=== PATIENT | male | born 1980 | race American Indian/Alaskan Native ===

== ENCOUNTER 2020-09-05 14:08 | Emergency (ER) | payer MEDICARE ==
--- NOTE | 2020-09-05 14:44 | Emergency Department Report ---
ED General Adult HPI - General Chief complaint: Medical Clearance Stated complaint: SOB Time Seen by Provider: 09/05/20 14:20 Source: patient, EMS Mode of arrival: Stretcher Limitations: No Limitations - History of Present Illness Initial comments: 39-year-old male, history of ESRD, heart transplant 2019, hypertension, presents to ED for dialysis. Patient states he has missed 4 dialysis sessions due to transportation issues. Patient is moving from [place] to [place] and trying to get established with the dialysis center on the side of [facility]. Patient states dialysis center unable to dialyze him because they have not received paperwork from his previous center. Patient states his girlfriend made him come to the ER to get dialysis. Associated Symptoms: shortness of breath - Related Data Home Medications Medication Instructions Recorded Confirmed Last Taken lisinopriL [Zestril] 20 mg PO QDAY 12/07/14 12/07/14 12/05/14 20 Previous Rx's Medication Instructions Recorded Last Taken Type Famotidine [Pepcid] 20 mg PO BID #60 tablet 05/31/14 12/05/14 Rx 20 HYDROcodone/APAP 5-325 [[place] 1 each PO Q6H PRN #20 tablet 06/01/14 12/05/14 Rx 5-325 mg TAB] 1 Famotidine [Pepcid] 20 mg PO DAILY #30 tablet 07/20/14 12/05/14 Rx 20 Albuterol Mdi (or & Nicu Only) 2 puff IH QID PRN #1 inha 12/07/14 Unknown Rx [ProAir HFA Inhaler] Aspirin EC [Halfprin EC] 81 mg PO QDAY #30 tablet. 12/07/14 Unknown Rx Furosemide [Lasix] 40 mg PO DAILY #60 tablet 12/07/14 Unknown Rx Potassium Chloride [K-Dur] 20 meq PO QDAY #30 tablet 12/07/14 Unknown Rx Simvastatin (Nf) [Zocor TAB] 20 mg PO QHS #30 tablet 12/07/14 Unknown Rx amLODIPine 10 mg PO QDAY #30 tablet 12/07/14 Unknown Rx carvediloL [Coreg] 25 mg PO BID #60 tablet 12/07/14 Unknown Rx cloNIDine [Catapres] 0.3 mg PO BID #60 tablet 12/07/14 Unknown Rx hydrALAZINE [Apresoline TAB] 100 mg PO TID #90 tab 12/07/14 Unknown Rx lisinopriL [Zestril TAB] 20 mg PO QDAY #30 tablet 12/07/14 Unknown Rx Allergies Allergy/AdvReac Type Severity Reaction Status Date / Time No Known Allergies Allergy Verified 10/17/13 04:10 ED Review of Systems ROS: Stated complaint: SOB Other details as noted in HPI Comment: All other systems reviewed and negative Constitutional: denies: fever Respiratory: shortness of breath Gastrointestinal: denies: nausea, vomiting ED Past Medical Hx - Past Medical History Hx Hypertension: Yes Hx CVA: Yes Hx Heart Attack/AMI: No Hx Congestive Heart Failure: Yes Hx Diabetes: No Hx Deep Vein Thrombosis: Yes Hx Pulmonary Embolism: Yes Hx Renal Disease: Yes Hx Arthritis: No Hx Headaches / Migraines: No Hx Kidney Stones: No Hx Asthma: Yes Hx COPD: No Hx Tuberculosis: No Additional medical history: heart problems - Surgical History Hx Coronary Stent: No Hx Pacemaker: No Hx Internal Defibrillator: No Hx Cholecystectomy: No Hx Appendectomy: No Additional Surgical History: abd hernia, not repaired yet; heart transplant April - Social History Smoking Status: Former Smoker Substance Use Type: Marijuana - Medications Home Medications: Home Medications Medication Instructions Recorded Confirmed Last Taken Type Famotidine [Pepcid] 20 mg PO BID #60 tablet 05/31/14 12/07/14 12/05/14 Rx 20 HYDROcodone/APAP 5-325 [[place] 1 each PO Q6H PRN #20 tablet 06/01/14 12/07/14 12/05/14 Rx 5-325 mg TAB] 1 Famotidine [Pepcid] 20 mg PO DAILY #30 tablet 07/20/14 12/07/14 12/05/14 Rx 20 Albuterol Mdi (or & Nicu Only) 2 puff IH QID PRN #1 inha 12/07/14 Unknown Rx [ProAir HFA Inhaler] Aspirin EC [Halfprin EC] 81 mg PO QDAY #30 tablet. 12/07/14 Unknown Rx Furosemide [Lasix] 40 mg PO DAILY #60 tablet 12/07/14 Unknown Rx Potassium Chloride [K-Dur] 20 meq PO QDAY #30 tablet 12/07/14 Unknown Rx Simvastatin (Nf) [Zocor TAB] 20 mg PO QHS #30 tablet 12/07/14 Unknown Rx amLODIPine 10 mg PO QDAY #30 tablet 12/07/14 Unknown Rx carvediloL [Coreg] 25 mg PO BID #60 tablet 12/07/14 Unknown Rx cloNIDine [Catapres] 0.3 mg PO BID #60 tablet 12/07/14 Unknown Rx hydrALAZINE [Apresoline TAB] 100 mg PO TID #90 tab 12/07/14 Unknown Rx lisinopriL [Zestril TAB] 20 mg PO QDAY #30 tablet 12/07/14 Unknown Rx lisinopriL [Zestril] 20 mg PO QDAY 12/07/14 12/07/14 12/05/14 History 20 ED Physical Exam - General Limitations: No Limitations General appearance: alert, in no apparent distress - Head Head exam: Present: atraumatic, normocephalic - Eye Eye exam: Present: normal appearance, EOMI - ENT ENT exam: Present: mucous membranes moist - Neck Neck exam: Present: normal inspection - Respiratory Respiratory exam: Present: normal lung sounds bilaterally. Absent: respiratory distress - Cardiovascular Cardiovascular Exam: Present: regular rate, normal rhythm - GI/Abdominal GI/Abdominal exam: Present: soft. Absent: distended, tenderness - Extremities Exam Extremities exam: Present: normal inspection - Neurological Exam Neurological exam: Present: alert, oriented X3 - Psychiatric Psychiatric exam: Present: normal affect, normal mood - Skin Skin exam: Present: warm, dry, intact, normal color ED Course Vital Signs 09/05/20 09/05/20 09/05/20 14:45 15:00 15:30 Temperature 98.0 F Pulse Rate 68 60 68 Respiratory 20 15 21 Rate Blood Pressure 138/79 147/92 Blood Pressure 142/89 [Left] O2 Sat by Pulse 99 100 100 Oximetry ED Medical Decision Making - Lab Data Result diagrams: 09/05/20 14:50 09/05/20 14:50 - Radiology Data Radiology results: report reviewed, image reviewed - Medical Decision Making Patient does not meet criteria for emergent dialysis. Potassium is normal. Chacho bass is in no respiratory distress. Chest x-ray shows no pulmonary edema. O2 sats are normal. Patient advised to follow-up with his dialysis center on an outpatient basis. Patient advised to return to ED if he feels worse. - Differential Diagnosis Hyperkalemia, pulmonary edema Critical care attestation.: If time is entered above; I have spent that time in minutes in the direct care of this critically ill patient, excluding procedure time. ED Disposition Clinical Impression: ESRD (end stage renal disease) Disposition: -01 TO HOME OR SELFCARE Is pt being admited?: No Condition: Stable Instructions: Dialysis Referrals: PRIMARY CARE, [Primary Care Provider] - 3-5 Days PEARL MAYFIELD MD [Staff Physician] - 3-5 Days Time of Disposition: 16:03
[2020-09-05 15:14] LABS: Basophils % (Auto) 0.4 % (0.0-1.8); Eosinophils # (Auto) 0.1 K/mm3 (0.0-0.4); Eosinophils % (Auto) 0.8 % (0.0-4.3); Hemoglobin 11.4 gm/dl (11.8-15.2); Lymphocytes # (Auto) 1.2 K/mm3 (1.2-5.4); Lymphocytes % (Auto) 18.2 % (13.4-35.0); Mean Corpuscular HGB Conc 33 % (32-34); Mean Corpuscular Volume 87 fl (84-94); Monocytes % (Auto) 15.4 % (0.0-7.3); Platelet Count 139 K/mm3 (140-440); Red Blood Count 3.91 M/mm3 (3.65-5.03); Red Cell Distribution Width 16.6 % (13.2-15.2)
--- NOTE | 2020-09-05 15:20 | XRay Report ---
CHEST 1 VIEW INDICATION: sob. COMPARISON: 07/16/2014 FINDINGS: SUPPORT DEVICES: None. HEART: Normal heart size with sternotomy change and endovascular graft in the aortic arch. LUNGS/PLEURA: No acute air space or interstitial disease. ADDITIONAL FINDINGS: None. IMPRESSION: 1. No acute findings. Signer Name: Jovon Agustin MD Signed: 09/05/2020 3:16 PM Workstation Name: [id number]
[2020-09-05 15:34] LABS: Calcium 8.1 mg/dL (8.4-10.2)
[2020-09-05 15:44] VITALS: BP 147/92
== END 2020-09-05 16:15 | disposition home or self-care (01) ==
LOC: ED 14:08
DX: I13.2 Hypertensive heart and chronic kidney disease with heart failure and with stage 5 chronic kidney disease, or end stage renal disease (principal); N18.6 End stage renal disease; I50.9 Heart failure, unspecified; J45.909 Unspecified asthma, uncomplicated; F12.10 Cannabis abuse, uncomplicated; Z86.73 Personal history of transient ischemic attack (TIA), and cerebral infarction without residual deficits; Z86.718 Personal history of other venous thrombosis and embolism; Z86.711 Personal history of pulmonary embolism; Z98.890 Other specified postprocedural states; Z87.891 Personal history of nicotine dependence; Z79.899 Other long term (current) drug therapy
CPT/HCPCS: 36415; 71045; 80048; 85025

== ENCOUNTER 2020-09-12 03:20 | Emergency (ER) | payer MEDICARE ==
[2020-09-12 06:05] LABS: Basophils % (Auto) 0.6 % (0.0-1.8); Eosinophils # (Auto) 0.2 K/mm3 (0.0-0.4); Hematocrit 35.9 % (35.5-45.6); Hemoglobin 11.6 gm/dl (11.8-15.2); Lymphocytes # (Auto) 1.3 K/mm3 (1.2-5.4); Mean Corpuscular HGB Conc 33 % (32-34); Mean Corpuscular Volume 87 fl (84-94); Monocytes # (Auto) 0.9 K/mm3 (0.0-0.8); Monocytes % (Auto) 10.4 % (0.0-7.3); Platelet Count 165 K/mm3 (140-440); Red Blood Count 4.12 M/mm3 (3.65-5.03)
--- NOTE | 2020-09-12 06:11 | XRay Report ---
CHEST 2 VIEWS INDICATION / CLINICAL INFORMATION: SOB. COMPARISON: 09/05/2020 FINDINGS: SUPPORT DEVICES: Endovascular aortic graft is present and unchanged in appearance/position. HEART / MEDIASTINUM: Sternotomy. Cardiac silhouette size is normal. LUNGS / PLEURA: No significant pulmonary or pleural abnormality. No pneumothorax. No interstitial pul monary edema present. ADDITIONAL FINDINGS: No significant additional findings. IMPRESSION: 1. No acute findings. No interval change. Signer Name: Pauly Kelsey MD Signed: 09/12/2020 6:07 AM Workstation Name: [id number]
[2020-09-12 06:25] LABS: Albumin 3.9 g/dL (3.9-5); Calcium 8.6 mg/dL (8.4-10.2)
--- NOTE | 2020-09-12 11:00 | Emergency Department Report ---
ED General Adult HPI - General Chief complaint: Dyspnea/Respdistress Stated complaint: DIFF BREATHING PUI?: No Time Seen by Provider: 09/12/20 10:37 Source: patient, RN notes reviewed, old records reviewed Mode of arrival: Ambulatory Limitations: No Limitations - History of Present Illness Initial comments: The patient was evaluated in the emergency department for symptoms described in the history of present illness. He/she was evaluated in the context of the global COVID-19 pandemic, which necessitated consideration that the patient might be at risk for infection with the virus that causes COVID-19. Institutional protocols and algorithms that pertain to the evaluation of patients at risk for COVID-19 are in a state of rapid change based on information released by regulatory bodies including the CDC and federal and [facility] organizations. These policies and algorithms were followed during the patient's care in the emergency department. Please note that these policies, procedures and recommendations changed on a rapid basis. Patient is a 39-year-old gentleman. He is not known to myself previously. He has a history of end-stage renal disease on hemodialysis. He typically gets dialysis Wednesday, Wednesday, Wednesday. His last dialysis session was 1 week ago. Patient reports that he lives in [place], and typically gets his dialysis at [facility], [address], [id number] He previously saw a Dr. Castellanos, in [place], and was seeing a Dr Goldsmith, in [place]. He was receiving his hemodialysis at the aforementioned center, but reports that he recently moved locally, and he reports that his aforementioned hemodialysis center is supposed to be transferring his care to a local nephrology clinic. However, he reports that he does not have a local multimedia project manager, or a local hemodialysis center/chair time. He presents to the ER with a complaint of painless lower extremity swelling and subjective abdominal swelling. He denies headache, neck pain, chest pain. He denies vomiting, diaphoresis. He has mild shortness of breath. 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 -: Gradual, days(s) Location: abdomen, left, right, lower extremity Consistency: constant Improves with: other (Symptoms typically resolve with hemodialysis) Worsens with: other (Worsen without access to hemodialysis) Associated Symptoms: shortness of breath - Related Data Home Medications Medication Instructions Recorded Confirmed Last Taken lisinopriL [Zestril] 20 mg PO QDAY 12/07/14 12/07/14 12/05/14 20 Previous Rx's Medication Instructions Recorded Last Taken Type Famotidine [Pepcid] 20 mg PO BID #60 tablet 05/31/14 12/05/14 Rx 20 HYDROcodone/APAP 5-325 [[place] 1 each PO Q6H PRN #20 tablet 06/01/14 12/05/14 Rx 5-325 mg TAB] 1 Famotidine [Pepcid] 20 mg PO DAILY #30 tablet 07/20/14 12/05/14 Rx 20 Albuterol Mdi (or & Nicu Only) 2 puff IH QID PRN #1 inha 12/07/14 Unknown Rx [ProAir HFA Inhaler] Aspirin EC [Halfprin EC] 81 mg PO QDAY #30 tablet. 12/07/14 Unknown Rx Furosemide [Lasix] 40 mg PO DAILY #60 tablet 12/07/14 Unknown Rx Potassium Chloride [K-Dur] 20 meq PO QDAY #30 tablet 12/07/14 Unknown Rx Simvastatin (Nf) [Zocor TAB] 20 mg PO QHS #30 tablet 12/07/14 Unknown Rx amLODIPine 10 mg PO QDAY #30 tablet 12/07/14 Unknown Rx carvediloL [Coreg] 25 mg PO BID #60 tablet 12/07/14 Unknown Rx cloNIDine [Catapres] 0.3 mg PO BID #60 tablet 12/07/14 Unknown Rx hydrALAZINE [Apresoline TAB] 100 mg PO TID #90 tab 12/07/14 Unknown Rx lisinopriL [Zestril TAB] 20 mg PO QDAY #30 tablet 12/07/14 Unknown Rx Allergies Allergy/AdvReac Type Severity Reaction Status Date / Time No Known Allergies Allergy Verified 10/17/13 04:10 ED Review of Systems ROS: Stated complaint: DIFF BREATHING Other details as noted in HPI Comment: Unobtainable due to pts medical conditions Respiratory: shortness of breath Cardiovascular: edema ED Past Medical Hx - Past Medical History Previous Medical History?: Yes Hx Hypertension: Yes Hx CVA: Yes Hx Heart Attack/AMI: No Hx Congestive Heart Failure: Yes Hx Diabetes: No Hx Deep Vein Thrombosis: Yes Hx Pulmonary Embolism: Yes Hx Renal Disease: Yes Hx Arthritis: No Hx Headaches / Migraines: No Hx Kidney Stones: No Hx Asthma: Yes Hx COPD: No Hx Tuberculosis: No Additional medical history: heart problems - Surgical History Hx Coronary Stent: No Hx Pacemaker: No Hx Internal Defibrillator: No Hx Cholecystectomy: No Hx Appendectomy: No Additional Surgical History: abd hernia, not repaired yet; heart transplant April - Social History Smoking Status: Never Smoker Substance Use Type: None - Medications Home Medications: Home Medications Medication Instructions Recorded Confirmed Last Taken Type Famotidine [Pepcid] 20 mg PO BID #60 tablet 05/31/14 12/07/14 12/05/14 Rx 20 HYDROcodone/APAP 5-325 [[place] 1 each PO Q6H PRN #20 tablet 06/01/14 12/07/14 12/05/14 Rx 5-325 mg TAB] 1 Famotidine [Pepcid] 20 mg PO DAILY #30 tablet 07/20/14 12/07/14 12/05/14 Rx 20 Albuterol Mdi (or & Nicu Only) 2 puff IH QID PRN #1 inha 12/07/14 Unknown Rx [ProAir HFA Inhaler] Aspirin EC [Halfprin EC] 81 mg PO QDAY #30 tablet. 12/07/14 Unknown Rx Furosemide [Lasix] 40 mg PO DAILY #60 tablet 12/07/14 Unknown Rx Potassium Chloride [K-Dur] 20 meq PO QDAY #30 tablet 12/07/14 Unknown Rx Simvastatin (Nf) [Zocor TAB] 20 mg PO QHS #30 tablet 12/07/14 Unknown Rx amLODIPine 10 mg PO QDAY #30 tablet 12/07/14 Unknown Rx carvediloL [Coreg] 25 mg PO BID #60 tablet 12/07/14 Unknown Rx cloNIDine [Catapres] 0.3 mg PO BID #60 tablet 12/07/14 Unknown Rx hydrALAZINE [Apresoline TAB] 100 mg PO TID #90 tab 12/07/14 Unknown Rx lisinopriL [Zestril TAB] 20 mg PO QDAY #30 tablet 02/06/15 Unknown Rx lisinopriL [Zestril] 20 mg PO QDAY 12/07/14 12/07/14 12/05/14 History 20 ED Physical Exam - General Limitations: No Limitations General appearance: alert, in no apparent distress - Head Head exam: Present: atraumatic, normocephalic - Eye Eye exam: Present: normal appearance, EOMI. Absent: nystagmus - ENT ENT exam: Present: normal exam, normal orophraynx, mucous membranes moist, normal external ear exam - Neck Neck exam: Present: normal inspection, full ROM. Absent: tenderness, meningismus - Respiratory Respiratory exam: Present: normal lung sounds bilaterally. Absent: respiratory distress, wheezes, rales, rhonchi, stridor, decreased breath sounds - Cardiovascular Cardiovascular Exam: Present: regular rate, normal rhythm, normal heart sounds. Absent: bradycardia, tachycardia, irregular rhythm, systolic murmur, diastolic murmur, rubs, gallop - GI/Abdominal GI/Abdominal exam: Present: soft, normal bowel sounds, other. Absent: distended, tenderness, guarding, rebound, rigid, pulsatile mass - Rectal Rectal exam: Present: deferred - Extremities Exam Extremities exam: Present: normal inspection (Left upper extremity AV fistula noted, without redness, pus or streaking), full ROM, pedal edema (3+ edema noted in the bilateral lower extremities), other (2+ pulses noted in the bilateral upper and lower extremities. There is no palpable cord. negative Homans sign. Muscular compartments are soft. The pelvis is stable.). Absent: calf tenderness - Back Exam Back exam: Present: normal inspection, full ROM. Absent: tenderness, CVA tenderness (R), CVA tenderness (L), paraspinal tenderness, vertebral tenderness - Neurological Exam Neurological exam: Present: alert, oriented X3, other (No facial droop. Tongue midline. Extraocular movements intact bilaterally. Facial sensation intact to light touch in V1, V2, V3 distribution bilaterally. 5 and a 5 strength in 4 extremities. Sensation intact to light touch in 4 extremities.). Absent: motor sensory deficit - Psychiatric Psychiatric exam: Present: normal affect, normal mood - Skin Skin exam: Present: warm, dry, intact, normal color. Absent: rash ED Course Vital Signs 09/12/20 05:16 Temperature 97.8 F Pulse Rate 68 Respiratory 17 Rate Blood Pressure 175/100 O2 Sat by Pulse 97 Oximetry - Reevaluation(s) Reevaluation #1: 09/12/20 11:38 Change in plans. Patient is now going to leave AGAINST MEDICAL ADVICE. Patient is currently alert, oriented, clinically sober, and exhibits decision-making capacity. The patient is free from distracting injury. Risks of leaving, including , disability, paralysis, permanent loss of quality of life were discussed with the patient. He is able to articulate these risks in his own words. This discussion is witnessed by nurse Lilly Arias. The patient understands that he may return to the emergency room right away if and when he changes his mind. Hospital physician is updated. ED Medical Decision Making - Lab Data Result diagrams: 09/12/20 05:29 09/12/20 05:29 Vital Signs 09/12/20 05:16 Temperature 97.8 F Pulse Rate 68 Respiratory 17 Rate Blood Pressure 175/100 O2 Sat by Pulse 97 Oximetry Lab Results 09/12/20 09/12/20 Range/Units 05:29 05:29 WBC 8.3 (4.5-11.0) K/mm3 RBC 4.12 (3.65-5.03) M/mm3 Hgb 11.6 L (11.8-15.2) gm/dl Hct 35.9 (35.5-45.6) % MCV 87 (84-94) fl MCH 28 (28-32) pg MCHC 33 (32-34) % RDW 17.0 H (13.2-15.2) % Plt Count 165 (140-440) K/mm3 Lymph % (Auto) 16.0 (13.4-35.0) % [place] % (Auto) 10.4 H (0.0-7.3) % Eos % (Auto) 2.0 (0.0-4.3) % Baso % (Auto) 0.6 (0.0-1.8) % Lymph # (Auto) 1.3 (1.2-5.4) K/mm3 [place] # (Auto) 0.9 H (0.0-0.8) K/mm3 Eos # (Auto) 0.2 (0.0-0.4) K/mm3 Baso # (Auto) 0.0 (0.0-0.1) K/mm3 Seg Neutrophils % 71.0 H (40.0-70.0) % Seg Neutrophils # 5.9 (1.8-7.7) K/mm3 Sodium 143 (137-145) mmol/L Potassium 4.9 (3.6-5.0) mmol/L Chloride 111.5 H (98-107) mmol/L Carbon Dioxide 16 L (22-30) mmol/L Anion Gap 20 mmol/L BUN 77 H (9-20) mg/dL Creatinine 15.8 H (0.8-1.3) mg/dL Estimated GFR 4 ml/min BUN/Creatinine Ratio 5 % Glucose 75 (75-100) mg/dL Calcium 8.6 (8.4-10.2) mg/dL Total Bilirubin 0.30 (0.1-1.2) mg/dL AST 11 (5-40) units/L ALT 12 (7-56) units/L Alkaline Phosphatase 63 (35-129) units/L Total Protein 7.6 (6.3-8.2) g/dL Albumin 3.9 (3.9-5) g/dL Albumin/Globulin Ratio 1.1 % - EKG Data -: EKG Interpreted by Oh EKG shows normal: sinus rhythm Rate: normal - EKG Data When compared to previous EKG there are: previous EKG unavailable 09/12/20 11:13 Sinus rhythm, 65 bpm, left axis deviation, left anterior fascicular block, left ventricular hypertrophy, abnormal EKG, no complaint of chest pain. The EKG is not a STEMI - Radiology Data Radiology results: pending, report reviewed, image reviewed Print Report Referring Physician: ED DOC Patient Name: GEO ARANA Date of : 1980 Sex: Male Report Date: 2020-09-12 Report Status: Finalized Findings [facility] [address] [place] [address] XRay Report Signed Patient: GEO ARANA MR#: [id number] : 1980 Acct:[id number] Age/Sex: 39 / M ADM Date: 09/12/20 Loc: ED Attending Dr: Ordering Physician: ED MD LORE Date of Service: 09/12/20 Procedure(s): XR chest routine 2V Accession Number(s): [id number] cc: ED DOC, Fluoro Time In Minutes: CHEST 2 VIEWS INDICATION / CLINICAL INFORMATION: SOB. COMPARISON: 09/05/2020 FINDINGS: SUPPORT DEVICES: Endovascular aortic graft is present and unchanged in appearance/position. HEART / MEDIASTINUM: Sternotomy. Cardiac silhouette size is normal. LUNGS / PLEURA: No significant pulmonary or pleural abnormality. No pneumothorax. No interstitial pulmonary edema present. ADDITIONAL FINDINGS: No significant additional findings. IMPRESSION: 1. No acute findings. No interval change. Signer Name: Pauly Kelsey MD Signed: 09/12/2020 6:07 AM Workstation Name: [id number] Transcribed By: Dictated By: Pauly Kelsey MD Electronically Authenticated By: Pauly Kelsey MD Signed Date/Time: 09/12/20606 DD/ 5 TD/TT: - Medical Decision Making Differential diagnosis, including but not limited to: Uremia, azotemia, metabolic acidosis, end-stage renal disease on hemodialysis, need for urgent hemodialysis, noncompliance, case management director patient Assessment and plan: 39-year-old gentleman, who has not had hemodialysis for 1 week, complaining of lower extremity swelling, abdominal wall swelling, shortness of breath, found to have evidence of fluid overload, manifest by lower extremity edema, also found to have metabolic acidosis, azotemia, uremia, with unremarkable potassium. I discussed the patient's history, physical, and pertinent laboratory studies and imaging studies with nephrology on-call, Dr. Campbell. Admission for urgent hemodialysis is recommended. Hospital physician, Dr. Dee is to admit the patient to the medical service. Have discussed this with the patient, who is amenable to this plan of care. Have also initially reached out to case management, who have made some bandar mmendations regarding outpatient transportation, but will defer to the inpatient team to further follow-up with case management, once the patient has been medically optimized. Critical care attestation.: If time is entered above; I have spent that time in minutes in the direct care of this critically ill patient, excluding procedure time. ED Disposition Clinical Impression: Metabolic acidosis, Azotemia, ESRD (end stage renal disease) on dialysis, Uremia Disposition: LEFT AGAINST MED ADVICE Is pt being admited?: No Does the pt Need Aspirin: No Condition: Undetermined Additional Instructions: As we discussed, you have left the hospital/emergency room AGAINST MEDICAL ADVICE. By leaving, you risked , disability, paralysis, permanent loss of quality of life. The ER is open 24 hours a day, 7 days a week. It never closes. Please return to the emergency room right away if and when you change your mind. If you decide not to return to the emergency room, please follow-up with the listed physician referrals as soon as possible. Referrals: PEARL CAMPBELL MD [Staff Physician] - [facility]
[2020-09-12 13:31] VITALS: BP 158/81
== END 2020-09-12 11:48 | disposition left against medical advice (07) ==
LOC: ED 03:20
DX: I13.2 Hypertensive heart and chronic kidney disease with heart failure and with stage 5 chronic kidney disease, or end stage renal disease (principal); N18.6 End stage renal disease; I50.9 Heart failure, unspecified; E87.2 Acidosis; R79.89 Other specified abnormal findings of blood chemistry; J45.909 Unspecified asthma, uncomplicated; Z98.890 Other specified postprocedural states; Z86.718 Personal history of other venous thrombosis and embolism; Z86.711 Personal history of pulmonary embolism; Z99.2 Dependence on renal dialysis; Z79.899 Other long term (current) drug therapy
CPT/HCPCS: 36415; 71046; 80053; 85025; 93005

== ENCOUNTER 2020-10-27 02:34 | Emergency (ER) | payer MEDICARE ==
--- NOTE | 2020-10-27 20:48 | Event Note ---
ED Screening Note Date of service: 10/27/20 Time: 20:44 ED Screening Note: 40-year-old -Gabones[place] male with a multitude of comorbidities. Patient is end-stage renal and missed dialysis today. This initial assessment/diagnostic orders/clinical plan/treatment(s) is/are subject to change based on patients health status, clinical progression and re- assessment by fellow clinical providers in the ED. Further treatment and workup at subsequent clinical providers discretion. Patient/guardian urged not to elope from the ED as their condition may be serious if not clinically assessed and managed. Initial orders include:
--- NOTE | 2020-10-27 21:22 | XRay Report ---
CHEST 2 VIEWS INDICATION: sob,cough and rales. COMPARISON: 09/12/2020 FINDINGS: Support devices: None. Heart: Aortic stent graft in place Lungs: No acute air space or interstitial disease. Pleura: No significant pleural effusion. No pneumothorax. Additional findings: None. IMPRESSION: 1. No acute findings. Signer Name: Fidel Dorsey MD Signed: 10/27/2020 9:18 PM Workstation Name: [id number]
[2020-10-27 21:50] LABS: Basophils # (Auto) 0.1 K/mm3 (0.0-0.1); Basophils % (Auto) 0.9 % (0.0-1.8); Eosinophils # (Auto) 0.1 K/mm3 (0.0-0.4); Eosinophils % (Auto) 1.1 % (0.0-4.3); Hemoglobin 11.4 gm/dl (11.8-15.2); Lymphocytes # (Auto) 1.6 K/mm3 (1.2-5.4); Lymphocytes % (Auto) 22.8 % (13.4-35.0); Mean Corpuscular HGB Conc 34 % (32-34); Mean Corpuscular Volume 87 fl (84-94); Monocytes % (Auto) 14.7 % (0.0-7.3); Platelet Count 182 K/mm3 (140-440); Red Blood Count 3.91 M/mm3 (3.65-5.03)
[2020-10-27 22:03] LABS: Albumin 3.8 g/dL (3.9-5); Calcium 8.7 mg/dL (8.4-10.2)
[2020-10-28] MEDS ORDERED: amLODIPine 5 MG TAB PO ONE (01:55)
--- NOTE | 2020-10-28 01:59 | Emergency Department Report ---
HPI - General Chief Complaint: Pain General Time Seen by Provider: 10/28/20 01:40 - HPI HPI: This is a 40-year-old -[place] male presents to the emergency department with multiple complaints. The patient's main complaint is that he has been having some sharp, stabbing pains to the left leg that start down towards the ankle and radiate up. This has been going on for the past few days and today he says he has started to have the pains in the right leg as well. He denies any trauma, fall or inciting event. He denies any numbness, tingling, lower extremity swelling, rash or lesions. He has not taken anything for symptoms prior to presentation. Patient also says that he has had this pain in the past. Secondly, the patient complains of chronic right shoulder pain that he says "I think there is something going on with my rotator cuff." Third, the patient complains of a generalized rash that has been going on for "a minute." Because of the patient's leg pain, and since the patient has been waiting to be seen in this emergency department, the patient missed his dialysis that he was supposed to have this morning. He does not know the name of his veneer sawyer but gets dialyzed at [facility]. The patient's primary care physician is Dr. Cayetano Handley in [facility]. Patient denies any fever, chest pain, shortness of breath, nausea, vomiting or diaphoresis. ED Past Medical Hx - Past Medical History Previous Medical History?: Yes Hx Hypertension: Yes Hx CVA: Yes Hx Heart Attack/AMI: No Hx Congestive Heart Failure: Yes Hx Diabetes: No Hx Deep Vein Thrombosis: Yes Hx Pulmonary Embolism: Yes Hx Renal Disease: Yes Hx Arthritis: No Hx Headaches / Migraines: No Hx Kidney Stones: No Hx Asthma: Yes Hx COPD: No Hx Tuberculosis: No Additional medical history: heart problems, dialysis ,,Wed - Surgical History Hx Coronary Stent: No Hx Pacemaker: No Hx Internal Defibrillator: No Hx Cholecystectomy: No Hx Appendectomy: No Additional Surgical History: abd hernia, not repaired yet; heart transplant April - Social History Smoking Status: Current Every Day Smoker Substance Use Type: Marijuana - Medications Home Medications: Home Medications Medication Instructions Recorded Confirmed Last Taken Type Famotidine [Pepcid] 20 mg PO BID #60 tablet 05/31/14 12/07/14 12/05/14 Rx 20 Famotidine [Pepcid] 20 mg PO DAILY #30 tablet 07/20/14 12/07/14 12/05/14 Rx 20 Albuterol Mdi (or & Nicu Only) 2 puff IH QID PRN #1 inha 12/07/14 Unknown Rx [ProAir HFA Inhaler] Aspirin EC [Halfprin EC] 81 mg PO QDAY #30 tablet. 12/07/14 Unknown Rx Furosemide [Lasix] 40 mg PO DAILY #60 tablet 12/07/14 Unknown Rx Potassium Chloride [K-Dur] 20 meq PO QDAY #30 tablet 12/07/14 Unknown Rx Simvastatin (Nf) [Zocor TAB] 20 mg PO QHS #30 tablet 12/07/14 Unknown Rx amLODIPine 10 mg PO QDAY #30 tablet 12/07/14 Unknown Rx carvediloL [Coreg] 25 mg PO BID #60 tablet 12/07/14 Unknown Rx cloNIDine [Catapres] 0.3 mg PO BID #60 tablet 12/07/14 Unknown Rx hydrALAZINE [Apresoline TAB] 100 mg PO TID #90 tab 12/07/14 Unknown Rx lisinopriL [Zestril TAB] 20 mg PO QDAY #30 tablet 12/07/14 Unknown Rx lisinopriL [Zestril] 20 mg PO QDAY 12/07/14 12/07/14 12/05/14 History 20 HYDROcodone/APAP 5-325 [[place] 1 each PO Q6H PRN #10 tablet 10/28/20 Unknown Rx 5-325 mg TAB] ED Review of Systems ROS: Stated complaint: LT SHARP PAINS Other details as noted in HPI Comment: All other systems reviewed and negative Constitutional: denies: chills, fever Eyes: denies: eye pain, vision change ENT: denies: ear pain, throat pain Respiratory: denies: cough, shortness of breath Cardiovascular: denies: chest pain, palpitations Gastrointestinal: denies: abdominal pain, vomiting Genitourinary: denies: dysuria, discharge Musculoskeletal: arthralgia, myalgia. denies: joint swelling Skin: rash. denies: change in hair/nails Neurological: denies: headache, numbness, paresthesias Physical Exam - Physical Exam Vital Signs: Vital Signs 12/27/20 12/27/20 03:20 20:53 Temperature 97.9 F 98 F Pulse Rate 65 189 H Respiratory 16 18 Rate Blood Pressure 104/64 Blood Pressure 189/96 [Left] O2 Sat by Pulse 100 98 Oximetry Physical Exam: GENERAL: The patient is well-developed well-nourished. HENT: Normocephalic. Atraumatic. Patient has moist mucous membranes. EYES: Extraocular motions are intact. NECK: Supple. Trachea is midline. CHEST/LUNGS: Clear to auscultation. There is no respiratory distress noted. HEART/CARDIOVASCULAR: Regular. There is no tachycardia. There is no murmur. ABDOMEN: Abdomen is soft, nontender. Patient has normal bowel sounds. SKIN: Skin is warm and dry. Patient has some patchy areas where there appears to be a loss of pigmentation. NEURO: The patient is awake, alert, and oriented. The patient is cooperative. The patient has no focal neurologic deficits. Normal speech. MUSCULOSKELETAL: Unable to reproduce any tenderness to palpation along the bilateral lower extremities. There is no limitation range of motion. ED Course Vital Signs 10/27/20 10/27/20 03:20 20:53 Temperature 97.9 F 98 F Pulse Rate 65 189 H Respiratory 16 18 Rate Blood Pressure 104/64 Blood Pressure 189/96 [Left] O2 Sat by Pulse 100 98 Oximetry ED Medical Decision Making - Lab Data Result diagrams: 10/27/20 21:06 10/27/20 21:06 Lab Results 10/27/20 10/27/20 Range/Units 21:06 21:06 WBC 7.1 (4.5-11.0) K/mm3 RBC 3.91 (3.65-5.03) M/mm3 Hgb 11.4 L (11.8-15.2) gm/dl Hct 34.0 L (35.5-45.6) % MCV 87 (84-94) fl MCH 29 (28-32) pg MCHC 34 (32-34) % RDW 16.0 H (13.2-15.2) % Plt Count 182 (140-440) K/mm3 Lymph % (Auto) 22.8 (13.4-35.0) % [place] % (Auto) 14.7 H (0.0-7.3) % Eos % (Auto) 1.1 (0.0-4.3) % Baso % (Auto) 0.9 (0.0-1.8) % Lymph # (Auto) 1.6 (1.2-5.4) K/mm3 [place] # (Auto) 1.0 H (0.0-0.8) K/mm3 Eos # (Auto) 0.1 (0.0-0.4) K/mm3 Baso # (Auto) 0.1 (0.0-0.1) K/mm3 Seg Neutrophils % 60.5 (40.0-70.0) % Seg Neutrophils # 4.3 (1.8-7.7) K/mm3 Sodium 141 (137-145) mmol/L Potassium 4.0 (3.6-5.0) mmol/L Chloride 100.8 (98-107) mmol/L Carbon Dioxide 22 (22-30) mmol/L Anion Gap 22 mmol/L BUN 69 H (9-20) mg/dL Creatinine 14.9 H (0.8-1.3) mg/dL Estimated GFR 4 ml/min BUN/Creatinine Ratio 5 % Glucose 81 (75-100) mg/dL Calcium 8.7 (8.4-10.2) mg/dL Total Bilirubin 0.30 (0.1-1.2) mg/dL AST 11 (5-40) units/L ALT 10 (7-56) units/L Alkaline Phosphatase 71 (35-129) units/L Total Protein 8.5 H (6.3-8.2) g/dL Albumin 3.8 L (3.9-5) g/dL Albumin/Globulin Ratio 0.8 % - EKG Data -: EKG Interpreted by Mo EKG shows normal: sinus rhythm, axis (Left axis deviation), intervals, QRS complexes (Incomplete left bundle branch block, LVH), ST-T waves (T wave invers ions to the lateral leads) Rate: bradycardia (59 bpm) - EKG Data When compared to previous EKG there are: no significant change Interpretation: unchanged when compared t (09/12/20) - Radiology Data Radiology results: image reviewed interpreted by me: Chest x-ray does not show any acute process. There are no pleural effusions, obvious pneumonia and there is no pneumothorax. No significant cardiomegaly. - Medical Decision Making Patient presents to the emergency department with multiple chronic complaints. Patient says that he may have done something to his right shoulder, rotator cuff, but there has been no new trauma or injury. He has full range of motion of the right upper extremity and is neurovascularly intact. The patient has been given a referral for an orthopedist. Patient complains of a rash that is generalized and has been there for "a minute", indicating that it has been there for a while. The rash mostly appears to be some loss of pigmentation. It is not any type of medical emergency and the patient will be given a referral for outpatient follow-up with dermatology. The most recent or acute of his complaints is sharp shooting pains to the left lower extremity that has started to affect the right lower extremity as well. On examination the patient has full range of motion. There is no swelling. No significant rash or lesions. He appears neurovascularly intact. The patient h as been ambulatory. Patient has been given a prescription for some pain medication and an outpatient referral for an orthopedist. Because the patient came to be seen regarding his leg pains, he missed his dialysis session which was scheduled for Wednesday. Chest x-ray was done that does not show any pneumonia, pleural effusions, signs of volume overload. His labs have been mostly unremarkable except for the renal insufficiency consistent with his end-stage renal disease. No electrolyte abnormalities. The patient does not appear to require emergent dialysis. He has been instructed t o follow-up with his dialysis clinic and his veneer sawyer about how to proceed. Patient does present with some hypertension but has not been able to take his medications as he has been at this hospital for close to 24 hours. He was given a dose of amlodipine and told to go home and take his blood pressure medications. We talked about staying away from foods that are high in salt and caffeinated products and keeping a blood pressure log. The patient will return to the emergency department with any worsening of his symptoms or with any acute distress. Critical Care Time: No Critical care attestation.: If time is entered above; I have spent that time in minutes in the direct care of this critically ill patient, excluding procedure time. ED Disposition Clinical Impression: Bilateral lower extremity pain, Missed dialysis, Rash and nonspecific skin eruption Hypertension Qualifiers: Hypertension type: essential hypertension Qualified Code(s): I10 - Essential (primary) hypertension Right shoulder pain Qualifiers: Chronicity: chronic Qualified Code(s): M25.511 - Pain in right shoulder; G89.29 - Other chronic pain Disposition: TO HOME OR SELFCARE Is pt being admited?: No Condition: Stable Instructions: Shoulder Pain, Rash, Adult, Musculoskeletal Pain, Hypertension, Adult, Hypertension (ED) Additional Instructions: Please follow-up with your primary care physician in the next few days. I am giving you a referral for a local windows server administrator, Dr Gil, to follow-up regarding your rash. I am also giving you a referral for a local orthopedist, Dr. Duckworth, to follow-up regarding your leg pains and right shoulder pain. Please contact your dialysis facility, as well as your veneer sawyer, about getting dialysis today (wednesday) versus on Wednesday during your normal dialysis time slot. Take your medications as previously prescribed. Try to stay away from foods that are high in salt and caffeinated products. Keep a blood pressure log. You have been prescribed a medication that is sedating and therefore should not be taken prior to driving, working, and responsible for children and in no way should be mixed with alcohol of any quantity. Return to the emergency department with any worsening of your symptoms, new or concerning symptoms not addressed during this current emergency department vis it, or with any acute distress. Prescriptions: HYDROcodone/APAP 5-325 [[place] 5-325 mg TAB] 1 each PO Q6H PRN #10 tablet PRN Reason: Moderate Pain Referrals: PRIMARY CAREMD [Primary Care Provider] - 2-3 Days SARAH DUCKWORTH MD [Staff Physician] - 2-3 Days FAWAD GIL MD [Staff Physician] - 2-3 Days Climate Change Risk Assessor, Your [Other] - 2-3 Days Time of Disposition: 02:04
[2020-10-28] MEDS ORDERED: ACETAMINOPHEN 325 MG TAB PO ONE (02:07)
[2020-10-28 02:11] VITALS: BP 174/90
== END 2020-10-28 02:23 | disposition home or self-care (01) ==
LOC: ED 02:34
DX: M25.511 Pain in right shoulder (principal); M79.662 Pain in left lower leg; M79.661 Pain in right lower leg; I11.0 Hypertensive heart disease with heart failure; R21 Rash and other nonspecific skin eruption; Z91.15 Patient's noncompliance with renal dialysis; I50.9 Heart failure, unspecified; J45.909 Unspecified asthma, uncomplicated; F17.200 Nicotine dependence, unspecified, uncomplicated; F12.10 Cannabis abuse, uncomplicated; Z79.899 Other long term (current) drug therapy
CPT/HCPCS: 36415; 71046; 80053; 85025; 93005

== ENCOUNTER 2021-02-20 14:29 | Emergency (ER) | payer MEDICARE ==
[2021-02-20 15:03] VITALS: BP 185/96
== END 2021-02-20 19:12 | disposition left against medical advice (07) ==
LOC: ED 14:29
DX: Z51.89 Encounter for other specified aftercare (principal); Z53.21 Procedure and treatment not carried out due to patient leaving prior to being seen by health care provider

== ENCOUNTER 2021-08-25 10:37 | Observation (INO) | payer MEDICARE ==
--- NOTE | 2021-08-25 11:30 | Emergency Department Report ---
ED Shortness of Breath HPI - General Chief Complaint: Extremity Problem,Nontraumatic Stated Complaint: SOB Time Seen by Provider: 08/25/21 11:11 Source: patient Mode of arrival: Stretcher Limitations: No Limitations - History of Present Illness Initial Comments: 40-year-old male, history of ESRD, presents to ED with shortness of breath x1 week. Patient states he has been going to dialysis, however he is still having some dyspnea and also having swelling in the bilateral lower extremities. Patient states he was last dialyzed 3 days ago, and is due for dialysis again this evening. Patient states he came to the ED instead because he cannot take enough fluid off of him. Patient reports his supervisor salvage gave him a prescription for some Lasix, but states that that is not helping. Event Coordinator: Dr. Bruce NORRIS Complaint: shortness of breath -: week(s) (1) Improves With: rest Worsens With: exertion Associated Symptoms: cough Treatments Prior to Arrival: none - Related Data Home Oxygen Therapy: No Home Medications Medication Instructions Recorded Confirmed Last Taken lisinopriL [Zestril] 20 mg PO QDAY 12/07/14 12/07/14 12/05/14 20 Previous Rx's Medication Instructions Recorded Last Taken Type Famotidine [Pepcid] 20 mg PO BID #60 tablet 05/31/14 12/05/14 Rx 20 Famotidine [Pepcid] 20 mg PO DAILY #30 tablet 07/20/14 12/05/14 Rx 20 Albuterol Mdi (or & Nicu Only) 2 puff IH QID PRN #1 inha 12/07/14 Unknown Rx [ProAir HFA Inhaler] Aspirin EC [Halfprin EC] 81 mg PO QDAY #30 tablet. 12/07/14 Unknown Rx Furosemide [Lasix] 40 mg PO DAILY #60 tablet 12/07/14 Unknown Rx Potassium Chloride [K-Dur] 20 meq PO QDAY #30 tablet 12/07/14 Unknown Rx Simvastatin (Nf) [Zocor TAB] 20 mg PO QHS #30 tablet 12/07/14 Unknown Rx amLODIPine 10 mg PO QDAY #30 tablet 12/07/14 Unknown Rx carvediloL [Coreg] 25 mg PO BID #60 tablet 12/07/14 Unknown Rx cloNIDine [Catapres] 0.3 mg PO BID #60 tablet 12/07/14 Unknown Rx hydrALAZINE [Apresoline TAB] 100 mg PO TID #90 tab 12/07/14 Unknown Rx lisinopriL [Zestril TAB] 20 mg PO QDAY #30 tablet 12/07/14 Unknown Rx HYDROcodone/APAP 5-325 [[place] 1 each PO Q6H PRN #10 tablet 10/28/20 Unknown Rx 5-325 mg TAB] Allergies Allergy/AdvReac Type Severity Reaction Status Date / Time No Known Allergies Allergy Verified 02/20/21 15:01 ED Review of Systems ROS: Stated complaint: SOB Other details as noted in HPI Comment: All other systems reviewed and negative Respiratory: cough, shortness of breath Cardiovascular: edema ED Past Medical Hx - Past Medical History Previous Medical History?: Yes Hx Hypertension: Yes Hx CVA: Yes Hx Heart Attack/AMI: No Hx Congestive Heart Failure: Yes Hx Diabetes: No Hx Deep Vein Thrombosis: Yes Hx Pulmonary Embolism: Yes Hx Renal Disease: Yes Hx Arthritis: No Hx Headaches / Migraines: No Hx Kidney Stones: No Hx Asthma: Yes Hx COPD: No Hx Tuberculosis: No Additional medical history: heart problems - Surgical History Hx Coronary Stent: No Hx Pacemaker: No Hx Internal Defibrillator: No Hx Cholecystectomy: No Hx Appendectomy: No Additional Surgical History: abd hernia, not repaired yet; heart transplant April - Social History Smoking Status: Never Smoker Substance Use Type: None - Medications Home Medications: Home Medications Medication Instructions Recorded Confirmed Last Taken Type Famotidine [Pepcid] 20 mg PO BID #60 tablet 05/31/14 12/07/14 12/05/14 Rx 20 Famotidine [Pepcid] 20 mg PO DAILY #30 tablet 07/20/14 12/07/14 12/05/14 Rx 20 Albuterol Mdi (or & Nicu Only) 2 puff IH QID PRN #1 inha 12/07/14 Unknown Rx [ProAir HFA Inhaler] Aspirin EC [Halfprin EC] 81 mg PO QDAY #30 tablet. 12/07/14 Unknown Rx Furosemide [Lasix] 40 mg PO DAILY #60 tablet 12/07/14 Unknown Rx Potassium Chloride [K-Dur] 20 meq PO QDAY #30 tablet 12/07/14 Unknown Rx Simvastatin (Nf) [Zocor TAB] 20 mg PO QHS #30 tablet 12/07/14 Unknown Rx amLODIPine 10 mg PO QDAY #30 tablet 12/07/14 Unknown Rx carvediloL [Coreg] 25 mg PO BID #60 tablet 12/07/14 Unknown Rx cloNIDine [Catapres] 0.3 mg PO BID #60 tablet 12/07/14 Unknown Rx hydrALAZINE [Apresoline TAB] 100 mg PO TID #90 tab 12/07/14 Unknown Rx lisinopriL [Zestril TAB] 20 mg PO QDAY #30 tablet 12/07/14 Unknown Rx lisinopriL [Zestril] 20 mg PO QDAY 12/07/14 12/07/14 12/05/14 History 20 HYDROcodone/APAP 5-325 [[place] 1 each PO Q6H PRN #10 tablet 10/28/20 Unknown Rx 5-325 mg TAB] ED Physical Exam - General Limitations: No Limitations General appearance: alert, in no apparent distress - Head Head exam: Present: atraumatic, normocephalic - Eye Eye exam: Present: normal appearance, EOMI - ENT ENT exam: Present: mucous membranes moist - Neck Neck exam: Present: normal inspection - Respiratory Respiratory exam: Present: respiratory distress, other (Slightly tachypneic) - Cardiovascular Cardiovascular Exam: Present: regular rate, normal rhythm - GI/Abdominal GI/Abdominal exam: Present: soft. Absent: distended, tenderness - Extremities Exam Extremities exam: Present: other (2+ pitting edema bilateral lower legs) - Neurological Exam Neurological exam: Present: alert, oriented X3 - Psychiatric Psychiatric exam: Present: normal affect, normal mood - Skin Skin exam: Present: warm, dry, intact, normal color ED Course Vital Signs 08/25/21 08/25/21 08/25/21 10:56 12:43 15:15 Temperature 98 F Pulse Rate 91 H 84 88 Respiratory 16 16 16 Rate Blood Pressure 154/90 Blood Pressure 154/99 172/97 [Left] O2 Sat by Pulse 99 100 97 Oximetry - Reevaluation(s) Reevaluation #1: 08/25/21 12:40 Dr Bruce price. - Consultations Consultation #1: 08/25/21 14:[address] Campbell. Will consult on patient. ED Medical Decision Making - Lab Data Result diagrams: 08/25/21 11:54 08/25/21 11:54 - EKG Data -: EKG Interpreted by Me EKG shows normal: sinus rhythm, QRS complexes Rate: normal - EKG Data Interpretation: LVH, other (T wave inversions anterolateral leads; prolonged QT) - Radiology Data Radiology results: report reviewed, image reviewed - Medical Decision Making 40-year-old male, on dialysis, presents to ED with shortness of breath x1 week. Patient states he has been going to dialysis but is still having some pitting edema of the lower extremities and difficulty breathing. Chest x-ray does show some pulmonary edema. Potassium elevated at 6.1. According to nurse, patient refused meds for hyperkalemia treatment. I spoke with Dr. Campebll who agrees to arrange for dialysis. Patient will be admitted by Dr. Dee, hospitalist, for further management. - Differential Diagnosis Pulmonary edema, pneumonia, hyperkalemia Critical Care Time: Yes Critical care time in (mins) excluding proc time.: 35 Critical care attestation.: If time is entered above; I have spent that time in minutes in the direct care of this critically ill patient, excluding procedure time. Critical Care Time: 35 min ED Disposition Clinical Impression: Hyperkalemia, ESRD needing dialysis Pulmonary edema Qualifiers: Chronicity: acute Qualified Code(s): J81.0 - Acute pulmonary edema Disposition: 09 ADMITTED INPATIENT Is pt being admited?: Yes Condition: Stable
--- NOTE | 2021-08-25 12:03 | XRay Report ---
CHEST 1 VIEW 08/25/2021 10:43 AM INDICATION / CLINICAL INFORMATION: SOB. COMPARISON: 10/27/20. FINDINGS: SUPPORT DEVICES: None. HEART / MEDIASTINUM: Median sternotomy. Endovascular stent graft in the aortic arch has not changed. Mild cardiomegaly is stable. There is mild prominence of the central pulmonary vessels. LUNGS / PLEURA: Mild patchy parenchymal disease is present in the perihilar regions and both mid to l ower lung zones, new since the prior study. There is a trace amount of right pleural fluid. No pneumo thorax. ADDITIONAL FINDINGS: No significant additional findings. IMPRESSION: Mild congestive heart failure. Signer Name: Madhu Brewer MD Signed: 08/25/2021 11:59 AM Workstation Name: [employer]
[2021-08-25 12:14] LABS: Basophils % (Auto) 0.3 % (0.0-1.8); Eosinophils # (Auto) 0.1 K/mm3 (0.0-0.4); Eosinophils % (Auto) 1.2 % (0.0-4.3); Hematocrit 28.5 % (35.5-45.6); Hemoglobin 8.8 gm/dl (11.8-15.2); Lymphocytes # (Auto) 0.9 K/mm3 (1.2-5.4); Lymphocytes % (Auto) 10.8 % (13.4-35.0); Mean Corpuscular HGB Conc 31 % (32-34); Mean Corpuscular Volume 92 fl (84-94); Monocytes # (Auto) 0.6 K/mm3 (0.0-0.8); Platelet Count 125 K/mm3 (140-440); Red Blood Count 3.11 M/mm3 (3.65-5.03); Red Cell Distribution Width 18.8 % (13.2-15.2)
[2021-08-25 12:20] LABS: Calcium 7.9 mg/dL (8.4-10.2)
[2021-08-25] MEDS ORDERED: INSULIN REGULAR, HUMAN 100 UNITS/1 ML IV ONE (12:41)
[2021-08-25] MEDS ORDERED: DEXTROSE 50% IN WATER (25GM) 50 ML SYRINGE IV ONE (12:41)
[2021-08-25] MEDS ORDERED: CALCIUM GLUCONATE 1,000 MG in SODIUM CHLORIDE 0.9% 100 ML IV ONE (13:00)
--- NOTE | 2021-08-25 14:40 | History and Physical Report ---
History of Present Illness Chief complaint: I am retaining too much fluid History of present illness: 40 YO Male with HTN, ESRD on HD(M,W,F), CHF, CVA with LHP, ETOH Dependence, Nicotine Dependence, DVT/PE, Cardiomyopathy S/P Heart transplant in 04/2019 presents to ED for evaluation. Patient reports "I am retaining too much fluid". Patient states that he has experienced lower extremity edema, and shortness of breath over the past 3 days with worsening symptoms over the same timeframe. Patient also reports that he was last dialyzed 3 days ago. EMS was notified and upon arrival the patient was found to be in distress and subsequent transported to [facility] for further care and evaluation of the aforementioned symptoms. The patient was seen and evaluated in the emergency department. All lab and imaging studies reviewed. Patient was found to have end-stage renal disease complicated by fluid overload, as well as hyperkalemia. Patient placed in observation status admitted to medical floor. Nephrology team consulted in ED for urgent dialysis. Patient denies fever, chills, chest pain, palpitation, productive cough, skin rash, recent ill contacts, or known exposure to COVID-19. Prior admission on 07/16/2014 reviewed. All medication listed at time of admission has been reconciled. Past History Past Medical History: ESRD, heart failure, hypertension, stroke, other (See HPI) Past Surgical History: Other (Dialysis access, cardiac surgery) Social history: , lives with family, alcohol abuse, prescription drug abuse. denies: smoking Family history: diabetes, hypertension Medications and Allergies Allergies Allergy/AdvReac Type Severity Reaction Status Date / Time No Known Allergies Allergy Verified 02/20/21 15:01 Home Medications Medication Instructions Recorded Confirmed Last Taken Type Famotidine [Pepcid] 20 mg PO BID #60 tablet 05/31/14 12/07/14 12/05/14 Rx 20 Famotidine [Pepcid] 20 mg PO DAILY #30 tablet 07/20/14 12/07/14 12/05/14 Rx 20 Albuterol Mdi (or & Nicu Only) 2 puff IH QID PRN #1 inha 12/07/14 Unknown Rx [ProAir HFA Inhaler] Aspirin EC [Halfprin EC] 81 mg PO QDAY #30 tablet. 12/07/14 Unknown Rx Furosemide [Lasix] 40 mg PO DAILY #60 tablet 12/07/14 Unknown Rx Potassium Chloride [K-Dur] 20 meq PO QDAY #30 tablet 12/07/14 Unknown Rx Simvastatin (Nf) [Zocor TAB] 20 mg PO QHS #30 tablet 12/07/14 Unknown Rx amLODIPine 10 mg PO QDAY #30 tablet 12/07/14 Unknown Rx carvediloL [Coreg] 25 mg PO BID #60 tablet 12/07/14 Unknown Rx cloNIDine [Catapres] 0.3 mg PO BID #60 tablet 12/07/14 Unknown Rx hydrALAZINE [Apresoline TAB] 100 mg PO TID #90 tab 12/07/14 Unknown Rx lisinopriL [Zestril TAB] 20 mg PO QDAY #30 tablet 12/07/14 Unknown Rx lisinopriL [Zestril] 20 mg PO QDAY 12/07/14 12/07/14 12/05/14 History 20 HYDROcodone/APAP 5-325 [[place] 1 each PO Q6H PRN #10 tablet 10/28/20 Unknown Rx 5-325 mg TAB] Review of Systems Constitutional: no weight loss, no weight gain, no fever, no chills Ears, nose, mouth and throat: no ear pain, no ear discharge, no nose pain Cardiovascular: shortness of breath, leg edema, no chest pain, no orthopnea, no rapid/irregular heart beat Respiratory: no cough, no excessive sputum, no shortness of breath Gastrointestinal: no abdominal pain, no nausea, no vomiting, no diarrhea, no constipation, no hematemesis Genitourinary Male: no hematuria, no flank pain, no discharge, no urinary frequency, no urinary hesitancy Rectal: no pain, no incontinence Musculoskeletal: no neck pain, no arm numbness/tingling, no low back pain, no shooting leg pain Integumentary: no rash, no pruritis, no sores, no wounds, no jaundice Neurological: no head injury, no transient paralysis, no parathesias, no syncope, no tremors, no ataxia Psychiatric: no anxiety, no memory loss, no insomnia, no hypersomnia, no change in libido, no suicidal ideation, no disorientation Endocrine: no cold intolerance, no heat intolerance, no polyphagia, no polydipsia, no polyuria, no nocturia, no excessive sweating Hematologic/Lymphatic: no easy bruising, no easy bleeding, no lymphadenopathy Allergic/Immunologic: no urticaria, no allergic rhinitis, no wheezing, no persistent infections, no anaphylaxis Exam - Constitutional Vitals: Temp Pulse Resp BP Pulse Ox 98 F 84 16 154/99 100 08/25/21 10:56 08/25/21 12:43 08/25/21 12:43 08/25/21 12:43 08/25/21 12:43 General appearance: Present: mild distress - EENT Eyes: Present: PERRL ENT: hearing intact, clear oral mucosa - Neck Neck: Present: supple, normal ROM - Respiratory Respiratory effort: normal Respiratory: bilateral: diminished, rhonchi - Cardiovascular Heart Sounds: Present: S1 & S2. Absent: rub, click - Extremities Extremities: pulses symmetrical Extremity abnormal: edema Peripheral Pulses: within normal limits - Abdominal General gastrointestinal: Present: soft, non-tender, non-distended, normal bowel sounds Male genitourinary: Present: normal - Integumentary Integumentary: Present: clear, warm, dry - Musculoskeletal Musculoskeletal: gait normal, strength equal bilaterally - Psychiatric Psychiatric: appropriate mood/affect, intact judgment & insight - Neurologic Neurologic: CNII-XII intact, moves all extremities Results - Labs CBC & Chem 7: 08/25/21 11:54 08/25/21 11:54 Labs: Abnormal lab results 08/25/21 08/25/21 08/25/21 Range/Units 11:54 11:54 13:41 RBC 3.11 L (3.65-5.03) M/mm3 Hgb 8.8 L (11.8-15.2) gm/dl Hct 28.5 L (35.5-45.6) % MCHC 31 L (32-34) % RDW 18.8 H (13.2-15.2) % Plt Count 125 L (140-440) K/mm3 Lymph % (Auto) 10.8 L (13.4-35.0) % Lymph # (Auto) 0.9 L (1.2-5.4) K/mm3 Seg Neutrophils % 80.7 H (40.0-70.0) % Potassium 6.1 H* (3.6-5.0) mmol/L Chloride 96.5 L (98-107) mmol/L BUN 75 H (9-20) mg/dL Creatinine 11.5 H (0.8-1.3) mg/dL POC Glucose 68 L (70-105) mg/dL Calcium 7.9 L (8.4-10.2) mg/dL Assessment and Plan - Patient Problems (1) ESRD needing dialysis Current Visit: Yes Status: Acute Plan to address problem: Nephrology team consulted in ED, strict I's/O, monitor fluid balance, dialysis as per renal team, avoid nephrotoxic agents. (2) Hyperkalemia Current Visit: Yes Status: Acute Plan to address problem: No EKG changes, repeat BMP in a.m. calcium gluconate, insulin, D50, dialysis as per renal team (3) Pulmonary edema Current Visit: Yes Status: Acute Qualifiers: Chronicity: acute Qualified Code(s): J81.0 - Acute pulmonary edema Plan to address problem: Supportive care, dialysis as per renal team, supplemental oxygen, (4) Acute on chronic congestive heart failure Current Visit: No Status: Suspected Plan to address problem: Strict I's/O, monitor fluid balance, blood pressure control, supplemental o xygen, pulse oximetry, afterload reduction, (5) Cardiomyopathy Current Visit: No Status: Acute Plan to address problem: Status post cardiac transplant, continue current therapy. (6) EtOH dependence Current Visit: Yes Status: Acute Qualifiers: Complication of substance-induced condition: uncomplicated Plan to address problem: Thiamine, folic acid, multivitamin daily, CIWA protocol (7) Nicotine dependence Current Visit: Yes Status: Acute Qualifiers: Nicotine product type: cigarettes Substance use status: in withdrawal Qualified Code(s): F17.213 - Nicotine dependence, cigarettes, with withdrawal Plan to address problem: Smoking cessation counseling, supportive care, behavior change counseling, +15 minutes (8) DVT prophylaxis Current Visit: Yes Status: Acute Plan to address problem: SCD to bilateral lower extremities while in bed, patient is ambulatory
[2021-08-25] MEDS ORDERED: ONDANSETRON 4 MG/2 ML INJ IV PRN ×2 (14:56→15:00)
[2021-08-25] MEDS ORDERED: ALBUTEROL 2.5 MG/3 ML NEBU IH PRN (15:00)
[2021-08-25] MEDS ORDERED: ACETAMINOPHEN 325 MG TAB PO PRN ×2 (15:00)
[2021-08-25] MEDS ORDERED: HYDROmorphone 1 MG/1 ML INJ IV PRN (15:00)
[2021-08-25] MEDS ORDERED: oxyCODONE /ACETAMINOPHEN 5-325MG TAB PO PRN (16:00)
[2021-08-25 18:47] LABS: Hepatitis C Virus Antibody Non-Reactive (NonReactive)
[2021-08-25 21:00] LABS: Hepatitis B Surface Antigen Nonreactive (Negative)
[2021-08-25] MEDS ORDERED: PRAVASTATIN 40 MG TAB PO SCH (22:00)
[2021-08-25] MEDS ORDERED: NON-FORMULARY EACH (Simvastatin (Nf) 20 MG Tablet) PO SCH (22:00)
[2021-08-25] MEDS: hydrALAZINE 100 MG TAB PO SCH (22:44)
[2021-08-25] MEDS: cloNIDine 0.1 MG TAB PO SCH (22:44)
[2021-08-25] MEDS: carvediloL 25 MG TAB PO SCH (22:44)
--- NOTE | 2021-08-26 08:22 | Discharge Summary ---
Providers - Providers Date of Admission: 08/25/21 14:56 Date of discharge: 08/26/21 Attending physician: RUBINA AGUIRRE MD 08/25/21 14:39 Consult to Physician [CONS] Stat Comment: Consulting Provider: PEARL MAYFIELD Physician Instructions: Reason For Exam: dialysis, hyperkalemia Primary care physician: [facility] Hospitalization Reason for admission: Lower extremity edema Condition: Stable Hospital course: History of present illness: 40 YO Male with HTN, ESRD on HD(M,W,F), CHF, CVA with LHP, ETOH Dependence, Nicotine Dependence, DVT/PE, Cardiomyopathy S/P Heart transplant in 04/2019 presents to ED for evaluation. Patient reports "I am retaining too much fluid". Patient states that he has experienced lower extremity edema, and shortness of breath over the past 3 days with worsening symptoms over the same timeframe. Patient also reports that he was last dialyzed 3 days ago. EMS was notified and upon arrival the patient was found to be in distress and subsequent transported to [facility] for further care and evaluation of the aforementioned symptoms. The patient was seen and evaluated in the emergency department. All lab and imaging studies reviewed. Patient was found to have end-stage renal disease complicated by fluid overload, as well as hyperkalemia. Patient placed in observation status admitted to medical floor. Nephrology team consulted in ED for urgent dialysis. Patient denies fever, chills, chest pain, palpitation, productive cough, skin rash, recent ill contacts, or known exposure to COVID-19. Prior admission on 07/16/2014 reviewed. All medication listed at time of admission has been reconciled. Hospital course Patient was admitted for pulmonary edema and fluid overload. Patient's potassium was noted to be elevated on admission to 6.1. Creatinine was 11.5. He is a hemodialysis patient. Nephrology was consulted from the emergency department for stat hemodialysis. Patient received additional hemodialysis treatment this AM. He states he is feeling significantly better. Electrolyte abnormalities have improved with potassium correcting to 4.4. Patient respiratory status and lower extremity edema have resolved. He was advised to resume all of his home antihypertensive and heart failure medication. He will be discharged and was advised to follow-up with his cupola tapper in 3 to 5 days. He is advised to follow-up with a primary care physician in 1 to 2 weeks. Assessment and plan: (1) ESRD needing dialysis Current Visit: Yes Status: Acute Plan to address problem: Nephrology team consulted in ED, strict I's/O, monitor fluid balance, dialysis as per renal team, avoid nephrotoxic agents. (2) Hyperkalemia Current Visit: Yes Status: Acute Plan to address problem: No EKG changes, repeat BMP in a.m. calcium gluconate, insulin, D50, dialysis as per renal team (3) Pulmonary edema Current Visit: Yes Status: Acute Qualifiers: Chronicity: acute Qualified Code(s): J81.0 - Acute pulmonary edema Plan to address problem: Supportive care, dialysis as per renal team, supplemental oxygen, (4) Acute on chronic congestive heart failure Current Visit: No Status: Suspected Plan to address problem: Strict I's/O, monitor fluid balance, blood pressure control, supplemental oxygen, pulse oximetry, afterload reduction, (5) Cardiomyopathy Current Visit: No Status: Acute Plan to address problem: Status post cardiac transplant, continue current therapy. (6) EtOH dependence Current Visit: Yes Status: Acute Qualifiers: Complication of substance-induced condition: uncomplicated Plan to address problem: Thiamine, folic acid, multivitamin daily, CIWA protocol (7) Nicotine dependence Current Visit: Yes Status: Acute Qualifiers: Nicotine product type: cigarettes Substance use status: in withdrawal Qualified Code(s): F17.213 - Nicotine dependence, cigarettes, with withdrawal Plan to address problem: Smoking cessation counseling, supportive care, behavior change counseling, +15 minutes (8) DVT prophylaxis Current Visit: Yes Status: Acute Plan to address problem: SCD to bilateral lower extremities while in bed, patient is ambulatory Disposition: 01 HOME / SELF CARE / HOMELESS Final Discharge Diagnosis (Prints w/discharge instructions): Pulmonary edema and fluid overload Time spent for discharge: 35 - Discharge Diagnoses (1) ESRD needing dialysis Status: Acute (2) Pulmonary edema Status: Acute Qualifiers: Chronicity: acute Qualified Code(s): J81.0 - Acute pulmonary edema Core Measure Documentation - Palliative Care Palliative Care/ Comfort Measures: Not Applicable - Core Measures Any of the following diagnoses?: none Exam - Physical Exam Narrative exam: General appearance: Present: mild distress - EENT Eyes: Present: PERRL ENT: hearing intact, clear oral mucosa - Neck Neck: Present: supple, normal ROM - Respiratory Respiratory effort: normal Respiratory: bilateral: diminished, rhonchi - Cardiovascular Heart Sounds: Present: S1 & S2. Absent: rub, click - Extremities Extremities: pulses symmetrical Extremity abnormal: edema Peripheral Pulses: within normal limits - Abdominal General gastrointestinal: Present: soft, non-tender, non-distended, normal bowel sounds Male genitourinary: Present: normal - Integumentary Integumentary: Present: clear, warm, dry - Musculoskeletal Musculoskeletal: gait normal, strength equal bilaterally - Psychiatric Psychiatric: appropriate mood/affect, intact judgment & insight - Neurologic Neurologic: CNII-XII intact, moves all extremities - Constitutional Vitals: Temp Pulse Resp BP Pulse Ox 98.6 F 72 18 116/69 96 08/26/21 05:33 08/26/21 05:33 08/26/21 05:33 08/26/21 05:33 08/26/21 05:33 Plan Activity: advance as tolerated Weight Bearing Status: Weight Bear as Tolerated Diet: renal Follow up with: PRIMARY CAREMD [Primary Care Provider] - 3-5 Days
[2021-08-26] MEDS ORDERED: FAMOTIDINE 20 MG TAB PO SCH (10:00)
[2021-08-26] MEDS ORDERED: amLODIPine 10 MG TAB PO SCH (10:00)
[2021-08-26] MEDS ORDERED: POTASSIUM CHLORIDE ER 20 MEQ TAB PO SCH (10:00)
[2021-08-26] MEDS ORDERED: ASPIRIN EC 81 MG TAB PO SCH (10:00)
[2021-08-26] MEDS ORDERED: LISINOPRIL 20 MG TAB PO SCH (10:00)
[2021-08-26] MEDS ORDERED: FUROSEMIDE 40 MG TAB PO SCH (10:00)
[2021-08-26 12:34] LABS: Calcium 7.7 mg/dL (8.4-10.2)
--- NOTE | 2021-08-26 13:11 | Consultation ---
History of Present Illness - Reason for Consult Consult date: 08/26/21 end stage renal disease - History of Present Illness This is a 40 year-old man with ESRD who presents for dyspnea, volume overload. Patient usually dialyzes MWF at [facility], Last HD 08/22. Denies any recent issues with HD, including dizziness, lightheadedness, cramping, chest pain on HD. On morning of 08/25, he was feeling short of breath with edema, called the dialysis unit to see if he could come in early, but no chair available, so he came to ED. Currently, patient denies any issues including dyspnea, edema, access issues, nausea, vomiting, headaches. Seen on HD today, also was dialyzed yesterday from ED. Outpatient HD data reviewed: EDW 77.5kg, has been coming around 86kg, usual UF 4L. Past History Past Medical History: ESRD, heart failure, hypertension, stroke, other (See HPI) Past Surgical History: Other (Dialysis access, cardiac surgery) Social history: , lives with family, alcohol abuse, prescription drug abuse. denies: smoking Family history: diabetes, hypertension Medications and Allergies Allergies Allergy/AdvReac Type Severity Reaction Status Date / Time No Known Allergies Allergy Verified 02/20/21 15:01 Home Medications Medication Instructions Recorded Confirmed Last Taken Type RX: Famotidine [Pepcid] 20 mg PO BID #60 tablet 05/31/14 12/07/14 12/05/14 Rx 20 RX: Albuterol Mdi (or & Nicu Only) 2 puff IH QID PRN #1 inha 12/07/14 Unknown Rx [ProAir HFA Inhaler] RX: Aspirin EC [Halfprin EC] 81 mg PO QDAY #30 tablet. 12/07/14 Unknown Rx RX: Furosemide [Lasix] 40 mg PO DAILY #60 tablet 12/07/14 Unknown Rx RX: Potassium Chloride [K-Dur] 20 meq PO QDAY #30 tablet 12/07/14 Unknown Rx RX: Simvastatin (Nf) [Zocor TAB] 20 mg PO QHS #30 tablet 12/07/14 Unknown Rx RX: amLODIPine 10 mg PO QDAY #30 tablet 12/07/14 Unknown Rx RX: carvediloL [Coreg] 25 mg PO BID #60 tablet 12/07/14 Unknown Rx RX: cloNIDine [Catapres] 0.3 mg PO BID #60 tablet 12/07/14 Unknown Rx RX: hydrALAZINE [Apresoline TAB] 100 mg PO TID #90 tab 12/07/14 Unknown Rx RX: lisinopriL [Zestril TAB] 20 mg PO QDAY 12/07/14 12/07/14 12/05/14 History 20 RX: lisinopriL [Zestril TAB] 20 mg PO QDAY #30 tablet 12/07/14 Unknown Rx RX: HYDROcodone/APAP 5-325 [[place] 1 each PO Q6H PRN #10 tablet 10/28/20 Unknown Rx 5-325 mg TAB] RX: Famotidine [Pepcid] 20 mg PO DAILY tablet 08/26/21 Unknown Rx RX: Pravastatin [Pravachol] 40 mg PO QHS tablet 08/26/21 Unknown Rx Active Meds: Active Medications Acetaminophen (Acetaminophen 325 Mg Tab) 650 mg PO Q6H PRN PRN Reason: Pain MILD(1-3)/Fever >100.5/GRAJEDA Albuterol (Albuterol 2.5 Mg/3 Ml Nebu) 2.5 mg IH Q4HRT PRN PRN Reason: Shortness Of Breath Amlodipine Besylate (Amlodipine 10 Mg Tab) 10 mg PO QDAY [facility] Aspirin (Aspirin Ec 81 Mg Tab) 81 mg PO QDAY [facility] Carvedilol (Carvedilol 25 Mg Tab) 25 mg PO BID [facility] Last Admin: 08/25/21 22:44 Dose: 25 mg Documented by: Clonidine HCl (Clonidine 0.1 Mg Tab) 0.3 mg PO BID [facility] Last Admin: 08/25/21 22:44 Dose: 0.3 mg Documented by: Famotidine (Famotidine 20 Mg Tab) 20 mg PO DAILY [facility] Furosemide (Furosemide 40 Mg Tab) 40 mg PO DAILY [facility] Hydralazine HCl (Hydralazine 100 Mg Tab) 100 mg PO TID [facility] Last Admin: 08/25/21 22:44 Dose: 100 mg Documented by: Hydromorphone HCl (Hydromorphone 1 Mg/1 Ml Inj) 0.5 mg IV Q23H PRN PRN Reason: Pain , Severe (7-10) Lisinopril (Lisinopril 20 Mg Tab) 20 mg PO QDAY [facility] Ondansetron HCl (Ondansetron 4 Mg/2 Ml Inj) 4 mg IV Q8H PRN PRN Reason: Nausea And Vomiting Oxycodone/Acetaminophen (Oxycodone /Acetaminophen 5-325mg Tab) 1 tab PO Q16H PRN PRN Reason: Pain, Moderate (4-6) Pravastatin Sodium (Pravastatin 40 Mg Tab) 40 mg PO QHS [facility] Last Admin: 08/25/21 22:44 Dose: 40 mg Documented by: Sodium Chloride (Sodium Chloride 0.9% 10 Ml Flush Syringe) 10 ml IV BID [facility] Last Admin: 08/25/21 22:46 Dose: 10 ml Documented by: Sodium Chloride (Sodium Chloride 0.9% 10 Ml Flush Syringe) 10 ml IV PRN PRN PRN Reason: LINE FLUSH Review of Systems All systems: negative (as per HPI) Exam - Vital Signs Vital signs: Vital Signs Temp Pulse Resp BP Pulse Ox 98 F 91 H 16 154/90 99 08/25/21 10:56 08/25/21 10:56 08/25/21 10:56 08/25/21 10:56 08/25/21 10:56 Seen on HD: Qb 400 via AVF, UF goal 2.5L - Physical Exam Narrative exam: Constitutional: no acute distress Head: NC/AT Neck: supple Lungs: clear to auscultation CV: RRR, no M/R/G Abdomen: soft, non-tender, bowel sounds present Back: nontender Extremities: no edema, pulses WNL Skin: intact Neuro: no focal deficits, alert and oriented x4 Results - Lab Results 08/25/21 11:54 08/26/21 11:25 Most recent lab results Calcium 7.7 mg/dL (8.4-10.2) L 08/26/21 11:25 Assessment and Plan This is a 40 year old who presents with dyspnea # ESRD: HD yesterday on arrival for volume, K 6.1; HD today for additional UF - daily labs - renally dose meds - avoid nephrotoxins - renal diet - verbal consent obtained for HD - can be discharged from renal perspective post-HD today, resume outpatient HD tomorrow # Anemia: last hemoglobin 8.8, ESAs with HD prn # HTN: UF as tolerated. BP stable. Suspect will benefit from longer UF time as he is far above his target weight, will manage outpatient as able to prevent re-hospitalization. Reviewed importance of fluid/salt restriction. Dyspnea improved # Secondary Hyperparathyroidism: continue home binders as needed
[2021-08-26] MEDS: hydrALAZINE 100 MG TAB PO SCH ×2 (15:03→15:04)
[2021-08-26] MEDS: cloNIDine 0.1 MG TAB PO SCH (15:05)
[2021-08-26] MEDS: carvediloL 25 MG TAB PO SCH (15:05)
[2021-08-26 15:26] VITALS: BP 140/78
--- NOTE | 2021-08-26 19:00 | Electrocardiograph Report ---
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
== END 2021-08-26 15:10 | disposition home or self-care (01) ==
LOC: ED 10:37 → 3A 14:56
PROVIDERS: ADMIT Internal Medicine; ATTEND Internal Medicine
DX: I13.2 Hypertensive heart and chronic kidney disease with heart failure and with stage 5 chronic kidney disease, or end stage renal disease (principal); I50.33 Acute on chronic diastolic (congestive) heart failure; N18.6 End stage renal disease; D63.1 Anemia in chronic kidney disease; N25.81 Secondary hyperparathyroidism of renal origin; E87.70 Fluid overload, unspecified; E87.5 Hyperkalemia; I42.9 Cardiomyopathy, unspecified; J81.1 Chronic pulmonary edema; J45.909 Unspecified asthma, uncomplicated; F17.213 Nicotine dependence, cigarettes, with withdrawal; Z99.2 Dependence on renal dialysis; Z86.73 Personal history of transient ischemic attack (TIA), and cerebral infarction without residual deficits; Z79.899 Other long term (current) drug therapy; Z98.890 Other specified postprocedural states; Z79.82 Long term (current) use of aspirin
CPT/HCPCS: 36415; 71045; 80048; 80074; 82962; 85025; 93005; 99291; A9270; G0257; G0378; J0610; J1815

== ENCOUNTER 2021-12-06 09:02 | Inpatient (IN) | payer MEDICARE, OTHER ==
--- NOTE | 2021-12-06 10:36 | XRay Report ---
XR chest 1V ap INDICATION / CLINICAL INFORMATION: cough, heart transplant, missed dialysis COMPARISON: August 25, 2021 FINDINGS: SUPPORT DEVICES: None. HEART / MEDIASTINUM: Endograft repair of the aorta. Cardiac silhouette is enlarged, unchanged. LUNGS / PLEURA: Patchy bilateral airspace disease in a peripheral predilection. Costophrenic sulci ar e sharp. No pneumothorax. ADDITIONAL FINDINGS: No significant additional findings. IMPRESSION: 1. Bilateral airspace disease which could represent infection including Covid. Edema is also a consid eration given the history. Signer Name: Tashi Muller MD Signed: 12/06/2021 10:32 AM Workstation Name: [id number]
[2021-12-06 11:05] LABS: Basophils # (Auto) 0.1 K/mm3 (0.0-0.1); Basophils % (Auto) 2.5 % (0.0-1.8); Eosinophils # (Auto) 0.1 K/mm3 (0.0-0.4); Eosinophils % (Auto) 1.5 % (0.0-4.3); Lymphocytes # (Auto) 0.5 K/mm3 (1.2-5.4); Lymphocytes % (Auto) 8.2 % (13.4-35.0); Mean Corpuscular HGB Conc 30 % (32-34); Mean Corpuscular Volume 82 fl (84-94); Monocytes # (Auto) 0.9 K/mm3 (0.0-0.8); Monocytes % (Auto) 14.9 % (0.0-7.3); Platelet Count 143 K/mm3 (140-440); Red Blood Count 4.64 M/mm3 (3.65-5.03)
[2021-12-06 11:12] LABS: Hematocrit 38.3 % (35.5-45.6); Hemoglobin 11.6 gm/dl (11.8-15.2); Red Cell Distribution Width 20.2 % (13.2-15.2)
[2021-12-06 11:17] LABS: INR 1.03 (0.87-1.13)
[2021-12-06 11:18] LABS: Partial Thromboplastin Time 38.8 Sec. (24.2-36.6)
[2021-12-06 11:22] LABS: Calcium 10.7 mg/dL (8.4-10.2)
--- NOTE | 2021-12-06 11:36 | Emergency Department Report ---
ED General Adult HPI - General Chief complaint: Medical Clearance Stated complaint: DIALYSIS Time Seen by Provider: 12/06/21 10:16 Source: EMS Mode of arrival: Stretcher Limitations: No Limitations - History of Present Illness Initial comments: 41-year-old male with a past medical history of end-stage renal disease on dialysis, history of heart transplant, CHF, and other chronic medical conditions who has been incarcerated x2 months presents to the hospital from retirement complaining of needing dialysis. Patient receives dialysis Wednesday, Wednesday, and Wednesday. Last full dialysis was last Wednesday, patient only had 1 hour dialysis Wednesday because the machine stopped working. By Wednesday/yes the dialysis team was still not working and patient was sent to the ER today for evaluation. Patient complains of a cough secondary to possible fluid but he is unvaccinated for Covid. He also complains of worsening aneurysm dilatation of his right AV fistula release 1.5 months and states that he typically has to have a "cleaned out" every 3 months. Digital Sales Representative Barrera Severity scale (0 -10): 0 - Related Data Home Medications Medication Instructions Recorded Confirmed Last Taken Amiodarone [Cordarone 200 MG TAB] 200 mg PO QDAY 12/06/21 12/06/21 12/05/21 AtorvaSTATin [Lipitor] 20 mg PO QDAY 12/06/21 12/06/21 12/05/21 Doxercalciferol 4 mcg IV 3XW 12/06/21 12/06/21 12/03/21 Epogen 10,000 1000units IV 3XW 12/06/21 12/06/21 12/03/21 Furosemide [Lasix] 80 mg PO DAILY 12/06/21 12/06/21 12/05/21 Iron Sucrose (Nf) [Venofer (Nf)] 5 ml IV 3XW 12/06/21 12/06/21 12/04/21 Phoslo 667 mg PO TID 12/06/21 12/06/21 12/05/21 cloNIDine [Catapres] 0.2 mg PO TID 12/06/21 12/06/21 12/05/21 08:00 hydrALAZINE [Apresoline TAB] 25 mg PO QDAY 12/06/21 12/06/21 12/05/21 Previous Rx's Medication Instructions Recorded Last Taken Type amLODIPine 10 mg PO QDAY #30 tablet 12/07/14 12/05/21 Rx carvediloL [Coreg] 25 mg PO BID #60 tablet 12/07/14 12/05/21 Rx Allergies Allergy/AdvReac Type Severity Reaction Status Date / Time No Known Allergies Allergy Verified 02/20/21 15:01 ED Review of Systems ROS: Stated complaint: DIALYSIS Other details as noted in HPI Comment: All other systems reviewed and negative ED Past Medical Hx - Past Medical History Hx Hypertension: Yes Hx CVA: Yes Hx Heart Attack/AMI: No Hx Congestive Heart Failure: Yes Hx Diabetes: No Hx Deep Vein Thrombosis: Yes Hx Pulmonary Embolism: Yes Hx Renal Disease: Yes Hx Arthritis: No Hx Headaches / Migraines: No Hx Kidney Stones: No Hx Asthma: Yes Hx COPD: Yes Hx Tuberculosis: No Additional medical history: heart problems - Surgical History Hx Coronary Stent: No Hx Pacemaker: No Hx Internal Defibrillator: No Hx Cholecystectomy: No Hx Appendectomy: No Additional Surgical History: abd hernia, not repaired yet; heart transplant April - Social History Smoking Status: Never Smoker - Medications Home Medications: Home Medications Medication Instructions Recorded Confirmed Last Taken Type amLODIPine 10 mg PO QDAY #30 tablet 12/07/14 12/06/21 12/05/21 Rx carvediloL [Coreg] 25 mg PO BID #60 tablet 12/07/14 12/06/21 12/05/21 Rx Amiodarone [Cordarone 200 MG TAB] 200 mg PO QDAY 12/06/21 12/06/21 12/05/21 History AtorvaSTATin [Lipitor] 20 mg PO QDAY 12/06/21 12/06/21 12/05/21 History Doxercalciferol 4 mcg IV 3XW 12/06/21 12/06/21 12/03/21 History Epogen 10,000 1000units IV 3XW 12/06/21 12/06/21 12/03/21 History Furosemide [Lasix] 80 mg PO DAILY 12/06/21 12/06/21 12/05/21 History Iron Sucrose (Nf) [Venofer (Nf)] 5 ml IV 3XW 12/06/21 12/06/21 12/04/21 History Phoslo 667 mg PO TID 12/06/21 12/06/21 12/05/21 History cloNIDine [Catapres] 0.2 mg PO TID 12/06/21 12/06/21 12/05/21 08:00 History hydrALAZINE [Apresoline TAB] 25 mg PO QDAY 12/06/21 12/06/21 12/05/21 History ED Physical Exam - General Limitations: No Limitations - Other Other exam information: General: No acute distress Head: Atraumatic Eyes: normal appearance ENT: Moist mucous membranes Neck: Normal appearance, no midline tenderness Chest: Clear to auscultation bilaterally, dry cough CV: Regular rate and rhythm Abdomen: Soft, normal bowel sounds, nontender, nondistended, no rebound or guarding Back: Normal inspection Extremity: Right arm AV fistula with diffuse aneurysm swelling and palpable th rill Neuro: Alert O x 3, no facial asymmetry, speech clear, no gross motor sensory deficit Psych: Appropriate behavior Skin: No rash ED Course Vital Signs 12/06/21 12/06/21 12/06/21 09:03 09:18 09:29 Temperature 97.7 F Pulse Rate 84 Pulse Rate [ Bilateral Throughout] Respiratory 18 Rate Respiratory Rate [Bilateral Throughout] Blood Pressure Blood Pressure 195/111 [Left] O2 Sat by Pulse 99 92 100 Oximetry 12/06/21 12/06/21 12/06/21 09:31 09:32 09:45 Temperature Pulse Rate 76 76 70 Pulse Rate [ Bilateral Throughout] Respiratory 18 19 24 Rate Respiratory Rate [Bilateral Throughout] Blood Pressure 182/103 182/103 Blood Pressure 182/103 [Left] O2 Sat by Pulse 100 100 100 Oximetry 12/06/21 12/06/21 12/06/21 10:01 10:15 10:31 Temperature Pulse Rate 70 77 71 Pulse Rate [ Bilateral Throughout] Respiratory 18 34 H 19 Rate Respiratory Rate [Bilateral Throughout] Blood Pressure 169/91 169/91 170/88 Blood Pressure [Left] O2 Sat by Pulse 100 100 Oximetry 12/06/21 12/06/21 12/06/21 10:45 11:01 11:15 Temperature Pulse Rate 76 75 75 Pulse Rate [ Bilateral Throughout] Respiratory 19 22 20 Rate Respiratory Rate [Bilateral Throughout] Blood Pressure 170/88 191/102 191/102 Blood Pressure [Left] O2 Sat by Pulse 100 98 98 Oximetry 12/06/21 12/06/21 12/06/21 11:37 12:03 14:15 Temperature Pulse Rate 72 70 Pulse Rate [ 69 Bilateral Throughout] Respiratory Rate Respiratory 20 Rate [Bilateral Throughout] Blood Pressure 192/97 174/94 Blood Pressure [Left] O2 Sat by Pulse 96 Oximetry 12/06/21 14:17 Temperature Pulse Rate 70 Pulse Rate [ Bilateral Throughout] Respiratory Rate Respiratory Rate [Bilateral Throughout] Blood Pressure 174/97 Blood Pressure [Left] O2 Sat by Pulse Oximetry - Consultations Consultation #1: 12/06/21 12:[address] Eli harmonica maker will arrange for dialysis today ED Medical Decision Making - Lab Data Result diagrams: 12/06/21 10:16 12/06/21 10:16 Lab Results 12/06/21 12/06/21 12/06/21 Range/Units 10:16 10:16 10:16 WBC 6.1 (4.5-11.0) K/mm3 RBC 4.64 (3.65-5.03) M/mm3 Hgb 11.6 L (11.8-15.2) gm/dl Hct 38.3 (35.5-45.6) % MCV 82 L (84-94) fl MCH 25 L (28-32) pg MCHC 30 L (32-34) % RDW 20.2 H (13.2-15.2) % Plt Count 143 (140-440) K/mm3 Lymph % (Auto) 8.2 L (13.4-35.0) % Creek % (Auto) 14.9 H (0.0-7.3) % Eos % (Auto) 1.5 (0.0-4.3) % Baso % (Auto) 2.5 H (0.0-1.8) % Lymph # (Auto) 0.5 L (1.2-5.4) K/mm3 [place] # (Auto) 0.9 H (0.0-0.8) K/mm3 Eos # (Auto) 0.1 (0.0-0.4) K/mm3 Baso # (Auto) 0.1 (0.0-0.1) K/mm3 Seg Neutrophils % 72.9 H (40.0-70.0) % Seg Neutrophils # 4.4 (1.8-7.7) K/mm3 PT 14.6 (12.2-14.9) Sec. INR 1.03 (0.87-1.13) APTT 38.8 H (24.2-36.6) Sec. Sodium 141 (137-145) mmol/L Potassium 5.7 H (3.6-5.0) mmol/L Chloride 97.9 L (98-107) mmol/L Carbon Dioxide 20 L (22-30) mmol/L Anion Gap 29 mmol/L BUN 84 H (9-20) mg/dL Creatinine 16.3 H (0.8-1.3) mg/dL Estimated GFR 4 ml/min BUN/Creatinine Ratio 5 % Glucose 64 L (75-100) mg/dL POC Glucose (70-105) mg/dL Calcium 10.7 H (8.4-10.2) mg/dL 12/06/21 Range/Units 11:36 WBC (4.5-11.0) K/mm3 RBC (3.65-5.03) M/mm3 Hgb (11.8-15.2) gm/dl Hct (35.5-45.6) % MCV (84-94) fl MCH (28-32) pg MCHC (32-34) % RDW (13.2-15.2) % Plt Count (140-440) K/mm3 Lymph % (Auto) (13.4-35.0) % [place] % (Auto) (0.0-7.3) % Eos % (Auto) (0.0-4.3) % Baso % (Auto) (0.0-1.8) % Lymph # (Auto) (1.2-5.4) K/mm3 [place] # (Auto) (0.0-0.8) K/mm3 Eos # (Auto) (0.0-0.4) K/mm3 Baso # (Auto) (0.0-0.1) K/mm3 Seg Neutrophils % (40.0-70.0) % Seg Neutrophils # (1.8-7.7) K/mm3 PT (12.2-14.9) Sec. INR (0.87-1.13) APTT (24.2-36.6) Sec. Sodium (137-145) mmol/L Potassium (3.6-5.0) mmol/L Chloride (98-107) mmol/L Carbon Dioxide (22-30) mmol/L Anion Gap mmol/L BUN (9-20) mg/dL Creatinine (0.8-1.3) mg/dL Estimated GFR ml/min BUN/Creatinine Ratio % Glucose (75-100) mg/dL POC Glucose 91 (70-105) mg/dL Calcium (8.4-10.2) mg/dL - EKG Data -: EKG Interpreted by Me EKG shows normal: sinus rhythm, intervals (QTC 483), QRS complexes (Mildly wide QRS duration 115), ST-T waves ( peaked T waves with lateral T wave inversions, LVH) Rate: normal (68) - EKG Data When compared to previous EKG there are: no significant change - Radiology Data Radiology results: report reviewed XR chest 1V ap INDICATION / CLINICAL INFORMATION: cough, heart transplant, missed dialysis COMPARISON: August 25, 2021 FINDINGS: SUPPORT DEVICES: None. HEART / MEDIASTINUM: Endograft repair of the aorta. Cardiac silhouette is enlarged, unchanged. LUNGS / PLEURA: Patchy bilateral airspace disease in a peripheral predilection. Costophrenic sulci are sharp. No pneumothorax. ADDITIONAL FINDINGS: No significant additional findings. IMPRESSION: 1. Bilateral airspace disease which could represent infection including Covid. Edema is also a consideration given the history. - Medical Decision Making 41-year-old male with end-stage renal disease currently on dialysis presents to the hospital with dialysis noncompliance due [facility] machine [facility]. Patient does have a cough with x-ray showing infiltrate suggestive of infection versus CHF. Patient required IV labetalol for hypertension. Patient did have mild hypoglycemia and was fed in the department with improvement in glucose. Patient received partial treatment for hyperkalemia (mild EKG changes noted) including albuterol, calcium, and sodium bicarb. Patient on cardiac monitor technician.Case discussed with nephrology who will arrange for dialysis today. Critical Care Time: No Critical care attestation.: If time is entered above; I have spent that time in minutes in the direct care of this critically ill patient, excluding procedure time. ED Disposition Clinical Impression: ESRD needing dialysis, Hyperkalemia, Bilateral pulmonary infiltrates on CXR, Uncontrolled hypertension, Hemodialysis AV fistula aneurysm Disposition: 09 ADMITTED INPATIENT Is pt being admited?: Yes Condition: Stable
[2021-12-06] MEDS ORDERED: ALBUTEROL 2.5 MG/3 ML NEBU IH ONE (11:40)
[2021-12-06] MEDS ORDERED: SODIUM BICARB 8.4% 50 MEQ/50 ML SYRINGE IV ONE (11:40)
--- NOTE | 2021-12-06 11:50 | History and Physical Report ---
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 Patient reports "I need to get dialysis". Patient is currently incarcerated in the custody of law enforcement. Patient states that he last underwent dialysis last Wednesday and was unable to undergo a complete dialysis session due to the machine stopped working. EMS was notified and upon arrival the patient was found to be in distress and subsequent transported to [facility] for further care and evaluation of the aforementioned symptoms. The patient was seen and evaluated in the emergency department. All lab and imaging studies reviewed. Patient was found to have end-stage renal disease complicated by fluid overload, as well as accelerated hypertension, and hyperkalemia. Chest x-ray revealed evidence of pneumonia. Patient admitted to medical floor due to increased risk of decompensation and initiated on pneumonia protocol, as well as coronavirus protocol. Nephrology team consulted in ED for urgent dialysis. Patient denies fever, chills, chest pain, palpitation, productive cough, skin rash, recent ill contacts, or known exposure to COVID-19. Prior admission on 08/25/2021 reviewed. All medication listed at time of admission has been reconciled. Patient is not vaccinated against COVID-19. Past History Past Medical History: ESRD, heart failure Past Surgical History: Other (Dialysis access, heart surgery) Social history: , smoking, alcohol abuse Family history: hypertension Medications and Allergies Allergies Allergy/AdvReac Type Severity Reaction Status Date / Time No Known Allergies Allergy Verified 02/20/21 15:01 Home Medications Medication Instructions Recorded Confirmed Last Taken Type amLODIPine 10 mg PO QDAY #30 tablet 12/07/14 12/06/21 12/05/21 Rx carvediloL [Coreg] 25 mg PO BID #60 tablet 12/07/14 12/06/21 12/05/21 Rx Amiodarone [Cordarone 200 MG TAB] 200 mg PO QDAY 12/06/21 12/06/21 12/05/21 History AtorvaSTATin [Lipitor] 20 mg PO QDAY 12/06/21 12/06/21 12/05/21 History Doxercalciferol 4 mcg IV 3XW 12/06/21 12/06/21 12/03/21 History Epogen 10,000 1000units IV 3XW 12/06/21 12/06/21 12/03/21 History Furosemide [Lasix] 80 mg PO DAILY 12/06/21 12/06/21 12/05/21 History Iron Sucrose (Nf) [Venofer (Nf)] 5 ml IV 3XW 12/06/21 12/06/21 12/04/21 History Phoslo 667 mg PO TID 12/06/21 12/06/21 12/05/21 History cloNIDine [Catapres] 0.2 mg PO TID 12/06/21 12/06/21 12/05/21 08:00 History hydrALAZINE [Apresoline TAB] 25 mg PO QDAY 12/06/21 12/06/21 12/05/21 History Active Meds: Active Medications Calcium Gluconate 1,000 mg/ (Sodium Chloride) 110 mls @ 660 mls/hr IV ONCE ONE Stop: 12/06/21 12:39 Review of Systems Constitutional: no weight loss, no fever Ears, nose, mouth and throat: no ear pain, no decreased hearing, no nasal congestion, no nasal discharge Cardiovascular: no chest pain, no rapid/irregular heart beat, no edema, no syncope Respiratory: no cough, no hemoptysis, no shortness of breath, no dyspnea on exertion Gastrointestinal: no abdominal pain, no diarrhea, no constipation, no change in bowel habits Genitourinary Male: no hematuria, no flank pain, no discharge, no urinary frequency, no urinary hesitancy Rectal: no pain, no incontinence, no bleeding Musculoskeletal: no neck stiffness, no neck pain, no shooting arm pain, no low back pain, no shooting leg pain Integumentary: no rash, no pruritis, no redness, no wounds, no jaundice Neurological: no head injury, no paralysis, no numbness, no seizures, no syncope Psychiatric: no anxiety, no change in sleep habits, no hypersomnia, no change in libido, no disorientation Endocrine: no cold intolerance, no polydipsia Hematologic/Lymphatic: no easy bruising, no easy bleeding Allergic/Immunologic: no urticaria, no wheezing Exam - Constitutional Vitals: Temp Pulse Resp BP Pulse Ox 97.7 F 72 20 192/97 98 12/06/21 09:03 12/06/21 11:37 12/06/21 11:15 12/06/21 11:37 12/06/21 11:15 General appearance: Present: mild distress - EENT Eyes: Present: PERRL ENT: hearing intact, clear oral mucosa - Neck Neck: Present: supple, normal ROM - Respiratory Respiratory effort: normal Respiratory: bilateral: diminished - Cardiovascular Heart Sounds: Present: S1 & S2. Absent: rub, click - Extremities Extremities: pulses symmetrical, No edema Peripheral Pulses: within normal limits - Abdominal General gastrointestinal: Present: soft, non-tender, non-distended, normal bowel sounds Male genitourinary: Present: normal - Integumentary Integumentary: Present: clear, warm, dry - Musculoskeletal Musculoskeletal: gait normal, strength equal bilaterally - Psychiatric Psychiatric: appropriate mood/affect, intact judgment & insight - Neurologic Neurologic: CNII-XII intact, moves all extremities Results - Labs CBC & Chem 7: 12/06/21 10:16 12/06/21 10:16 Labs: Abnormal lab results 12/06/21 12/06/21 12/06/21 Range/Units 10:16 10:16 10:16 Hgb 11.6 L (11.8-15.2) gm/dl MCV 82 L (84-94) fl MCH 25 L (28-32) pg MCHC 30 L (32-34) % RDW 20.2 H (13.2-15.2) % Lymph % (Auto) 8.2 L (13.4-35.0) % [place] % (Auto) 14.9 H (0.0-7.3) % Baso % (Auto) 2.5 H (0.0-1.8) % Lymph # (Auto) 0.5 L (1.2-5.4) K/mm3 [place] # (Auto) 0.9 H (0.0-0.8) K/mm3 Seg Neutrophils % 72.9 H (40.0-70.0) % APTT 38.8 H (24.2-36.6) Sec. Potassium 5.7 H (3.6-5.0) mmol/L Chloride 97.9 L (98-107) mmol/L Carbon Dioxide 20 L (22-30) mmol/L BUN 84 H (9-20) mg/dL Creatinine 16.3 H (0.8-1.3) mg/dL Glucose 64 L (75-100) mg/dL Calcium 10.7 H (8.4-10.2) mg/dL Assessment and Plan - Patient Problems (1) Pneumonia Current Visit: Yes Status: Acute Plan to address problem: Pneumonia protocol: Chest x-ray, CBC, CMP, supplemental oxygen, pulse oximetry, nebulizer therapy, IV antibiotic therapy (2) End stage renal disease Current Visit: Yes Status: Acute Plan to address problem: Nephrology team consulted in ED, dialysis as per renal team, avoid nephrotoxic agents. (3) Accelerated hypertension Current Visit: Yes Status: Acute Plan to address problem: Monitor blood pressure every shift, continue medical management. Resume prehospital antihypertensive therapy. (4) Suspected 2019 novel coronavirus infection Current Visit: Yes Status: Acute Plan to address problem: Coronavirus protocol: Vitamin C therapy, vitamin D therapy, zinc therapy, IV antibiotic therapy, prophylactic anticoagulation (5) COVID-19 vaccination not done Current Visit: Yes Status: Acute Plan to address problem: Patient counseled (6) History of noncompliance with medical treatment Current Visit: No Status: Chronic Plan to address problem: Patient counseled. (7) Hyperkalemia Current Visit: Yes Status: Acute Plan to address problem: Urgent dialysis. Calcium gluconate administered in ED. No EKG changes, supportive care. (8) DVT prophylaxis Current Visit: Yes Status: Acute Plan to address problem: SCD to bilateral lower extremities while in bed, prophylactic anticoagulation (9) Advance care planning Current Visit: Yes Status: Acute Plan to address problem: Disease education conducted, care plan discussed, diagnoses discussed, prognosis discussed, patient is full code. Patient acknowledges understanding and agreement with care plan, +30 minutes.
[2021-12-06] MEDS ORDERED: CALCIUM GLUCONATE 1,000 MG in SODIUM CHLORIDE 0.9% 100 ML IV ONE (12:30)
[2021-12-06] MEDS ORDERED: ALBUTEROL 2.5 MG/3 ML NEBU IH PRN (13:00)
[2021-12-06] MEDS ORDERED: cefTRIAXone/NS 2 GM/100 ML 2 GM/100 ML BAG IV SCH (13:00)
[2021-12-06] MEDS ORDERED: AZITHROMYCIN/NS 500 MG/250 ML 500 MG/250 ML BAG IV SCH (13:00)
[2021-12-06] MEDS ORDERED: amLODIPine 10 MG TAB PO SCH (13:00)
[2021-12-06] MEDS ORDERED: ACETAMINOPHEN 325 MG TAB PO PRN (13:00)
[2021-12-06] MEDS ORDERED: HYDROmorphone 1 MG/1 ML INJ IV PRN (13:00)
[2021-12-06] MEDS ORDERED: AMIODARONE 200 MG TAB PO SCH (13:00)
[2021-12-06] MEDS ORDERED: ONDANSETRON 4 MG/2 ML INJ IV PRN (13:00)
[2021-12-06] MEDS ORDERED: oxyCODONE /ACETAMINOPHEN 5-325MG TAB PO PRN (13:00)
[2021-12-06] MEDS ORDERED: cloNIDine 0.1 MG TAB PO SCH (14:00)
[2021-12-06] MEDS ORDERED: PHOSLO 667 MG PO SCH (14:00)
[2021-12-06] MEDS: cloNIDine 0.1 MG TAB PO SCH ×2 (14:17→20:38)
[2021-12-06] MEDS: CALCIUM ACETATE 667 MG CAP PO SCH ×3 (14:31→20:38)
--- NOTE | 2021-12-06 14:38 | Consultation ---
History of Present Illness - Reason for Consult Consult date: 12/06/21 end stage renal disease Requesting physician: ADILSON EDWARD - History of Present Illness 41-year-old male with a past medical history of end-stage renal disease on dialysis, history of heart transplant, CHF, and other chronic medical conditions who has been incarcerated x2 months presents to the hospital from [facility] complaining of needing dialysis. Patient receives dialysis Wednesday, Wednesday, and Wednesday. Last full dialysis was last Wednesday, patient only had 1 hour dialysis Wednesday because the machine stopped working. By Wednesday/ the dialysis team was still not working and patient was sent to the ER today for evaluation. Patient complains of a cough secondary to possible fluid but he is unvaccinated for Covid. He also complains of worsening aneurysm dilatation of his right AV fistula release 1.5 months and states that he typically has to have a "cleaned out" every 3 months. 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 Barrera Severity scale (0 -10): 0 ROS: Stated complaint: DIALYSIS Other details as noted in HPI Comment: All other systems reviewed and negative - Past Medical History Hx Hypertension: Yes Hx CVA: Yes Hx Heart Attack/AMI: No Hx Congestive Heart Failure: Yes Hx Diabetes: No Hx Deep Vein Thrombosis: Yes Hx Pulmonary Embolism: Yes Hx Renal Disease: Yes Hx Arthritis: No Hx Headaches / Migraines: No Hx Kidney Stones: No Hx Asthma: Yes Hx COPD: Yes Hx Tuberculosis: No Additional medical history: heart problems - Surgical History Hx Coronary Stent: No Hx Pacemaker: No Hx Internal Defibrillator: No Hx Cholecystectomy: No Hx Appendectomy: No Additional Surgical History: abd hernia, not repaired yet; heart transplant April - Social History Smoking Status: Never Smoker - General Limitations: No Limitations - Other Other exam information: Medications and Allergies Allergies Allergy/AdvReac Type Severity Reaction Status Date / Time No Known Allergies Allergy Verified 02/20/21 15:01 Home Medications Medication Instructions Recorded Confirmed Last Taken Type amLODIPine 10 mg PO QDAY #30 tablet 12/07/14 12/06/21 12/05/21 Rx carvediloL [Coreg] 25 mg PO BID #60 tablet 12/07/14 12/06/21 12/05/21 Rx Amiodarone [Cordarone 200 MG TAB] 200 mg PO QDAY 12/06/21 12/06/21 12/05/21 History AtorvaSTATin [Lipitor] 20 mg PO QDAY 12/06/21 12/06/21 12/05/21 History Doxercalciferol 4 mcg IV 3XW 12/06/21 12/06/21 12/03/21 History Epogen 10,000 1000units IV 3XW 12/06/21 12/06/21 12/03/21 History Furosemide [Lasix] 80 mg PO DAILY 12/06/21 12/06/21 12/05/21 History Iron Sucrose (Nf) [Venofer (Nf)] 5 ml IV 3XW 12/06/21 12/06/21 12/04/21 History Phoslo 667 mg PO TID 12/06/21 12/06/21 12/05/21 History cloNIDine [Catapres] 0.2 mg PO TID 12/06/21 12/06/21 12/05/21 08:00 History hydrALAZINE [Apresoline TAB] 25 mg PO QDAY 12/06/21 12/06/21 12/05/21 History Active Meds: Active Medications Acetaminophen (Acetaminophen 325 Mg Tab) 650 mg PO Q4H PRN PRN Reason: Pain MILD(1-3)/Fever >100.5/GRAJEDA Albuterol (Albuterol 2.5 Mg/3 Ml Nebu) 2.5 mg IH Q4HRT PRN PRN Reason: Shortness Of Breath Amiodarone HCl (Amiodarone 200 Mg Tab) 200 mg PO QDAY [facility] Last Admin: 12/06/21 14:16 Dose: 200 mg Amlodipine Besylate (Amlodipine 10 Mg Tab) 10 mg PO QDAY [facility] Last Admin: 12/06/21 14:15 Dose: 10 mg Atorvastatin Calcium (Atorvastatin 20 Mg Tab) 20 mg PO QDAY [facility] Calcium Acetate (Calcium Acetate 667 Mg Cap) 667 mg PO TID [facility] Last Admin: 12/06/21 14:31 Dose: 667 mg Carvedilol (Carvedilol 25 Mg Tab) 25 mg PO BID [facility] Clonidine HCl (Clonidine 0.1 Mg Tab) 0.2 mg PO TID [facility] Last Admin: 12/06/21 14:17 Dose: 0.2 mg Furosemide (Furosemide 40 Mg Tab) 80 mg PO DAILY [facility] Hydralazine HCl (Hydralazine 100 Mg Tab) 25 mg PO QDAY [facility] Hydromorphone HCl (Hydromorphone 1 Mg/1 Ml Inj) 0.5 mg IV Q23H PRN PRN Reason: Pain , Severe (7-10) Ceftriaxone Sodium (Rocephin/Ns 2 Gm/100 Ml) 2 gm in 100 mls @ 200 mls/hr IV Q24H [facility]; Protocol Last Admin: 12/06/21 14:17 Dose: 200 mls/hr Azithromycin (Zithromax/Ns) 500 mg in 250 mls @ 250 mls/hr IV Q24H [facility]; Protocol Sodium Chloride (Nacl 0.9%) 100 mls @ 999 mls/hr IV BUSTER PRN PRN Reason: Hypotension Ondansetron HCl (Ondansetron 4 Mg/2 Ml Inj) 4 mg IV Q8H PRN PRN Reason: Nausea And Vomiting Oxycodone/Acetaminophen (Oxycodone /Acetaminophen 5-325mg Tab) 1 tab PO Q16H PRN PRN Reason: Pain, Moderate (4-6) Sodium Chloride (Sodium Chloride 0.9% 10 Ml Flush Syringe) 10 ml IV BID [facility] Sodium Chloride (Sodium Chloride 0.9% 10 Ml Flush Syringe) 10 ml IV PRN PRN PRN Reason: LINE FLUSH Exam - Vital Signs Vital signs: Vital Signs Temp Pulse Resp BP Pulse Ox 97.7 F 84 18 195/111 99 12/06/21 09:03 12/06/21 09:03 12/06/21 09:03 12/06/21 09:03 12/06/21 09:03 - Physical Exam Narrative exam: General: No acute distress Head: Atraumatic Eyes: normal appearance ENT: Moist mucous membranes Neck: Normal appearance, no midline tenderness Chest: Clear to auscultation bilaterally, dry cough CV: Regular rate and rhythm Abdomen: Soft, normal bowel sounds, nontender, nondistended, no rebound or guarding Back: Normal inspection Extremity: Right arm AV fistula with diffuse aneurysm swelling and palpable thrill Neuro: Alert O x 3, no facial asymmetry, speech clear, no gross motor sensory deficit Psych: Appropriate behavior Skin: No rash Results - Lab Results 12/06/21 10:16 12/06/21 10:16 Most recent lab results Calcium 10.7 mg/dL (8.4-10.2) H 12/06/21 10:16 Assessment and Plan This is a 40 year old who presents with dyspnea # ESRD: has been incarcerated, now having issues with HD machine [facility] plans for hd today - daily labs - renally dose meds - avoid nephrotoxins - renal diet - verbal consent obtained for HD - can be discharged from renal perspective post-HD today # HTN: UF as tolerated. BP stable. Suspect will benefit from longer UF time # Secondary Hyperparathyroidism: continue home binders as needed
[2021-12-06] MEDS ORDERED: SODIUM CHLORIDE 0.9% 100 ML IV PRN (15:00)
[2021-12-06 17:10] LABS: Hepatitis B Surface Antigen Non-Reactive (Negative); Hepatitis C Virus Antibody Non-Reactive (NonReactive)
[2021-12-06 21:46] VITALS: BP 153/80
[2021-12-06] MEDS ORDERED: carvediloL 25 MG TAB PO SCH (22:00)
[2021-12-07] MEDS ORDERED: hydrALAZINE 100 MG TAB PO SCH (10:00)
[2021-12-07] MEDS ORDERED: amLODIPine 10 MG TAB PO SCH (10:00)
[2021-12-07] MEDS ORDERED: MULTIVITAMINS ,THERAPEUTIC TAB PO SCH (10:00)
[2021-12-07] MEDS ORDERED: FOLIC ACID 1 MG TAB PO SCH (10:00)
[2021-12-07] MEDS ORDERED: THIAMINE 100 MG TAB PO SCH (10:00)
[2021-12-07] MEDS ORDERED: AMIODARONE 200 MG TAB PO SCH (10:00)
[2021-12-07] MEDS ORDERED: FUROSEMIDE 40 MG TAB PO SCH (10:00)
--- NOTE | 2021-12-07 14:33 | Electrocardiograph Report ---
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
== END 2021-12-07 04:55 | disposition left against medical advice (07) | DRG 640 ==
LOC: ED 09:02 → 3A 11:55
PROVIDERS: ADMIT Internal Medicine; ATTEND Internal Medicine
PROC: 5A1D70Z Performance of Urinary Filtration, Intermittent, Less than 6 Hours Per Day (ICD-10-PCS; principal; 2021-12-06)
DX: E87.5 Hyperkalemia (principal); N18.6 End stage renal disease; J18.9 Pneumonia, unspecified organism; I13.2 Hypertensive heart and chronic kidney disease with heart failure and with stage 5 chronic kidney disease, or end stage renal disease; N25.81 Secondary hyperparathyroidism of renal origin; J44.9 Chronic obstructive pulmonary disease, unspecified; Z86.718 Personal history of other venous thrombosis and embolism; Z86.711 Personal history of pulmonary embolism; Z86.73 Personal history of transient ischemic attack (TIA), and cerebral infarction without residual deficits
CPT/HCPCS: 36415; 71045; 80048; 80074; 82962; 85025; 85610; 85730; 87040; 93005; 93010; 94644; G0378; J3490; J0456; J0610; J0696

== ENCOUNTER 2022-02-01 12:46 | Inpatient (IN) | payer MEDICARE ==
[2022-02-01 15:47] LABS: Basophils # (Auto) 0.1 K/mm3 (0.0-0.1); Basophils % (Auto) 0.9 % (0.0-1.8); Eosinophils # (Auto) 0.2 K/mm3 (0.0-0.4); Eosinophils % (Auto) 1.9 % (0.0-4.3); Lymphocytes % (Auto) 12.6 % (13.4-35.0); Mean Corpuscular HGB Conc 31 % (32-34); Mean Corpuscular Volume 88 fl (84-94); Monocytes # (Auto) 1.2 K/mm3 (0.0-0.8); Monocytes % (Auto) 14.3 % (0.0-7.3); Red Blood Count 5.26 M/mm3 (3.65-5.03)
[2022-02-01 15:48] LABS: Hematocrit 46.3 % (35.5-45.6); Hemoglobin 14.3 gm/dl (11.8-15.2)
[2022-02-01 15:57] LABS: Calcium 12.7 mg/dL (8.4-10.2)
[2022-02-01] MEDS ORDERED: SODIUM CHLORIDE 0.9% 1000 ML 1,000 ML IV ONE (15:59)
[2022-02-01 16:39] LABS: Platelet Count 127 K/mm3 (140-440)
[2022-02-01] MEDS ORDERED: ALBUTEROL 2.5 MG/3 ML NEBU IH ONE (16:47)
[2022-02-01] MEDS ORDERED: SODIUM POLYSTYRENE 15 GM/60 ML ORAL LIQD PO ONE (16:48)
[2022-02-01] MEDS ORDERED: cloNIDine 0.2 MG TAB PO ONE (16:48)
--- NOTE | 2022-02-01 16:51 | Emergency Department Report ---
ED General Adult HPI - General Chief complaint: Medical Clearance Stated complaint: SHORTNESS OF BREATH Time Seen by Provider: 02/01/22 15:58 Source: patient Mode of arrival: Ambulatory Limitations: No Limitations - History of Present Illness Initial comments: Pt reports that he has missed dialysis since Wednesday, and reports a rash from the food in prison.pt missed last 3 dialysis sessions -: days(s) Associated Symptoms: chest pain, weakness Treatments Prior to Arrival: none - Related Data Home Medications Medication Instructions Recorded Confirmed Last Taken Amiodarone [Cordarone 200 MG TAB] 200 mg PO QDAY 12/06/21 12/06/21 12/05/21 AtorvaSTATin [Lipitor] 20 mg PO QDAY 12/06/21 12/06/21 12/05/21 Doxercalciferol 4 mcg IV 3XW 12/06/21 12/06/21 12/03/21 Epogen 10,000 1000units IV 3XW 12/06/21 12/06/21 12/03/21 Furosemide [Lasix] 80 mg PO DAILY 12/06/21 12/06/21 12/05/21 Iron Sucrose (Nf) [Venofer (Nf)] 5 ml IV 3XW 12/06/21 12/06/21 12/04/21 Phoslo 667 mg PO TID 12/06/21 12/06/21 12/05/21 cloNIDine [Catapres] 0.2 mg PO TID 12/06/21 12/06/21 12/05/21 08:00 hydrALAZINE [Apresoline TAB] 25 mg PO QDAY 12/06/21 12/06/21 12/05/21 Previous Rx's Medication Instructions Recorded Last Taken Type amLODIPine 10 mg PO QDAY #30 tablet 12/07/14 12/05/21 Rx carvediloL [Coreg] 25 mg PO BID #60 tablet 12/07/14 12/05/21 Rx Allergies Allergy/AdvReac Type Severity Reaction Status Date / Time No Known Allergies Allergy Verified 02/20/21 15:01 ED Review of Systems ROS: Stated complaint: SHORTNESS OF BREATH Other details as noted in HPI Constitutional: denies: chills, fever Eyes: denies: eye pain, eye discharge, vision change ENT: denies: ear pain, throat pain Respiratory: denies: cough, shortness of breath, wheezing Cardiovascular: denies: chest pain, palpitations Endocrine: no symptoms reported Gastrointestinal: denies: abdominal pain, nausea, diarrhea Genitourinary: denies: urgency, dysuria Musculoskeletal: denies: back pain, joint swelling, arthralgia Skin: denies: rash, lesions Neurological: denies: headache, weakness, paresthesias Psychiatric: denies: anxiety, depression Hematological/Lymphatic: denies: easy bleeding, easy bruising ED Past Medical Hx - Past Medical History Hx Hypertension: Yes Hx CVA: Yes Hx Heart Attack/AMI: No Hx Congestive Heart Failure: Yes Hx Diabetes: No Hx Deep Vein Thrombosis: Yes Hx Pulmonary Embolism: Yes Hx Renal Disease: Yes Hx Arthritis: No Hx Headaches / Migraines: No Hx Kidney Stones: No Hx Asthma: Yes Hx COPD: Yes Hx Tuberculosis: No Additional medical history: heart problems - Surgical History Hx Coronary Stent: No Hx Pacemaker: No Hx Internal Defibrillator: No Hx Cholecystectomy: No Hx Appendectomy: No Additional Surgical History: abd hernia, not repaired yet; heart transplant April - Social History Smoking Status: Current Some Day Smoker - Medications Home Medications: Home Medications Medication Instructions Recorded Confirmed Last Taken Type amLODIPine 10 mg PO QDAY #30 tablet 12/07/14 12/06/21 12/05/21 Rx carvediloL [Coreg] 25 mg PO BID #60 tablet 12/07/14 12/06/21 12/05/21 Rx Amiodarone [Cordarone 200 MG TAB] 200 mg PO QDAY 12/06/21 12/06/21 12/05/21 History AtorvaSTATin [Lipitor] 20 mg PO QDAY 12/06/21 12/06/21 12/05/21 History Doxercalciferol 4 mcg IV 3XW 12/06/21 12/06/21 12/03/21 History Epogen 10,000 1000units IV 3XW 12/06/21 12/06/21 12/03/21 History Furosemide [Lasix] 80 mg PO DAILY 12/06/21 12/06/21 12/05/21 History Iron Sucrose (Nf) [Venofer (Nf)] 5 ml IV 3XW 12/06/21 12/06/21 12/04/21 History Phoslo 667 mg PO TID 12/06/21 12/06/21 12/05/21 History cloNIDine [Catapres] 0.2 mg PO TID 12/06/21 12/06/21 12/05/21 08:00 History hydrALAZINE [Apresoline TAB] 25 mg PO QDAY 12/06/21 12/06/21 12/05/21 History ED Physical Exam - General Limitations: No Limitations General appearance: alert, in no apparent distress - Head Head exam: Present: atraumatic, normocephalic - Eye Eye exam: Present: normal appearance - ENT ENT exam: Present: mucous membranes moist - Neck Neck exam: Present: normal inspection - Respiratory Respiratory exam: Present: rales. Absent: respiratory distress - Cardiovascular Cardiovascular Exam: Present: normal rhythm, tachycardia. Absent: systolic murmur, diastolic murmur, rubs, gallop - GI/Abdominal GI/Abdominal exam: Present: soft, normal bowel sounds - Rectal Rectal exam: Present: deferred - Extremities Exam Extremities exam: Present: normal inspection - Back Exam Back exam: Present: normal inspection - Neurological Exam Neurological exam: Present: alert, oriented X3 - Psychiatric Psychiatric exam: Present: normal affect, normal mood - Skin Skin exam: Present: warm, dry, intact, normal color. Absent: rash ED Course Vital Signs 02/01/22 13:05 Temperature 98.5 F Pulse Rate 79 Respiratory 20 Rate Blood Pressure 192/115 O2 Sat by Pulse 95 Oximetry ED Medical Decision Making - Lab Data Result diagrams: 02/01/22 15:07 02/01/22 15:07 Critical care attestation.: If time is entered above; I have spent that time in minutes in the direct care of this critically ill patient, excluding procedure time. ED Disposition Clinical Impression: Hypertensive urgency, Noncompliance, Hyperkalemia Disposition: 09 ADMITTED INPATIENT Is pt being admited?: Yes Does the pt Need Aspirin: No Condition: Stable Referrals: VIVIANE GARRETT JR, MD [Primary Care Provider] - 3-5 Days
--- NOTE | 2022-02-01 16:53 | History and Physical Report ---
History of Present Illness Chief complaint: I missed dislysis History of present illness: 41 YO Male with HTN, ESRD on HD(M,W,F), CHF, CVA with LHP, ETOH Dependence, Nicotine Dependence, COPD, DVT/PE not taking anticoagulation, Cardiomyopathy S/P Heart transplant in 04/2019 presents to ED for evaluation. Patient reports "I need my dialysis". Patient was incarcerated and was unable to receive his medication as well as dialysis. The patient was subsequently released today. Patient transported to [facility] via private vehicle for further care and evaluation of the aforementioned symptoms. The patient was seen and evaluated in the emergency department. All lab and imaging studies reviewed. Patient was found to have end-stage renal disease complicated by fluid overload, as well as accelerated hypertension, and hyperkalemia. Patient admitted to medical floor due to increased risk of decompensation and initiated on pneumonia protocol, as well as coronavirus protocol. Nephrology team consulted in ED for urgent dialysis. Patient denies fever, chills, chest pain, palpitation, productive cough, skin rash, recent ill contacts, or known exposure to COVID-19. Prior admission on 12/06/2021 reviewed. All medication listed at time of admission has been reconciled. Patient is not vaccinated against COVID-19. Advanced care planning conducted in ED. Past History Past Medical History: COPD, ESRD, heart failure, hypertension Past Surgical History: Other (Dialysis access) Social history: smoking Family history: diabetes, hypertension Medications and Allergies Allergies Allergy/AdvReac Type Severity Reaction Status Date / Time No Known Allergies Allergy Verified 02/01/22 17:10 Home Medications Medication Instructions Recorded Confirmed Last Taken Type amLODIPine 10 mg PO QDAY #30 tablet 12/07/14 02/01/22 12/05/21 Rx carvediloL [Coreg] 25 mg PO BID #60 tablet 12/07/14 02/01/22 12/05/21 Rx Amiodarone [Cordarone 200 MG TAB] 200 mg PO QDAY 12/06/21 02/01/22 12/05/21 History AtorvaSTATin [Lipitor] 20 mg PO QDAY 12/06/21 02/01/22 12/05/21 History Doxercalciferol 4 mcg IV 3XW 12/06/21 02/01/22 12/03/21 History Epogen 10,000 1000units IV 3XW 12/06/21 02/01/2212/03/22 History Iron Sucrose (Nf) [Venofer (Nf)] 5 ml IV 3XW 12/06/21 02/01/22 12/04/21 History Phoslo 667 mg PO TID 12/06/21 02/01/22 12/05/21 History cloNIDine [Catapres] 0.2 mg PO TID 12/06/21 02/01/22 12/05/21 08:00 History hydrALAZINE [Apresoline TAB] 25 mg PO QDAY 12/06/21 02/01/22 12/05/21 History Active Meds: Active Medications Sodium Chloride (Nacl 0.9% 1000 Ml) 1,000 mls @ 999 mls/hr IV BOLUS ONE Stop: 02/01/22 16:59 Last Admin: 02/01/22 16:30 Dose: 999 mls/hr Calcium Chloride 1,000 mg/ (Sodium Chloride) 110 mls @ 660 mls/hr IV ONCE ONE Stop: 02/01/22 17:57 Review of Systems Constitutional: no weight loss, no weight gain, no fever, no chills Ears, nose, mouth and throat: no ear pain, no tinnitis, no decreased hearing Cardiovascular: shortness of breath, dyspnea on exertion, decreased exercise tolerance, no chest pain Respiratory: no cough, no excessive sputum, no hemoptysis Gastrointestinal: no abdominal pain, no nausea Genitourinary Male: no hematuria, no flank pain, no discharge, no urinary freq uency Rectal: no pain, no incontinence, no bleeding Musculoskeletal: no neck stiffness, no neck pain, no shooting arm pain, no arm numbness/tingling, no low back pain Integumentary: no rash, no pruritis, no redness, no sores, no wounds Neurological: no head injury, no paralysis, no parathesias, no syncope, no tremors Psychiatric: no anxiety, no memory loss, no insomnia, no change in appetite, no disorientation Endocrine: no cold intolerance, no polyphagia, no excessive thirst, no nocturia, no excessive sweating Hematologic/Lymphatic: no easy bruising, no easy bleeding Allergic/Immunologic: no urticaria, no wheezing Exam - Constitutional Vitals: Temp Pulse Resp BP Pulse Ox 98.5 F 79 20 192/115 95 02/01/22 13:05 02/01/22 13:05 02/01/22 13:05 02/01/22 13:05 02/01/22 13:05 General appearance: Present: mild distress - EENT Eyes: Present: PERRL ENT: hearing intact, clear oral mucosa - Neck Neck: Present: supple, normal ROM - Respiratory Respiratory effort: normal Respiratory: bilateral: diminished, rhonchi - Cardiovascular Heart Sounds: Present: S1 & S2. Absent: rub, click - Extremities Extremities: pulses symmetrical, No edema Peripheral Pulses: within normal limits - Abdominal General gastrointestinal: Present: soft, non-tender, non-distended, normal bowel sounds Male genitourinary: Present: normal - Integumentary Integumentary: Present: clear, warm, dry - Musculoskeletal Musculoskeletal: gait normal, strength equal bilaterally - Psychiatric Psychiatric: appropriate mood/affect, intact judgment & insight - Neurologic Neurologic: CNII-XII intact, moves all extremities Results - Labs CBC & Chem 7: 02/01/22 15:07 02/01/22 15:07 Labs: Abnormal lab results 02/01/22 02/01/22 Range/Units 15:07 15:07 RBC 5.26 H (3.65-5.03) M/mm3 Hct 46.3 H (35.5-45.6) % MCH 27 L (28-32) pg MCHC 31 L (32-34) % RDW 20.0 H (13.2-15.2) % Plt Count 127 L (140-440) K/mm3 Lymph % (Auto) 12.6 L (13.4-35.0) % [place] % (Auto) 14.3 H (0.0-7.3) % Lymph # (Auto) 1.0 L (1.2-5.4) K/mm3 [place] # (Auto) 1.2 H (0.0-0.8) K/mm3 Seg Neutrophils % 70.3 H (40.0-70.0) % Potassium 5.9 H (3.6-5.0) mmol/L Carbon Dioxide 20 L (22-30) mmol/L BUN 97 H (9-20) mg/dL Creatinine 15.7 H (0.8-1.3) mg/dL Calcium 12.7 H* (8.4-10.2) mg/dL Assessment and Plan - Patient Problems (1) End stage renal disease Current Visit: Yes Status: Acute Plan to address problem: Nephrology team consulted in ED, dialysis as per renal team, strict I's/O, monitor fluid balance, avoid nephrotoxic agents. (2) Fluid overload Current Visit: Yes Status: Acute (3) Malignant hypertension Current Visit: Yes Status: Acute (4) Hyperkalemia Current Visit: Yes Status: Acute Plan to address problem: No EKG changes, calcium gluconate, Kayexalate, repeat BMP in a.m. Urgent dialysis. (5) Metabolic acidosis Current Visit: Yes Status: Acute Plan to address problem: Urgent dialysis, supportive care, continue medical management. (6) Hypertensive urgency Current Visit: Yes Status: Acute Plan to address problem: Monitor blood pressure every shift, continue medical management, hydralazine 10 mg IV every 6 hours as needed for systolic blood pressure greater than equal 155 mmHg (7) Acute on chronic congestive heart failure Current Visit: No Status: Suspected Qualifiers: Heart failure type: systolic Qualified Code(s): I50.23 - Acute on chronic systolic (congestive) heart failure Plan to address problem: She/O, monitor urine output every shift, blood pressure control, afterload reduction, supportive care, supplemental oxygen (8) Alcohol dependence Current Visit: Yes Status: Acute Qualifiers: Substance use status: uncomplicated Qualified Code(s): F10.20 - Alcohol dependence, uncomplicated Plan to address problem: Thiamine, folic acid, multivitamin daily. (9) Nicotine dependence Current Visit: Yes Status: Acute Qualifiers: Nicotine product type: cigarettes Substance use status: in withdrawal Qualified Code(s): F17.213 - Nicotine dependence, cigarettes, with withdrawal Plan to address problem: Smoking cessation counseling, supportive care. Behavior change counseling, +30 minutes. (10) DVT prophylaxis Current Visit: Yes Status: Acute Plan to address problem: SCD to bilateral lower extremities while in bed, patient is ambulatory (11) Advance care planning Current Visit: Yes Status: Acute Plan to address problem: Disease education conducted, care plan discussed, diagnoses discussed, prognosis discussed, patient is full code. Patient knowledges understanding agreement with care plan, +30 minutes.
[2022-02-01] MEDS ORDERED: ACETAMINOPHEN 325 MG TAB PO PRN (17:07)
[2022-02-01] MEDS ORDERED: HYDROmorphone 1 MG/1 ML INJ IV PRN (17:07)
[2022-02-01] MEDS ORDERED: ALBUTEROL 2.5 MG/3 ML NEBU IH PRN (17:07)
[2022-02-01] MEDS ORDERED: ONDANSETRON 4 MG/2 ML INJ IV PRN (17:07)
[2022-02-01] MEDS ORDERED: oxyCODONE /ACETAMINOPHEN 5-325MG TAB PO PRN (17:07)
[2022-02-01] MEDS ORDERED: CALCIUM CHLORIDE 1,000 MG in SODIUM CHLORIDE 0.9% 100 ML IV ONE (17:48)
[2022-02-01] MEDS ORDERED: hydrALAZINE 25 MG TAB PO SCH (18:00)
[2022-02-01] MEDS: amLODIPine 10 MG TAB PO SCH (18:17)
[2022-02-01] MEDS ORDERED: hydrALAZINE 20 MG/1 ML INJ IV PRN (20:45)
[2022-02-01] MEDS: carvediloL 25 MG TAB PO SCH (22:35)
[2022-02-01] MEDS: cloNIDine 0.2 MG TAB PO SCH (22:35)
[2022-02-01] MEDS ORDERED: diphenhydrAMINE 50 MG/ML VIAL IV PRN (23:25)
[2022-02-02] MEDS ORDERED: diphenhydrAMINE 25 MG CAP PO PRN (00:01)
[2022-02-02] MEDS ORDERED: SODIUM CHLORIDE 0.9% 100 ML IV PRN ×2 (08:12→10:04)
[2022-02-02] MEDS ORDERED: HEPARIN 10,000 UNITS/10 ML VIAL IV PRN (08:12)
--- NOTE | 2022-02-02 09:58 | Progress Note ---
Assessment and Plan (1) End stage renal disease Current Visit: Yes Status: Acute Plan to address problem: Patient has received hemodialysis this morning. Scheduled for additional hemodialysis a.m. , Strict ins and outs avoid nephrotoxic agents. Supportive care treat patient's pruritus Atarax. Triamcinolone cream. (2) Fluid overload Current Visit: Yes Status: Acute (3) Malignant hypertension Current Visit: Yes Status: Acute (4) Hyperkalemia Current Visit: Yes Status: Acute Plan to address problem: No EKG changes, calcium gluconate, Kayexalate, repeat BMP in a.m. Urgent dialysis. (5) Metabolic acidosis Current Visit: Yes Status: Acute Plan to address problem: Urgent dialysis, supportive care, continue medical management. (6) Hypertensive urgency Current Visit: Yes Status: Acute Plan to address problem: Remains suboptimal on amlodipine 10 mg, Coreg 25 mg, clonidine. We will add as needed hydralazine. Increase clonidine. Monitor blood pressure every shift, titrate medications accordingly. (7) Acute on chronic congestive heart failure Current Visit: No Status: Suspected Qualifiers: Heart failure type: systolic Qualified Code(s): I50.23 - Acute on chronic systolic (congestive) heart failure Plan to address problem: She/O, monitor urine output every shift, blood pressure control, afterload reduction, supportive care, supplemental oxygen (8) Alcohol dependence Current Visit: Yes Status: Acute Qualifiers: Substance use status: uncomplicated Qualified Code(s): F10.20 - Alcohol dependence, uncomplicated Plan to address problem: Thiamine, folic acid, multivitamin daily. (9) Nicotine dependence Current Visit: Yes Status: Acute Qualifiers: Nicotine product type: cigarettes Substance use status: in withdrawal Qualified Code(s): F17.213 - Nicotine dependence, cigarettes, with withdrawal Plan to address problem: Smoking cessation counseling, supportive care. Behavior change counseling, +30 minutes. (10) DVT prophylaxis Current Visit: Yes Status: Acute Plan to address problem: SCD to bilateral lower extremities while in bed, patient is ambulatory (11) Advance care planning Current Visit: Yes Status: Acute Plan to address problem: Disease education conducted, care plan discussed, diagnoses discussed, prognosis discussed, patient is full code. Patient knowledges understanding agreement with care plan, +30 minutes. Subjective Date of service: 02/02/22 Principal diagnosis: Acute renal failure volume overload Interval history: Patient 41-year-old with history of hypertension, end-stage renal disease, congestive heart failure, CVA with left hemiparesis, alcohol and nicotine dependence, COPD, history of DVT, status post heart transplant April 2019. Patient became incarcerated presented to the ED with a chief complaint of shortness of breath dyspnea on exertion and did not undergo dialysis. Patient admitted for end-stage renal disease complicated by volume overload. Today complains of pruritus. Objective - Constitutional Vitals: Vital Signs - 12hr 02/01/22 02/01/22 02/02/22 22:35 23:00 04:51 Temperature 97.4 F L 97.7 F Pulse Rate 78 78 78 Respiratory 18 20 Rate Blood Pressure 188/95 188/95 179/94 O2 Sat by Pulse 97 93 Oximetry General appearance: Present: no acute distress, well-nourished - EENT Eyes: PERRL, EOM intact ENT: hearing intact, clear oral mucosa Ears: bilateral: normal - Neck Neck: supple, normal ROM - Respiratory Respiratory effort: normal Respiratory: bilateral: CTA - Breasts Breasts: normal - Cardiovascular Rhythm: regular Heart Sounds: Present: S1 & S2. Absent: gallop, rub Extremities: pulses intact, No edema, normal color, Full ROM Extremity abnormal: other (Right arm graft AV graft. Enlarged.) - Gastrointestinal General gastrointestinal: Present: soft, non-tender, non-distended, normal bowel sounds - Genitourinary Male genitourinary: normal - Integumentary Integumentary: clear, warm, dry - Musculoskeletal Musculoskeletal: 1, strength equal bilaterally - Neurologic Neurologic: moves all extremities - Psychiatric Psychiatric: memory intact, appropriate mood/affect, intact judgment & insight - Labs CBC & Chem 7: 02/01/22 15:07 02/01/22 15:07 Labs: Abnormal lab results 02/01/22 02/01/22 Range/Units 15:07 15:07 RBC 5.26 H (3.65-5.03) M/mm3 Hct 46.3 H (35.5-45.6) % MCH 27 L (28-32) pg MCHC 31 L (32-34) % RDW 20.0 H (13.2-15.2) % Plt Count 127 L (140-440) K/mm3 Lymph % (Auto) 12.6 L (13.4-35.0) % [place] % (Auto) 14.3 H (0.0-7.3) % Lymph # (Auto) 1.0 L (1.2-5.4) K/mm3 [place] # (Auto) 1.2 H (0.0-0.8) K/mm3 Seg Neutrophils % 70.3 H (40.0-70.0) % Potassium 5.9 H (3.6-5.0) mmol/L Carbon Dioxide 20 L (22-30) mmol/L BUN 97 H (9-20) mg/dL Creatinine 15.7 H (0.8-1.3) mg/dL Calcium 12.7 H* (8.4-10.2) mg/dL
[2022-02-02] MEDS ORDERED: AMIODARONE 200 MG TAB PO SCH (10:00)
[2022-02-02] MEDS ORDERED: diphenhydrAMINE 50 MG/ML VIAL IV PRN (10:04)
[2022-02-02] MEDS ORDERED: hydrOXYzine HCL 25 MG TAB PO PRN (13:38)
[2022-02-02 14:08] LABS: Hepatitis B Surface Antigen Non-Reactive (Negative); Hepatitis C Virus Antibody Non-Reactive (NonReactive)
[2022-02-02] MEDS: cloNIDine 0.2 MG TAB PO SCH ×2 (14:26→21:43)
[2022-02-02] MEDS: CALCIUM ACETATE 667 MG CAP PO SCH ×3 (14:26→19:03)
[2022-02-02] MEDS: amLODIPine 10 MG TAB PO SCH (14:27)
[2022-02-02] MEDS: carvediloL 25 MG TAB PO SCH ×2 (14:27→21:44)
[2022-02-02] MEDS: TRIAMCINOLONE 0.1% CREAM 15 GM TP SCH ×2 (16:35→21:44)
[2022-02-02] MEDS: hydrALAZINE 25 MG TAB PO SCH ×2 (16:35→21:42)
--- NOTE | 2022-02-02 17:56 | Consultation ---
History of Present Illness - Reason for Consult Consult date: 02/02/22 Past History Past Medical History: COPD, ESRD, heart failure, hypertension Past Surgical History: Other (Dialysis access) Social history: smoking Family history: diabetes, hypertension Medications and Allergies Allergies Allergy/AdvReac Type Severity Reaction Status Date / Time No Known Allergies Allergy Verified 02/01/22 17:10 Home Medications Medication Instructions Recorded Confirmed Last Taken Type amLODIPine 10 mg PO QDAY #30 tablet 12/07/14 02/01/22 12/05/21 Rx carvediloL [Coreg] 25 mg PO BID #60 tablet 12/07/14 02/01/22 12/05/21 Rx Amiodarone [Cordarone 200 MG TAB] 200 mg PO QDAY 12/06/21 02/01/22 12/05/21 History AtorvaSTATin [Lipitor] 20 mg PO QDAY 12/06/21 02/01/22 12/05/21 History Doxercalciferol 4 mcg IV 3XW 12/06/21 02/01/22 12/03/21 History Epogen 10,000 1000units IV 3XW 12/06/21 02/01/22 12/03/21 History Iron Sucrose (Nf) [Venofer (Nf)] 5 ml IV 3XW 12/06/21 02/01/22 12/04/21 History Phoslo 667 mg PO TID 12/06/21 02/01/22 12/05/21 History cloNIDine [Catapres] 0.2 mg PO TID 12/06/21 02/01/22 12/05/21 08:00 History hydrALAZINE [Apresoline TAB] 25 mg PO QDAY 12/06/21 02/01/22 12/05/21 History Active Meds: Active Medications Acetaminophen (Acetaminophen 325 Mg Tab) 650 mg PO Q4H PRN PRN Reason: Pain MILD(1-3)/Fever >100.5/GRAJEDA Albuterol (Albuterol 2.5 Mg/3 Ml Nebu) 2.5 mg IH Q4H PRN PRN Reason: Shortness Of Breath Amiodarone HCl (Amiodarone 200 Mg Tab) 200 mg PO QDAY [facility] Last Admin: 02/02/22 14:27 Dose: Not Given Amlodipine Besylate (Amlodipine 10 Mg Tab) 10 mg PO QDAY [facility] Last Admin: 02/02/22 14:27 Dose: Not Given Atorvastatin Calcium (Atorvastatin 20 Mg Tab) 20 mg PO QDAY [facility] Last Admin: 02/02/22 14:27 Dose: Not Given Calcium Acetate (Calcium Acetate 667 Mg Cap) 667 mg PO TIDWM [facility] Last Admin: 02/02/22 16:00 Dose: 667 mg Carvedilol (Carvedilol 25 Mg Tab) 25 mg PO BID [facility] Last Admin: 02/02/22 14:27 Dose: Not Given Clonidine HCl (Clonidine 0.2 Mg Tab) 0.2 mg PO TID [facility] Last Admin: 02/02/22 14:26 Dose: Not Given Diphenhydramine HCl (Diphenhydramine 25 Mg Cap) 25 mg PO Q6H PRN PRN Reason: Itching Last Admin: 02/01/22 22:35 Dose: 25 mg Diphenhydramine HCl (Diphenhydramine 50 Mg/Ml Vial) 25 mg IV BUSTER PRN PRN Reason: Itching Last Admin: 02/02/22 10:30 Dose: 25 mg Heparin Sodium (Porcine) (Heparin 10,000 Units/10 Ml Vial) 3,000 unit IV BUSTER PRN PRN Reason: hemodialysis Hydralazine HCl (Hydralazine 20 Mg/1 Ml Inj) 10 mg IV Q4HR PRN PRN Reason: Increased Blood Pressure Last Admin: 02/01/22 21:11 Dose: 10 mg Hydralazine HCl (Hydralazine 25 Mg Tab) 50 mg PO BID [facility] Last Admin: 02/02/22 16:35 Dose: 50 mg Hydromorphone HCl (Hydromorphone 1 Mg/1 Ml Inj) 0.5 mg IV Q23H PRN PRN Reason: Pain , Severe (7-10) Hydroxyzine HCl (Hydroxyzine Hcl 25 Mg Tab) 25 mg PO Q6H PRN PRN Reason: Itching Sodium Chloride (Nacl 0.9%) 100 mls @ 999 mls/hr IV BUSTER PRN PRN Reason: Hypotension Ondansetron HCl (Ondansetron 4 Mg/2 Ml Inj) 4 mg IV Q8H PRN PRN Reason: Nausea And Vomiting Oxycodone/Acetaminophen (Oxycodone /Acetaminophen 5-325mg Tab) 1 tab PO Q16H PRN PRN Reason: Pain, Moderate (4-6) Sodium Chloride (Sodium Chloride 0.9% 10 Ml Flush Syringe) 10 ml IV BID [facility] Last Admin: 02/02/22 14:27 Dose: Not Given Sodium Chloride (Sodium Chloride 0.9% 10 Ml Flush Syringe) 10 ml IV PRN PRN PRN Reason: LINE FLUSH Triamcinolone Acetonide (Triamcinolone 0.1% Cream 15 Gm) 1 applic TP BID [facility] Last Admin: 02/02/22 16:35 Dose: Not Given Exam - Vital Signs Vital signs: Vital Signs Temp Pulse Resp BP Pulse Ox 98.5 F 79 20 192/115 95 02/01/22 13:05 02/01/22 13:05 02/01/22 13:05 02/01/22 13:05 02/01/22 13:05 Results - Lab Results 02/01/22 15:07 02/01/22 15:07 Most recent lab results Calcium 12.7 mg/dL (8.4-10.2) H* 02/01/22 15:07
[2022-02-03 05:00] VITALS: BP 149/92
--- NOTE | 2022-02-03 07:58 | Progress Note ---
Subjective Date of service: 02/03/22 Principal diagnosis: Acute renal failure volume overload Objective - Vital Signs Vital signs: Vital Signs - 12hr 02/02/22 02/02/22 02/02/22 21:42 21:43 21:44 Temperature Pulse Rate 91 H 91 H 91 H Respiratory Rate Blood Pressure 183/88 183/91 183/88 Blood Pressure [Left] O2 Sat by Pulse Oximetry 02/03/22 02/03/22 00:28 04:58 Temperature 97.6 F Pulse Rate 83 Respiratory 20 Rate Blood Pressure Blood Pressure 149/92 [Left] O2 Sat by Pulse 97 90 Oximetry - Lab 02/01/22 15:07 02/01/22 15:07 Most recent lab results Calcium 12.7 mg/dL (8.4-10.2) H* 02/01/22 15:07 Medications & Allergies - Medications Allergies/Adverse Reactions: Allergies No Known Allergies Allergy (Verified 02/01/22 17:10) Home Medications: Home Medications Medication Instructions Recorded Confirmed Last Taken Type amLODIPine 10 mg PO QDAY #30 tablet 12/07/14 02/01/22 12/05/21 Rx carvediloL [Coreg] 25 mg PO BID #60 tablet 12/07/14 02/01/22 12/05/21 Rx Amiodarone [Cordarone 200 MG TAB] 200 mg PO QDAY 12/06/21 02/01/22 12/05/21 History AtorvaSTATin [Lipitor] 20 mg PO QDAY 12/06/21 02/01/22 12/05/21 History Doxercalciferol 4 mcg IV 3XW 12/06/21 02/01/22 12/03/21 History Epogen 10,000 1000units IV 3XW 12/06/21 02/01/22 12/03/21 History Iron Sucrose (Nf) [Venofer (Nf)] 5 ml IV 3XW 12/06/21 02/01/22 12/04/21 History Phoslo 667 mg PO TID 12/06/21 02/01/22 12/05/21 History cloNIDine [Catapres] 0.2 mg PO TID 12/06/21 02/01/22 12/05/21 08:00 History hydrALAZINE [Apresoline TAB] 25 mg PO QDAY 12/06/21 02/01/22 12/05/21 History Active Medications: Generic Name Dose Route Start Last Admin Trade Name Freq PRN Reason Stop Dose Admin Acetaminophen 650 mg 02/01/22 17:07 Acetaminophen 325 Mg Tab PO Q4H PRN Pain MILD(1-3)/Fever >100.5/GRAJEDA Albuterol 2.5 mg 02/01/22 17:07 Albuterol 2.5 Mg/3 Ml Nebu IH Q4H PRN Shortness Of Breath Amiodarone HCl 200 mg 02/02/22 10:00 02/02/22 14:27 Amiodarone 200 Mg Tab PO Not Given QDAY LALITA Amlodipine Besylate 10 mg 02/01/22 18:00 02/02/22 14:27 Amlodipine 10 Mg Tab PO Not Given QDAY [facility] Atorvastatin Calcium 20 mg 02/02/22 10:00 02/02/22 14:27 Atorvastatin 20 Mg Tab PO Not Given QDAY [facility] Calcium Acetate 667 mg 02/01/22 18:00 02/02/22 19:03 Calcium Acetate 667 Mg Cap PO 667 mg TIDWM LALITA Administration Carvedilol 25 mg 02/01/22 22:00 02/02/22 21:44 Carvedilol 25 Mg Tab PO 25 mg BID LALITA Administration Clonidine HCl 0.2 mg 02/01/22 22:00 02/02/22 21:43 Clonidine 0.2 Mg Tab PO 0.2 mg TID LALITA Administration Diphenhydramine HCl 25 mg 02/02/22 00:01 02/01/22 22:35 Diphenhydramine 25 Mg Cap PO 25 mg Q6H PRN Administration Itching Diphenhydramine HCl 25 mg 02/02/22 10:04 02/02/22 10:30 Diphenhydramine 50 Mg/Ml Vial IV 25 mg BUSTER PRN Administration Itching Heparin Sodium (Porcine) 3,000 unit 02/02/22 08:12 Heparin 10,000 Units/10 Ml Vial IV BUSTER PRN hemodialysis Hydralazine HCl 10 mg 02/01/22 20:45 02/01/22 21:11 Hydralazine 20 Mg/1 Ml Inj IV 10 mg Q4HR PRN Administration Increased Blood Pressure Hydralazine HCl 50 mg 02/02/22 14:00 02/02/22 21:42 Hydralazine 25 Mg Tab PO 50 mg BID LALITA Administration Hydromorphone HCl 0.5 mg 02/01/22 17:07 Hydromorphone 1 Mg/1 Ml Inj IV Q23H PRN Pain , Severe (7-10) Hydroxyzine HCl 25 mg 02/02/22 13:38 Hydroxyzine Hcl 25 Mg Tab PO Q6H PRN Itching Sodium Chloride 100 mls @ 999 mls/hr 02/02/22 10:04 Nacl 0.9% IV BUSTER PRN Hypotension Ondansetron HCl 4 mg 02/01/22 17:07 Ondansetron 4 Mg/2 Ml Inj IV Q8H PRN Nausea And Vomiting Oxycodone/Acetaminophen 1 tab 02/01/22 17:07 Oxycodone /Acetaminophen 5-325mg Tab PO Q16H PRN Pain, Moderate (4-6) Sodium Chloride 10 ml 02/01/22 22:00 02/02/22 21:59 Sodium Chloride 0.9% 10 Ml Flush Syringe IV Not Given BID LALITA Sodium Chloride 10 ml 02/01/22 17:07 Sodium Chloride 0.9% 10 Ml Flush Syringe IV PRN PRN LINE FLUSH Triamcinolone Acetonide 1 applic 02/02/22 14:00 02/02/22 21:44 Triamcinolone 0.1% Cream 15 Gm TP 1 applic BID LALITA Administration
[2022-02-03] MEDS ORDERED: SEVELAMER CARBONATE 800 MG TAB PO SCH (16:30)
--- NOTE | 2022-02-03 18:09 | Discharge Summary ---
Providers - Providers Date of Admission: 02/01/22 17:07 Date of discharge: 02/03/22 Attending physician: RILEY TALAMANTES 02/02/22 09:54 Consult to Physician [CONS] Routine Comment: Consulting Provider: JYOTI KING Physician Instructions: Reason For Exam: esrd Primary care physician: VIVIANE GARRETT Hospitalization Condition: Stable Hospital course: --End stage renal disease Current Visit: Yes Status: Acute Patient has received hemodialysis this morning. Scheduled for additional hemodialysis a.m. , Strict ins and outs avoid nephrotoxic agents. Supportive care treat patient's pruritus Atarax. Triamcinolone cream. --Fluid overload Current Visit: Yes Status: Acute -- Malignant hypertension Current Visit: Yes Status: Acute --Hyperkalemia Current Visit: Yes Status: Acute No EKG changes, calcium gluconate, Kayexalate, repeat BMP in a.m. Urgent dialysis. -- Metabolic acidosis Current Visit: Yes Status: Acute Urgent dialysis, supportive care, continue medical management. --Hypertensive urgency Current Visit: Yes Status: Acute Remains suboptimal on amlodipine 10 mg, Coreg 25 mg, clonidine. We will add as needed hydralazine. Increase clonidine. Monitor blood pressure every shift, titrate medications accordingly. -- Acute on chronic congestive heart failure Current Visit: No Status: Suspected She/O, monitor urine output every shift, blood pressure control, afterload reduction, supportive care, supplemental oxygen -- Alcohol dependence Current Visit: Yes Status: Acute Thiamine, folic acid, multivitamin daily. --Nicotine dependence Current Visit: Yes Status: Acute Smoking cessation counseling, supportive care. Behavior change counseling, +30 minutes. --DVT prophylaxis Current Visit: Yes Status: Acute SCD to bilateral lower extremities while in bed, patient is ambulatory -- Advance care planning Current Visit: Yes Status: Acute Disease education conducted, care plan discussed, diagnoses discussed, prognosis discussed, patient is full code. Patient knowledges understanding agreement with care plan, +30 minutes. End-stage renal disease on hemodialysis okay good okay okay I do you have a lot of money yes you you get your you need some excitement Disposition: LEFT AGAINST MEDICAL ADVICE Exam - Constitutional Vitals: Temp Pulse Resp BP Pulse Ox 97.6 F 83 20 149/92 90 02/03/22 04:58 02/03/22 04:58 02/03/22 04:58 02/03/22 04:58 02/03/22 04:58 Plan Follow up with: VIVIANE GARRETT JR, MD [Primary Care Provider] - 3-5 Days
== END 2022-02-03 11:45 | disposition left against medical advice (07) | DRG 291 ==
LOC: ED 12:46 → 3A 17:07
PROVIDERS: ADMIT Internal Medicine; ATTEND Internal Medicine
PROC: 5A1D70Z Performance of Urinary Filtration, Intermittent, Less than 6 Hours Per Day (ICD-10-PCS; principal; 2022-02-02)
DX: I13.2 Hypertensive heart and chronic kidney disease with heart failure and with stage 5 chronic kidney disease, or end stage renal disease (principal); I50.43 Acute on chronic combined systolic (congestive) and diastolic (congestive) heart failure; N18.6 End stage renal disease; E87.2 Acidosis; Z94.1 Heart transplant status; F17.213 Nicotine dependence, cigarettes, with withdrawal; I69.354 Hemiplegia and hemiparesis following cerebral infarction affecting left non-dominant side; I16.0 Hypertensive urgency; Z53.29 Procedure and treatment not carried out because of patient's decision for other reasons; J44.9 Chronic obstructive pulmonary disease, unspecified; E87.5 Hyperkalemia; Z91.19 Patient's noncompliance with other medical treatment and regimen; F10.20 Alcohol dependence, uncomplicated; Z83.3 Family history of diabetes mellitus; Z82.49 Family history of ischemic heart disease and other diseases of the circulatory system; Z71.6 Tobacco abuse counseling
CPT/HCPCS: 36415; 80048; 80074; 85025; 94644; G0378; J3490; Q0162; J0360; J1200; J7030

== ENCOUNTER 2022-02-05 10:07 | Observation (INO) | payer OTHER, MEDICARE ==
--- NOTE | 2022-02-05 10:46 | Event Note ---
ED Screening Note ED Screening Note: cc SOB due for HD This initial assessment/diagnostic orders/clinical plan/treatment(s) is/are subject to change based on patients health status, clinical progression and re- assessment by fellow clinical providers in the ED. Further treatment and workup at subsequent clinical providers discretion. Patient/guardian urged not to elope from the ED as their condition may be serious if not clinically assessed and managed. Initial orders include: ekg/xray/labs
--- NOTE | 2022-02-05 11:18 | XRay Report ---
CHEST 2 VIEWS INDICATION: sob. COMPARISON: 12/06/2021. FINDINGS: Support devices: Thoracic aortic stent graft is unchanged. Heart: Stable. Lungs/Pleura: No acute air space or interstitial disease. No significant pleural effusion. Moderate gastric distention. IMPRESSION: 1. No acute lung infiltrate. 2. Moderate gastric distention. Signer Name: Teddy Connolly MD Signed: 02/05/2022 11:13 AM Workstation Name: [id number]
[2022-02-05 11:32] LABS: Basophils # (Auto) 0.1 K/mm3 (0.0-0.1); Eosinophils # (Auto) 0.1 K/mm3 (0.0-0.4); Eosinophils % (Auto) 2.4 % (0.0-4.3); Hematocrit 41.3 % (35.5-45.6); Lymphocytes # (Auto) 0.8 K/mm3 (1.2-5.4); Lymphocytes % (Auto) 13.7 % (13.4-35.0); Mean Corpuscular HGB Conc 32 % (32-34); Mean Corpuscular Volume 88 fl (84-94); Monocytes # (Auto) 0.7 K/mm3 (0.0-0.8); Monocytes % (Auto) 11.6 % (0.0-7.3); Platelet Count 121 K/mm3 (140-440); Red Blood Count 4.71 M/mm3 (3.65-5.03); Red Cell Distribution Width 19.1 % (13.2-15.2)
[2022-02-05 11:46] LABS: Albumin 3.9 g/dL (3.9-5); Calcium 10.5 mg/dL (8.4-10.2)
--- NOTE | 2022-02-05 12:13 | Emergency Department Report ---
ED General Adult HPI - General Chief complaint: Dyspnea/Respdistress Stated complaint: SOB PUI?: No Time Seen by Provider: 02/05/22 12:09 Source: patient Mode of arrival: Ambulatory Limitations: No Limitations - History of Present Illness Initial comments: Mr. Alcantar is a 41-year-old -[place] male that presents to the ER complaining of shortness of breath requesting dialysis. He is known to us. He has been on dialysis for 2-1/2 years and his renal failure is due to untreated hypertension. He has a fistula on his right upper extremity. He was last dialyzed here on Wednesday. Patient is patient of Dr. Barrera. Patient no longer has a clinic because he was incarcerated and at that time he was discharged from his clinic. He is waiting to be established with a new clinic. -: Gradual Severity scale (0 -10): 0 Worsens with: movement Associated Symptoms: denies other symptoms, shortness of breath. denies: confus ion, chest pain, cough, diaphoresis, fever/chills, headaches, loss of appetite, malaise, nausea/vomiting, rash, syncope, weakness Treatments Prior to Arrival: none - Related Data Home Medications Medication Instructions Recorded Confirmed Last Taken Amiodarone [Cordarone 200 MG TAB] 200 mg PO QDAY 12/06/21 02/01/22 12/05/21 AtorvaSTATin [Lipitor] 20 mg PO QDAY 12/06/21 02/01/22 12/05/21 Doxercalciferol 4 mcg IV 3XW 12/06/21 02/01/22 12/03/21 Iron Sucrose (Nf) [Venofer (Nf)] 5 ml IV 3XW 12/06/21 02/01/22 12/04/21 cloNIDine [Catapres] 0.2 mg PO TID 12/06/21 02/01/22 12/05/21 08:00 hydrALAZINE [Apresoline TAB] 25 mg PO QDAY 12/06/21 02/01/22 12/05/21 Calcium Acetate [Phoslo] 1,334 mg PO TID 02/03/22 02/03/22 Unknown Epoetin Sd [Epogen] 15,000 units IV 3XW 02/03/22 02/03/22 Unknown Previous Rx's Medication Instructions Recorded Last Taken Type amLODIPine 10 mg PO QDAY #30 tablet 12/07/14 12/05/21 Rx carvediloL [Coreg] 25 mg PO BID #60 tablet 12/07/14 12/05/21 Rx Allergies Allergy/AdvReac Type Severity Reaction Status Date / Time No Known Allergies Allergy Verified 02/03/22 13:22 ED Review of Systems ROS: Stated complaint: SOB Other details as noted in HPI Comment: All other systems reviewed and negative ED Past Medical Hx - Past Medical History Previous Medical History?: Yes Hx Hypertension: Yes Hx CVA: Yes Hx Heart Attack/AMI: Yes Hx Congestive Heart Failure: Yes Hx Diabetes: No Hx Deep Vein Thrombosis: Yes Hx Pulmonary Embolism: Yes Hx Renal Disease: Yes Hx Arthritis: No Hx Headaches / Migraines: No Hx Kidney Stones: No Hx Asthma: Yes Hx COPD: Yes Hx Tuberculosis: No Additional medical history: heart problems - Surgical History Past Surgical History?: Yes Hx Coronary Stent: No Hx Pacemaker: No Hx Internal Defibrillator: No Hx Cholecystectomy: No Hx Appendectomy: No Additional Surgical History: abd hernia, not repaired yet;aorta rupture and repair - Social History Smoking Status: Never Smoker Substance Use Type: None - Medications Home Medications: Home Medications Medication Instructions Recorded Confirmed Last Taken Type amLODIPine 10 mg PO QDAY #30 tablet 12/07/14 02/01/22 12/05/21 Rx carvediloL [Coreg] 25 mg PO BID #60 tablet 12/07/14 02/01/22 12/05/21 Rx Amiodarone [Cordarone 200 MG TAB] 200 mg PO QDAY 12/06/21 02/01/22 12/05/21 History AtorvaSTATin [Lipitor] 20 mg PO QDAY 12/06/21 02/01/22 12/05/21 History Doxercalciferol 4 mcg IV 3XW 12/06/21 02/01/22 12/03/21 History Iron Sucrose (Nf) [Venofer (Nf)] 5 ml IV 3XW 12/06/21 02/01/22 12/04/21 History cloNIDine [Catapres] 0.2 mg PO TID 12/06/21 02/01/22 12/05/21 08:00 History hydrALAZINE [Apresoline TAB] 25 mg PO QDAY 12/06/21 02/01/22 12/05/21 History Calcium Acetate [Phoslo] 1,334 mg PO TID 02/03/22 02/03/22 Unknown History Epoetin Sd [Epogen] 15,000 units IV 3XW 02/03/22 02/03/22 Unknown History ED Physical Exam - General Limitations: No Limitations General appearance: alert, in no apparent distress - Head Head exam: Present: atraumatic, normocephalic - Eye Eye exam: Present: normal appearance - ENT ENT exam: Present: mucous membranes moist - Neck Neck exam: Present: normal inspection - Respiratory Respiratory exam: Present: normal lung sounds bilaterally, rales. Absent: respiratory distress - Cardiovascular Cardiovascular Exam: Present: regular rate, normal rhythm. Absent: systolic murmur, diastolic murmur, rubs, gallop - GI/Abdominal GI/Abdominal exam: Present: soft, normal bowel sounds - Rectal Rectal exam: Present: deferred - Extremities Exam Extremities exam: Present: normal inspection - Back Exam Back exam: Present: normal inspection - Neurological Exam Neurological exam: Present: alert, oriented X3 - Psychiatric Psychiatric exam: Present: normal affect, normal mood - Skin Skin exam: Present: warm, dry, intact, normal color. Absent: rash ED Course Vital Signs 02/05/22 10:39 Temperature 98.3 F Pulse Rate 78 Respiratory 18 Rate Blood Pressure 176/94 Blood Pressure 176/94 [Left] O2 Sat by Pulse 91 Oximetry - Reevaluation(s) Reevaluation #1: 02/05/22 12:12 nephrology paged Reevaluation #2: 02/05/22 12:[address] Eli will staff case and get back with us re: HD sat 91- RN asked to place pt on oxygen still waiting for ED bed- RN aware Reevaluation #3: 02/05/22 13:32 Kamla called back from nephrology and patient will be dialyzed today. Patient has been placed on the wait list it is unclear what time he will go Staffed with Dr. Nuñez for admission. ED Medical Decision Making - Lab Data Result diagrams: 02/05/22 11:05 02/05/22 11:05 - EKG Data EKG shows normal: sinus rhythm Rate: normal - EKG Data When compared to previous EKG there are: no significant change Interpretation: no acute changes - Radiology Data Radiology results: report reviewed, image reviewed See report - Medical Decision Making Labs 02/05/22 02/05/22 02/05/22 11:05 11:05 11:05 WBC 6.0 RBC 4.71 Hgb 13.0 Hct 41.3 MCV 88 MCH 28 MCHC 32 RDW 19.1 H Plt Count 121 L Lymph % (Auto) 13.7 [place] % (Auto) 11.6 H Eos % (Auto) 2.4 Baso % (Auto) 1.0 Lymph # (Auto) 0.8 L [place] # (Auto) 0.7 Eos # (Auto) 0.1 Baso # (Auto) 0.1 Seg Neutrophils % 71.3 H Seg Neutrophils # 4.3 Sodium 140 Potassium 5.8 H Chloride 98.6 Carbon Dioxide 17 L Anion Gap 30 BUN 118 H Creatinine 17.2 H Estimated GFR 4 BUN/Creatinine Ratio 7 Glucose 105 H Calcium 10.5 H D Phosphorus 7.40 H Total Bilirubin 0.40 AST 15 ALT 18 Alkaline Phosphatase 87 Total Protein 7.8 Albumin 3.9 Albumin/Globulin Ratio 1.0 Vital Signs 02/05/22 10:39 Temperature 98.3 F Pulse Rate 78 Respiratory 18 Rate Blood Pressure 176/94 Blood Pressure 176/94 [Left] O2 Sat by Pulse 91 Oximetry Oxygen saturation is 90-91 on room air. Patient placed on nasal cannula. He is being held currently in MICU pending in ER room being available 1330 Patient updated on plan of care and his impending HD. Staffed with attending Tarun charge nurse aware of admit plan admit HMS HD this mia - Differential Diagnosis volume overload/hd pt Critical care attestation.: If time is entered above; I have spent that time in minutes in the direct care of this critically ill patient, excluding procedure time. ED Disposition Clinical Impression: Hyperkalemia, ESRD needing dialysis Chronic renal failure Qualifiers: Chronic kidney disease stage: unspecified stage Qualified Code(s): N18.9 - Chronic kidney disease, unspecified Disposition: 02 [facility]ORT TERM [facility] Is pt being admited?: Yes Does the pt Need Aspirin: No Condition: Stable Referrals: PRIMARY CARE, [Primary Care Provider] - 3-5 Days Time of Disposition: 12:13
[2022-02-05] MEDS ORDERED: diphenhydrAMINE 25 MG CAP PO ONE (13:59)
--- NOTE | 2022-02-05 14:07 | History and Physical Report ---
History of Present Illness Date of examination: 02/05/22 Date of admission: February 05, 2022 Chief complaint: Increasing shortness of breath for 2 days History of present illness: 41-year-old -[place] male with history of end-stage renal disease: Erythematous, hypertension and anemia comes in for increasing shortness of breath. Patient is noncompliant with hemodialysis. Last hemodialysis was Wednesday. Patient has no dialysis clinic because of the cost related and was discharged from his previous hemodialysis clinic. Patient is waiting for dialysis clinic to be established. In the meantime patient comes intubated in the emergency room for hemodialysis. Shortness of breath and orthopnea present. Last dialysis was Wednesday which is 3 days ago. Today is . No chest pain. Exacerbating factor is missing dialysis. - Past Medical History --Previous Medical History?: Yes --Hypertension: Yes --CVA: Yes --Heart Attack/AMI: Yes --Congestive Heart Failure: Yes --Deep Vein Thrombosis: Yes --Pulmonary Embolism: Yes --Renal Disease: Yes --Asthma: Yes --COPD: Yes --Additional medical history: heart problems - Surgical History --Abd hernia, not repaired yet;aorta rupture and repair - Social History --Smoking Status: Never Smoker --Substance Use Type: None Review of Systems ROS: Stated complaint: SOB Other details as noted in HPI Comment: All other systems reviewed and negative Medications and Allergies Allergies Allergy/AdvReac Type Severity Reaction Status Date / Time No Known Allergies Allergy Verified 02/03/22 13:22 Home Medications Medication Instructions Recorded Confirmed Last Taken Type amLODIPine 10 mg PO QDAY #30 tablet 12/07/14 02/06/22 12/05/21 Rx carvediloL [Coreg] 25 mg PO BID #60 tablet 12/07/14 02/06/22 12/05/21 Rx cloNIDine [Catapres] 0.2 mg PO TID 12/06/21 02/06/22 12/05/21 08:00 History hydrALAZINE [Apresoline TAB] 25 mg PO QDAY 12/06/21 02/06/22 12/05/21 History Exam - Constitutional Vitals: Temp Pulse Resp BP Pulse Ox 98.3 F 78 18 176/94 91 02/05/22 10:39 02/05/22 10:39 02/05/22 10:39 02/05/22 10:39 02/05/22 10:39 General appearance: Present: severe distress - EENT Eyes: Present: PERRL ENT: hearing intact, clear oral mucosa - Neck Neck: Present: supple, normal ROM - Respiratory Respiratory effort: normal Respiratory: bilateral: CTA - Cardiovascular Heart rate: 78 Rhythm: regular Heart Sounds: Present: S1 & S2. Absent: rub, click - Extremities Extremities: pulses symmetrical, No edema Peripheral Pulses: within normal limits - Abdominal General gastrointestinal: Present: soft, non-tender, non-distended, normal bowel sounds Male genitourinary: Present: normal - Integumentary Integumentary: Present: clear, warm, dry - Musculoskeletal Musculoskeletal: gait normal, strength equal bilaterally - Psychiatric Psychiatric: appropriate mood/affect, intact judgment & insight - Neurologic Neurologic: CNII-XII intact, moves all extremities Results - Labs CBC & Chem 7: 02/05/22 11:05 02/05/22 11:05 Labs: Laboratory Last Values WBC 6.0 K/mm3 (4.5-11.0) 02/05/22 11:05 RBC 4.71 M/mm3 (3.65-5.03) 02/05/22 11:05 Hgb 13.0 gm/dl (11.8-15.2) 02/05/22 11:05 Hct 41.3 % (35.5-45.6) 02/05/22 11:05 MCV 88 fl (84-94) 02/05/22 11:05 MCH 28 pg (28-32) 02/05/22 11:05 MCHC 32 % (32-34) 02/05/22 11:05 RDW 19.1 % (13.2-15.2) H 02/05/22 11:05 Plt Count 121 K/mm3 (140-440) L 02/05/22 11:05 Lymph % (Auto) 13.7 % (13.4-35.0) 02/05/22 11:05 [place] % (Auto) 11.6 % (0.0-7.3) H 02/05/22 11:05 Eos % (Auto) 2.4 % (0.0-4.3) 02/05/22 11:05 Baso % (Auto) 1.0 % (0.0-1.8) 02/05/22 11:05 Lymph # (Auto) 0.8 K/mm3 (1.2-5.4) L 02/05/22 11:05 [place] # (Auto) 0.7 K/mm3 (0.0-0.8) 02/05/22 11:05 Eos # (Auto) 0.1 K/mm3 (0.0-0.4) 02/05/22 11:05 Baso # (Auto) 0.1 K/mm3 (0.0-0.1) 02/05/22 11:05 Seg Neutrophils % 71.3 % (40.0-70.0) H 02/05/22 11:05 Seg Neutrophils # 4.3 K/mm3 (1.8-7.7) 02/05/22 11:05 Sodium 140 mmol/L (137-145) 02/05/22 11:05 Potassium 5.8 mmol/L (3.6-5.0) H 02/05/22 11:05 Chloride 98.6 mmol/L (98-107) 02/05/22 11:05 Carbon Dioxide 17 mmol/L (22-30) L 02/05/22 11:05 Anion Gap 30 mmol/L 02/05/22 11:05 BUN 118 mg/dL (9-20) H 02/05/22 11:05 Creatinine 17.2 mg/dL (0.8-1.3) H 02/05/22 11:05 Estimated GFR 4 ml/min 02/05/22 11:05 BUN/Creatinine Ratio 7 % 02/05/22 11:05 Glucose 105 mg/dL (75-100) H 02/05/22 11:05 Calcium 10.5 mg/dL (8.4-10.2) H D 02/05/22 11:05 Phosphorus 7.40 mg/dL (2.5-4.5) H 02/05/22 11:05 Total Bilirubin 0.40 mg/dL (0.1-1.2) 02/05/22 11:05 AST 15 units/L (5-40) 02/05/22 11:05 ALT 18 units/L (7-56) 02/05/22 11:05 Alkaline Phosphatase 87 units/L (35-129) 02/05/22 11:05 NT-Pro-B Natriuret Pep 147535 pg/mL (0-450) H 02/05/22 11:05 Total Protein 7.8 g/dL (6.3-8.2) 02/05/22 11:05 Albumin 3.9 g/dL (3.9-5) 02/05/22 11:05 Albumin/Globulin Ratio 1.0 % 02/05/22 11:05 Short CBC 02/05/22 Range/Units 11:05 WBC 6.0 (4.5-11.0) K/mm3 Hgb 13.0 (11.8-15.2) gm/dl Hct 41.3 (35.5-45.6) % Plt Count 121 L (140-440) K/mm3 BMP 02/05/22 11:05 Sodium 140 Potassium 5.8 H Chloride 98.6 Carbon Dioxide 17 L BUN 118 H Creatinine 17.2 H Glucose 105 H Calcium 10.5 H D Liver Function 02/05/22 Range/Units 11:05 Total Bilirubin 0.40 (0.1-1.2) mg/dL AST 15 (5-40) units/L ALT 18 (7-56) units/L Alkaline Phosphatase 87 (35-129) units/L Albumin 3.9 (3.9-5) g/dL Assessment and Plan Advance Directives: Yes (Full code) VTE prophylaxis?: Chemical Plan of care discussed with patient/family: Yes - Patient Problems (1) Volume overload Current Visit: Yes Status: Acute Plan to address problem: Due to missed hemodialysis Patient going for hemodialysis now Nephrology consult requested and appreciated (2) Hyperkalemia Current Visit: Yes Status: Acute Plan to address problem: Treated and also patient getting hemodialysis (3) End-stage renal disease on hemodialysis Current Visit: Yes Status: Chronic Plan to address problem: Case management to arrange for hemodialysis chair (4) Hypertension Current Visit: Yes Status: Chronic Qualifiers: Hypertension type: primary hypertension Qualified Code(s): I10 - Essential (primary) hypertension Plan to address problem: Continue antihypertensives (5) HLD (hyperlipidemia) Current Visit: Yes Status: Chronic Qualifiers: Hyperlipidemia type: mixed hyperlipidemia Qualified Code(s): E78.2 - Mixed hyperlipidemia Plan to address problem: Continue statins (6) DVT prophylaxis Current Visit: No Status: Acute Plan to address problem: On anticoagulation GI prophylaxis (7) Advance care planning Current Visit: Yes Status: Acute Plan to address problem: Disease education conducted, care plan discussed, diagnosis discussed, prognosis discussed. Patient is full code. Patient acknowledges understanding and agreement with care plan. +30 minutes.
[2022-02-05] MEDS ORDERED: oxyCODONE /ACETAMINOPHEN 5-325MG TAB PO PRN (14:09)
[2022-02-05] MEDS ORDERED: MORPHINE 2 MG/1 ML INJ IV PRN (14:09)
[2022-02-05] MEDS ORDERED: ACETAMINOPHEN 325 MG TAB PO PRN (14:09)
[2022-02-05] MEDS ORDERED: METOCLOPRAMIDE 10 MG/2 ML INJ IV PRN (14:09)
[2022-02-05] MEDS ORDERED: ONDANSETRON 4 MG/2 ML INJ IV PRN (14:09)
[2022-02-05] MEDS ORDERED: SODIUM CHLORIDE 0.9% 100 ML IV PRN (14:19)
[2022-02-05] MEDS ORDERED: amLODIPine 10 MG TAB PO SCH (15:00)
[2022-02-05] MEDS ORDERED: carvediloL 25 MG TAB PO SCH (15:00)
[2022-02-05] MEDS ORDERED: AMIODARONE 200 MG TAB PO SCH (15:00)
[2022-02-05] MEDS ORDERED: cloNIDine 0.1 MG TAB PO SCH (20:00)
[2022-02-05] MEDS ORDERED: FAMOTIDINE 10 MG TAB PO SCH (22:00)
[2022-02-05] MEDS: HEPARIN 5,000 UNIT/1 ML VIAL SUB-Q SCH (22:19)
[2022-02-05] MEDS: CALCIUM ACETATE 667 MG CAP PO SCH (22:20)
[2022-02-06] MEDS: HEPARIN 5,000 UNIT/1 ML VIAL SUB-Q SCH ×2 (06:09→11:46)
[2022-02-06 07:37] VITALS: BP 168/96
--- NOTE | 2022-02-06 07:37 | Progress Note ---
Assessment and Plan Assessment and plan: History of present illness: 41-year-old -Ugand[place] male with history of end-stage renal disease: Erythematous, hypertension and anemia comes in for increasing shortness of breath. Patient is noncompliant with hemodialysis. Last hemodialysis was Wednesday. Patient has no dialysis clinic because of the cost related and was discharged from his previous hemodialysis clinic. Patient is waiting for dialysis clinic to be established. In the meantime patient comes intubated in the emergency room for hemodialysis. Shortness of breath and orthopnea present. Last dialysis was Wednesday which is 3 days ago. Today is . No chest pain. Exacerbating factor is missing dialysis. Hospital course: 02/06: Assessment and Plan: (1) Volume overload Current Visit: Yes Status: Acute Plan to address problem: Due to missed hemodialysis Patient going for hemodialysis now Nephrology consult requested and appreciated (2) Hyperkalemia Current Visit: Yes Status: Acute Plan to address problem: Treated and also patient getting hemodialysis (3) End-stage renal disease on hemodialysis Current Visit: Yes Status: Chronic Plan to address problem: Case management to arrange for hemodialysis chair (4) Hypertension Current Visit: Yes Status: Chronic Qualifiers: Hypertension type: primary hypertension Qualified Code(s): I10 - Essential (primary) hypertension Plan to address problem: Continue antihypertensives (5) HLD (hyperlipidemia) Current Visit: Yes Status: Chronic Qualifiers: Hyperlipidemia type: mixed hyperlipidemia Qualified Code(s): E78.2 - Mixed hyperlipidemia Plan to address problem: Continue statins (6) DVT prophylaxis Current Visit: No Status: Acute Plan to address problem: On anticoagulation GI prophylaxis (7) Advance care planning Current Visit: Yes Status: Acute Plan to address problem: Disease education conducted, care plan discussed, diagnosis discussed, prognosis discussed. Patient is full code. Patient acknowledges understanding and agreement with care plan. +30 minutes. Hospitalist Physical - Constitutional Vitals: Temp Pulse Resp BP Pulse Ox 98.6 F 74 18 159/85 94 02/06/22 04:27 02/06/22 04:27 02/06/22 04:27 02/06/22 04:27 02/06/22 04:27 General appearance: Present: severe distress Results - Labs CBC & Chem 7: 02/05/22 11:05 02/05/22 11:05 Labs: Laboratory Last Values WBC 6.0 K/mm3 (4.5-11.0) 02/05/22 11:05 RBC 4.71 M/mm3 (3.65-5.03) 02/05/22 11:05 Hgb 13.0 gm/dl (11.8-15.2) 02/05/22 11:05 Hct 41.3 % (35.5-45.6) 02/05/22 11:05 MCV 88 fl (84-94) 02/05/22 11:05 MCH 28 pg (28-32) 02/05/22 11:05 MCHC 32 % (32-34) 02/05/22 11:05 RDW 19.1 % (13.2-15.2) H 02/05/22 11:05 Plt Count 121 K/mm3 (140-440) L 02/05/22 11:05 Lymph % (Auto) 13.7 % (13.4-35.0) 02/05/22 11:05 [place] % (Auto) 11.6 % (0.0-7.3) H 02/05/22 11:05 Eos % (Auto) 2.4 % (0.0-4.3) 02/05/22 11:05 Baso % (Auto) 1.0 % (0.0-1.8) 02/05/22 11:05 Lymph # (Auto) 0.8 K/mm3 (1.2-5.4) L 02/05/22 11:05 [place] # (Auto) 0.7 K/mm3 (0.0-0.8) 02/05/22 11:05 Eos # (Auto) 0.1 K/mm3 (0.0-0.4) 02/05/22 11:05 Baso # (Auto) 0.1 K/mm3 (0.0-0.1) 02/05/22 11:05 Seg Neutrophils % 71.3 % (40.0-70.0) H 02/05/22 11:05 Seg Neutrophils # 4.3 K/mm3 (1.8-7.7) 02/05/22 11:05 Sodium 140 mmol/L (137-145) 02/05/22 11:05 Potassium 5.8 mmol/L (3.6-5.0) H 02/05/22 11:05 Chloride 98.6 mmol/L (98-107) 02/05/22 11:05 Carbon Dioxide 17 mmol/L (22-30) L 02/05/22 11:05 Anion Gap 30 mmol/L 02/05/22 11:05 BUN 118 mg/dL (9-20) H 02/05/22 11:05 Creatinine 17.2 mg/dL (0.8-1.3) H 02/05/22 11:05 Estimated GFR 4 ml/min 02/05/22 11:05 BUN/Creatinine Ratio 7 % 02/05/22 11:05 Glucose 105 mg/dL (75-100) H 02/05/22 11:05 Calcium 10.5 mg/dL (8.4-10.2) H D 02/05/22 11:05 Phosphorus 7.40 mg/dL (2.5-4.5) H 02/05/22 11:05 Total Bilirubin 0.40 mg/dL (0.1-1.2) 02/05/22 11:05 AST 15 units/L (5-40) 02/05/22 11:05 ALT 18 units/L (7-56) 02/05/22 11:05 Alkaline Phosphatase 87 units/L (35-129) 02/05/22 11:05 NT-Pro-B Natriuret Pep [id number] pg/mL (0-450) H 02/05/22 11:05 Total Protein 7.8 g/dL (6.3-8.2) 02/05/22 11:05 Albumin 3.9 g/dL (3.9-5) 02/05/22 11:05 Albumin/Globulin Ratio 1.0 % 02/05/22 11:05 Mckeon/IV: Voiding Method Urinal Active Medications - Current Medications Current Medications: Generic Name Dose Route Start Last Admin Trade Name Freq PRN Reason Stop Dose Admin Acetaminophen 650 mg 02/05/22 14:09 Acetaminophen 325 Mg Tab PO Q4H PRN Pain MILD(1-3)/Fever >100.5/GRAJEDA Amiodarone HCl 200 mg 02/05/22 15:00 Amiodarone 200 Mg Tab PO QDAY [facility] Amlodipine Besylate 10 mg 02/05/22 15:00 Amlodipine 10 Mg Tab PO QDAY [facility] Atorvastatin Calcium 20 mg 02/05/22 22:00 04/07/22 22:20 Atorvastatin 20 Mg Tab PO 20 mg QHS [facility] Administration Calcium Acetate 1,334 mg 02/05/22 20:00 02/05/22 22:20 Calcium Acetate 667 Mg Cap PO 1,334 mg TID [facility] Administration Carvedilol 25 mg 02/05/22 15:00 Carvedilol 25 Mg Tab PO BID [facility] Clonidine HCl 0.2 mg 02/05/22 20:00 02/05/22 22:19 Clonidine 0.1 Mg Tab PO 0.2 mg TID [facility] Administration Famotidine 10 mg 02/05/22 22:00 02/05/22 22:20 Famotidine 10 Mg Tab PO 10 mg BID [facility] Administration Heparin Sodium (Porcine) 5,000 unit 02/05/22 15:00 02/06/22 06:09 Heparin 5,000 Unit/1 Ml Vial SUB-Q Not Given Q12HR [facility] Hydralazine HCl 25 mg 02/06/22 10:00 Hydralazine 25 Mg Tab PO QDAY [facility] Sodium Chloride 100 mls @ 999 mls/hr 02/05/22 14:19 Nacl 0.9% IV BUSTER PRN Hypotension Ferric Sodium Gluconate 110 mls @ 100 mls/hr 02/06/22 10:00 Complex 125 mg/ Sodium IV Chloride [email or web address] [facility] Metoclopramide HCl 10 mg 02/05/22 14:09 Metoclopramide 10 Mg/2 Ml Inj IV Q6H PRN Nausea And Vomiting Miscellaneous Medication 4 mcg 02/06/22 10:00 Doxercalciferol [Doxercalciferol] IV 3XW [facility] Morphine Sulfate 2 mg 02/05/22 14:09 Morphine 2 Mg/1 Ml Inj IV Q4H PRN Pain, Moderate (4-6) Ondansetron HCl 4 mg 02/05/22 14:09 Ondansetron 4 Mg/2 Ml Inj IV Q8H PRN Nausea And Vomiting Oxycodone/Acetaminophen 1 tab 02/05/22 14:09 Oxycodone /Acetaminophen 5-325mg Tab PO Q6H PRN Pain, Moderate (4-6) Sodium Chloride 10 ml 02/05/22 15:00 Sodium Chloride 0.9% 10 Ml Flush Syringe IV BID LALITA Sodium Chloride 10 ml 02/05/22 14:09 Sodium Chloride 0.9% 10 Ml Flush Syringe IV PRN PRN LINE FLUSH
[2022-02-06] MEDS: CALCIUM ACETATE 667 MG CAP PO SCH (08:50)
--- NOTE | 2022-02-06 09:32 | Consultation ---
History of Present Illness - Reason for Consult Consult date: 02/06/22 end stage renal disease, hyperkalemia, accelerated hypertension - History of Present Illness Mr. Alcantar is a 41-year-old -Irish male that presents to the ER complaining of shortness of breath requesting dialysis. He is known to us. He has been on dialysis for 2-1/2 years and his renal failure is due to untreated hypertension. He has a fistula on his right upper extremity. He was last dialyzed here on Wednesday. Patient is patient of Dr. Barrera. Patient no longer has a clinic because he was incarcerated and at that time he was discharged from his clinic. He is waiting to be established with a new clinic. -: Gradual Severity scale (0 -10): 0 Worsens with: movement Associated Symptoms: denies other symptoms, shortness of breath. denies: confusion, chest pain, cough, diaphoresis, fever/chills, headaches, loss of appetite, malaise, nausea/vomiting, rash, syncope, weakness Treatments Prior to Arrival: none ROS: Stated complaint: SOB Other details as noted in HPI Comment: All other systems reviewed and negative - Past Medical History Previous Medical History?: Yes Hx Hypertension: Yes Hx CVA: Yes Hx Heart Attack/AMI: Yes Hx Congestive Heart Failure: Yes Hx Diabetes: No Hx Deep Vein Thrombosis: Yes Hx Pulmonary Embolism: Yes Hx Renal Disease: Yes Hx Arthritis: No Hx Headaches / Migraines: No Hx Kidney Stones: No Hx Asthma: Yes Hx COPD: Yes Hx Tuberculosis: No Additional medical history: heart problems - Surgical History Past Surgical History?: Yes Hx Coronary Stent: No Hx Pacemaker: No Hx Internal Defibrillator: No Hx Cholecystectomy: No Hx Appendectomy: No Additional Surgical History: abd hernia, not repaired yet;aorta rupture and repair - Social History Smoking Status: Never Smoker Substance Use Type: None Medications and Allergies Allergies Allergy/AdvReac Type Severity Reaction Status Date / Time No Known Allergies Allergy Verified 02/03/22 13:22 Home Medications Medication Instructions Recorded Confirmed Last Taken Type amLODIPine 10 mg PO QDAY #30 tablet 12/07/14 02/06/22 12/05/21 Rx carvediloL [Coreg] 25 mg PO BID #60 tablet 12/07/14 02/06/22 12/05/21 Rx cloNIDine [Catapres] 0.2 mg PO TID 0202/06/22 12/05/21 08:00 History hydrALAZINE [Apresoline TAB] 25 mg PO QDAY 12/06/21 02/06/22 12/05/21 History Active Meds: Active Medications Acetaminophen (Acetaminophen 325 Mg Tab) 650 mg PO Q4H PRN PRN Reason: Pain MILD(1-3)/Fever >100.5/GRAJEDA Amiodarone HCl (Amiodarone 200 Mg Tab) 200 mg PO QDAY [facility] Amlodipine Besylate (Amlodipine 10 Mg Tab) 10 mg PO QDAY [facility] Atorvastatin Calcium (Atorvastatin 20 Mg Tab) 20 mg PO QHS [facility] Last Admin: 02/05/22 22:20 Dose: 20 mg Calcium Acetate (Calcium Acetate 667 Mg Cap) 1,334 mg PO TID [facility] Last Admin: 02/05/22 22:20 Dose: 1,334 mg Carvedilol (Carvedilol 25 Mg Tab) 25 mg PO BID [facility] Clonidine HCl (Clonidine 0.1 Mg Tab) 0.2 mg PO TID [facility] Last Admin: 02/05/22 22:19 Dose: 0.2 mg Famotidine (Famotidine 10 Mg Tab) 10 mg PO BID [facility] Last Admin: 02/05/22 22:20 Dose: 10 mg Heparin Sodium (Porcine) (Heparin 5,000 Unit/1 Ml Vial) 5,000 unit SUB-Q Q12HR [facility] Last Admin: 02/06/22 06:09 Dose: Not Given Hydralazine HCl (Hydralazine 25 Mg Tab) 25 mg PO QDAY [facility] Sodium Chloride (Nacl 0.9%) 100 mls @ 999 mls/hr IV BUSTER PRN PRN Reason: Hypotension Ferric Sodium Gluconate Complex 125 mg/ Sodium Chloride 110 mls @ 100 mls/hr IV [email or web address] Metoclopramide HCl (Metoclopramide 10 Mg/2 Ml Inj) 10 mg IV Q6H PRN PRN Reason: Nausea And Vomiting Miscellaneous Medication (Doxercalciferol [Doxercalciferol]) 4 mcg IV 3XW [facility] Morphine Sulfate (Morphine 2 Mg/1 Ml Inj) 2 mg IV Q4H PRN PRN Reason: Pain, Moderate (4-6) Ondansetron HCl (Ondansetron 4 Mg/2 Ml Inj) 4 mg IV Q8H PRN PRN Reason: Nausea And Vomiting Oxycodone/Acetaminophen (Oxycodone /Acetaminophen 5-325mg Tab) 1 tab PO Q6H PRN PRN Reason: Pain, Moderate (4-6) Sodium Chloride (Sodium Chloride 0.9% 10 Ml Flush Syringe) 10 ml IV BID LALITA Sodium Chloride (Sodium Chloride 0.9% 10 Ml Flush Syringe) 10 ml IV PRN PRN PRN Reason: LINE FLUSH Exam - Vital Signs Vital signs: Vital Signs Temp Pulse Resp BP Pulse Ox 98.3 F 78 18 176/94 91 02/05/22 10:39 02/05/22 10:39 02/05/22 10:39 02/05/22 10:39 02/05/22 10:39 - Physical Exam Narrative exam: - General Limitations: No Limitations General appearance: alert, in no apparent distress - Head Head exam: Present: atraumatic, normocephalic - Eye Eye exam: Present: normal appearance - ENT ENT exam: Present: mucous membranes moist - Neck Neck exam: Present: normal inspection - Respiratory Respiratory exam: Present: normal lung sounds bilaterally, rales. Absent: respiratory distress - Cardiovascular Cardiovascular Exam: Present: regular rate, normal rhythm. Absent: systolic murmur, diastolic murmur, rubs, gallop - GI/Abdominal GI/Abdominal exam: Present: soft, normal bowel sounds - Rectal Rectal exam: Present: deferred - Extremities Exam Extremities exam: Present: normal inspection - Back Exam Back exam: Present: normal inspection - Neurological Exam Neurological exam: Present: alert, oriented X3 - Psychiatric Psychiatric exam: Present: normal affect, normal mood - Skin Skin exam: Present: warm, dry, intact, normal color. Absent: rash Results - Lab Results 02/05/22 11:05 02/05/22 11:05 Most recent lab results Calcium 10.5 mg/dL (8.4-10.2) H D 02/05/22 11:05 Phosphorus 7.40 mg/dL (2.5-4.5) H 02/05/22 11:05 Assessment and Plan # ESRD: - daily labs - renally dose meds - avoid nephrotoxins - renal diet - verbal consent obtained for HD - can be discharged from renal perspective post-HD today # HTN: UF as tolerated. BP stable. Suspect will benefit from longer UF time # Secondary Hyperparathyroidism: continue home binders as needed
[2022-02-06] MEDS ORDERED: SODIUM FERRIC GLUCON/SUCRO 125 MG in SODIUM CHLORIDE 0.9% 100 ML IV SCH (10:00)
[2022-02-06] MEDS ORDERED: DOXERCALCIFEROL IV SCH (10:00)
[2022-02-06] MEDS ORDERED: IRON SUCROSE 100 MG/5 ML IV SCH (10:00)
[2022-02-06] MEDS ORDERED: hydrALAZINE 25 MG TAB PO SCH (10:00)
--- NOTE | 2022-02-06 10:31 | Discharge Summary ---
Providers - Providers Date of Admission: 02/05/22 14:09 Date of discharge: 02/06/22 Attending physician: RUBINA AGUIRRE MD 02/05/22 14:09 Consult to Physician [CONS] Routine Comment: Consulting Provider: VIVIAN PAZ Physician Instructions: Reason For Exam: ESRD/Volume overload Primary care physician: [employer] Hospitalization Reason for admission: shortness of breath Condition: Stable Hospital course: History of present illness: 41-year-old -Indonesian male with history of end-stage renal disease: Erythematous, hypertension and anemia comes in for increasing shortness of breath. Patient is noncompliant with hemodialysis. Last hemodialysis was Wednesday. Patient has no dialysis clinic because of the cost related and was discharged from his previous hemodialysis clinic. Patient is waiting for dialysis clinic to be established. In the meantime patient comes intubated in the emergency room for hemodialysis. Shortness of breath and orthopnea present. Last dialysis was Wednesday which is 3 days ago. Today is . No chest pain. Exacerbating factor is missing dialysis. Hospital course: 02/06: Admitted for volume overload secondary to missed dialysis session d/t incarceration. Patient has received 1 dialysis treatment yesterday and will receive another dialysis treatment today. Plan for discharge today after hemodialysis. Assessment and Plan: (1) Volume overload Current Visit: Yes Status: Acute Plan to address problem: Due to missed hemodialysis Patient going for hemodialysis now Nephrology consult requested and appreciated (2) Hyperkalemia Current Visit: Yes Status: Acute Plan to address problem: Treated and also patient getting hemodialysis (3) End-stage renal disease on hemodialysis Current Visit: Yes Status: Chronic Plan to address problem: Case management to arrange for hemodialysis chair (4) Hypertension Current Visit: Yes Status: Chronic Qualifiers: Hypertension type: primary hypertension Qualified Code(s): I10 - Essential (primary) hypertension Plan to address problem: Continue antihypertensives (5) HLD (hyperlipidemia) Current Visit: Yes Status: Chronic Qualifiers: Hyperlipidemia type: mixed hyperlipidemia Qualified Code(s): E78.2 - Mixed hyperlipidemia Plan to address problem: Continue statins (6) DVT prophylaxis Current Visit: No Status: Acute Plan to address problem: On anticoagulation GI prophylaxis (7) Advance care planning Current Visit: Yes Status: Acute Plan to address problem: Disease education conducted, care plan discussed, diagnosis discussed, prognosis discussed. Patient is full code. Patient acknowledges understanding and agreement with care plan. +30 minutes. Disposition: 01 HOME / SELF CARE / HOMELESS Final Discharge Diagnosis (Prints w/discharge instructions): Volume overload, ESRD requiring hemodialysis Time spent for discharge: 25 Core Measure Documentation - Palliative Care Palliative Care/ Comfort Measures: Not Applicable - Core Measures Any of the following diagnoses?: none Exam - Physical Exam Narrative exam: Physical Exam: VITAL SIGNS: Reviewed. GENERAL: The patient appears normally developed, Vital signs as documented. HEAD: No signs of head trauma. EYES: Pupils are equal. Extraocular motions intact. EARS: Hearing grossly intact. MOUTH: Oropharynx is normal. NECK: No adenopathy, no JVD. CHEST: Chest with clear breath sounds bilaterally. No wheezes, rales, or rhonchi. CARDIAC: Regular rate and rhythm. S1 and S2, without murmurs, gallops, or rubs. VASCULAR: No Edema. Peripheral pulses normal and equal in all extremities. ABDOMEN: Soft, non tender and non distended. No rebound or guarding, and no masses palpated. Bowel Sounds normal. MUSCULOSKELETAL: Right-arm fistula good range of motion of all major joints. Extremities without clubbing, cyanosis or edema. NEUROLOGIC EXAM: Alert and oriented x 4. no focal sensory or strength deficits. PSYCHIATRIC: Mood normal. SKIN: detail exam as documented in skin assessment - Constitutional Vitals: Temp Pulse Resp BP Pulse Ox 97.9 F 80 18 168/96 97 02/06/22 07:34 02/06/22 07:34 02/06/22 07:34 02/06/22 07:34 02/06/22 08:19 Plan Follow up with: PRIMARY MD VITO [Primary Care Provider] - 3-5 Days
--- NOTE | 2022-02-06 11:45 | Electrocardiograph Report ---
[facility] Test Date: 2022-02-06 Test Time: 07:14:32 Pat Name: GEO ARANA Department: Room: A459 1 Gender: M [employer] Rv Technician: GAGANDEEP : 1980 Requested By: DEBBIE JACOBS Order Number: [id number] Reading MD: Bayron Gayle Measurements Intervals [place] Rate: 72 P: 64 VA: 162 QRS: -44 QRSD: 121 T: 118 QT: 448 QTc: 490 Interpretive Statements Sinus rhythm Probable left atrial enlargement LVH with IVCD, LAD and secondary repol abnrm Compared to ECG 12/06/2021 10:31:36 No significant changes Electronically Signed On 02-06-2022 11:44:39 EDT by Bayron Gayle
[2022-02-06] MEDS ORDERED: CALCIUM ACETATE 667 MG CAP PO SCH (13:00)
[2022-02-06] MEDS ORDERED: METOCLOPRAMIDE 10 MG/2 ML INJ IV PRN (13:00)
== END 2022-02-06 13:00 | disposition left against medical advice (07) ==
LOC: ED 10:07 → INTOOBSV 14:09 → 4A 14:09
PROVIDERS: ADMIT Internal Medicine; ATTEND Internal Medicine
DX: E87.70 Fluid overload, unspecified (principal); I16.0 Hypertensive urgency; I13.2 Hypertensive heart and chronic kidney disease with heart failure and with stage 5 chronic kidney disease, or end stage renal disease; I50.9 Heart failure, unspecified; N18.6 End stage renal disease; J81.1 Chronic pulmonary edema; N25.81 Secondary hyperparathyroidism of renal origin; J45.909 Unspecified asthma, uncomplicated; E87.5 Hyperkalemia; E78.2 Mixed hyperlipidemia; Z86.711 Personal history of pulmonary embolism; Z86.718 Personal history of other venous thrombosis and embolism; Z86.73 Personal history of transient ischemic attack (TIA), and cerebral infarction without residual deficits; Z79.899 Other long term (current) drug therapy; Z98.890 Other specified postprocedural states; Z99.2 Dependence on renal dialysis
CPT/HCPCS: 36415; 71046; 80053; 83880; 84100; 85025; 93005; 99406; G0378; J1644

== ENCOUNTER 2022-02-27 09:03 | Inpatient (IN) | payer OTHER, MEDICARE ==
--- NOTE | 2022-02-28 00:26 | Emergency Department Report ---
ED General Adult HPI - General Chief complaint: Dyspnea/Respdistress Stated complaint: SOB Time Seen by Provider: 02/27/22 23:55 Source: patient Mode of arrival: Ambulatory Limitations: No Limitations - History of Present Illness Initial comments: 41-year-old male with a history of end-stage renal disease requiring hemodialysis primarily Wednesday and Wednesday, hypertension, hyperlipidemia presents emergency department complaining of progressively worsening shortness of breath and pruritus for the last few days with requesting to be dialyzed. Hazel samaniego that this present time he does not have a dialysis chair as it was lost from [facility] due to him being incarcerated for 4months. He was advised to come to the emergency department to seek his dialysis care until the issue can be alleviated. - Related Data Previous Rx's Medication Instructions Recorded Last Taken Type amLODIPine 10 mg PO QDAY 30 Days #30 tablet 02/06/22 02/13/22 Rx Acetaminophen [Acetaminophen TAB] 650 mg PO Q4H PRN tablet 02/11/22 Unknown Rx AtorvaSTATin [Lipitor] 20 mg PO QHS 30 Days #30 tab 02/11/22 02/13/22 Rx Calcium Acetate [Phoslo] 1,334 mg PO TID #30 capsule 02/11/22 02/13/22 Rx Famotidine [Pepcid] 10 mg PO BID #30 tablet 02/11/22 02/13/22 Rx NIFEdipine XL [Procardia Xl] 60 mg PO QDAY #30 tablet 02/11/22 02/13/22 Rx carvediloL [Coreg] 25 mg PO BID #60 tablet 02/11/22 02/13/22 Rx cloNIDine [Catapres] 0.2 mg PO TID 30 Days #90 tab 02/11/22 02/13/22 Rx hydrALAZINE [Apresoline TAB] 25 mg PO Q8HR #60 tablet 02/11/22 02/13/22 Rx Allergies Allergy/AdvReac Type Severity Reaction Status Date / Time No Known Allergies Allergy Verified 02/10/22 07:45 ED Review of Systems ROS: Stated complaint: SOB Other details as noted in HPI Comment: All other systems reviewed and negative ED Past Medical Hx - Past Medical History Hx Hypertension: Yes Hx CVA: Yes Hx Heart Attack/AMI: Yes Hx Congestive Heart Failure: Yes Hx Diabetes: Yes Hx Deep Vein Thrombosis: Yes Hx Pulmonary Embolism: Yes Hx Renal Disease: Yes Hx Arthritis: No Hx Headaches / Migraines: No Hx Kidney Stones: No Hx Asthma: Yes Hx COPD: No Hx Tuberculosis: No Additional medical history: heart problems - Surgical History Hx Coronary Stent: No Hx Pacemaker: No Hx Internal Defibrillator: No Hx Cholecystectomy: No Hx Appendectomy: No Additional Surgical History: abd hernia, not repaired yet;aorta rupture and repair - Social History Smoking Status: Never Smoker - Medications Home Medications: Home Medications Medication Instructions Recorded Confirmed Last Taken Type amLODIPine 10 mg PO QDAY 30 Days #30 tablet 02/06/22 02/16/22 02/13/22 Rx Acetaminophen [Acetaminophen TAB] 650 mg PO Q4H PRN tablet 02/11/22 02/16/22 Unknown Rx AtorvaSTATin [Lipitor] 20 mg PO QHS 30 Days #30 tab 02/11/22 02/16/22 02/13/22 Rx Calcium Acetate [Phoslo] 1,334 mg PO TID #30 capsule 02/11/22 02/16/22 02/13/22 Rx Famotidine [Pepcid] 10 mg PO BID #30 tablet 02/11/22 02/16/22 02/13/22 Rx NIFEdipine XL [Procardia Xl] 60 mg PO QDAY #30 tablet 02/11/22 02/16/22 02/13/22 Rx carvediloL [Coreg] 25 mg PO BID #60 tablet 02/11/22 02/16/22 02/13/22 Rx cloNIDine [Catapres] 0.2 mg PO TID 30 Days #90 tab 02/11/22 02/16/22 02/13/22 Rx hydrALAZINE [Apresoline TAB] 25 mg PO Q8HR #60 tablet 02/11/22 02/16/22 02/13/22 Rx ED Physical Exam - General Limitations: No Limitations General appearance: alert, in no apparent distress - Head Head exam: Present: atraumatic, normocephalic - Eye Eye exam: Present: normal appearance, PERRL, EOMI Pupils: Present: normal accommodation - ENT ENT exam: Present: normal exam, normal orophraynx, mucous membranes moist, TM's normal bilaterally - Neck Neck exam: Present: normal inspection, full ROM - Respiratory Respiratory exam: Present: normal lung sounds bilaterally. Absent: respiratory distress - Cardiovascular Cardiovascular Exam: Present: regular rate, normal rhythm. Absent: systolic murmur, diastolic murmur, rubs, gallop - GI/Abdominal GI/Abdominal exam: Present: soft, normal bowel sounds - Rectal Rectal exam: Present: deferred - Extremities Exam Extremities exam: Present: normal inspection, pedal edema - Expanded Upper Extremity Exam Right Upper Arm exam: Present: other (Fistula to the right arm region. No evidence of infectious process.) - Back Exam Back exam: Present: normal inspection. Absent: CVA tenderness (R), CVA tenderness (L) - Neurological Exam Neurological exam: Present: alert, oriented X3, CN II-XII intact, normal gait - Psychiatric Psychiatric exam: Present: normal affect, normal mood - Skin Skin exam: Present: warm, dry, intact, normal color. Absent: rash ED Course Vital Signs 02/27/22 09:18 Temperature 97.6 F Pulse Rate 76 Respiratory 16 Rate Blood Pressure 171/100 [Left] O2 Sat by Pulse 97 Oximetry - Consultations Consultation #1: 02/28/22 02:26 Case discussed with windows migration technician , advised to give Kayexalate 30 mg and plan to down dialyze in the morning Consultation #2: 02/28/22 02:27 Case was discussed with the hospitalist who will admit so that Mr. Arana can be dialyzed ED Medical Decision Making - Lab Data Result diagrams: 02/28/22 00:25 02/28/22 00:25 Lab Results 02/28/22 02/28/22 02/28/22 Range/Units 00:25 00:25 00:25 WBC 7.7 (4.5-11.0) K/mm3 RBC 3.99 (3.65-5.03) M/mm3 Hgb 11.2 L (11.8-15.2) gm/dl Hct 35.1 L (35.5-45.6) % MCV 88 (84-94) fl MCH 28 (28-32) pg MCHC 32 (32-34) % RDW 18.9 H (13.2-15.2) % Plt Count 138 L (140-440) K/mm3 Lymph % (Auto) 11.4 L (13.4-35.0) % [place] % (Auto) 7.8 H (0.0-7.3) % Eos % (Auto) 0.6 (0.0-4.3) % Baso % (Auto) 1.3 (0.0-1.8) % Lymph # (Auto) 0.9 L (1.2-5.4) K/mm3 [place] # (Auto) 0.6 (0.0-0.8) K/mm3 Eos # (Auto) 0.0 (0.0-0.4) K/mm3 Baso # (Auto) 0.1 (0.0-0.1) K/mm3 Seg Neutrophils % 78.9 H (40.0-70.0) % Seg Neutrophils # 6.1 (1.8-7.7) K/mm3 PT 14.9 (12.2-14.9) Sec. INR 1.05 (0.87-1.13) APTT 36.1 (24.2-36.6) Sec. Sodium 141 (137-145) mmol/L Potassium 6.0 H (3.6-5.0) mmol/L Chloride 98.3 (98-107) mmol/L Carbon Dioxide 20 L (22-30) mmol/L Anion Gap 29 mmol/L BUN 107 H (9-20) mg/dL Creatinine 16.1 H (0.8-1.3) mg/dL Estimated GFR 4 ml/min BUN/Creatinine Ratio 7 % Glucose 88 (75-100) mg/dL Calcium 9.6 (8.4-10.2) mg/dL Magnesium 2.30 (1.7-2.3) mg/dL Total Bilirubin 0.40 (0.1-1.2) mg/dL AST 11 (5-40) units/L ALT 23 (7-56) units/L Alkaline Phosphatase 76 (35-129) units/L Total Protein 7.6 (6.3-8.2) g/dL Albumin 4.2 (3.9-5) g/dL Albumin/Globulin Ratio 1.2 % - Radiology Data Radiology results: report reviewed [facility] [address] [place] [address] XRay Report Signed Patient: GEO ARANA MR#: [id number] [id number] : 1980 Acct:[id number] Age/Sex: 41 / M ADM Date: 02/27/22 Loc: ED Attending Dr: Ordering Physician: CAROL MCKEON Date of Service: 02/28/22 Procedure(s): XR chest routine 2V Accession Number(s): [id number] cc: CAROL MCKEON Fluoro Time In Minutes: CHEST 2 VIEWS INDICATION / CLINICAL INFORMATION: sob. COMPARISON: Chest x-ray 02/14/2022 FINDINGS: SUPPORT DEVICES: Aortic stent graft is stable in position. HEART / MEDIASTINUM: Cardiomegaly unchanged. Sternal wires are stable. LUNGS / PLEURA: Mild prominence of central vasculature. Lungs clear for degree of inspiration. Previously demonstrated opacities overlying the right hemidiaphragm have resolved. Opacities in the region of the left cardiac margin resolved. No pneumothorax. BONES: No significant osseous abnormality. ADDITIONAL FINDINGS: No significant additional findings. IMPRESSION: 1. Residual prominence of central vasculature suggesting a component of venous congestion, previously demonstrated bilateral lung opacities have largely resolved. Signer Name: Vito Prabhakar II, MD Signed: 02/28/2022 1:31 AM Workstation Name: [id number] Transcribed By: CELESTINO Dictated By: VITO PRABHAKAR II, MD Electronically Authenticated By: VITO PRABHAKAR II, MD Signed Date/Time: 02/28/22130 DD/ 012 - Medical Decision Making 41-year-old female history renal disease on Wednesday dialysis last discharge at [facility] and secondary In the emergency department to receive his routine dialysis. Presents complaining of pruritus and some swelling. Ports no hemoptysis no no no h ematemesis hematochezia. No fever, chills, sweats. Case was discussed with nephrology service plan is to admit for dialysis in the morning will admit via the hospitalist. Patient is ambulatory no acute distress speaking in full sentences Critical care attestation.: If time is entered above; I have spent that time in minutes in the direct care of this critically ill patient, excluding procedure time. ED Disposition Clinical Impression: Acute hyperkalemia, ESRD (end stage renal disease) on dialysis, Fluid overload, ESRD needing dialysis Disposition: ADMITTED INPATIENT Is pt being admited?: Yes Does the pt Need Aspirin: No Condition: Stable Referrals: ELIZA BOATENG [Other] - 3-5 Days
[2022-02-28 00:47] LABS: Basophils # (Auto) 0.1 K/mm3 (0.0-0.1); Basophils % (Auto) 1.3 % (0.0-1.8); Eosinophils % (Auto) 0.6 % (0.0-4.3); Hematocrit 35.1 % (35.5-45.6); Hemoglobin 11.2 gm/dl (11.8-15.2); Lymphocytes # (Auto) 0.9 K/mm3 (1.2-5.4); Lymphocytes % (Auto) 11.4 % (13.4-35.0); Mean Corpuscular HGB Conc 32 % (32-34); Mean Corpuscular Volume 88 fl (84-94); Monocytes # (Auto) 0.6 K/mm3 (0.0-0.8); Monocytes % (Auto) 7.8 % (0.0-7.3); Platelet Count 138 K/mm3 (140-440); Red Blood Count 3.99 M/mm3 (3.65-5.03); Red Cell Distribution Width 18.9 % (13.2-15.2)
[2022-02-28 00:52] LABS: INR 1.05 (0.87-1.13)
[2022-02-28 00:53] LABS: Partial Thromboplastin Time 36.1 Sec. (24.2-36.6)
[2022-02-28 01:08] LABS: Albumin 4.2 g/dL (3.9-5); Calcium 9.6 mg/dL (8.4-10.2)
--- NOTE | 2022-02-28 01:36 | XRay Report ---
CHEST 2 VIEWS INDICATION / CLINICAL INFORMATION: sob. COMPARISON: Chest x-ray 02/14/2022 FINDINGS: SUPPORT DEVICES: Aortic stent graft is stable in position. HEART / MEDIASTINUM: Cardiomegaly unchanged. Sternal wires are stable. LUNGS / PLEURA: Mild prominence of central vasculature. Lungs clear for degree of inspiration. Previo usly demonstrated opacities overlying the right hemidiaphragm have resolved. Opacities in the region of the left cardiac margin resolved. No pneumothorax. BONES: No significant osseous abnormality. ADDITIONAL FINDINGS: No significant additional findings. IMPRESSION: 1. Residual prominence of central vasculature suggesting a component of venous congestion, previously demonstrated bilateral lung opacities have largely resolved. Signer Name: Arsalan Vaughan II, MD Signed: 02/28/2022 1:31 AM Workstation Name: [id number]
[2022-02-28] MEDS ORDERED: diphenhydrAMINE 50 MG/ML VIAL IV STA (02:12)
[2022-02-28] MEDS ORDERED: SODIUM POLYSTYRENE 15 GM/60 ML ORAL LIQD PO ONE (02:24)
[2022-02-28] MEDS ORDERED: DEXTROSE 50% IN WATER (25GM) 50 ML SYRINGE IV PRN (02:44)
[2022-02-28] MEDS ORDERED: ACETAMINOPHEN 325 MG TAB PO PRN ×2 (02:44→14:57)
[2022-02-28] MEDS ORDERED: MAGNESIUM HYDROXIDE (MOM) ORAL LIQD UDC PO PRN (02:44)
[2022-02-28] MEDS ORDERED: MORPHINE 4 MG/1 ML INJ IV PRN (02:44)
[2022-02-28] MEDS ORDERED: ONDANSETRON 4 MG/2 ML INJ IV PRN (02:44)
--- NOTE | 2022-02-28 02:55 | History and Physical Report ---
History of Present Illness Date of examination: 02/28/22 Date of admission: 02/28/2022 Chief complaint: 41-year-old male with known history of end-stage renal disease on dialysis on Mondays, Wednesdays and Fridays, hypertension, hyperlipidemia presenting to the emergency room today complaining of shortness of breath which has been ongoing for the last 24 hours. He has also complained of generalized pruritus. Denies any chest pain but has been having progressive shortness of breath. Denies any fever or chills. Patient currently does not have the dialysis center as he lost his spot at [facility] dialysis [place] due to being incarcerated for 4 months. He therefore presents to the emergency room for dialysis. Work-up in the emergency room today, significant findings on the lab were that of hyperkalemia of 6.0. Chest x-ray shows findings consistent with venous congestion. Patient was given Kayexalate in the emergency room as advised by the hydrotel operator. Patient will be scheduled for dialysis in the a.m. Past History Past Medical History: diabetes, hypertension, pulmonary embolism, renal failure, stroke, other (Asthma) Past Surgical History: Other (abd hernia, not repaired yet;aorta rupture and repair) Social history: no significant social history Family history: no significant family history Medications and Allergies Allergies Allergy/AdvReac Type Severity Reaction Status Date / Time No Known Allergies Allergy Verified 02/10/22 07:45 Home Medications Medication Instructions Recorded Confirmed Last Taken Type amLODIPine 10 mg PO QDAY 30 Days #30 tablet 02/06/22 02/16/22 02/13/22 Rx Acetaminophen [Acetaminophen TAB] 650 mg PO Q4H PRN tablet 02/11/22 02/16/22 Unknown Rx AtorvaSTATin [Lipitor] 20 mg PO QHS 30 Days #30 tab 02/11/22 02/16/22 02/13/22 Rx Calcium Acetate [Phoslo] 1,334 mg PO TID #30 capsule 02/11/22 02/16/22 02/13/22 Rx Famotidine [Pepcid] 10 mg PO BID #30 tablet 02/11/22 02/16/22 02/13/22 Rx NIFEdipine XL [Procardia Xl] 60 mg PO QDAY #30 tablet 02/11/22 02/16/22 02/13/22 Rx carvediloL [Coreg] 25 mg PO BID #60 tablet 02/11/22 02/16/22 02/13/22 Rx cloNIDine [Catapres] 0.2 mg PO TID 30 Days #90 tab 02/11/22 02/16/22 02/13/22 Rx hydrALAZINE [Apresoline TAB] 25 mg PO Q8HR #60 tablet 02/11/22 02/16/22 02/13/22 Rx Active Meds: Active Medications Acetaminophen (Acetaminophen 325 Mg Tab) 650 mg PO Q4H PRN PRN Reason: Pain MILD(1-3)/Fever >100.5/GRAJEDA Dextrose (Dextrose 50% In Water (25gm) 50 Ml Syringe) 50 ml IV Q30MIN PRN; Protocol PRN Reason: Hypoglycemia Dextrose (Dextrose 50% In Water (25gm) 50 Ml Syringe) 50 ml IV Q30MIN PRN; Protocol PRN Reason: Hypoglycemia Insulin Human Lispro (Insulin Lispro 100 Unit/Ml) 0 unit SUB-Q ACHS LALITA; Protocol Magnesium Hydroxide (Magnesium Hydroxide (Mom) Oral Liqd Udc) 30 ml PO Q4H PRN PRN Reason: Constipation Morphine Sulfate (Morphine 4 Mg/1 Ml Inj) 4 mg IV Q4H PRN PRN Reason: Pain , Severe (7-10) Morphine Sulfate (Morphine 2 Mg/1 Ml Inj) 2 mg IV Q4H PRN PRN Reason: Pain, Moderate (4-6) Ondansetron HCl (Ondansetron 4 Mg/2 Ml Inj) 4 mg IV Q8H PRN PRN Reason: Nausea And Vomiting Sodium Chloride (Sodium Chloride 0.9% 10 Ml Flush Syringe) 10 ml IV BID LALITA Sodium Chloride (Sodium Chloride 0.9% 10 Ml Flush Syringe) 10 ml IV PRN PRN PRN Reason: LINE FLUSH Review of Systems Constitutional: no fever, no chills Ears, nose, mouth and throat: no nasal congestion, no sore throat Cardiovascular: no chest pain, no palpitations Respiratory: shortness of breath, no cough Gastrointestinal: no nausea, no vomiting, no diarrhea Genitourinary Male: no dysuria, no hematuria, no flank pain Musculoskeletal: no neck pain, no low back pain Integumentary: no rash, no pruritis Neurological: no headaches, no confusion Psychiatric: no anxiety, no depression Endocrine: no polyphagia, no polydipsia, no polyuria, no nocturia Exam - Constitutional Vitals: Temp Pulse Resp BP Pulse Ox 97.6 F 76 16 171/100 97 02/27/22 09:18 02/27/22 09:18 02/27/22 09:18 02/27/22 09:18 02/27/22 09:18 General appearance: Present: no acute distress, well-nourished - EENT Eyes: Present: PERRL, EOM intact. Absent: scleral icterus ENT: hearing intact, clear oral mucosa, dentition normal - Neck Neck: Present: supple, normal ROM. Absent: masses or JVD, carotid bruits - Respiratory Respiratory effort: normal Respiratory: bilateral: rales - Cardiovascular Rhythm: regular Heart Sounds: Present: S1 & S2. Absent: gallop, systolic murmur, diastolic murmur, rub, click - Extremities Extremities: no ischemia, pulses intact, pulses symmetrical, No edema, normal temperature, normal color, Full ROM Peripheral Pulses: within normal limits - Abdominal General gastrointestinal: Present: soft, non-tender, non-distended, normal bowel sounds. Absent: mass - Integumentary Integumentary: Present: clear, warm, dry, normal turgor. Absent: rash - Musculoskeletal Musculoskeletal: strength equal bilaterally - Psychiatric Psychiatric: appropriate mood/affect, intact judgment & insight, memory intact, cooperative - Neurologic Neurologic: CNII-XII intact, no focal deficits, moves all extremities Results - Labs CBC & Chem 7: 02/28/22 00:25 02/28/22 00:25 Labs: Abnormal lab results 02/28/22 02/28/22 Range/Units 00:25 00:25 Hgb 11.2 L (11.8-15.2) gm/dl Hct 35.1 L (35.5-45.6) % RDW 18.9 H (13.2-15.2) % Plt Count 138 L (140-440) K/mm3 Lymph % (Auto) 11.4 L (13.4-35.0) % [place] % (Auto) 7.8 H (0.0-7.3) % Lymph # (Auto) 0.9 L (1.2-5.4) K/mm3 Seg Neutrophils % 78.9 H (40.0-70.0) % Potassium 6.0 H (3.6-5.0) mmol/L Carbon Dioxide 20 L (22-30) mmol/L BUN 107 H (9-20) mg/dL Creatinine 16.1 H (0.8-1.3) mg/dL Assessment and Plan - Patient Problems (1) ESRD needing dialysis Current Visit: Yes Status: Acute Plan to address problem: Consult placed to hydrotel operator for possible dialysis in the a.m. (2) Acute hyperkalemia Current Visit: Yes Status: Acute Plan to address problem: Patient has received Kayexalate. Will monitor EKG and also monitor potassium levels. (3) Volume overload Current Visit: Yes Status: Acute Qualifiers: Plan to address problem: Due to the end-stage renal disease. Patient awaits dialysis. (4) DVT prophylaxis Current Visit: No Status: Acute Plan to address problem: Patient placed on subcutaneous heparin. (5) Full code status Current Visit: No Status: Acute Plan to address problem: Patient is full code.
[2022-02-28] MEDS ORDERED: SODIUM CHLORIDE 0.9% 100 ML IV PRN ×2 (10:08→11:27)
--- NOTE | 2022-02-28 11:17 | Progress Note ---
Assessment and Plan Assessment and plan: 41-year-old male with known history of end-stage renal disease on dialysis on Mondays, Wednesdays and Fridays, hypertension, hyperlipidemia presenting to the emergency room today complaining of shortness of breath which has been ongoing for the last 24 hours. He has also complained of generalized pruritus. Patient currently does not have the dialysis center as he lost his spot at [facility] dialysis [place] due to being incarcerated for 4 months. Work-up in the emergency room revealed findings of hyperkalemia with potassium 6.0. Chest x- ray showed findings consistent with venous congestion. Patient was given Kayexalate in the emergency room as advised by the radiographer.\ ESRD needing hemodialysis Hyperkalemia Volume overload 02/28/2022. Patient to undergo hemodialysis today and follow-up with nephrology. Follow-up BMP after hemodialysis. Anticipate discharge in the next 24 to 48 hours History Interval history: No new issues overnight Hospitalist Physical - Constitutional Vitals: Temp Pulse Resp BP Pulse Ox 97.6 F 76 16 171/100 97 02/27/22 09:18 02/27/22 09:18 02/27/22 09:18 02/27/22 09:18 02/27/22 09:18 General appearance: Present: no acute distress, well-nourished - EENT Eyes: Present: PERRL, EOM intact ENT: hearing intact, clear oral mucosa, dentition normal - Neck Neck: Present: supple, normal ROM - Respiratory Respiratory effort: normal Respiratory: bilateral: CTA - Cardiovascular Rhythm: regular Heart Sounds: Present: S1 & S2. Absent: gallop, rub - Extremities Extremities: no ischemia, No edema, Full ROM - Abdominal General gastrointestinal: soft, non-tender, non-distended, normal bowel sounds - Integumentary Integumentary: Present: clear, warm, dry - Neurologic Neurologic: CNII-XII intact, moves all extremities Results - Labs CBC & Chem 7: 02/28/22 00:25 02/28/22 00:25 Labs: Laboratory Last Values WBC 7.7 K/mm3 (4.5-11.0) 02/28/22 00:25 RBC 3.99 M/mm3 (3.65-5.03) 02/28/22 00:25 Hgb 11.2 gm/dl (11.8-15.2) L 02/28/22 00:25 Hct 35.1 % (35.5-45.6) L 02/28/22 00:25 MCV 88 fl (84-94) 02/28/22 00:25 MCH 28 pg (28-32) 02/28/22 00:25 MCHC 32 % (32-34) 02/28/22 00:25 RDW 18.9 % (13.2-15.2) H 02/28/22 00:25 Plt Count 138 K/mm3 (140-440) L 02/28/22 00:25 Lymph % (Auto) 11.4 % (13.4-35.0) L 02/28/22 00:25 [place] % (Auto) 7.8 % (0.0-7.3) H 02/28/22 00:25 Eos % (Auto) 0.6 % (0.0-4.3) 02/28/22 00:25 Baso % (Auto) 1.3 % (0.0-1.8) 02/28/22 00:25 Lymph # (Auto) 0.9 K/mm3 (1.2-5.4) L 02/28/22 00:25 [place] # (Auto) 0.6 K/mm3 (0.0-0.8) 02/28/22 00:25 Eos # (Auto) 0.0 K/mm3 (0.0-0.4) 02/28/22 00:25 Baso # (Auto) 0.1 K/mm3 (0.0-0.1) 02/28/22 00:25 Seg Neutrophils % 78.9 % (40.0-70.0) H 02/28/22 00:25 Seg Neutrophils # 6.1 K/mm3 (1.8-7.7) 02/28/22 00:25 PT 14.9 Sec. (12.2-14.9) 02/28/22 00:25 INR 1.05 (0.87-1.13) 02/28/22 00:25 APTT 36.1 Sec. (24.2-36.6) 02/28/22 00:25 Sodium 141 mmol/L (137-145) 02/28/22 00:25 Potassium 6.0 mmol/L (3.6-5.0) H 02/28/22 00:25 Chloride 98.3 mmol/L (98-107) 02/28/22 00:25 Carbon Dioxide 20 mmol/L (22-30) L 02/28/22 00:25 Anion Gap 29 mmol/L 02/28/22 00:25 BUN 107 mg/dL (9-20) H 02/28/22 00:25 Creatinine 16.1 mg/dL (0.8-1.3) H 02/28/22 00:25 Estimated GFR 4 ml/min 02/28/22 00:25 BUN/Creatinine Ratio 7 % 02/28/22 00:25 Glucose 88 mg/dL (75-100) 02/28/22 00:25 Calcium 9.6 mg/dL (8.4-10.2) 02/28/22 00:25 Magnesium 2.30 mg/dL (1.7-2.3) 02/28/22 00:25 Total Bilirubin 0.40 mg/dL (0.1-1.2) 02/28/22 00:25 AST 11 units/L (5-40) 02/28/22 00:25 ALT 23 units/L (7-56) 02/28/22 00:25 Alkaline Phosphatase 76 units/L (35-129) 02/28/22 00:25 Total Protein 7.6 g/dL (6.3-8.2) 02/28/22 00:25 Albumin 4.2 g/dL (3.9-5) 02/28/22 00:25 Albumin/Globulin Ratio 1.2 % 02/28/22 00:25 Active Medications - Current Medications Current Medications: Generic Name Dose Route Start Last Admin Trade Name Freq PRN Reason Stop Dose Admin Acetaminophen 650 mg 02/28/22 02:44 Acetaminophen 325 Mg Tab PO Q4H PRN Pain MILD(1-3)/Fever >100.5/GRAJEDA Dextrose 50 ml 02/28/22 02:44 Dextrose 50% In Water (25gm) 50 Ml Syringe IV Q30MIN PRN Hypoglycemia Protocol Heparin Sodium (Porcine) 5,000 unit 02/28/22 09:00 Heparin 5,000 Unit/1 Ml Vial SUB-Q Q8HR LALITA Sodium Chloride 100 mls @ 999 mls/hr 02/28/22 10:08 Nacl 0.9% IV BUSTER PRN Hypotension Insulin Human Lispro 0 unit 02/28/22 07:30 Insulin Lispro 100 Unit/Ml SUB-Q ACHS [facility] Protocol Magnesium Hydroxide 30 ml 02/28/22 02:44 Magnesium Hydroxide (Mom) Oral Liqd Udc PO Q4H PRN Constipation Morphine Sulfate 4 mg 02/28/22 02:44 Morphine 4 Mg/1 Ml Inj IV Q4H PRN Pain , Severe (7-10) Morphine Sulfate 2 mg 02/28/22 02:44 Morphine 2 Mg/1 Ml Inj IV Q4H PRN Pain, Moderate (4-6) Ondansetron HCl 4 mg 02/28/22 02:44 Ondansetron 4 Mg/2 Ml Inj IV Q8H PRN Nausea And Vomiting Sodium Chloride 10 ml 02/28/22 10:00 Sodium Chloride 0.9% 10 Ml Flush Syringe IV BID [facility] Sodium Chloride 10 ml 02/28/22 02:44 Sodium Chloride 0.9% 10 Ml Flush Syringe IV PRN PRN LINE FLUSH
[2022-02-28] MEDS ORDERED: diphenhydrAMINE 50 MG/ML VIAL IV SCH (11:30)
--- NOTE | 2022-02-28 11:56 | Consultation ---
History of Present Illness - Reason for Consult Consult date: 02/28/22 Past History Past Medical History: diabetes, hypertension, pulmonary embolism, renal failure, stroke, other (Asthma) Past Surgical History: Other (abd hernia, not repaired yet;aorta rupture and repair) Social history: no significant social history Family history: no significant family history Medications and Allergies Allergies Allergy/AdvReac Type Severity Reaction Status Date / Time No Known Allergies Allergy Verified 02/10/22 07:45 Home Medications Medication Instructions Recorded Confirmed Last Taken Type amLODIPine 10 mg PO QDAY 30 Days #30 tablet 02/06/22 02/16/22 02/13/22 Rx Acetaminophen [Acetaminophen TAB] 650 mg PO Q4H PRN tablet 02/11/22 02/16/22 Unknown Rx AtorvaSTATin [Lipitor] 20 mg PO QHS 30 Days #30 tab 02/11/22 02/16/22 02/13/22 Rx Calcium Acetate [Phoslo] 1,334 mg PO TID #30 capsule 02/11/22 02/16/22 02/13/22 Rx Famotidine [Pepcid] 10 mg PO BID #30 tablet 02/11/22 02/16/22 02/13/22 Rx NIFEdipine XL [Procardia Xl] 60 mg PO QDAY #30 tablet 02/11/22 02/16/22 02/13/22 Rx carvediloL [Coreg] 25 mg PO BID #60 tablet 02/11/22 02/16/22 02/13/22 Rx cloNIDine [Catapres] 0.2 mg PO TID 30 Days #90 tab 02/11/22 02/16/22 02/13/22 Rx hydrALAZINE [Apresoline TAB] 25 mg PO Q8HR #60 tablet 02/11/22 02/16/22 02/13/22 Rx Active Meds: Active Medications Acetaminophen (Acetaminophen 325 Mg Tab) 650 mg PO Q4H PRN PRN Reason: Pain MILD(1-3)/Fever >100.5/GRAJEDA Dextrose (Dextrose 50% In Water (25gm) 50 Ml Syringe) 50 ml IV Q30MIN PRN; Protocol PRN Reason: Hypoglycemia Diphenhydramine HCl (Diphenhydramine 50 Mg/Ml Vial) 25 mg IV BUSTER ONE Stop: 02/28/22 11:31 Heparin Sodium (Porcine) (Heparin 5,000 Unit/1 Ml Vial) 5,000 unit SUB-Q Q8HR LALITA Sodium Chloride (Nacl 0.9%) 100 mls @ 999 mls/hr IV BUSTER PRN PRN Reason: Hypotension Sodium Chloride (Nacl 0.9%) 100 mls @ 999 mls/hr IV BUSTER PRN PRN Reason: Hypotension Insulin Human Lispro (Insulin Lispro 100 Unit/Ml) 0 unit SUB-Q ACHS LALITA; Protocol Magnesium Hydroxide (Magnesium Hydroxide (Mom) Oral Liqd Udc) 30 ml PO Q4H PRN PRN Reason: Constipation Morphine Sulfate (Morphine 4 Mg/1 Ml Inj) 4 mg IV Q4H PRN PRN Reason: Pain , Severe (7-10) Morphine Sulfate (Morphine 2 Mg/1 Ml Inj) 2 mg IV Q4H PRN PRN Reason: Pain, Moderate (4-6) Ondansetron HCl (Ondansetron 4 Mg/2 Ml Inj) 4 mg IV Q8H PRN PRN Reason: Nausea And Vomiting Sodium Chloride (Sodium Chloride 0.9% 10 Ml Flush Syringe) 10 ml IV BID LALITA Sodium Chloride (Sodium Chloride 0.9% 10 Ml Flush Syringe) 10 ml IV PRN PRN PRN Reason: LINE FLUSH Review of Systems Constitutional: other (Has no Dialysis Clinic & needs HD) Ears, nose, mouth and throat: no nasal congestion, no sore throat Cardiovascular: no chest pain, no edema Respiratory: no cough, no shortness of breath Gastrointestinal: no abdominal pain, no nausea, no vomiting Neurological: no weakness, no numbness Exam - Vital Signs Vital signs: Vital Signs Temp Pulse Resp BP Pulse Ox 97.6 F 76 16 171/100 97 02/27/22 09:18 02/27/22 09:18 02/27/22 09:18 02/27/22 09:18 02/27/22 09:18 - General Appearance General appearance: other (Awake & alert) EENT: PERRL Neck: Present: neck supple. 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 Adjust meds for better control Electrolyte Imbalance - Kayexalate given last night. Low K bath on HD today. F/u labs Thanks very much, will f/u with you
[2022-02-28] MEDS ORDERED: diphenhydrAMINE 50 MG/ML VIAL IV ONE (13:00)
[2022-02-28] MEDS: HEPARIN 5,000 UNIT/1 ML VIAL SUB-Q SCH ×3 (14:10→22:02)
[2022-02-28] MEDS: CALCIUM ACETATE 667 MG CAP PO SCH (16:42)
[2022-02-28] MEDS: cloNIDine 0.1 MG TAB PO SCH (16:44)
[2022-02-28] MEDS: INSULIN LISPRO 100 UNIT/ML SUB-Q SCH ×2 (16:45→18:14)
[2022-02-28] MEDS: amLODIPine 10 MG TAB PO SCH (17:55)
[2022-02-28] MEDS: hydrALAZINE 25 MG TAB PO SCH (18:56)
[2022-02-28] MEDS: carvediloL 25 MG TAB PO SCH (18:57)
[2022-02-28] MEDS ORDERED: FAMOTIDINE 10 MG TAB PO SCH (22:00)
[2022-03-01] MEDS: CALCIUM ACETATE 667 MG CAP PO SCH ×4 (00:35→20:15)
[2022-03-01] MEDS: carvediloL 25 MG TAB PO SCH ×3 (05:51→23:53)
[2022-03-01] MEDS: cloNIDine 0.1 MG TAB PO SCH ×5 (05:51→20:15)
[2022-03-01] MEDS: INSULIN LISPRO 100 UNIT/ML SUB-Q SCH ×5 (05:51→23:57)
[2022-03-01] MEDS: HEPARIN 5,000 UNIT/1 ML VIAL SUB-Q SCH ×3 (05:52→23:57)
[2022-03-01] MEDS: hydrALAZINE 25 MG TAB PO SCH ×4 (05:52→23:53)
[2022-03-01] MEDS: MORPHINE 2 MG/1 ML INJ IV PRN ×2 (06:05→23:54)
[2022-03-01] MEDS: amLODIPine 10 MG TAB PO SCH (09:22)
[2022-03-01] MEDS ORDERED: amLODIPine 10 MG TAB PO SCH (10:00)
[2022-03-01] MEDS ORDERED: NIFEdipine XL 60 MG TAB PO SCH (10:00)
[2022-03-01 11:02] LABS: Basophils # (Auto) 0.1 K/mm3 (0.0-0.1); Basophils % (Auto) 1.3 % (0.0-1.8); Eosinophils # (Auto) 0.1 K/mm3 (0.0-0.4); Eosinophils % (Auto) 1.4 % (0.0-4.3); Hematocrit 33.2 % (35.5-45.6); Hemoglobin 10.8 gm/dl (11.8-15.2); Lymphocytes % (Auto) 18.2 % (13.4-35.0); Mean Corpuscular HGB Conc 33 % (32-34); Mean Corpuscular Volume 87 fl (84-94); Monocytes # (Auto) 0.9 K/mm3 (0.0-0.8); Monocytes % (Auto) 15.2 % (0.0-7.3); Platelet Count 129 K/mm3 (140-440); Red Cell Distribution Width 18.3 % (13.2-15.2)
--- NOTE | 2022-03-01 11:13 | Progress Note ---
Assessment and Plan ESRD HD - HD in am via Rt arm AVF with tortuous aneurysm HTN - Improved control Electrolyte Imbalance - F/u am labs, pending Subjective Date of service: 03/01/22 Interval history: No complaint Objective - Vital Signs Vital signs: Vital Signs - 12hr 02/28/22 03/01/22 03/01/22 23:12 06:00 06:02 Temperature 99.1 F 98.7 F Pulse Rate 83 82 83 Respiratory 20 17 Rate Blood Pressure 167/88 Blood Pressure 130/84 167/88 [Left] O2 Sat by Pulse 88 94 Oximetry 03/01/22 03/01/22 03/01/22 06:05 06:35 08:26 Temperature Pulse Rate 78 Respiratory 17 17 Rate Blood Pressure Blood Pressure 159/84 [Left] O2 Sat by Pulse 94 Oximetry - General Appearance General appearance: other (Awake & alert) EENT: PERRL Neck: no JVD, supple Respiratory: Present: Other (Good air entry) Cardiology: regular, S1S2 Gastrointestinal: normal Neurologic: no focal deficit, other - Lab 03/01/22 10:41 02/28/22 00:25 Most recent lab results Calcium 9.6 mg/dL (8.4-10.2) 02/28/22 00:25 Magnesium 2.30 mg/dL (1.7-2.3) 02/28/22 00:25 Medications & Allergies - Medications Allergies/Adverse Reactions: Allergies No Known Allergies Allergy (Verified 02/10/22 07:45) Home Medications: Home Medications Medication Instructions Recorded Confirmed Last Taken Type amLODIPine 10 mg PO QDAY 30 Days #30 tablet 02/06/22 02/28/22 02/13/22 Rx Acetaminophen [Acetaminophen TAB] 650 mg PO Q4H PRN tablet 02/11/22 02/28/22 Unknown Rx AtorvaSTATin [Lipitor] 20 mg PO QHS 30 Days #30 tab 02/11/22 02/28/22 02/13/22 Rx Calcium Acetate [Phoslo] 1,334 mg PO TID #30 capsule 02/11/22 02/28/22 02/13/22 Rx Famotidine [Pepcid] 10 mg PO BID #30 tablet 02/11/22 02/28/22 02/13/22 Rx NIFEdipine XL [Procardia Xl] 60 mg PO QDAY #30 tablet 04/02/28/22 02/13/22 Rx carvediloL [Coreg] 25 mg PO BID #60 tablet 02/11/22 02/28/22 02/13/22 Rx cloNIDine [Catapres] 0.2 mg PO TID 30 Days #90 tab 02/11/22 02/28/22 02/13/22 Rx hydrALAZINE [Apresoline TAB] 25 mg PO Q8HR #60 tablet 02/11/22 02/28/22 02/13/22 Rx Active Medications: Generic Name Dose Route Start Last Admin Trade Name Freq PRN Reason Stop Dose Admin Acetaminophen 650 mg 02/28/22 02:44 Acetaminophen 325 Mg Tab PO Q4H PRN Pain MILD(1-3)/Fever >100.5/GRAJEDA Amlodipine Besylate 10 mg 02/28/22 17:00 03/01/22 09:22 Amlodipine 10 Mg Tab PO 10 mg QDAY LALITA Administration Atorvastatin Calcium 20 mg 02/28/22 22:00 02/28/22 22:01 Atorvastatin 20 Mg Tab PO 20 mg QHS LALITA Administration Calcium Acetate 1,334 mg 02/28/22 17:00 03/01/22 09:19 Calcium Acetate 667 Mg Cap PO 1,334 mg TID LALITA Administration Carvedilol 25 mg 02/28/22 17:00 03/01/22 09:20 Carvedilol 25 Mg Tab PO 25 mg BID LALITA Administration Clonidine HCl 0.2 mg 02/28/22 17:00 03/01/22 08:01 Clonidine 0.1 Mg Tab PO Not Given TID LALITA Dextrose 50 ml 02/28/22 02:44 Dextrose 50% In Water (25gm) 50 Ml Syringe IV Q30MIN PRN Hypoglycemia Protocol Heparin Sodium (Porcine) 5,000 unit 02/28/22 09:00 03/01/22 05:52 Heparin 5,000 Unit/1 Ml Vial SUB-Q Not Given Q8HR LALITA Hydralazine HCl 25 mg 02/28/22 17:00 03/01/22 06:02 Hydralazine 25 Mg Tab PO 25 mg Q8HR LALITA Administration Sodium Chloride 100 mls @ 999 mls/hr 02/28/22 11:27 Nacl 0.9% IV BUSTER PRN Hypotension Insulin Human Lispro 0 unit 02/28/22 07:30 03/01/22 09:21 Insulin Lispro 100 Unit/Ml SUB-Q Not Given ACHS [facility] Protocol Magnesium Hydroxide 30 ml 02/28/22 02:44 Magnesium Hydroxide (Mom) Oral Liqd Udc PO Q4H PRN Constipation Morphine Sulfate 4 mg 02/28/22 02:44 02/28/22 16:43 Morphine 4 Mg/1 Ml Inj IV 4 mg Q4H PRN Administration Pain , Severe (7-10) Morphine Sulfate 2 mg 02/28/22 02:44 03/01/22 06:05 Morphine 2 Mg/1 Ml Inj IV 2 mg Q4H PRN Administration Pain, Moderate (4-6) Ondansetron HCl 4 mg 02/28/22 02:44 Ondansetron 4 Mg/2 Ml Inj IV Q8H PRN Nausea And Vomiting Sodium Chloride 10 ml 02/28/22 10:00 03/01/22 09:22 Sodium Chloride 0.9% 10 Ml Flush Syringe IV 10 ml BID LALITA Administration Sodium Chloride 10 ml 02/28/22 02:44 Sodium Chloride 0.9% 10 Ml Flush Syringe IV PRN PRN LINE FLUSH
[2022-03-01 11:14] LABS: Calcium 9.1 mg/dL (8.4-10.2)
[2022-03-01] MEDS ORDERED: SODIUM CHLORIDE 0.9% 100 ML IV PRN (12:00)
--- NOTE | 2022-03-01 12:15 | Progress Note ---
Assessment and Plan Assessment and plan: 41-year-old male with known history of end-stage renal disease on dialysis on Mondays, Wednesdays and Fridays, hypertension, hyperlipidemia presenting to the emergency room today complaining of shortness of breath which has been ongoing for the last 24 hours. He has also complained of generalized pruritus. Patient currently does not have the dialysis center as he lost his spot at [facility] dialysis [place] due to being incarcerated for 4 months. Work-up in the emergency room revealed findings of hyperkalemia with potassium 6.0. Chest x- ray showed findings consistent with venous congestion. Patient was given Kayexalate in the emergency room as advised by the parking inspector.\ ESRD needing hemodialysis Hyperkalemia Volume overload 02/28/2022. Patient to undergo hemodialysis today and follow-up with nephrology. Follow-up BMP after hemodialysis. Anticipate discharge in the next 24 to 48 hours 03/01/2022. Patient is in need of outpatient hemodialysis chair. We will consult case management in a.m. Continue hemodialysis per nephrology recommendations History Interval history: No new issues overnight Hospitalist Physical - Constitutional Vitals: Temp Pulse Resp BP Pulse Ox 98.7 F 78 17 159/84 94 03/01/22 06:00 03/01/22 08:26 03/01/22 06:35 03/01/22 08:26 03/01/22 08:26 General appearance: Present: no acute distress, well-nourished - EENT Eyes: Present: PERRL, EOM intact ENT: hearing intact, clear oral mucosa, dentition normal - Neck Neck: Present: supple, normal ROM - Respiratory Respiratory effort: normal Respiratory: bilateral: CTA - Cardiovascular Rhythm: regular Heart Sounds: Present: S1 & S2. Absent: gallop, rub - Extremities Extremities: no ischemia, No edema, Full ROM - Abdominal General gastrointestinal: soft, non-tender, non-distended, normal bowel sounds - Integumentary Integumentary: Present: clear, warm, dry - Neurologic Neurologic: CNII-XII intact, moves all extremities Results - Labs CBC & Chem 7: 03/01/22 10:41 03/01/22 10:41 Labs: Laboratory Last Values WBC 5.6 K/mm3 (4.5-11.0) 03/01/22 10:41 RBC 3.80 M/mm3 (3.65-5.03) 03/01/22 10:41 Hgb 10.8 gm/dl (11.8-15.2) L 03/01/22 10:41 Hct 33.2 % (35.5-45.6) L 03/01/22 10:41 MCV 87 fl (84-94) 03/01/22 10:41 MCH 29 pg (28-32) 03/01/22 10:41 MCHC 33 % (32-34) 03/01/22 10:41 RDW 18.3 % (13.2-15.2) H 03/01/22 10:41 Plt Count 129 K/mm3 (140-440) L 03/01/22 10:41 Lymph % (Auto) 18.2 % (13.4-35.0) 03/01/22 10:41 [place] % (Auto) 15.2 % (0.0-7.3) H 03/01/22 10:41 Eos % (Auto) 1.4 % (0.0-4.3) 03/01/22 10:41 Baso % (Auto) 1.3 % (0.0-1.8) 03/01/22 10:41 Lymph # (Auto) 1.0 K/mm3 (1.2-5.4) L 03/01/22 10:41 [place] # (Auto) 0.9 K/mm3 (0.0-0.8) H 03/01/22 10:41 Eos # (Auto) 0.1 K/mm3 (0.0-0.4) 03/01/22 10:41 Baso # (Auto) 0.1 K/mm3 (0.0-0.1) 03/01/22 10:41 Seg Neutrophils % 63.9 % (40.0-70.0) 03/01/22 10:41 Seg Neutrophils # 3.6 K/mm3 (1.8-7.7) 03/01/22 10:41 PT 14.9 Sec. (12.2-14.9) 02/28/22 00:25 INR 1.05 (0.87-1.13) 02/28/22 00:25 APTT 36.1 Sec. (24.2-36.6) 02/28/22 00:25 Sodium 140 mmol/L (137-145) 03/01/22 10:41 Potassium 4.6 mmol/L (3.6-5.0) D 03/01/22 10:41 Chloride 96.0 mmol/L (98-107) L 03/01/22 10:41 Carbon Dioxide 27 mmol/L (22-30) D 03/01/22 10:41 Anion Gap 22 mmol/L 03/01/22 10:41 BUN 64 mg/dL (9-20) H 03/01/22 10:41 Creatinine 11.4 mg/dL (0.8-1.3) H 03/01/22 10:41 Estimated GFR 6 ml/min 03/01/22 10:41 BUN/Creatinine Ratio 6 % 03/01/22 10:41 Glucose 93 mg/dL (75-100) 03/01/22 10:41 POC Glucose 106 mg/dL (70-105) H 02/28/22 17:44 Calcium 9.1 mg/dL (8.4-10.2) 03/01/22 10:41 Phosphorus 7.00 mg/dL (2.5-4.5) H 03/01/22 10:41 Magnesium 1.90 mg/dL (1.7-2.3) 03/01/22 10:41 Total Bilirubin 0.40 mg/dL (0.1-1.2) 02/28/22 00:25 AST 11 units/L (5-40) 02/28/22 00:25 ALT 23 units/L (7-56) 02/28/22 00:25 Alkaline Phosphatase 76 units/L (35-129) 02/28/22 00:25 Total Protein 7.6 g/dL (6.3-8.2) 02/28/22 00:25 Albumin 4.2 g/dL (3.9-5) 02/28/22 00:25 Albumin/Globulin Ratio 1.2 % 02/28/22 00:25 Mckeon/IV: Voiding Method Toilet Active Medications - Current Medications Current Medications: Generic Name Dose Route Start Last Admin Trade Name Freq PRN Reason Stop Dose Admin Acetaminophen 650 mg 02/28/22 02:44 Acetaminophen 325 Mg Tab PO Q4H PRN Pain MILD(1-3)/Fever >100.5/GRAJEDA Amlodipine Besylate 10 mg 02/28/22 17:00 03/01/22 09:22 Amlodipine 10 Mg Tab PO 10 mg QDAY [facility] Administration Atorvastatin Calcium 20 mg 02/28/22 22:00 02/28/22 22:01 Atorvastatin 20 Mg Tab PO 20 mg QHS [facility] Administration Calcium Acetate 1,334 mg 02/28/22 17:00 03/01/22 09:19 Calcium Acetate 667 Mg Cap PO 1,334 mg TID [facility] Administration Carvedilol 25 mg 02/28/22 17:00 03/01/22 09:20 Carvedilol 25 Mg Tab PO 25 mg BID [facility] Administration Clonidine HCl 0.2 mg 02/28/22 17:00 03/01/22 08:01 Clonidine 0.1 Mg Tab PO Not Given TID [facility] Dextrose 50 ml 02/28/22 02:44 Dextrose 50% In Water (25gm) 50 Ml Syringe IV Q30MIN PRN Hypoglycemia Protocol Heparin Sodium (Porcine) 5,000 unit 02/28/22 09:00 03/01/22 05:52 Heparin 5,000 Unit/1 Ml Vial SUB-Q Not Given Q8HR [facility] Hydralazine HCl 25 mg 02/28/22 17:00 03/01/22 06:02 Hydralazine 25 Mg Tab PO 25 mg Q8HR [facility] Administration Sodium Chloride 100 mls @ 999 mls/hr 03/01/22 12:00 Nacl 0.9% IV BUSTER PRN Hypotension Insulin Human Lispro 0 unit 02/28/22 07:30 03/01/22 12:06 Insulin Lispro 100 Unit/Ml SUB-Q Not Given ACHS [facility] Protocol Magnesium Hydroxide 30 ml 02/28/22 02:44 Magnesium Hydroxide (Mom) Oral Liqd Udc PO Q4H PRN Constipation Morphine Sulfate 4 mg 02/28/22 02:44 02/28/22 16:43 Morphine 4 Mg/1 Ml Inj IV 4 mg Q4H PRN Administration Pain , Severe (7-10) Morphine Sulfate 2 mg 02/28/22 02:44 03/01/22 06:05 Morphine 2 Mg/1 Ml Inj IV 2 mg Q4H PRN Administration Pain, Moderate (4-6) Ondansetron HCl 4 mg 02/28/22 02:44 Ondansetron 4 Mg/2 Ml Inj IV Q8H PRN Nausea And Vomiting Sodium Chloride 10 ml 02/28/22 10:00 03/01/22 09:22 Sodium Chloride 0.9% 10 Ml Flush Syringe IV 10 ml BID LALITA Administration Sodium Chloride 10 ml 02/28/22 02:44 Sodium Chloride 0.9% 10 Ml Flush Syringe IV PRN PRN LINE FLUSH Nutrition/Malnutrition Assess - Dietary Evaluation Nutrition/Malnutrition Findings: Nutrition Notes Start: 02/28/22 11:35 Freq: Status: Active Protocol: Document 02/28/22 11:35 ABDIRASHID (Rec: 02/28/22 11:38 [facility] [id number]) Nutrition Notes Need for Assessment generated from: MD Order,Education Initial or Follow up Brief Note Current Diet Cardiac/Consistent CHO Subjective/Other Information RD consulted for diet education. Pt refused diet education during previous admission (02/14/22). Nutrition Intervention Follow-Up By: 03/06/22 Additional Comments F/U: intakes
[2022-03-02] MEDS ORDERED: diphenhydrAMINE 50 MG/ML VIAL IV ONE ×3 (06:00→14:15)
[2022-03-02] MEDS: HEPARIN 5,000 UNIT/1 ML VIAL SUB-Q SCH ×3 (06:03→22:10)
[2022-03-02 06:40] LABS: Eosinophils # (Auto) 0.1 K/mm3 (0.0-0.4); Eosinophils % (Auto) 2.3 % (0.0-4.3); Hematocrit 30.6 % (35.5-45.6); Hemoglobin 9.8 gm/dl (11.8-15.2); Lymphocytes # (Auto) 1.1 K/mm3 (1.2-5.4); Lymphocytes % (Auto) 23.8 % (13.4-35.0); Mean Corpuscular HGB Conc 32 % (32-34); Mean Corpuscular Volume 88 fl (84-94); Monocytes # (Auto) 0.6 K/mm3 (0.0-0.8); Monocytes % (Auto) 13.3 % (0.0-7.3); Platelet Count 114 K/mm3 (140-440); Red Blood Count 3.46 M/mm3 (3.65-5.03); Red Cell Distribution Width 18.4 % (13.2-15.2)
[2022-03-02] MEDS: hydrALAZINE 25 MG TAB PO SCH ×3 (06:45→22:09)
[2022-03-02 07:02] LABS: Albumin 3.6 g/dL (3.9-5); Calcium 9.1 mg/dL (8.4-10.2)
[2022-03-02] MEDS: cloNIDine 0.1 MG TAB PO SCH ×3 (08:53→21:00)
[2022-03-02] MEDS: INSULIN LISPRO 100 UNIT/ML SUB-Q SCH ×4 (08:55→23:21)
--- NOTE | 2022-03-02 10:38 | Progress Note ---
Assessment and Plan Assessment and plan: 41-year-old male with known history of end-stage renal disease on dialysis on Mondays, Wednesdays and Fridays, hypertension, hyperlipidemia presenting to the emergency room today complaining of shortness of breath which has been ongoing for the last 24 hours. He has also complained of generalized pruritus. Patient currently does not have the dialysis center as he lost his spot at [facility] dialysis [place] due to being incarcerated for 4 months. Work-up in the emergency room revealed findings of hyperkalemia with potassium 6.0. Chest x- ray showed findings consistent with venous congestion. Patient was given Kayexalate in the emergency room as advised by the final application reviewer.\ ESRD needing hemodialysis Hyperkalemia Volume overload 02/28/2022. Patient to undergo hemodialysis today and follow-up with nephrology. Follow-up BMP after hemodialysis. Anticipate discharge in the next 24 to 48 hours 03/01/2022. Patient is in need of outpatient hemodialysis chair. We will consult case management in a.m. Continue hemodialysis per nephrology recommendations 03/02/2022. Patient currently does not have the dialysis center as he lost his spot at [facility] [place] due to being incarcerated for 4 months. Case management attempting to arrange for outpatient hemodialysis chair but this may be difficult due to patient's noncompliance per case management. The patient may have to be discharged and follow-up in the ED with intermittent hemodialysis History Interval history: No new issues overnight Hospitalist Physical - Constitutional Vitals: Temp Pulse Resp BP Pulse Ox 98.2 F 72 20 161/87 94 03/02/22 09:50 03/02/22 09:50 03/02/22 09:50 03/02/22 09:50 03/02/22 09:50 General appearance: Present: no acute distress, well-nourished - EENT Eyes: Present: PERRL, EOM intact ENT: hearing intact, clear oral mucosa, dentition normal - Neck Neck: Present: supple, normal ROM - Respiratory Respiratory effort: normal Respiratory: bilateral: CTA - Cardiovascular Rhythm: regular Heart Sounds: Present: S1 & S2. Absent: gallop, rub - Extremities Extremities: no ischemia, No edema, Full ROM - Abdominal General gastrointestinal: soft, non-tender, non-distended, normal bowel sounds - Integumentary Integumentary: Present: clear, warm, dry - Neurologic Neurologic: CNII-XII intact, moves all extremities Results - Labs CBC & Chem 7: 03/02/22 06:21 03/02/22 06:21 Labs: Laboratory Last Values WBC 4.5 K/mm3 (4.5-11.0) 03/02/22 06:21 RBC 3.46 M/mm3 (3.65-5.03) L 03/02/22 06:21 Hgb 9.8 gm/dl (11.8-15.2) L 03/02/22 06:21 Hct 30.6 % (35.5-45.6) L 03/02/22 06:21 MCV 88 fl (84-94) 03/02/22 06:21 MCH 28 pg (28-32) 03/02/22 06:21 MCHC 32 % (32-34) 03/02/22 06:21 RDW 18.4 % (13.2-15.2) H 03/02/22 06:21 Plt Count 114 K/mm3 (140-440) L 03/02/22 06:21 Lymph % (Auto) 23.8 % (13.4-35.0) 03/02/22 06:21 [place] % (Auto) 13.3 % (0.0-7.3) H 03/02/22 06:21 Eos % (Auto) 2.3 % (0.0-4.3) 03/02/22 06:21 Baso % (Auto) 1.0 % (0.0-1.8) 03/02/22 06:21 Lymph # (Auto) 1.1 K/mm3 (1.2-5.4) L 03/02/22 06:21 [place] # (Auto) 0.6 K/mm3 (0.0-0.8) 03/02/22 06:21 Eos # (Auto) 0.1 K/mm3 (0.0-0.4) 03/02/22 06:21 Baso # (Auto) 0.0 K/mm3 (0.0-0.1) 03/02/22 06:21 Seg Neutrophils % 59.6 % (40.0-70.0) 03/02/22 06:21 Seg Neutrophils # 2.7 K/mm3 (1.8-7.7) 03/02/22 06:21 PT 14.9 Sec. (12.2-14.9) 02/28/22 00:25 INR 1.05 (0.87-1.13) 02/28/22 00:25 APTT 36.1 Sec. (24.2-36.6) 02/28/22 00:25 Sodium 140 mmol/L (137-145) 03/02/22 06:21 Potassium 4.7 mmol/L (3.6-5.0) 03/02/22 06:21 Chloride 97.3 mmol/L (98-107) L 03/02/22 06:21 Carbon Dioxide 24 mmol/L (22-30) 03/02/22 06:21 Anion Gap 23 mmol/L 03/02/22 06:21 BUN 80 mg/dL (9-20) H 03/02/22 06:21 Creatinine 13.2 mg/dL (0.8-1.3) H 03/02/22 06:21 Estimated GFR 5 ml/min 03/02/22 06:21 BUN/Creatinine Ratio 6 % 03/02/22 06:21 Glucose 81 mg/dL (75-100) 03/02/22 06:21 POC Glucose 106 mg/dL (70-105) H 02/28/22 17:44 Calcium 9.1 mg/dL (8.4-10.2) 03/02/22 06:21 Phosphorus 7.00 mg/dL (2.5-4.5) H 03/01/22 10:41 Magnesium 1.90 mg/dL (1.7-2.3) 03/01/22 10:41 Total Bilirubin 0.40 mg/dL (0.1-1.2) 03/02/22 06:21 AST 9 units/L (5-40) 03/02/22 06:21 ALT 13 units/L (7-56) 03/02/22 06:21 Alkaline Phosphatase 60 units/L (35-129) 03/02/22 06:21 Total Protein 6.6 g/dL (6.3-8.2) 03/02/22 06:21 Albumin 3.6 g/dL (3.9-5) L 03/02/22 06:21 Albumin/Globulin Ratio 1.2 % 03/02/22 06:21 Mckeon/IV: Voiding Method Toilet Active Medications - Current Medications Current Medications: Generic Name Dose Route Start Last Admin Trade Name Freq PRN Reason Stop Dose Admin Acetaminophen 650 mg 02/28/22 02:44 Acetaminophen 325 Mg Tab PO Q4H PRN Pain MILD(1-3)/Fever >100.5/GRAJEDA Amlodipine Besylate 10 mg 02/28/22 17:00 03/01/22 09:22 Amlodipine 10 Mg Tab PO 10 mg QDAY LALITA Administration Atorvastatin Calcium 20 mg 02/28/22 22:00 03/01/22 23:53 Atorvastatin 20 Mg Tab PO 20 mg QHS LALITA Administration Calcium Acetate 1,334 mg 03/02/22 12:00 Calcium Acetate 667 Mg Cap PO [facility] Carvedilol 25 mg 02/28/22 17:00 03/01/22 23:53 Carvedilol 25 Mg Tab PO 25 mg BID LALITA Administration Clonidine HCl 0.2 mg 02/28/22 17:00 03/01/22 20:15 Clonidine 0.1 Mg Tab PO 0.2 mg TID LALITA Administration Dextrose 50 ml 02/28/22 02:44 Dextrose 50% In Water (25gm) 50 Ml Syringe IV Q30MIN PRN Hypoglycemia Protocol Heparin Sodium (Porcine) 5,000 unit 02/28/22 09:00 03/02/22 06:03 Heparin 5,000 Unit/1 Ml Vial SUB-Q Not Given Q8HR [facility] Hydralazine HCl 25 mg 02/28/22 17:00 03/02/22 06:45 Hydralazine 25 Mg Tab PO 25 mg Q8HR [facility] Administration Sodium Chloride 100 mls @ 999 mls/hr 03/01/22 12:00 Nacl 0.9% IV BUSTER PRN Hypotension Insulin Human Lispro 0 unit 02/28/22 07:30 03/01/22 23:57 Insulin Lispro 100 Unit/Ml SUB-Q Not Given ACHS [facility] Protocol Magnesium Hydroxide 30 ml 02/28/22 02:44 Magnesium Hydroxide (Mom) Oral Liqd Udc PO Q4H PRN Constipation Morphine Sulfate 4 mg 02/28/22 02:44 02/28/22 16:43 Morphine 4 Mg/1 Ml Inj IV 4 mg Q4H PRN Administration Pain , Severe (7-10) Morphine Sulfate 2 mg 02/28/22 02:44 03/01/22 23:54 Morphine 2 Mg/1 Ml Inj IV 2 mg Q4H PRN Administration Pain, Moderate (4-6) Ondansetron HCl 4 mg 02/28/22 02:44 Ondansetron 4 Mg/2 Ml Inj IV Q8H PRN Nausea And Vomiting Sodium Chloride 10 ml 02/28/22 10:00 03/01/22 23:53 Sodium Chloride 0.9% 10 Ml Flush Syringe IV 10 ml BID LALITA Administration Sodium Chloride 10 ml 02/28/22 02:44 Sodium Chloride 0.9% 10 Ml Flush Syringe IV PRN PRN LINE FLUSH Nutrition/Malnutrition Assess - Dietary Evaluation Nutrition/Malnutrition Findings: Nutrition Notes Start: 02/28/22 11:35 Freq: Status: Active Protocol: Document 02/28/22 11:35 ABDIRASHID (Rec: 02/28/22 11:38 ABDIRASHID [id number]) Nutrition Notes Need for Assessment generated from: MD Order,Education Initial or Follow up Brief Note Current Diet Cardiac/Consistent CHO Subjective/Other Information RD consulted for diet education. Pt refused diet education during previous admission (02/14/22). Nutrition Intervention Follow-Up By: 03/06/22 Additional Comments F/U: intakes
[2022-03-02] MEDS: carvediloL 25 MG TAB PO SCH ×2 (10:54→23:08)
[2022-03-02] MEDS: CALCIUM ACETATE 667 MG CAP PO SCH ×2 (12:13→18:13)
--- NOTE | 2022-03-02 12:32 | Progress Note ---
Assessment and Plan 1. ESRD: Patient is on maintenance hemodialysis. Currently not established with outpatient dialysis unit. Meds dosage based on GFR. Hemodialysis: 02/28. HD today. 2. FEN: Hyperkalemia, improved, monitor. Volume overload, UF with HD tolerated. Counseled to limit salt and fluid intake. Strict renal diet. Binders. Monitor lytes and volume status. 3. Uncontrolled HTN: Volume control thru HD. Adjust meds as needed. Monitor BP. Advised to limit salt and fluid intake. 4. H/o CHF: Monitor. 5. Anemia, POA: Epogen with HD as needed. Unable to secure outpatient HD chair. Subjective: Patient was seen and examined at the bedside. Doing ok. General Appearance: General appearance: well-developed, appears stated age, no distress EENT: ATNC, OSIRIS, hearing intact, vision intact Neck: neck supple, trachea midline Respiratory: ctab Heart: regular, S1S2, no murmur Abdomen: soft, NT, BS heard Integumentary: rash over the trunk is better Neurologic: AO, able to move extremities Ext: trace LE edema noted Hemodialysis access: R arm enlarged AVF Subjective Date of service: 03/02/22 Objective - Vital Signs Vital signs: Vital Signs - 12hr 03/02/22 03/02/22 06:18 09:50 Temperature 98.4 F 98.2 F Pulse Rate 68 72 Respiratory 20 20 Rate Blood Pressure 145/84 161/87 O2 Sat by Pulse 92 94 Oximetry - Lab 03/02/22 06:21 03/02/22 06:21 Most recent lab results Calcium 9.1 mg/dL (8.4-10.2) 03/02/22 06:21 Phosphorus 7.00 mg/dL (2.5-4.5) H 03/01/22 10:41 Magnesium 1.90 mg/dL (1.7-2.3) 03/01/22 10:41 Medications & Allergies - Medications Allergies/Adverse Reactions: Allergies No Known Allergies Allergy (Verified 02/10/22 07:45) Home Medications: Home Medications Medication Instructions Recorded Confirmed Last Taken Type amLODIPine 10 mg PO QDAY 30 Days #30 tablet 02/06/22 02/28/22 02/13/22 Rx Acetaminophen [Acetaminophen TAB] 650 mg PO Q4H PRN tablet 02/11/22 02/28/22 Unknown Rx AtorvaSTATin [Lipitor] 20 mg PO QHS 30 Days #30 tab 02/11/22 02/28/22 02/13/22 Rx Calcium Acetate [Phoslo] 1,334 mg PO TID #30 capsule 02/11/22 02/28/22 02/13/22 Rx Famotidine [Pepcid] 10 mg PO BID #30 tablet 02/11/22 02/28/22 02/13/22 Rx NIFEdipine XL [Procardia Xl] 60 mg PO QDAY #30 tablet 02/11/22 02/28/22 02/13/22 Rx carvediloL [Coreg] 25 mg PO BID #60 tablet 02/11/22 02/28/22 02/13/22 Rx cloNIDine [Catapres] 0.2 mg PO TID 30 Days #90 tab 02/11/22 02/28/22 02/13/22 Rx hydrALAZINE [Apresoline TAB] 25 mg PO Q8HR #60 tablet 02/11/22 02/28/22 02/13/22 Rx Active Medications: Generic Name Dose Route Start Last Admin Trade Name Freq PRN Reason Stop Dose Admin Acetaminophen 650 mg 02/28/22 02:44 Acetaminophen 325 Mg Tab PO Q4H PRN Pain MILD(1-3)/Fever >100.5/GRAJEDA Amlodipine Besylate 10 mg 02/28/22 17:00 03/01/22 09:22 Amlodipine 10 Mg Tab PO 10 mg QDAY LALITA Administration Atorvastatin Calcium 20 mg 02/28/22 22:00 03/01/22 23:53 Atorvastatin 20 Mg Tab PO 20 mg QHS LALITA Administration Calcium Acetate 1,334 mg 03/02/22 12:00 Calcium Acetate 667 Mg Cap PO TIDWM LALTIA Carvedilol 25 mg 02/28/22 17:00 03/01/22 23:53 Carvedilol 25 Mg Tab PO 25 mg BID LALITA Administration Clonidine HCl 0.2 mg 02/28/22 17:00 03/01/22 20:15 Clonidine 0.1 Mg Tab PO 0.2 mg TID LALITA Administration Dextrose 50 ml 02/28/22 02:44 Dextrose 50% In Water (25gm) 50 Ml Syringe IV Q30MIN PRN Hypoglycemia Protocol Heparin Sodium (Porcine) 5,000 unit 02/28/22 09:00 03/02/22 06:03 Heparin 5,000 Unit/1 Ml Vial SUB-Q Not Given Q8HR [facility] Hydralazine HCl 25 mg 02/28/22 17:00 03/02/22 06:45 Hydralazine 25 Mg Tab PO 25 mg Q8HR [facility] Administration Sodium Chloride 100 mls @ 999 mls/hr 03/01/22 12:00 Nacl 0.9% IV BUSTER PRN Hypotension Insulin Human Lispro 0 unit 02/28/22 07:30 03/01/22 23:57 Insulin Lispro 100 Unit/Ml SUB-Q Not Given ACHS [facility] Protocol Magnesium Hydroxide 30 ml 02/28/22 02:44 Magnesium Hydroxide (Mom) Oral Liqd Udc PO Q4H PRN Constipation Morphine Sulfate 4 mg 02/28/22 02:44 02/28/22 16:43 Morphine 4 Mg/1 Ml Inj IV 4 mg Q4H PRN Administration Pain , Severe (7-10) Morphine Sulfate 2 mg 02/28/22 02:44 03/01/22 23:54 Morphine 2 Mg/1 Ml Inj IV 2 mg Q4H PRN Administration Pain, Moderate (4-6) Ondansetron HCl 4 mg 02/28/22 02:44 Ondansetron 4 Mg/2 Ml Inj IV Q8H PRN Nausea And Vomiting Sodium Chloride 10 ml 02/28/22 10:00 03/01/22 23:53 Sodium Chloride 0.9% 10 Ml Flush Syringe IV 10 ml BID LALITA Administration Sodium Chloride 10 ml 02/28/22 02:44 Sodium Chloride 0.9% 10 Ml Flush Syringe IV PRN PRN LINE FLUSH
[2022-03-02] MEDS: amLODIPine 10 MG TAB PO SCH (18:14)
[2022-03-02] MEDS: MORPHINE 2 MG/1 ML INJ IV PRN (23:16)
[2022-03-03] MEDS: hydrALAZINE 25 MG TAB PO SCH ×2 (06:06→13:13)
[2022-03-03] MEDS: HEPARIN 5,000 UNIT/1 ML VIAL SUB-Q SCH ×2 (06:07→13:12)
--- NOTE | 2022-03-03 09:14 | Progress Note ---
Assessment and Plan 1. ESRD: Patient is on maintenance hemodialysis. Currently not established with outpatient dialysis unit. Meds dosage based on GFR. Hemodialysis: 02/28, 03/02. 2. FEN: Hyperkalemia, improved, monitor. Volume overload, UF with HD tolerated. Counseled to limit salt and fluid intake. Strict renal diet. Binders. Monitor lytes and volume status. 3. HTN: Volume control thru HD. Adjust meds as needed. Monitor BP. Advised to limit salt and fluid intake. 4. H/o CHF: Monitor. 5. Anemia, POA: Epogen with HD as needed. Unable to secure outpatient HD chair. Had a detailed discussion with patient about the barriers in obtaining outpatient HD chair. CM present during the discussion. Subjective: Patient was seen and examined at the bedside. Doing ok. General Appearance: General appearance: well-developed, appears stated age, no distress EENT: ATNC, OSIRIS, hearing intact, vision intact Neck: neck supple, trachea midline Respiratory: ctab Heart: regular, S1S2, no murmur Abdomen: soft, NT, BS heard Integumentary: rash over the trunk is better Neurologic: AO, able to move extremities Ext: trace LE edema noted Hemodialysis access: R arm enlarged AVF Subjective Date of service: 03/03/22 Objective - Vital Signs Vital signs: Vital Signs - 12hr 03/02/22 03/02/22 03/02/22 22:09 23:05 23:08 Pulse Rate 83 83 83 Respiratory 20 Rate Blood Pressure 151/80 151/80 151/80 O2 Sat by Pulse 95 Oximetry - Lab 03/02/22 06:21 03/02/22 06:21 Most recent lab results Calcium 9.1 mg/dL (8.4-10.2) 03/02/22 06:21 Phosphorus 7.00 mg/dL (2.5-4.5) H 03/01/22 10:41 Magnesium 1.90 mg/dL (1.7-2.3) 03/01/22 10:41 Medications & Allergies - Medications Allergies/Adverse Reactions: Allergies No Known Allergies Allergy (Verified 02/10/22 07:45) Home Medications: Home Medications Medication Instructions Recorded Confirmed Last Taken Type amLODIPine 10 mg PO QDAY 30 Days #30 tablet 02/06/22 02/28/22 02/13/22 Rx Acetaminophen [Acetaminophen TAB] 650 mg PO Q4H PRN tablet 02/11/22 02/28/22 Unknown Rx AtorvaSTATin [Lipitor] 20 mg PO QHS 30 Days #30 tab 02/11/22 02/28/22 02/13/22 Rx Calcium Acetate [Phoslo] 1,334 mg PO TID #30 capsule 02/11/22 02/28/22 02/13/22 Rx Famotidine [Pepcid] 10 mg PO BID #30 tablet 02/11/22 02/28/22 02/13/22 Rx NIFEdipine XL [Procardia Xl] 60 mg PO QDAY #30 tablet 02/11/22 02/28/22 02/13/22 Rx carvediloL [Coreg] 25 mg PO BID #60 tablet 02/11/22 02/28/22 02/13/22 Rx cloNIDine [Catapres] 0.2 mg PO TID 30 Days #90 tab 02/11/22 02/28/22 02/13/22 Rx hydrALAZINE [Apresoline TAB] 25 mg PO Q8HR #60 tablet 02/11/22 02/28/22 02/13/22 Rx Active Medications: Generic Name Dose Route Start Last Admin Trade Name Freq PRN Reason Stop Dose Admin Acetaminophen 650 mg 02/28/22 02:44 Acetaminophen 325 Mg Tab PO Q4H PRN Pain MILD(1-3)/Fever >100.5/GRAJEDA Amlodipine Besylate 10 mg 02/28/22 17:00 03/02/22 18:14 Amlodipine 10 Mg Tab PO 10 mg QDAY LALITA Administration Atorvastatin Calcium 20 mg 02/28/22 22:00 03/02/22 22:08 Atorvastatin 20 Mg Tab PO 20 mg QHS LALITA Administration Calcium Acetate 1,334 mg 03/02/22 12:00 03/02/22 18:13 Calcium Acetate 667 Mg Cap PO 1,334 mg TIDWM LALITA Administration Carvedilol 25 mg 02/28/22 17:00 03/02/22 23:08 Carvedilol 25 Mg Tab PO 25 mg BID LALITA Administration Clonidine HCl 0.2 mg 02/28/22 17:00 03/02/22 21:00 Clonidine 0.1 Mg Tab PO 0.2 mg TID LALITA Administration Dextrose 50 ml 02/28/22 02:44 Dextrose 50% In Water (25gm) 50 Ml Syringe IV Q30MIN PRN Hypoglycemia Protocol Heparin Sodium (Porcine) 5,000 unit 02/28/22 09:00 03/03/22 06:07 Heparin 5,000 Unit/1 Ml Vial SUB-Q Not Given Q8HR [facility] Hydralazine HCl 25 mg 02/28/22 17:00 03/03/22 06:06 Hydralazine 25 Mg Tab PO Not Given Q8HR [facility] Sodium Chloride 100 mls @ 999 mls/hr 03/01/22 12:00 Nacl 0.9% IV BUSTER PRN Hypotension Insulin Human Lispro 0 unit 02/28/22 07:30 03/02/22 23:21 Insulin Lispro 100 Unit/Ml SUB-Q Not Given ACHS [facility] Protocol Magnesium Hydroxide 30 ml 02/28/22 02:44 Magnesium Hydroxide (Mom) Oral Liqd Udc PO Q4H PRN Constipation Morphine Sulfate 4 mg 02/28/22 02:44 02/28/22 16:43 Morphine 4 Mg/1 Ml Inj IV 4 mg Q4H PRN Administration Pain , Severe (7-10) Morphine Sulfate 2 mg 02/28/22 02:44 03/02/22 23:16 Morphine 2 Mg/1 Ml Inj IV 2 mg Q4H PRN Administration Pain, Moderate (4-6) Ondansetron HCl 4 mg 02/28/22 02:44 Ondansetron 4 Mg/2 Ml Inj IV Q8H PRN Nausea And Vomiting Sodium Chloride 10 ml 02/28/22 10:00 03/02/22 22:10 Sodium Chloride 0.9% 10 Ml Flush Syringe IV 10 ml BID LALITA Administration Sodium Chloride 10 ml 02/28/22 02:44 Sodium Chloride 0.9% 10 Ml Flush Syringe IV PRN PRN LINE FLUSH
[2022-03-03] MEDS: INSULIN LISPRO 100 UNIT/ML SUB-Q SCH ×3 (09:48→17:17)
[2022-03-03] MEDS: amLODIPine 10 MG TAB PO SCH (09:54)
[2022-03-03] MEDS: cloNIDine 0.1 MG TAB PO SCH ×2 (09:54→13:08)
[2022-03-03] MEDS: carvediloL 25 MG TAB PO SCH (09:54)
[2022-03-03] MEDS: CALCIUM ACETATE 667 MG CAP PO SCH ×3 (09:54→17:19)
--- NOTE | 2022-03-03 13:50 | Progress Note ---
Assessment and Plan Assessment and plan: 41-year-old male with known history of end-stage renal disease on dialysis on Mondays, Wednesdays and Fridays, hypertension, hyperlipidemia presenting to the emergency room today complaining of shortness of breath which has been ongoing for the last 24 hours. He has also complained of generalized pruritus. Patient currently does not have the dialysis center as he lost his spot at [facility] dialysis effort due to being incarcerated for 4 months. Work-up in the emergency room revealed findings of hyperkalemia with potassium 6.0. Chest x- ray showed findings consistent with venous congestion. Patient was given Kayexalate in the emergency room as advised by the software quality test engineer.\ ESRD needing hemodialysis Hyperkalemia Volume overload Anemia of chronic renal disease 02/28/2022. Patient to undergo hemodialysis today and follow-up with nephrology. Follow-up BMP after hemodialysis. Anticipate discharge in the next 24 to 48 hours 03/01/2022. Patient is in need of outpatient hemodialysis chair. We will consult case management in a.m. Continue hemodialysis per nephrology recommendations 03/02/2022. Patient currently does not have the dialysis center as he lost his spot at [facility] dialysis effort due to being incarcerated for 4 months. Case management attempting to arrange for outpatient hemodialysis chair but this may be difficult due to patient's noncompliance per case management. The patient may have to be discharged and follow-up in the ED with intermittent hemodialysis 03/03: Patient awaiting for hemodialysis outpatient chair. He reports that his not going to [facility] dialysis effort was due to being incarcerated for about 4 months. He is willing to continue dialysis. Case management is still searching for an outpatient chair time History Interval history: Patient seen and examined resting comfortably. Hospitalist Physical - Physical exam Narrative exam: VITAL SIGNS: Reviewed. GENERAL: The patient appears normally developed, Vital signs as documented. HEAD: No signs of head trauma. EYES: Pupils are equal. Extraocular motions intact. EARS: Hearing grossly intact. MOUTH: Oropharynx is normal. NECK: No adenopathy, no JVD. CHEST: Chest with clear breath sounds bilaterally. No wheezes, rales, or rhonchi. CARDIAC: Regular rate and rhythm. S1 and S2, without murmurs, gallops, or rubs. VASCULAR: A large right aVF no Edema. Peripheral pulses normal and equal in all extremities. ABDOMEN: Soft, non tender and non distended. No rebound or guarding, and no masses palpated. Bowel Sounds normal. MUSCULOSKELETAL: Good range of motion of all major joints. Extremities without clubbing, cyanosis or edema. NEUROLOGIC EXAM: Alert and oriented x 3 No focal sensory or strength deficits. Speech normal. Follows commands. PSYCHIATRIC: Mood normal. SKIN: detail exam as documented in skin assessment - Constitutional Vitals: Temp Pulse Resp BP Pulse Ox 98.0 F 75 14 124/85 92 03/03/22 09:36 03/03/22 09:36 03/03/22 09:36 03/03/22 09:36 03/03/22 09:36 General appearance: Present: no acute distress, well-nourished Results - Labs CBC & Chem 7: 03/02/22 06:21 03/02/22 06:21 Labs: Laboratory Last Values WBC 4.5 K/mm3 (4.5-11.0) 03/02/22 06:21 RBC 3.46 M/mm3 (3.65-5.03) L 03/02/22 06:21 Hgb 9.8 gm/dl (11.8-15.2) L 03/02/22 06:21 Hct 30.6 % (35.5-45.6) L 03/02/22 06:21 MCV 88 fl (84-94) 03/02/22 06:21 MCH 28 pg (28-32) 03/02/22 06:21 MCHC 32 % (32-34) 03/02/22 06:21 RDW 18.4 % (13.2-15.2) H 03/02/22 06:21 Plt Count 114 K/mm3 (140-440) L 03/02/22 06:21 Lymph % (Auto) 23.8 % (13.4-35.0) 03/02/22 06:21 [place] % (Auto) 13.3 % (0.0-7.3) H 03/02/22 06:21 Eos % (Auto) 2.3 % (0.0-4.3) 03/02/22 06:21 Baso % (Auto) 1.0 % (0.0-1.8) 03/02/22 06:21 Lymph # (Auto) 1.1 K/mm3 (1.2-5.4) L 03/02/22 06:21 [place] # (Auto) 0.6 K/mm3 (0.0-0.8) 03/02/22 06:21 Eos # (Auto) 0.1 K/mm3 (0.0-0.4) 03/02/22 06:21 Baso # (Auto) 0.0 K/mm3 (0.0-0.1) 03/02/22 06:21 Seg Neutrophils % 59.6 % (40.0-70.0) 03/02/22 06:21 Seg Neutrophils # 2.7 K/mm3 (1.8-7.7) 03/02/22 06:21 PT 14.9 Sec. (12.2-14.9) 02/28/22 00:25 INR 1.05 (0.87-1.13) 02/28/22 00:25 APTT 36.1 Sec. (24.2-36.6) 02/28/22 00:25 Sodium 140 mmol/L (137-145) 03/02/22 06:21 Potassium 4.7 mmol/L (3.6-5.0) 03/02/22 06:21 Chloride 97.3 mmol/L (98-107) L 03/02/22 06:21 Carbon Dioxide 24 mmol/L (22-30) 03/02/22 06:21 Anion Gap 23 mmol/L 03/02/22 06:21 BUN 80 mg/dL (9-20) H 03/02/22 06:21 Creatinine 13.2 mg/dL (0.8-1.3) H 03/02/22 06:21 Estimated GFR 5 ml/min 03/02/22 06:21 BUN/Creatinine Ratio 6 % 03/02/22 06:21 Glucose 81 mg/dL (75-100) 03/02/22 06:21 POC Glucose 106 mg/dL (70-105) H 02/28/22 17:44 Calcium 9.1 mg/dL (8.4-10.2) 03/02/22 06:21 Phosphorus 7.00 mg/dL (2.5-4.5) H 03/01/22 10:41 Magnesium 1.90 mg/dL (1.7-2.3) 03/01/22 10:41 Total Bilirubin 0.40 mg/dL (0.1-1.2) 03/02/22 06:21 AST 9 units/L (5-40) 03/02/22 06:21 ALT 13 units/L (7-56) 03/02/22 06:21 Alkaline Phosphatase 60 units/L (35-129) 03/02/22 06:21 Total Protein 6.6 g/dL (6.3-8.2) 03/02/22 06:21 Albumin 3.6 g/dL (3.9-5) L 03/02/22 06:21 Albumin/Globulin Ratio 1.2 % 03/02/22 06:21 Mckeon/IV: Voiding Method Toilet Active Medications - Current Medications Current Medications: Generic Name Dose Route Start Last Admin Trade Name Freq PRN Reason Stop Dose Admin Acetaminophen 650 mg 02/28/22 02:44 Acetaminophen 325 Mg Tab PO Q4H PRN Pain MILD(1-3)/Fever >100.5/GRAJEDA Amlodipine Besylate 10 mg 02/28/22 17:00 03/03/22 09:54 Amlodipine 10 Mg Tab PO 10 mg QDAY LALITA Administration Atorvastatin Calcium 20 mg 02/28/22 22:00 03/02/22 22:08 Atorvastatin 20 Mg Tab PO 20 mg QHS LALITA Administration Calcium Acetate 1,334 mg 03/02/22 12:00 03/03/22 13:08 Calcium Acetate 667 Mg Cap PO 1,334 mg TIDWM LALITA Administration Carvedilol 25 mg 02/28/22 17:00 03/03/22 09:54 Carvedilol 25 Mg Tab PO Not Given BID LALITA Clonidine HCl 0.2 mg 02/28/22 17:00 03/03/22 13:08 Clonidine 0.1 Mg Tab PO 0.2 mg TID LALITA Administration Dextrose 50 ml 02/28/22 02:44 Dextrose 50% In Water (25gm) 50 Ml Syringe IV Q30MIN PRN Hypoglycemia Protocol Heparin Sodium (Porcine) 5,000 unit 02/28/22 09:00 03/03/22 13:12 Heparin 5,000 Unit/1 Ml Vial SUB-Q Not Given Q8HR LALITA Hydralazine HCl 25 mg 02/28/22 17:00 03/03/22 13:13 Hydralazine 25 Mg Tab PO Not Given Q8HR LALITA Sodium Chloride 100 mls @ 999 mls/hr 03/01/22 12:00 Nacl 0.9% IV BUSTER PRN Hypotension Insulin Human Lispro 0 unit 02/28/22 07:30 03/03/22 13:03 Insulin Lispro 100 Unit/Ml SUB-Q Not Given ACHS [facility] Protocol Magnesium Hydroxide 30 ml 02/28/22 02:44 Magnesium Hydroxide (Mom) Oral Liqd Udc PO Q4H PRN Constipation Morphine Sulfate 4 mg 02/28/22 02:44 02/28/22 16:43 Morphine 4 Mg/1 Ml Inj IV 4 mg Q4H PRN Administration Pain , Severe (7-10) Morphine Sulfate 2 mg 02/28/22 02:44 03/02/22 23:16 Morphine 2 Mg/1 Ml Inj IV 2 mg Q4H PRN Administration Pain, Moderate (4-6) Ondansetron HCl 4 mg 02/28/22 02:44 Ondansetron 4 Mg/2 Ml Inj IV Q8H PRN Nausea And Vomiting Sodium Chloride 10 ml 02/28/22 10:00 03/03/22 09:55 Sodium Chloride 0.9% 10 Ml Flush Syringe IV 10 ml BID LALITA Administration Sodium Chloride 10 ml 02/28/22 02:44 Sodium Chloride 0.9% 10 Ml Flush Syringe IV PRN PRN LINE FLUSH Nutrition/Malnutrition Assess - Dietary Evaluation Nutrition/Malnutrition Findings: Nutrition Notes Start: 02/28/22 11:35 Freq: Status: Active Protocol: Document 02/28/22 11:35 ABDIRASHID (Rec: 02/28/22 11:38 ABDIRASHID [id number]) Nutrition Notes Need for Assessment generated from: MD Order,Education Initial or Follow up Brief Note Current Diet Cardiac/Consistent CHO Subjective/Other Information RD consulted for diet education. Pt refused diet education during previous admission (02/14/22). Nutrition Intervention Follow-Up By: 03/06/22 Additional Comments F/U: intakes
[2022-03-03 17:16] VITALS: BP 141/80
--- NOTE | 2022-03-04 08:14 | Discharge Summary ---
Providers - Providers Date of Admission: 02/28/22 02:44 Attending physician: BRENNA LIM MD 02/28/22 02:44 Consult to Dietitian/Nutrition [CONS] Routine Physician Instructions: Reason For Exam: Reason for Consult: Diet education Consult to Physician [CONS] Routine Comment: CAROL Ford spoke with Dr. Wallis @ [phone] Consulting Provider: MARITZA WALLIS Physician Instructions: Reason For Exam: ESRD- NEEDING DIALYSIS Hospitalization Reason for admission: shortness of breath Condition: Stable Hospital course: 41-year-old male with known history of end-stage renal disease on dialysis on Mondays, Wednesdays and Fridays, hypertension, hyperlipidemia presenting to the emergency room today complaining of shortness of breath which has been ongoing for the last 24 hours. He has also complained of generalized pruritus. Patient currently does not have the dialysis center as he lost his spot at [facility] dialysis [place] due to being incarcerated for 4 months. Work-up in the emergency room revealed findings of hyperkalemia with potassium 6.0. Chest x- ray showed findings consistent with venous congestion. Patient was given Kayexalate in the emergency room as advised by the scallop binder.\ ESRD needing hemodialysis Hyperkalemia Volume overload Anemia of chronic renal disease 02/28/2022. Patient to undergo hemodialysis today and follow-up with nephrology. Follow-up BMP after hemodialysis. Anticipate discharge in the next 24 to 48 hours 03/01/2022. Patient is in need of outpatient hemodialysis chair. We will consult case management in a.m. Continue hemodialysis per nephrology recommendations 03/02/2022. Patient currently does not have the dialysis center as he lost his spot at [facility] dialysis [place] due to being incarcerated for 4 months. Case management attempting to arrange for outpatient hemodialysis chair but this may be difficult due to patient's noncompliance per case management. The patient may have to be discharged and follow-up in the ED with intermittent hemodialysis 03/03: Patient awaiting for hemodialysis outpatient chair. He reports that his not going to [facility] dialysis [place] was due to being incarcerated for about 4 months. He is willing to continue dialysis. Case management is still searching for an outpatient chair time Patient left [facility] later in the evening, nursing staff reports that they informed him of the risk Disposition: 07 LEFT AGAINST MEDICAL ADVICE Final Discharge Diagnosis (Prints w/discharge instructions): volume overload secondary to ESRD Core Measure Documentation - Palliative Care Palliative Care/ Comfort Measures: Not Applicable - Core Measures Any of the following diagnoses?: none Exam - Constitutional Vitals: Temp Pulse Resp BP Pulse Ox 98.0 F 78 20 141/80 93 03/03/22 16:25 03/03/22 16:25 03/03/22 16:25 03/03/22 16:25 03/03/22 16:25 Plan Follow up with: ELIZA BOATENG [Other] - 3-5 Days
== END 2022-03-03 17:42 | disposition left against medical advice (07) | DRG 640 ==
LOC: ED 09:03 → 3A 02-28 02:44
PROVIDERS: ADMIT Internal Medicine Geriatric Medicine; ATTEND Internal Medicine
PROC: 5A1D70Z Performance of Urinary Filtration, Intermittent, Less than 6 Hours Per Day (ICD-10-PCS; principal; 2022-02-28)
PROC: 5A1D70Z Performance of Urinary Filtration, Intermittent, Less than 6 Hours Per Day (ICD-10-PCS; 2022-03-02)
DX: E87.5 Hyperkalemia (principal); N18.6 End stage renal disease; I13.2 Hypertensive heart and chronic kidney disease with heart failure and with stage 5 chronic kidney disease, or end stage renal disease; E87.70 Fluid overload, unspecified; E11.22 Type 2 diabetes mellitus with diabetic chronic kidney disease; Z99.2 Dependence on renal dialysis; E78.5 Hyperlipidemia, unspecified; I25.2 Old myocardial infarction; Z86.73 Personal history of transient ischemic attack (TIA), and cerebral infarction without residual deficits; Z86.711 Personal history of pulmonary embolism; I50.9 Heart failure, unspecified; D63.1 Anemia in chronic kidney disease; Z53.29 Procedure and treatment not carried out because of patient's decision for other reasons
CPT/HCPCS: 36415; 71046; 80048; 80053; 82962; 83735; 84100; 85025; 85610; 85730; 96374; 96375; 96376; 99285; G0378; J1200; J1644; J2270

== ENCOUNTER 2022-03-06 05:54 | Inpatient (IN) | payer OTHER, MEDICARE ==
[2022-03-06 09:23] LABS: Basophils % (Auto) 0.4 % (0.0-1.8); Eosinophils # (Auto) 0.1 K/mm3 (0.0-0.4); Eosinophils % (Auto) 1.6 % (0.0-4.3); Hematocrit 33.4 % (35.5-45.6); Hemoglobin 10.7 gm/dl (11.8-15.2); Lymphocytes # (Auto) 0.8 K/mm3 (1.2-5.4); Lymphocytes % (Auto) 14.8 % (13.4-35.0); Mean Corpuscular HGB Conc 32 % (32-34); Mean Corpuscular Volume 88 fl (84-94); Monocytes # (Auto) 0.5 K/mm3 (0.0-0.8); Monocytes % (Auto) 9.1 % (0.0-7.3); Platelet Count 134 K/mm3 (140-440); Red Cell Distribution Width 17.4 % (13.2-15.2)
--- NOTE | 2022-03-06 09:41 | Event Note ---
ED Screening Note Date of service: 03/06/22 Time: 09:36 ED Screening Note: 41-year-old -[place] male who has been here several times comes in for dialysis. Patient states that he currently does not have a chair at any local dialysis as he was incarcerated for over 4 months and his chair was given away. Patient comes in complaining of shortness of breath productive cough itching. Patient has been actively coughing up clear phlegm. This initial assessment/diagnostic orders/clinical plan/treatment(s) is/are subject to change based on patients health status, clinical progression and re- assessment by fellow clinical providers in the ED. Further treatment and workup at subsequent clinical providers discretion. Patient/guardian urged not to elope from the ED as their condition may be serious if not clinically assessed and managed. Initial orders include: CBC, CMP, PT PTT, BNP chest x-ray Phos and magnesium
[2022-03-06 09:44] LABS: INR 1.02 (0.87-1.13)
[2022-03-06 09:45] LABS: Partial Thromboplastin Time 36.7 Sec. (24.2-36.6)
[2022-03-06 09:48] LABS: Albumin 4.3 g/dL (3.9-5); Calcium 9.1 mg/dL (8.4-10.2)
--- NOTE | 2022-03-06 09:56 | XRay Report ---
CHEST 2 VIEWS INDICATION / CLINICAL INFORMATION: sob,cough and rales. COMPARISON: 02/28/22 FINDINGS: SUPPORT DEVICES: None. HEART / MEDIASTINUM: Heart is enlarged but stable. Median sternotomy wires and thoracic aortic arch s tent graft are unchanged. LUNGS / PLEURA: Borderline interstitial edema with fluid in the major fissure appears unchanged. No p neumothorax. ADDITIONAL FINDINGS: No significant additional findings. IMPRESSION: 1. Borderline interstitial edema. Signer Name: Ke Au MD Signed: 03/06/2022 9:52 AM Workstation Name: [id number]
[2022-03-06] MEDS ORDERED: hydrOXYzine HCL 10 MG TAB PO NR (11:57)
[2022-03-06] MEDS ORDERED: carvediloL 25 MG TAB PO STA (11:57)
[2022-03-06] MEDS ORDERED: NON-FORMULARY EACH (Amlodipine Besylate 10 MG) PO STA (11:57)
[2022-03-06] MEDS ORDERED: hydrALAZINE 25 MG TAB PO STA (11:57)
[2022-03-06] MEDS ORDERED: NON-FORMULARY EACH (Furosemide 80 MG) PO STA (11:57)
[2022-03-06] MEDS ORDERED: cloNIDine 0.1 MG TAB PO STA (11:57)
--- NOTE | 2022-03-06 12:00 | Emergency Department Report ---
ED General Adult HPI - General Chief complaint: High BP Stated complaint: DANIELLA HTN Time Seen by Provider: 03/06/22 11:09 Source: patient, RN notes reviewed, old records reviewed Mode of arrival: Ambulatory Limitations: No Limitations - History of Present Illness Initial comments: The patient is a 41-year-old gentleman, with a history of end-stage renal d isease on hemodialysis and hypertension, presenting to the ER today with a primary complaint of shortness of breath and pruritus He is requesting hemodialysis. -: Gradual Consistency: constant Improves with: other (Hemodialysis) Worsens with: none - Related Data Home Medications Medication Instructions Recorded Confirmed Last Taken Albuterol Mdi (or & Nicu Only) 90 mcg INHALATION QDAY PRN 03/06/22 03/06/22 1 Day Ago ~03/05/22 Amiodarone 200 mg PO QDAY 03/06/22 03/06/22 1 Day Ago ~03/05/22 Amlodipine Besylate 10 mg PO QDAY 03/06/22 03/06/22 1 Day Ago ~03/05/22 Furosemide 80 mg PO QDAY 03/06/22 03/06/22 1 Day Ago ~03/05/22 Previous Rx's Medication Instructions Recorded Last Taken Type AtorvaSTATin [Lipitor] 20 mg PO QHS 30 Days #30 tab 02/11/22 1 Day Ago Rx ~03/05/22 carvediloL [Coreg] 25 mg PO BID #60 tablet 02/11/22 1 Day Ago Rx ~03/05/22 cloNIDine [Catapres] 0.2 mg PO TID 30 Days #90 tab 02/11/22 1 Day Ago Rx ~03/05/22 hydrALAZINE [Apresoline TAB] 25 mg PO Q8HR #60 tablet 02/11/22 1 Day Ago Rx ~03/05/22 Allergies Allergy/AdvReac Type Severity Reaction Status Date / Time No Known Allergies Allergy Verified 03/06/22 08:23 ED Review of Systems ROS: Stated complaint: DANIELLA HTN Other details as noted in HPI Constitutional: denies: fever Eyes: denies: eye discharge ENT: denies: epistaxis Respiratory: shortness of breath Cardiovascular: edema. denies: chest pain Gastrointestinal: denies: abdominal pain Genitourinary: denies: dysuria Musculoskeletal: myalgia Skin: lesions, pruritus ED Past Medical Hx - Past Medical History Hx Hypertension: Yes Hx CVA: Yes Hx Heart Attack/AMI: Yes Hx Congestive Heart Failure: Yes Hx Diabetes: Yes Hx Deep Vein Thrombosis: Yes Hx Pulmonary Embolism: Yes Hx Renal Disease: Yes Hx Arthritis: No Hx Headaches / Migraines: No Hx Kidney Stones: No Hx Asthma: Yes Hx COPD: No Hx Tuberculosis: No Hx Dementia: No Additional medical history: heart problems - Surgical History Hx Coronary Stent: No Hx Pacemaker: No Hx Internal Defibrillator: No Hx Cholecystectomy: No Hx Appendectomy: No Additional Surgical History: abd hernia, not repaired yet;aorta rupture and repair - Social History Smoking Status: Unknown if ever smoked - Medications Home Medications: Home Medications Medication Instructions Recorded Confirmed Last Taken Type AtorvaSTATin [Lipitor] 20 mg PO QHS 30 Days #30 tab 02/11/22 03/06/22 1 Day Ago Rx ~03/05/22 carvediloL [Coreg] 25 mg PO BID #60 tablet 02/11/22 03/06/22 1 Day Ago Rx ~03/05/22 cloNIDine [Catapres] 0.2 mg PO TID 30 Days #90 tab 02/11/22 03/06/22 1 Day Ago Rx ~03/05/22 hydrALAZINE [Apresoline TAB] 25 mg PO Q8HR #60 tablet 02/11/22 03/06/22 1 Day Ago Rx ~03/05/22 Albuterol Mdi (or & Nicu Only) 90 mcg INHALATION QDAY PRN 03/06/22 03/06/22 1 Day Ago History ~03/05/22 Amiodarone 200 mg PO QDAY 03/06/22 03/06/22 1 Day Ago History ~03/05/22 Amlodipine Besylate 10 mg PO QDAY 03/06/22 03/06/22 1 Day Ago History ~03/05/22 Furosemide 80 mg PO QDAY 03/06/22 03/06/22 1 Day Ago History ~03/05/22 ED Physical Exam - General Limitations: No Limitations General appearance: alert, in no apparent distress - Head Head exam: Present: atraumatic, normocephalic - Eye Eye exam: Present: normal appearance, EOMI. Absent: nystagmus - ENT ENT exam: Present: normal exam, normal orophraynx, mucous membranes moist, normal external ear exam - Neck Neck exam: Present: normal inspection, full ROM. Absent: tenderness, meningismus - Respiratory Respiratory exam: Present: rales. Absent: respiratory distress, rhonchi, stridor - Cardiovascular Cardiovascular Exam: Present: regular rate, normal rhythm, normal heart sounds. Absent: bradycardia, tachycardia, irregular rhythm, systolic murmur, diastolic murmur, rubs, gallop - GI/Abdominal GI/Abdominal exam: Present: soft. Absent: distended, tenderness, guarding, rebound, rigid, pulsatile mass - Rectal Rectal exam: Present: deferred - Extremities Exam Extremities exam: Present: normal inspection, full ROM, pedal edema, other (2+ pulses noted in the bilateral upper extremities. There is an upper extremity fistula, with an appropriate thrill, without redness, pus, streaking or tenderness). Absent: calf tenderness - Back Exam Back exam: Present: normal inspection. Absent: tenderness, CVA tenderness (R), CVA tenderness (L), paraspinal tenderness, vertebral tenderness - Neurological Exam Neurological exam: Present: alert, oriented X3, normal gait, other (No facial droop. Tongue midline. Extraocular movements intact bilaterally. Facial sensation intact to light touch in V1, V2, V3 distribution bilaterally. 5 and a 5 strength in 4 extremities. Sensation intact to light touch in 4 extremities.). Absent: motor sensory deficit - Psychiatric Psychiatric exam: Present: normal affect, normal mood, anxious - Skin Skin exam: Present: warm, dry, intact, normal color, other (Hyperpigmented nontender macules noted on the anterior chest). Absent: rash ED Course Vital Signs 03/06/22 03/06/22 03/06/22 05:57 12:47 12:50 Temperature 98.4 F Pulse Rate 84 85 85 Respiratory 18 Rate Blood Pressure 166/90 166/90 Blood Pressure 180/100 [Right] O2 Sat by Pulse 98 Oximetry ED Medical Decision Making - Lab Data Result diagrams: 03/06/22 09:02 03/06/22 09:02 Vital Signs 03/06/22 05:57 Temperature 98.4 F Pulse Rate 84 Respiratory 18 Rate Blood Pressure 180/100 [Right] O2 Sat by Pulse 98 Oximetry Lab Results 03/06/22 03/06/22 03/06/22 Range/Units 09:02 09:02 09:02 WBC 5.7 (4.5-11.0) K/mm3 RBC 3.80 (3.65-5.03) M/mm3 Hgb 10.7 L (11.8-15.2) gm/dl Hct 33.4 L (35.5-45.6) % MCV 88 (84-94) fl MCH 28 (28-32) pg MCHC 32 (32-34) % RDW 17.4 H (13.2-15.2) % Plt Count 134 L (140-440) K/mm3 Lymph % (Auto) 14.8 (13.4-35.0) % [place] % (Auto) 9.1 H (0.0-7.3) % Eos % (Auto) 1.6 (0.0-4.3) % Baso % (Auto) 0.4 (0.0-1.8) % Lymph # (Auto) 0.8 L (1.2-5.4) K/mm3 [place] # (Auto) 0.5 (0.0-0.8) K/mm3 Eos # (Auto) 0.1 (0.0-0.4) K/mm3 Baso # (Auto) 0.0 (0.0-0.1) K/mm3 Seg Neutrophils % 74.1 H (40.0-70.0) % Seg Neutrophils # 4.2 (1.8-7.7) K/mm3 PT 14.5 (12.2-14.9) Sec. INR 1.02 (0.87-1.13) APTT 36.7 H (24.2-36.6) Sec. Sodium 141 (137-145) mmol/L Potassium 5.6 H (3.6-5.0) mmol/L Chloride 98.9 (98-107) mmol/L Carbon Dioxide 18 L (22-30) mmol/L Anion Gap 30 mmol/L BUN 119 H (9-20) mg/dL Creatinine 15.9 H (0.8-1.3) mg/dL Estimated GFR 4 ml/min BUN/Creatinine Ratio 7 % Glucose 90 (75-100) mg/dL Calcium 9.1 (8.4-10.2) mg/dL Phosphorus (2.5-4.5) mg/dL Magnesium (1.7-2.3) mg/dL Total Bilirubin 0.50 (0.1-1.2) mg/dL AST 15 (5-40) units/L ALT 14 (7-56) units/L Alkaline Phosphatase 67 (35-129) units/L NT-Pro-B Natriuret Pep (0-450) pg/mL Total Protein 7.6 (6.3-8.2) g/dL Albumin 4.3 (3.9-5) g/dL Albumin/Globulin Ratio 1.3 % 03/06/22 Range/Units 09:02 WBC (4.5-11.0) K/mm3 RBC (3.65-5.03) M/mm3 Hgb (11.8-15.2) gm/dl Hct (35.5-45.6) % MCV (84-94) fl MCH (28-32) pg MCHC (32-34) % RDW (13.2-15.2) % Plt Count (140-440) K/mm3 Lymph % (Auto) (13.4-35.0) % Lenoir % (Auto) (0.0-7.3) % Eos % (Auto) (0.0-4.3) % Baso % (Auto) (0.0-1.8) % Lymph # (Auto) (1.2-5.4) K/mm3 Lenoir # (Auto) (0.0-0.8) K/mm3 Eos # (Auto) (0.0-0.4) K/mm3 Baso # (Auto) (0.0-0.1) K/mm3 Seg Neutrophils % (40.0-70.0) % Seg Neutrophils # (1.8-7.7) K/mm3 PT (12.2-14.9) Sec. INR (0.87-1.13) APTT (24.2-36.6) Sec. Sodium (137-145) mmol/L Potassium (3.6-5.0) mmol/L Chloride (98-107) mmol/L Carbon Dioxide (22-30) mmol/L Anion Gap mmol/L BUN (9-20) mg/dL Creatinine (0.8-1.3) mg/dL Estimated GFR ml/min BUN/Creatinine Ratio % Glucose (75-100) mg/dL Calcium (8.4-10.2) mg/dL Phosphorus 9.40 H (2.5-4.5) mg/dL Magnesium 2.40 H (1.7-2.3) mg/dL Total Bilirubin (0.1-1.2) mg/dL AST (5-40) units/L ALT (7-56) units/L Alkaline Phosphatase (35-129) units/L NT-Pro-B Natriuret Pep > 25420 H (0-450) pg/mL Total Protein (6.3-8.2) g/dL Albumin (3.9-5) g/dL Albumin/Globulin Ratio % - EKG Data -: EKG Interpreted by Ok EKG shows normal: sinus rhythm Rate: normal - EKG Data 03/06/22 14:02 The EKG is interpreted at 12: 01 Sinus rhythm, rate 78 bpm. Left axis deviation, left anterior fascicular block, normal P wave axis, left ventricular hypertrophy, hyperkalemia findings. There is an interventricular conduction delay, and the QTC is 506 ms. This is an abnormal EKG, and this is not a STEMI. - Radiology Data Radiology results: pending, report reviewed, image reviewed CHEST 2 VIEWS INDICATION / CLINICAL INFORMATION: sob,cough and rales. COMPARISON: 02/28/22 FINDINGS: SUPPORT DEVICES: None. HEART / MEDIASTINUM: Heart is enlarged but stable. Median sternotomy wires and thoracic aortic arch stent graft are unchanged. LUNGS / PLEURA: Borderline interstitial edema with fluid in the major fissure appears unchanged. No pneumothorax. ADDITIONAL FINDINGS: No significant additional findings. IMPRESSION: 1. Borderline interstitial edema. Signer Name: Ke Au MD Signed: 03/06/2022 8:52 AM Workstation Name: [id number] - Medical Decision Making Differential diagnosis, including but not limited to: Hyperkalemia, hypertensive urgency, azotemia, uremia, end-stage renal disease requiring hemodialysis Assessment and plan: 41-year-old gentleman found to have hypertensive emergency, hyperkalemia, azotemia, uremia, metabolic acidosis, pulmonary edema, requires admission for urgent dialysis. I was personally called by nephrology, Dr. Lizandro Lu Discussed the patient's history, physical, laboratory studies and imaging studies and clinical impression. He is going to arrange for urgent h emodialysis. Hospital physician, Dr. Ryan Nuñez to admit to IMS Suspect that pruritus is secondary to azotemia and uremia. Patient is agreeable to admission and hospitalization. Critical Care Time: Yes Critical care time in (mins) excluding proc time.: 35 Critical care attestation.: If time is entered above; I have spent that time in minutes in the direct care of this critically ill patient, excluding procedure time. ED Disposition Clinical Impression: Hypertensive urgency, History of noncompliance with medical treatment, ESRD needing dialysis, Acute hyperkalemia, Metabolic acidosis, Fluid overload Disposition: 09 ADMITTED INPATIENT Is pt being admited?: Yes Does the pt Need Aspirin: No Condition: Good
[2022-03-06] MEDS ORDERED: amLODIPine 10 MG TAB PO NR (12:30)
[2022-03-06] MEDS ORDERED: FUROSEMIDE 40 MG TAB PO NR (12:30)
[2022-03-06] MEDS ORDERED: MORPHINE 2 MG/1 ML INJ IV PRN (12:47)
[2022-03-06] MEDS ORDERED: HYDROmorphone 1 MG/1 ML INJ IV PRN (12:47)
[2022-03-06] MEDS ORDERED: ACETAMINOPHEN 325 MG TAB PO PRN (12:47)
[2022-03-06] MEDS ORDERED: METOCLOPRAMIDE 10 MG/2 ML INJ IV PRN (12:47)
[2022-03-06] MEDS ORDERED: ONDANSETRON 4 MG/2 ML INJ IV PRN (12:47)
--- NOTE | 2022-03-06 12:52 | Consultation ---
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 Patient currently not establised with any outpatient dialysis unit. He has been coming to ED for dialysis. He was last dialyzed recently during the prior admission at this facility. Patient c/o some leg swelling bilaterally. Denies fever, chills, nausea, vomiting, diarrhea, abd pain, sob or CP. Patient currently lives in a hotel. Labs noted. Nephrology was consulted for ESRD management. Medications and Allergies Allergies Allergy/AdvReac Type Severity Reaction Status Date / Time No Known Allergies Allergy Verified 03/06/22 08:23 Home Medications Medication Instructions Recorded Confirmed Last Taken Type AtorvaSTATin [Lipitor] 20 mg PO QHS 30 Days #30 tab 02/11/22 03/06/22 1 Day Ago Rx ~03/05/22 carvediloL [Coreg] 25 mg PO BID #60 tablet 02/11/22 03/06/22 1 Day Ago Rx ~03/05/22 cloNIDine [Catapres] 0.2 mg PO TID 30 Days #90 tab 02/11/22 03/06/22 1 Day Ago Rx ~03/05/22 hydrALAZINE [Apresoline TAB] 25 mg PO Q8HR #60 tablet 02/11/22 03/06/22 1 Day Ago Rx ~03/05/22 Albuterol Mdi (or & Nicu Only) 90 mcg INHALATION QDAY PRN 03/06/22 03/06/22 1 Day Ago History ~03/05/22 Amiodarone 200 mg PO QDAY 03/06/22 03/06/22 1 Day Ago History ~03/05/22 Amlodipine Besylate 10 mg PO QDAY 03/06/22 03/06/22 1 Day Ago History ~03/05/22 Furosemide 80 mg PO QDAY 03/06/22 03/06/22 1 Day Ago History ~03/05/22 Active Meds: Active Medications Acetaminophen (Acetaminophen 325 Mg Tab) 650 mg PO Q4H PRN PRN Reason: Pain MILD(1-3)/Fever >100.5/GRAJEDA Amlodipine Besylate (Amlodipine 10 Mg Tab) 10 mg PO ONCE NR Stop: 03/06/22 13:30 Furosemide (Furosemide 40 Mg Tab) 80 mg PO ONCE NR Stop: 03/06/22 13:30 Heparin Sodium (Porcine) (Heparin 10,000 Units/10 Ml Vial) 3,000 unit IV BUSTER PRN PRN Reason: hemodialysis Hydroxyzine HCl (Hydroxyzine Hcl 10 Mg Tab) 10 mg PO ONCE NR Stop: 03/06/22 13:00 Sodium Chloride (Nacl 0.9%) 100 mls @ 999 mls/hr IV BUSTER PRN PRN Reason: Hypotension Morphine Sulfate (Morphine 2 Mg/1 Ml Inj) 2 mg IV Q4H PRN PRN Reason: Pain, Moderate (4-6) Ondansetron HCl (Ondansetron 4 Mg/2 Ml Inj) 4 mg IV Q8H PRN PRN Reason: Nausea And Vomiting Sodium Chloride (Sodium Chloride 0.9% 10 Ml Flush Syringe) 10 ml IV BID LALITA Sodium Chloride (Sodium Chloride 0.9% 10 Ml Flush Syringe) 10 ml IV PRN PRN PRN Reason: LINE FLUSH Review of Systems All systems: negative Exam - Vital Signs Vital signs: Vital Signs Temp Pulse Resp BP Pulse Ox 98.4 F 84 18 180/100 98 03/06/22 05:57 03/06/22 05:57 03/06/22 05:57 03/06/22 05:57 03/06/22 05:57 Results - Lab Results 03/06/22 09:02 03/06/22 09:02 Most recent lab results Calcium 9.1 mg/dL (8.4-10.2) 03/06/22 09:02 Phosphorus 9.40 mg/dL (2.5-4.5) H 03/06/22 09:02 Magnesium 2.40 mg/dL (1.7-2.3) H 03/06/22 09:02 Assessment and Plan 1. ESRD: Patient is on maintenance hemodialysis. Currently not established with outpatient dialysis unit. Meds dosage based on GFR. Hemodialysis: today. 2. FEN: Hyperkalemia, HD today, monitor. Volume overload, UF with HD tolerated. Counseled to limit salt and fluid intake. Strict renal diet. Binders. Monitor lytes and volume status. 3. Uncontrolled HTN: Volume control thru HD. Adjust meds as needed. Monitor BP. Advised to limit salt and fluid intake. 4. H/o CHF: Monitor. 5. Anemia, POA: Epogen with HD as needed. Unable to secure outpatient HD chair. Subjective: Patient was seen and examined at the bedside. General Appearance: General appearance: well-developed, appears stated age, no distress EENT: ATNC, OSIRIS, hearing intact, vision intact Neck: neck supple, trachea midline Respiratory: ctab Heart: regular, S1S2, no murmur Abdomen: soft, NT, BS heard Integumentary: no obvious rash Neurologic: AO, able to move extremities Ext: trace LE edema noted Hemodialysis access: R arm tortuous AVF
[2022-03-06] MEDS ORDERED: HEPARIN 10,000 UNITS/10 ML VIAL IV PRN (13:00)
[2022-03-06] MEDS ORDERED: SODIUM CHLORIDE 0.9% 100 ML IV PRN ×3 (13:00→18:13)
[2022-03-06 13:29] LABS: Hepatitis B Surface Antigen Non-Reactive (Negative); Hepatitis C Virus Antibody Non-Reactive (NonReactive)
[2022-03-06] MEDS ORDERED: diphenhydrAMINE 50 MG/ML VIAL IV PRN (15:41)
[2022-03-06] MEDS: HEPARIN 5,000 UNIT/1 ML VIAL SUB-Q SCH (21:55)
[2022-03-07] MEDS ORDERED: oxyCODONE /ACETAMINOPHEN 5-325MG TAB PO ONE (01:05)
--- NOTE | 2022-03-07 07:23 | History and Physical Report ---
History of Present Illness Date of examination: 03/06/22 Date of admission: 03/06/22 12:47 Chief complaint: Shortness of breath for 1 day History of present illness: 41-year-old -[place] male with history of hypertension, hyperlipidemia and end-stage renal disease on hemodialysis comes in for shortness of breath and itching... Patient apparently missed hemodialysis session. Noncompliant. Orthopnea present. No fever or chills. - Past Medical History --Hypertension: Yes --CVA: Yes --Heart Attack/AMI: Yes --Congestive Heart Failure: Yes --Diabetes: Yes -- Deep Vein Thrombosis: Yes --Pulmonary Embolism: Yes --Renal Disease: Yes --Additional medical history: heart problems - Surgical Histor --Additional Surgical History: abd hernia, not repaired yet;aorta rupture and repair - Social History --Smoking Status: Unknown if ever smoked Review of Systems ROS: Stated complaint: DANIELLA HTN Other details as noted in HPI Constitutional: denies: fever Eyes: denies: eye discharge ENT: denies: epistaxis Respiratory: shortness of breath Cardiovascular: edema. denies: chest pain Gastrointestinal: denies: abdominal pain Genitourinary: denies: dysuria Musculoskeletal: myalgia Skin: lesions, pruritus Medications and Allergies Allergies Allergy/AdvReac Type Severity Reaction Status Date / Time No Known Allergies Allergy Verified 03/06/22 08:23 Home Medications Medication Instructions Recorded Confirmed Last Taken Type AtorvaSTATin [Lipitor] 20 mg PO QHS 30 Days #30 tab 02/11/22 03/06/22 1 Day Ago Rx ~03/05/22 carvediloL [Coreg] 25 mg PO BID #60 tablet 02/11/22 03/06/22 1 Day Ago Rx ~03/05/22 cloNIDine [Catapres] 0.2 mg PO TID 30 Days #90 tab 02/11/22 03/06/22 1 Day Ago Rx ~03/05/22 hydrALAZINE [Apresoline TAB] 25 mg PO Q8HR #60 tablet 02/11/22 03/06/22 1 Day Ago Rx ~03/05/22 Albuterol Mdi (or & Nicu Only) 90 mcg INHALATION QDAY PRN 03/06/22 03/06/22 1 Day Ago History ~03/05/22 Amiodarone 200 mg PO QDAY 03/06/22 03/06/22 1 Day Ago History ~03/05/22 Amlodipine Besylate 10 mg PO QDAY 03/06/22 03/06/22 1 Day Ago History ~03/05/22 Furosemide 80 mg PO QDAY 03/06/22 03/06/22 1 Day Ago History ~03/05/22 Active Meds: Active Medications Acetaminophen (Acetaminophen 325 Mg Tab) 650 mg PO Q4H PRN PRN Reason: Pain MILD(1-3)/Fever >100.5/GRAJEDA Heparin Sodium (Porcine) (Heparin 10,000 Units/10 Ml Vial) 3,000 unit IV BUSTER PRN PRN Reason: hemodialysis Heparin Sodium (Porcine) (Heparin 5,000 Unit/1 Ml Vial) 5,000 unit SUB-Q Q12HR FOR[facility]LY [facility], [facility]1983 Last Admin: 03/06/22 21:55 Dose: Not Given Hydromorphone HCl (Hydromorphone 1 Mg/1 Ml Inj) 0.5 mg IV Q3H PRN PRN Reason: Pain , Severe (7-10) Sodium Chloride (Nacl 0.9%) 100 mls @ 999 mls/hr IV BUSTER PRN PRN Reason: Hypotension Metoclopramide HCl (Metoclopramide 10 Mg/2 Ml Inj) 10 mg IV Q6H PRN PRN Reason: Nausea And Vomiting Morphine Sulfate (Morphine 2 Mg/1 Ml Inj) 2 mg IV Q4H PRN PRN Reason: Pain, Moderate (4-6) Ondansetron HCl (Ondansetron 4 Mg/2 Ml Inj) 4 mg IV Q8H PRN PRN Reason: Nausea And Vomiting Sodium Chloride (Sodium Chloride 0.9% 10 Ml Flush Syringe) 10 ml IV BID [facility], [facility] Last Admin: 03/06/22 21:56 Dose: 10 ml Sodium Chloride (Sodium Chloride 0.9% 10 Ml Flush Syringe) 10 ml IV PRN PRN PRN Reason: LINE FLUSH Exam - Constitutional Vitals: Temp Pulse Resp BP Pulse Ox 97.8 F 79 18 172/98 90 03/07/22 04:51 03/07/22 04:51 03/07/22 04:51 03/07/22 04:51 03/07/22 04:51 General appearance: Present: mild distress, well-nourished - EENT Eyes: Present: PERRL ENT: hearing intact, clear oral mucosa - Neck Neck: Present: supple, normal ROM - Respiratory Respiratory effort: normal Respiratory: bilateral: CTA - Cardiovascular Heart rate: 78 Rhythm: regular Heart Sounds: Present: S1 & S2. Absent: rub, click - Extremities Extremities: no ischemia, pulses intact, pulses symmetrical, No edema Peripheral Pulses: within normal limits - Abdominal General gastrointestinal: Present: soft, non-tender, non-distended, normal bowel sounds Male genitourinary: Present: normal - Integumentary Integumentary: Present: clear, warm, dry - Musculoskeletal Musculoskeletal: gait normal, strength equal bilaterally - Psychiatric Psychiatric: appropriate mood/affect, intact judgment & insight - Neurologic Neurologic: CNII-XII intact, moves all extremities - Allied Health Allied health notes reviewed: nursing, case management HEART Score - HEART Score History: Slightly suspicious Age: < 45 Risk factors: 1-2 risk factors Troponin: < normal limit Results - Labs CBC & Chem 7: 03/06/22 09:02 03/06/22 09:02 Labs: Laboratory Last Values WBC 5.7 K/mm3 (4.5-11.0) 03/06/22 09:02 RBC 3.80 M/mm3 (3.65-5.03) 03/06/22 09:02 Hgb 10.7 gm/dl (11.8-15.2) L 03/06/22 09:02 Hct 33.4 % (35.5-45.6) L 03/06/22 09:02 MCV 88 fl (84-94) 03/06/22 09:02 MCH 28 pg (28-32) 03/06/22 09:02 MCHC 32 % (32-34) 03/06/22 09:02 RDW 17.4 % (13.2-15.2) H 03/06/22 09:02 Plt Count 134 K/mm3 (140-440) L 03/06/22 09:02 Lymph % (Auto) 14.8 % (13.4-35.0) 03/06/22 09:02 O'Brien % (Auto) 9.1 % (0.0-7.3) H 03/06/22 09:02 Eos % (Auto) 1.6 % (0.0-4.3) 03/06/22 09:02 Baso % (Auto) 0.4 % (0.0-1.8) 03/06/22 09:02 Lymph # (Auto) 0.8 K/mm3 (1.2-5.4) L 03/06/22 09:02 O'Brien # (Auto) 0.5 K/mm3 (0.0-0.8) 03/06/22 09:02 Eos # (Auto) 0.1 K/mm3 (0.0-0.4) 03/06/22 09:02 Baso # (Auto) 0.0 K/mm3 (0.0-0.1) 03/06/22 09:02 Seg Neutrophils % 74.1 % (40.0-70.0) H 03/06/22 09:02 Seg Neutrophils # 4.2 K/mm3 (1.8-7.7) 03/06/22 09:02 PT 14.5 Sec. (12.2-14.9) 03/06/22 09:02 INR 1.02 (0.87-1.13) 03/06/22 09:02 APTT 36.7 Sec. (24.2-36.6) H 03/06/22 09:02 Sodium 141 mmol/L (137-145) 03/06/22 09:02 Potassium 5.6 mmol/L (3.6-5.0) H 03/06/22 09:02 Chloride 98.9 mmol/L (98-107) 03/06/22 09:02 Carbon Dioxide 18 mmol/L (22-30) L 03/06/22 09:02 Anion Gap 30 mmol/L 03/06/22 09:02 BUN 119 mg/dL (9-20) H 03/06/22 09:02 Creatinine 15.9 mg/dL (0.8-1.3) H 03/06/22 09:02 Estimated GFR 4 ml/min 03/06/22 09:02 BUN/Creatinine Ratio 7 % 03/06/22 09:02 Glucose 90 mg/dL (75-100) 03/06/22 09:02 Calcium 9.1 mg/dL (8.4-10.2) 03/06/22 09:02 Phosphorus 9.40 mg/dL (2.5-4.5) H 03/06/22 09:02 Magnesium 2.40 mg/dL (1.7-2.3) H 03/06/22 09:02 Total Bilirubin 0.50 mg/dL (0.1-1.2) 03/06/22 09:02 AST 15 units/L (5-40) 03/06/22 09:02 ALT 14 units/L (7-56) 03/06/22 09:02 Alkaline Phosphatase 67 units/L (35-129) 03/06/22 09:02 NT-Pro-B Natriuret Pep > 60844 pg/mL (0-450) H 03/06/22 09:02 Total Protein 7.6 g/dL (6.3-8.2) 03/06/22 09:02 Albumin 4.3 g/dL (3.9-5) 03/06/22 09:02 Albumin/Globulin Ratio 1.3 % 03/06/22 09:02 Hepatitis A IgM Ab Non-reactive (NonReactive) 03/06/22 09:06 Hep Bs Antigen Non-reactive (Negative) 03/06/22 09:06 Hep B Core IgM Ab Non-reactive (NonReactive) 03/06/22 09:06 Hepatitis C Antibody Non-reactive (NonReactive) 03/06/22 09:06 Short CBC 03/06/22 Range/Units 09:02 WBC 5.7 (4.5-11.0) K/mm3 Hgb 10.7 L (11.8-15.2) gm/dl Hct 33.4 L (35.5-45.6) % Plt Count 134 L (140-440) K/mm3 BMP 03/06/22 09:02 Sodium 141 Potassium 5.6 H Chloride 98.9 Carbon Dioxide 18 L BUN 119 H Creatinine 15.9 H Glucose 90 Calcium 9.1 Liver Function 03/06/22 Range/Units 09:02 Total Bilirubin 0.50 (0.1-1.2) mg/dL AST 15 (5-40) units/L ALT 14 (7-56) units/L Alkaline Phosphatase 67 (35-129) units/L Albumin 4.3 (3.9-5) g/dL Mckeon/IV: Voiding Method Toilet Assessment and Plan Advance Directives: Yes (Full code) VTE prophylaxis?: Chemical Plan of care discussed with patient/family: Yes - Patient Problems (1) Volume overload Current Visit: Yes Status: Acute Qualifiers: Plan to address problem: Needs emergent hemodialysis Volume overload secondary to noncompliance (2) ESRD needing dialysis Current Visit: Yes Status: Chronic Plan to address problem: Nephrology consulted Hemodialysis scheduled (3) Hypertension Current Visit: Yes Status: Chronic Qualifiers: Hypertension type: primary hypertension Qualified Code(s): I10 - Essential (primary) hypertension Plan to address problem: Continue antihypertensive (4) Arrhythmia Current Visit: Yes Status: Chronic Plan to address problem: Continue amiodarone (5) DVT prophylaxis Current Visit: Yes Status: Acute Plan to address problem: On anticoagulation GI prophylaxis (6) Advance care planning Current Visit: Yes Status: Acute Plan to address problem: Disease education conducted, care plan discussed clinical diagnosis discussed. Prognosis discussed. Patient is full code. Patient acknowledged understanding and agreement with care plan. +30 minutes.
[2022-03-07] MEDS ORDERED: METOCLOPRAMIDE 10 MG/2 ML INJ IV PRN (08:00)
--- NOTE | 2022-03-07 08:33 | Progress Note ---
Assessment and Plan Assessment and plan: -- Volume overload Needs emergent hemodialysis Volume overload secondary to noncompliance Nephrology evaluated dialysis per schedule -- ESRD needing dialysis Nephrology following Hemodialysis scheduled Avoid nephrotoxins Monitor renal function --Hypertension; moderate control Continue current antihypertensive As needed hydralazine --Arrhythmia Continue amiodarone Closely monitor -- DVT prophylaxis Subcu heparin --Advance care planning Disease education conducted, care plan discussed clinical diagnosis discussed. Prognosis discussed. Patient is full code. Patient acknowledged understanding and agreement with care plan. +30 minutes. We will closely monitor patient and adjust management as needed Plan of care reviewed with patient and nurse History Interval history: I have seen and examined the patient at the bedside Patient's chart and medications reviewed Patient received hemodialysis today Feels slightly better no new complaints Vital signs noted Hospitalist Physical - Constitutional Vitals: Temp Pulse Resp BP Pulse Ox 97.8 F 79 18 172/98 90 03/07/22 04:51 03/07/22 04:51 03/07/22 04:51 03/07/22 04:51 03/07/22 04:51 General appearance: Present: no acute distress, well-nourished - EENT Eyes: Present: PERRL, EOM intact - Neck Neck: Present: supple, normal ROM - Respiratory Respiratory effort: normal Respiratory: bilateral: diminished, negative: rales, rhonchi, wheezing - Cardiovascular Rhythm: regular Heart Sounds: Present: S1 & S2 - Extremities Extremities: no ischemia, No edema - Abdominal General gastrointestinal: soft, non-tender, non-distended, normal bowel sounds - Integumentary Integumentary: Present: clear, warm - Psychiatric Psychiatric: appropriate mood/affect, cooperative - Neurologic Neurologic: CNII-XII intact, moves all extremities HEART Score - HEART Score Age: < 45 Risk factors: 1-2 risk factors Troponin: < normal limit Results - Labs CBC & Chem 7: 03/06/22 09:02 03/06/22 09:02 Labs: Laboratory Last Values WBC 5.7 K/mm3 (4.5-11.0) 03/06/22 09:02 RBC 3.80 M/mm3 (3.65-5.03) 03/06/22 09:02 Hgb 10.7 gm/dl (11.8-15.2) L 03/06/22 09:02 Hct 33.4 % (35.5-45.6) L 03/06/22 09:02 MCV 88 fl (84-94) 03/06/22 09:02 MCH 28 pg (28-32) 03/06/22 09:02 MCHC 32 % (32-34) 03/06/22 09:02 RDW 17.4 % (13.2-15.2) H 03/06/22 09:02 Plt Count 134 K/mm3 (140-440) L 03/06/22 09:02 Lymph % (Auto) 14.8 % (13.4-35.0) 03/06/22 09:02 [place] % (Auto) 9.1 % (0.0-7.3) H 03/06/22 09:02 Eos % (Auto) 1.6 % (0.0-4.3) 03/06/22 09:02 Baso % (Auto) 0.4 % (0.0-1.8) 03/06/22 09:02 Lymph # (Auto) 0.8 K/mm3 (1.2-5.4) L 03/06/22 09:02 [place] # (Auto) 0.5 K/mm3 (0.0-0.8) 03/06/22 09:02 Eos # (Auto) 0.1 K/mm3 (0.0-0.4) 03/06/22 09:02 Baso # (Auto) 0.0 K/mm3 (0.0-0.1) 03/06/22 09:02 Seg Neutrophils % 74.1 % (40.0-70.0) H 03/06/22 09:02 Seg Neutrophils # 4.2 K/mm3 (1.8-7.7) 03/06/22 09:02 PT 14.5 Sec. (12.2-14.9) 03/06/22 09:02 INR 1.02 (0.87-1.13) 03/06/22 09:02 APTT 36.7 Sec. (24.2-36.6) H 03/06/22 09:02 Sodium 141 mmol/L (137-145) 03/06/22 09:02 Potassium 5.6 mmol/L (3.6-5.0) H 03/06/22 09:02 Chloride 98.9 mmol/L (98-107) 03/06/22 09:02 Carbon Dioxide 18 mmol/L (22-30) L 03/06/22 09:02 Anion Gap 30 mmol/L 03/06/22 09:02 BUN 119 mg/dL (9-20) H 03/06/22 09:02 Creatinine 15.9 mg/dL (0.8-1.3) H 03/06/22 09:02 Estimated GFR 4 ml/min 03/06/22 09:02 BUN/Creatinine Ratio 7 % 03/06/22 09:02 Glucose 90 mg/dL (75-100) 03/06/22 09:02 Calcium 9.1 mg/dL (8.4-10.2) 03/06/22 09:02 Phosphorus 9.40 mg/dL (2.5-4.5) H 03/06/22 09:02 Magnesium 2.40 mg/dL (1.7-2.3) H 03/06/22 09:02 Total Bilirubin 0.50 mg/dL (0.1-1.2) 03/06/22 09:02 AST 15 units/L (5-40) 03/06/22 09:02 ALT 14 units/L (7-56) 03/06/22 09:02 Alkaline Phosphatase 67 units/L (35-129) 03/06/22 09:02 NT-Pro-B Natriuret Pep > 85700 pg/mL (0-450) H 03/06/22 09:02 Total Protein 7.6 g/dL (6.3-8.2) 03/06/22 09:02 Albumin 4.3 g/dL (3.9-5) 03/06/22 09:02 Albumin/Globulin Ratio 1.3 % 03/06/22 09:02 Hepatitis A IgM Ab Non-reactive (NonReactive) 03/06/22 09:06 Hep Bs Antigen Non-reactive (Negative) 03/06/22 09:06 Hep B Core IgM Ab Non-reactive (NonReactive) 03/06/22 09:06 Hepatitis C Antibody Non-reactive (NonReactive) 03/06/22 09:06 Mckeon/IV: Voiding Method Toilet Active Medications - Current Medications Current Medications: Generic Name Dose Route Start Last Admin Trade Name Freq PRN Reason Stop Dose Admin Acetaminophen 650 mg 03/06/22 12:47 Acetaminophen 325 Mg Tab PO Q4H PRN Pain MILD(1-3)/Fever >100.5/GRAJEDA Amiodarone HCl 200 mg 03/07/22 10:00 Amiodarone 200 Mg Tab PO DAILY LALITA Atorvastatin Calcium 20 mg 03/07/22 22:00 Atorvastatin 20 Mg Tab PO QHS LALITA Heparin Sodium (Porcine) 3,000 unit 03/06/22 13:00 Heparin 10,000 Units/10 Ml Vial IV BUSTER PRN hemodialysis Heparin Sodium (Porcine) 5,000 unit 03/06/22 14:00 03/06/22 21:55 Heparin 5,000 Unit/1 Ml Vial SUB-Q Not Given Q12HR LALITA Hydromorphone HCl 0.5 mg 03/06/22 12:47 Hydromorphone 1 Mg/1 Ml Inj IV Q3H PRN Pain , Severe (7-10) Sodium Chloride 100 mls @ 999 mls/hr 03/06/22 18:13 Nacl 0.9% IV BUSTER PRN Hypotension Metoclopramide HCl 5 mg 03/07/22 08:00 Metoclopramide 10 Mg/2 Ml Inj IV Q8H PRN Nausea And Vomiting Morphine Sulfate 2 mg 03/06/22 12:47 Morphine 2 Mg/1 Ml Inj IV Q4H PRN Pain, Moderate (4-6) Ondansetron HCl 4 mg 03/06/22 12:47 Ondansetron 4 Mg/2 Ml Inj IV Q8H PRN Nausea And Vomiting Sevelamer Carbonate 800 mg 03/07/22 11:30 Sevelamer Carbonate 800 Mg Tab PO AC LALITA Sodium Chloride 10 ml 03/06/22 14:00 03/06/22 21:56 Sodium Chloride 0.9% 10 Ml Flush Syringe IV 10 ml BID LALITA Administration Sodium Chloride 10 ml 03/06/22 12:47 Sodium Chloride 0.9% 10 Ml Flush Syringe IV PRN PRN LINE FLUSH
[2022-03-07] MEDS: AMIODARONE 200 MG TAB PO SCH (09:32)
[2022-03-07] MEDS: HEPARIN 5,000 UNIT/1 ML VIAL SUB-Q SCH ×2 (09:33→22:14)
--- NOTE | 2022-03-07 09:44 | Electrocardiograph Report ---
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
[2022-03-07] MEDS ORDERED: NON-FORMULARY EACH (Amiodarone 200 MG) PO SCH (10:00)
[2022-03-07] MEDS ORDERED: SODIUM CHLORIDE 0.9% 100 ML IV PRN (10:48)
[2022-03-07] MEDS ORDERED: diphenhydrAMINE 50 MG/ML VIAL IV PRN (10:48)
[2022-03-07] MEDS: SEVELAMER CARBONATE 800 MG TAB PO SCH ×2 (14:35→18:34)
--- NOTE | 2022-03-07 16:35 | Progress Note ---
Subjective Date of service: 03/07/22 Objective - Vital Signs Vital signs: Vital Signs - 12hr 03/07/22 03/07/22 03/07/22 04:51 10:17 10:25 Temperature 97.8 F Pulse Rate 79 81 Respiratory 18 Rate Blood Pressure 172/98 163/100 O2 Sat by Pulse 90 97 Oximetry O2 Sat by Pulse Oximetry [ Posterior Bilateral] 03/07/22 03/07/22 03/07/22 10:30 10:45 11:00 Temperature Pulse Rate 79 81 81 Respiratory Rate Blood Pressure 172/100 174/99 181/110 O2 Sat by Pulse Oximetry O2 Sat by Pulse Oximetry [ Posterior Bilateral] 03/07/22 03/07/22 03/07/22 11:15 11:30 11:45 Temperature Pulse Rate 88 80 81 Respiratory Rate Blood Pressure 178/105 176/95 187/105 O2 Sat by Pulse Oximetry O2 Sat by Pulse Oximetry [ Posterior Bilateral] 03/07/22 03/07/22 03/07/22 11:55 12:00 12:15 Temperature 98.2 F Pulse Rate 86 75 78 Respiratory 18 Rate Blood Pressure 171/100 177/99 179/107 O2 Sat by Pulse Oximetry O2 Sat by Pulse 99 Oximetry [ Posterior Bilateral] 03/07/22 03/07/22 03/07/22 12:30 12:45 13:00 Temperature Pulse Rate 77 71 76 Respiratory Rate Blood Pressure 182/107 171/96 179/99 O2 Sat by Pulse Oximetry O2 Sat by Pulse Oximetry [ Posterior Bilateral] 03/07/22 03/07/22 03/07/22 13:15 13:30 13:45 Temperature Pulse Rate 76 76 77 Respiratory Rate Blood Pressure 189/99 188/96 193/100 O2 Sat by Pulse Oximetry O2 Sat by Pulse Oximetry [ Posterior Bilateral] 03/07/22 14:00 Temperature 98.2 F Pulse Rate 85 Respiratory 18 Rate Blood Pressure 179/85 O2 Sat by Pulse Oximetry O2 Sat by Pulse 99 Oximetry [ Posterior Bilateral] - Lab 03/06/22 09:02 03/06/22 09:02 Most recent lab results Calcium 9.1 mg/dL (8.4-10.2) 03/06/22 09:02 Phosphorus 9.40 mg/dL (2.5-4.5) H 03/06/22 09:02 Magnesium 2.40 mg/dL (1.7-2.3) H 03/06/22 09:02 Medications & Allergies - Medications Allergies/Adverse Reactions: Allergies No Known Allergies Allergy (Verified 03/06/22 08:23) Home Medications: Home Medications Medication Instructions Recorded Confirmed Last Taken Type AtorvaSTATin [Lipitor] 20 mg PO QHS 30 Days #30 tab 02/11/22 03/06/22 1 Day Ago Rx ~03/05/22 carvediloL [Coreg] 25 mg PO BID #60 tablet 02/11/22 03/06/22 1 Day Ago Rx ~03/05/22 cloNIDine [Catapres] 0.2 mg PO TID 30 Days #90 tab 02/11/22 03/06/22 1 Day Ago Rx ~03/05/22 hydrALAZINE [Apresoline TAB] 25 mg PO Q8HR #60 tablet 02/11/22 03/06/22 1 Day Ago Rx ~03/05/22 Albuterol Mdi (or & Nicu Only) 90 mcg INHALATION QDAY PRN 03/06/22 03/06/22 1 Day Ago History ~03/05/22 Amiodarone 200 mg PO QDAY 03/06/22 03/06/22 1 Day Ago History ~03/05/22 Amlodipine Besylate 10 mg PO QDAY 03/06/22 03/06/22 1 Day Ago History ~03/05/22 Furosemide 80 mg PO QDAY 03/06/22 03/06/22 1 Day Ago History ~03/05/22 Active Medications: Generic Name Dose Route Start Last Admin Trade Name Freq PRN Reason Stop Dose Admin Acetaminophen 650 mg 03/06/22 12:47 Acetaminophen 325 Mg Tab PO Q4H PRN Pain MILD(1-3)/Fever >100.5/GRAJEDA Amiodarone HCl 200 mg 03/07/22 10:00 03/07/22 09:32 Amiodarone 200 Mg Tab PO 200 mg DAILY LALITA Administration Atorvastatin Calcium 20 mg 03/07/22 22:00 Atorvastatin 20 Mg Tab PO QHS LALITA Diphenhydramine HCl 25 mg 03/07/22 10:48 03/07/22 11:52 Diphenhydramine 50 Mg/Ml Vial IV 25 mg BUSTER PRN Administration Itching Heparin Sodium (Porcine) 3,000 unit 03/06/22 13:00 Heparin 10,000 Units/10 Ml Vial IV BUSTER PRN hemodialysis Heparin Sodium (Porcine) 5,000 unit 03/06/22 14:00 03/07/22 09:33 Heparin 5,000 Unit/1 Ml Vial SUB-Q Not Given Q12HR LALITA Hydromorphone HCl 0.5 mg 03/06/22 12:47 Hydromorphone 1 Mg/1 Ml Inj IV Q3H PRN Pain , Severe (7-10) Sodium Chloride 100 mls @ 999 mls/hr 03/07/22 10:48 Nacl 0.9% IV BUSTER PRN Hypotension Metoclopramide HCl 5 mg 03/07/22 08:00 Metoclopramide 10 Mg/2 Ml Inj IV Q8H PRN Nausea And Vomiting Morphine Sulfate 2 mg 03/06/22 12:47 Morphine 2 Mg/1 Ml Inj IV Q4H PRN Pain, Moderate (4-6) Ondansetron HCl 4 mg 03/06/22 12:47 Ondansetron 4 Mg/2 Ml Inj IV Q8H PRN Nausea And Vomiting Sevelamer Carbonate 800 mg 03/07/22 11:30 03/07/22 14:35 Sevelamer Carbonate 800 Mg Tab PO 800 mg AC LALITA Administration Sodium Chloride 10 ml 03/06/22 14:00 03/07/22 09:33 Sodium Chloride 0.9% 10 Ml Flush Syringe IV Not Given BID LALITA Sodium Chloride 10 ml 03/06/22 12:47 Sodium Chloride 0.9% 10 Ml Flush Syringe IV PRN PRN LINE FLUSH
[2022-03-07] MEDS ORDERED: hydrALAZINE 20 MG/1 ML INJ IV ONE (23:31)
--- NOTE | 2022-03-08 02:01 | Progress Note ---
Assessment and Plan Assessment and plan: -- Worsening shortness of breath/secondary to fluid overload/due to missed dialysis Hemodialysis per schedule, oxygen titrate O2 sats to more than 90%, supportive care --Fluid overload; -- ESRD; on dialysis Nephrology following, HD per schedule Supportive care -- Hypertension; moderate control Continue current antihypertensives As needed hydralazine -- Peripheral neuropathy; Continue home gabapentin -- DVT prophylaxis; Subcu heparin -- Medical noncompliance; Counseled the importance of adhering to the treatment plan diet and mainly hemodialysis And follow-up visits Advance care planning Disease education conducted, care plan discussed, diagnosis discussed, prognosis discussed, patient is full code. Patient acknowledges understanding and agreement.. Care plan +30 minutes. Discussed in detail the importance of adhering to the treatment plan Patient verbalized understanding Plan of care reviewed with the patient and his nurse Possible discharge in 1 to 2 days if stable and cleared by nephrology History Interval history: I have seen and examined the patient at the bedside Patient's chart and medications reviewed Patient feels better no new complaints Sometimes complains of generalized body pain and asked for pain medications Vital signs noted Hospitalist Physical - Constitutional Vitals: Temp Pulse Resp BP Pulse Ox 98.2 F 85 18 179/85 99 03/07/22 14:00 03/08/22 00:02 03/07/22 14:00 03/08/22 00:02 03/07/22 14:00 General appearance: Present: no acute distress, well-nourished - EENT Eyes: Present: PERRL, EOM intact - Neck Neck: Present: supple, normal ROM - Respiratory Respiratory effort: normal Respiratory: bilateral: diminished, negative: rales, rhonchi, wheezing - Cardiovascular Rhythm: regular Heart Sounds: Present: S1 & S2 - Extremities Extremities: no ischemia, No edema - Abdominal General gastrointestinal: soft, non-tender, non-distended, normal bowel sounds - Integumentary Integumentary: Present: clear, warm - Psychiatric Psychiatric: appropriate mood/affect, cooperative - Neurologic Neurologic: CNII-XII intact, moves all extremities HEART Score - HEART Score Age: < 45 Risk factors: 1-2 risk factors Troponin: < normal limit Results - Labs CBC & Chem 7: 03/06/22 09:02 03/06/22 09:02 Labs: Laboratory Last Values WBC 5.7 K/mm3 (4.5-11.0) 03/06/22 09:02 RBC 3.80 M/mm3 (3.65-5.03) 03/06/22 09:02 Hgb 10.7 gm/dl (11.8-15.2) L 03/06/22 09:02 Hct 33.4 % (35.5-45.6) L 03/06/22 09:02 MCV 88 fl (84-94) 03/06/22 09:02 MCH 28 pg (28-32) 03/06/22 09:02 MCHC 32 % (32-34) 03/06/22 09:02 RDW 17.4 % (13.2-15.2) H 03/06/22 09:02 Plt Count 134 K/mm3 (140-440) L 03/06/22 09:02 Lymph % (Auto) 14.8 % (13.4-35.0) 03/06/22 09:02 [place] % (Auto) 9.1 % (0.0-7.3) H 03/06/22 09:02 Eos % (Auto) 1.6 % (0.0-4.3) 03/06/22 09:02 Baso % (Auto) 0.4 % (0.0-1.8) 03/06/22 09:02 Lymph # (Auto) 0.8 K/mm3 (1.2-5.4) L 03/06/22 09:02 [place] # (Auto) 0.5 K/mm3 (0.0-0.8) 03/06/22 09:02 Eos # (Auto) 0.1 K/mm3 (0.0-0.4) 03/06/22 09:02 Baso # (Auto) 0.0 K/mm3 (0.0-0.1) 03/06/22 09:02 Seg Neutrophils % 74.1 % (40.0-70.0) H 03/06/22 09:02 Seg Neutrophils # 4.2 K/mm3 (1.8-7.7) 03/06/22 09:02 PT 14.5 Sec. (12.2-14.9) 03/06/22 09:02 INR 1.02 (0.87-1.13) 03/06/22 09:02 APTT 36.7 Sec. (24.2-36.6) H 03/06/22 09:02 Sodium 141 mmol/L (137-145) 03/06/22 09:02 Potassium 5.6 mmol/L (3.6-5.0) H 03/06/22 09:02 Chloride 98.9 mmol/L (98-107) 03/06/22 09:02 Carbon Dioxide 18 mmol/L (22-30) L 03/06/22 09:02 Anion Gap 30 mmol/L 03/06/22 09:02 BUN 119 mg/dL (9-20) H 03/06/22 09:02 Creatinine 15.9 mg/dL (0.8-1.3) H 03/06/22 09:02 Estimated GFR 4 ml/min 03/06/22 09:02 BUN/Creatinine Ratio 7 % 03/06/22 09:02 Glucose 90 mg/dL (75-100) 03/06/22 09:02 Calcium 9.1 mg/dL (8.4-10.2) 03/06/22 09:02 Phosphorus 9.40 mg/dL (2.5-4.5) H 03/06/22 09:02 Magnesium 2.40 mg/dL (1.7-2.3) H 03/06/22 09:02 Total Bilirubin 0.50 mg/dL (0.1-1.2) 03/06/22 09:02 AST 15 units/L (5-40) 03/06/22 09:02 ALT 14 units/L (7-56) 03/06/22 09:02 Alkaline Phosphatase 67 units/L (35-129) 03/06/22 09:02 NT-Pro-B Natriuret Pep > 31642 pg/mL (0-450) H 03/06/22 09:02 Total Protein 7.6 g/dL (6.3-8.2) 03/06/22 09:02 Albumin 4.3 g/dL (3.9-5) 03/06/22 09:02 Albumin/Globulin Ratio 1.3 % 03/06/22 09:02 Hepatitis A IgM Ab Non-reactive (NonReactive) 03/06/22 09: Hep Bs Antigen Non-reactive (Negative) 03/06/22 09: Hep B Core IgM Ab Non-reactive (NonReactive) 03/06/22 09:06 Hepatitis C Antibody Non-reactive (NonReactive) 03/06/22 09:06 Mckeon/IV: Voiding Method Toilet Active Medications - Current Medications Current Medications: Generic Name Dose Route Start Last Admin Trade Name Freq PRN Reason Stop Dose Admin Acetaminophen 650 mg 03/06/22 12:47 03/08/22 00:03 Acetaminophen 325 Mg Tab PO 650 mg Q4H PRN Administration Pain MILD(1-3)/Fever >100.5/GRAJEDA Amiodarone HCl 200 mg 03/07/22 10:00 03/07/22 09:32 Amiodarone 200 Mg Tab PO 200 mg DAILY LALITA Administration Atorvastatin Calcium 20 mg 03/07/22 22:00 03/07/22 22:08 Atorvastatin 20 Mg Tab PO 20 mg QHS LALITA Administration Diphenhydramine HCl 25 mg 03/07/22 10:48 03/07/22 11:52 Diphenhydramine 50 Mg/Ml Vial IV 25 mg BUSTER PRN Administration Itching Heparin Sodium (Porcine) 3,000 unit 03/06/22 13:00 Heparin 10,000 Units/10 Ml Vial IV BUSTER PRN hemodialysis Heparin Sodium (Porcine) 5,000 unit 03/06/22 14:00 03/07/22 22:14 Heparin 5,000 Unit/1 Ml Vial SUB-Q Not Given Q12HR LALITA Hydromorphone HCl 0.5 mg 03/06/22 12:47 Hydromorphone 1 Mg/1 Ml Inj IV Q3H PRN Pain , Severe (7-10) Sodium Chloride 100 mls @ 999 mls/hr 03/07/22 10:48 Nacl 0.9% IV BUSTER PRN Hypotension Metoclopramide HCl 5 mg 03/07/22 08:00 Metoclopramide 10 Mg/2 Ml Inj IV Q8H PRN Nausea And Vomiting Morphine Sulfate 2 mg 03/06/22 12:47 Morphine 2 Mg/1 Ml Inj IV Q4H PRN Pain, Moderate (4-6) Ondansetron HCl 4 mg 03/06/22 12:47 Ondansetron 4 Mg/2 Ml Inj IV Q8H PRN Nausea And Vomiting Sevelamer Carbonate 800 mg 03/07/22 11:30 03/07/22 18:34 Sevelamer Carbonate 800 Mg Tab PO Not Given AC LALITA Sodium Chloride 10 ml 03/06/22 14:00 03/07/22 22:55 Sodium Chloride 0.9% 10 Ml Flush Syringe IV Not Given BID LALITA Sodium Chloride 10 ml 03/06/22 12:47 Sodium Chloride 0.9% 10 Ml Flush Syringe IV PRN PRN LINE FLUSH
[2022-03-08] MEDS: SEVELAMER CARBONATE 800 MG TAB PO SCH ×3 (08:14→16:06)
[2022-03-08] MEDS: AMIODARONE 200 MG TAB PO SCH (09:04)
[2022-03-08] MEDS: HEPARIN 5,000 UNIT/1 ML VIAL SUB-Q SCH (09:05)
[2022-03-08] MEDS ORDERED: oxyCODONE /ACETAMINOPHEN 5-325MG TAB PO PRN (11:43)
--- NOTE | 2022-03-08 17:30 | Progress Note ---
Assessment and Plan Assessment and plan: -- Worsening shortness of breath/secondary to fluid overload/due to missed dialysis Hemodialysis per schedule, oxygen titrate O2 sats to more than 90%, supportive care --Fluid overload; -- ESRD; on dialysis Nephrology following, HD per schedule Supportive care -- Hypertension; moderate control Continue current antihypertensives As needed hydralazine -- Peripheral neuropathy; Continue home gabapentin -- DVT prophylaxis; Subcu heparin --Full CODE STATUS -- Medical noncompliance; Counseled the importance of adhering to the treatment plan diet and mainly hemodialysis And follow-up visits Advance care planning Disease education conducted, care plan discussed, diagnosis discussed, prognosis discussed, patient is full code. Patient acknowledges understanding and agreement.. Care plan +30 minutes. Discussed in detail the importance of adhering to the treatment plan Patient verbalized understanding Plan of care reviewed with the patient and his nurse Outpatient HD placement per case management Possible discharge in 1 to 2 days if stable and cleared by nephrology History Interval history: I have seen and examined the patient at the bedside Hospitalist Physical - Constitutional Vitals: Temp Pulse Resp BP Pulse Ox 98.0 F 88 20 157/76 98 03/08/22 06:00 03/08/22 06:00 03/08/22 06:00 03/08/22 06:00 03/08/22 14:18 General appearance: Present: no acute distress, well-nourished - EENT Eyes: Present: PERRL, EOM intact - Neck Neck: Present: supple, normal ROM - Respiratory Respiratory effort: normal Respiratory: bilateral: diminished, negative: rales, rhonchi, wheezing - Cardiovascular Rhythm: regular Heart Sounds: Present: S1 & S2 - Extremities Extremities: no ischemia, No edema - Abdominal General gastrointestinal: soft, non-tender, non-distended, normal bowel sounds - Integumentary Integumentary: Present: clear, warm - Psychiatric Psychiatric: appropriate mood/affect, cooperative - Neurologic Neurologic: CNII-XII intact, moves all extremities HEART Score - HEART Score Age: < 45 Risk factors: 1-2 risk factors Troponin: < normal limit Results - Labs CBC & Chem 7: 03/06/22 09:02 03/06/22 09:02 Labs: Laboratory Last Values WBC 5.7 K/mm3 (4.5-11.0) 03/06/22 09:02 RBC 3.80 M/mm3 (3.65-5.03) 03/06/22 09:02 Hgb 10.7 gm/dl (11.8-15.2) L 03/06/22 09:02 Hct 33.4 % (35.5-45.6) L 03/06/22 09:02 MCV 88 fl (84-94) 03/06/22 09:02 MCH 28 pg (28-32) 03/06/22 09:02 MCHC 32 % (32-34) 03/06/22 09:02 RDW 17.4 % (13.2-15.2) H 03/06/22 09:02 Plt Count 134 K/mm3 (140-440) L 03/06/22 09:02 Lymph % (Auto) 14.8 % (13.4-35.0) 03/06/22 09:02 [place] % (Auto) 9.1 % (0.0-7.3) H 03/06/22 09:02 Eos % (Auto) 1.6 % (0.0-4.3) 03/06/22 09:02 Baso % (Auto) 0.4 % (0.0-1.8) 03/06/22 09:02 Lymph # (Auto) 0.8 K/mm3 (1.2-5.4) L 03/06/22 09:02 [place] # (Auto) 0.5 K/mm3 (0.0-0.8) 03/06/22 09:02 Eos # (Auto) 0.1 K/mm3 (0.0-0.4) 03/06/22 09:02 Baso # (Auto) 0.0 K/mm3 (0.0-0.1) 03/06/22 09:02 Seg Neutrophils % 74.1 % (40.0-70.0) H 03/06/22 09:02 Seg Neutrophils # 4.2 K/mm3 (1.8-7.7) 03/06/22 09:02 PT 14.5 Sec. (12.2-14.9) 03/06/22 09:02 INR 1.02 (0.87-1.13) 03/06/22 09:02 APTT 36.7 Sec. (24.2-36.6) H 03/06/22 09:02 Sodium 141 mmol/L (137-145) 03/06/22 09:02 Potassium 5.6 mmol/L (3.6-5.0) H 03/06/22 09:02 Chloride 98.9 mmol/L (98-107) 03/06/22 09:02 Carbon Dioxide 18 mmol/L (22-30) L 03/06/22 09:02 Anion Gap 30 mmol/L 03/06/22 09:02 BUN 119 mg/dL (9-20) H 03/06/22 09:02 Creatinine 15.9 mg/dL (0.8-1.3) H 03/06/22 09:02 Estimated GFR 4 ml/min 03/06/22 09:02 BUN/Creatinine Ratio 7 % 03/06/22 09:02 Glucose 90 mg/dL (75-100) 03/06/22 09:02 Calcium 9.1 mg/dL (8.4-10.2) 03/06/22 09:02 Phosphorus 9.40 mg/dL (2.5-4.5) H 03/06/22 09:02 Magnesium 2.40 mg/dL (1.7-2.3) H 03/06/22 09:02 Total Bilirubin 0.50 mg/dL (0.1-1.2) 03/06/22 09:02 AST 15 units/L (5-40) 03/06/22 09:02 ALT 14 units/L (7-56) 03/06/22 09:02 Alkaline Phosphatase 67 units/L (35-129) 03/06/22 09:02 NT-Pro-B Natriuret Pep > 56817 pg/mL (0-450) H 03/06/22 09:02 Total Protein 7.6 g/dL (6.3-8.2) 03/06/22 09:02 Albumin 4.3 g/dL (3.9-5) 03/06/22 09:02 Albumin/Globulin Ratio 1.3 % 03/06/22 09:02 Hepatitis A IgM Ab Non-reactive (NonReactive) 03/06/22: Hep Bs Antigen Non-reactive (Negative) 03/06/22: Hep B Core IgM Ab Non-reactive (NonReactive) 03/06/22 09: Hepatitis C Antibody Non-reactive (NonReactive) 03/06/22 09:06 Mckeon/IV: Voiding Method Toilet Active Medications - Current Medications Current Medications: Generic Name Dose Route Start Last Admin Trade Name Freq PRN Reason Stop Dose Admin Acetaminophen 650 mg 03/06/22 12:47 03/08/22 00:03 Acetaminophen 325 Mg Tab PO 650 mg Q4H PRN Administration Pain MILD(1-3)/Fever >100.5/GRAJEDA Amiodarone HCl 200 mg 03/07/22 10:00 03/08/22 09:04 Amiodarone 200 Mg Tab PO 200 mg DAILY LALITA Administration Atorvastatin Calcium 20 mg 03/07/22 22:00 03/07/22 22:08 Atorvastatin 20 Mg Tab PO 20 mg QHS LALITA Administration Diphenhydramine HCl 25 mg 03/07/22 10:48 03/07/22 11:52 Diphenhydramine 50 Mg/Ml Vial IV 25 mg BUSTER PRN Administration Itching Heparin Sodium (Porcine) 3,000 unit 03/06/22 13:00 Heparin 10,000 Units/10 Ml Vial IV BUSTER PRN hemodialysis Heparin Sodium (Porcine) 5,000 unit 03/06/22 14:00 03/08/22 09:05 Heparin 5,000 Unit/1 Ml Vial SUB-Q Not Given Q12HR LALITA Sodium Chloride 100 mls @ 999 mls/hr 03/07/22 10:48 Nacl 0.9% IV BUSTER PRN Hypotension Metoclopramide HCl 5 mg 03/07/22 08:00 Metoclopramide 10 Mg/2 Ml Inj IV Q8H PRN Nausea And Vomiting Ondansetron HCl 4 mg 03/06/22 12:47 Ondansetron 4 Mg/2 Ml Inj IV Q8H PRN Nausea And Vomiting Oxycodone/Acetaminophen 1 tab 03/08/22 11:43 03/08/22 12:22 Oxycodone /Acetaminophen 5-325mg Tab PO 1 tab Q6H PRN Administration Pain, Moderate (4-6) Sevelamer Carbonate 800 mg 03/07/22 11:30 03/08/22 16:06 Sevelamer Carbonate 800 Mg Tab PO 800 mg AC LALITA Administration Sodium Chloride 10 ml 03/06/22 14:00 03/08/22 09:05 Sodium Chloride 0.9% 10 Ml Flush Syringe IV 10 ml BID LALITA Administration Sodium Chloride 10 ml 03/06/22 12:47 Sodium Chloride 0.9% 10 Ml Flush Syringe IV PRN PRN LINE FLUSH
[2022-03-08 17:38] VITALS: BP 169/88
--- NOTE | 2022-03-10 11:56 | Discharge Summary ---
Providers - Providers Date of Admission: 03/06/22 12:47 Date of discharge: 03/09/22 Attending physician: RILEY TALAMANTES 03/06/22 11:54 Consult to Physician [CONS] Urgent Comment: Consulting Provider: JYOTI KING Physician Instructions: Reason For Exam: esrd Primary care physician: LION RESENDEZ Hospitalization Reason for admission: Worsening shortness of breath/fluid overload/missed dialysis Condition: Fair Pertinent studies: Chest x-ray borderline interstitial edema Hospital course: 41-year-old -[place] male patient with significant past medical history of hypertension, end-stage renal disease on hemodialysis, medical noncompliance with medications and dialysis was admitted through emergency room with worsening shortness of breath and orthopnea of 1 day duration Patient was initially evaluated, consulted nuclear worker technician who has scheduled for his hemodialysis on 03/06/1972 Managed appropriately, medications optimized, and patient had second dialysis on 03/07/2022. Patient received dialysis and tolerated well. Counseling done patient strongly advised to comply with medications, diet, hemodialysis, follow-up visits with the physician and he verbalized understanding. However on 03/08/2022 the night nurse could not find the patient in the room, found that patient has absconded/eloped and walked out of the hospital. Patient left the hospital/eloped [did not sign AMA] I was not present when the patient left the hospital Obtained the details from medical records Final diagnosis -- Worsening shortness of breath/secondary to fluid overload/due to missed dialysis --Fluid overload; due to missed dialysis -- ESRD; on dialysis Nephrology evaluated received dialysis on 03/06 and --Chronic mild systolic congestive heart failure EF 40- 45% EF on echo [ 2013] was 25 to 30% on echo -- Hypertension; moderate control -- Peripheral neuropathy; Continue home gabapentin -- DVT prophylaxis; Subcu heparin -- Medical noncompliance; Counseled the importance of adhering to the treatment plan diet and mainly hemodialysis And follow-up visits Patient left the hospital/eloped on 03/08/2022 night Disposition: 07 LEFT AWOL/ELOPED Final Discharge Diagnosis (Prints w/discharge instructions): Noncompliance with hemodialysis. Fluid overload due to missed dialysis. Worsening shortness of breath due to fluid overload due to missed dialysis. Hyperkalemia improved. End-stage renal disease on hemodialysis. Peripheral neuropathy Time spent for discharge: 35 min Core Measure Documentation - Palliative Care Palliative Care/ Comfort Measures: Not Applicable - Core Measures Any of the following diagnoses?: none Exam - Physical Exam Narrative exam: Patient eloped/absconded - Constitutional Vitals: Temp Pulse Resp BP Pulse Ox 98.1 F 71 18 169/88 92 03/08/22 16:24 03/08/22 16:24 03/08/22 16:24 03/08/22 16:24 03/08/22 16:24 Plan Additional Instructions: Patient eloped/absconded Follow up with: LION RESENDEZ MD [Primary Care Provider] - 7 Days
== END 2022-03-08 19:30 | disposition left against medical advice (07) | DRG 640 ==
LOC: ED 05:54 → 3A 12:47
PROVIDERS: ADMIT Internal Medicine; ATTEND Internal Medicine
PROC: 5A1D70Z Performance of Urinary Filtration, Intermittent, Less than 6 Hours Per Day (ICD-10-PCS; principal; 2022-03-06)
PROC: 5A1D70Z Performance of Urinary Filtration, Intermittent, Less than 6 Hours Per Day (ICD-10-PCS; 2022-03-07)
DX: E87.70 Fluid overload, unspecified (principal); N18.6 End stage renal disease; I16.1 Hypertensive emergency; I42.9 Cardiomyopathy, unspecified; I13.2 Hypertensive heart and chronic kidney disease with heart failure and with stage 5 chronic kidney disease, or end stage renal disease; Z86.73 Personal history of transient ischemic attack (TIA), and cerebral infarction without residual deficits; I25.2 Old myocardial infarction; I50.9 Heart failure, unspecified; J45.909 Unspecified asthma, uncomplicated; Z86.711 Personal history of pulmonary embolism; E87.5 Hyperkalemia; E87.2 Acidosis; E78.5 Hyperlipidemia, unspecified; F17.200 Nicotine dependence, unspecified, uncomplicated; D64.9 Anemia, unspecified; E11.42 Type 2 diabetes mellitus with diabetic polyneuropathy; Z91.19 Patient's noncompliance with other medical treatment and regimen; Z53.29 Procedure and treatment not carried out because of patient's decision for other reasons
CPT/HCPCS: 36415; 71046; 80053; 80074; 83735; 83880; 84100; 85025; 85610; 85730; 93005; 96374; 99291; G0378; J3490; J0360; J1200

== ENCOUNTER 2022-03-25 22:41 | Emergency (ER) | payer OTHER, MEDICARE ==
[2022-03-26] MEDS ORDERED: IPRATROPIUM 0.02% NEBU 2.5 ML IH ONE (00:06)
[2022-03-26] MEDS ORDERED: FUROSEMIDE 40 MG/4 ML INJ IV ONE (00:06)
[2022-03-26] MEDS ORDERED: ALBUTEROL 2.5 MG/3 ML NEBU IH ONE (00:06)
--- NOTE | 2022-03-26 00:32 | XRay Report ---
CHEST 1 VIEW INDICATION / CLINICAL INFORMATION: Dyspnea STUDY TIME: 7 COMPARISON: 03/17/2022 FINDINGS: SUPPORT DEVICES: None HEART / MEDIASTINUM: Cardiomegaly again seen. Aortic endograft in noted. LUNGS / PLEURA: Pulmonary vascularity appears within normal limits for this projection. No pleural ef fusions are seen. No focal infiltrates are noted. No pneumothorax. ADDITIONAL FINDINGS: No significant additional findings. Signer Name: Juni Woods MD Signed: 03/26/2022 12:28 AM Workstation Name: [id number]
[2022-03-26 00:51] LABS: Basophils % (Auto) 0.5 % (0.0-1.8); Eosinophils # (Auto) 0.1 K/mm3 (0.0-0.4); Eosinophils % (Auto) 1.7 % (0.0-4.3); Hematocrit 28.6 % (35.5-45.6); Hemoglobin 9.3 gm/dl (11.8-15.2); Lymphocytes # (Auto) 0.9 K/mm3 (1.2-5.4); Lymphocytes % (Auto) 12.1 % (13.4-35.0); Mean Corpuscular HGB Conc 33 % (32-34); Mean Corpuscular Volume 89 fl (84-94); Monocytes # (Auto) 0.9 K/mm3 (0.0-0.8); Platelet Count 143 K/mm3 (140-440); Red Blood Count 3.22 M/mm3 (3.65-5.03); Red Cell Distribution Width 18.5 % (13.2-15.2)
[2022-03-26 01:07] LABS: Albumin 4.2 g/dL (3.9-5); Calcium 8.8 mg/dL (8.4-10.2)
[2022-03-26 01:08] LABS: Creatine Kinase MB 3.6 ng/mL (0.0-4.0)
[2022-03-26 01:38] LABS: Chol/HDL Ratio 2.79 %
--- NOTE | 2022-03-26 01:54 | Emergency Department Report ---
ED Shortness of Breath HPI - General Chief Complaint: Dyspnea/Respdistress Stated Complaint: SOB Time Seen by Provider: 03/26/22 00:02 Source: patient Mode of arrival: Wheelchair Limitations: No Limitations - History of Present Illness Initial Comments: hortness of breath, clement foot swelling, and cramping MD Complaint: shortness of breath -: days(s) Improves With: oxygen Known History Of: congestive heart failure, other (CRF ) Associated Symptoms: denies other symptoms, cough - Related Data Home Oxygen Therapy: No Home Medications Medication Instructions Recorded Confirmed Last Taken Furosemide 80 mg PO QDAY 03/06/22 03/18/22 03/14/22 Previous Rx's Medication Instructions Recorded Last Taken Type Albuterol Mdi (or & Nicu Only) 90 mcg INHALATION QDAY PRN #1 03/18/22 Unknown Rx Amiodarone [Cordarone 200 MG TAB] 200 mg PO DAILY tablet 03/18/22 Unknown Rx AtorvaSTATin [Lipitor] 20 mg PO QHS 30 Days #30 tab 03/18/22 Unknown Rx amLODIPine 10 mg PO DAILY #30 tablet 03/18/22 Unknown Rx carvediloL [Coreg] 25 mg PO BID #60 tablet 03/18/22 Unknown Rx cloNIDine [Catapres] 0.2 mg PO TID 30 Days #90 tab 03/18/22 Unknown Rx hydrALAZINE [Apresoline TAB] 25 mg PO Q8HR #60 tablet 03/18/22 Unknown Rx Allergies Allergy/AdvReac Type Severity Reaction Status Date / Time No Known Allergies Allergy Verified 03/11/22 08:27 ED Review of Systems ROS: Stated complaint: SOB Other details as noted in HPI Constitutional: denies: chills, fever Eyes: denies: eye pain, eye discharge, vision change ENT: denies: ear pain, throat pain Respiratory: denies: cough, shortness of breath, wheezing Cardiovascular: denies: chest pain, palpitations Endocrine: no symptoms reported Gastrointestinal: denies: abdominal pain, nausea, diarrhea Genitourinary: denies: urgency, dysuria Musculoskeletal: denies: back pain, joint swelling, arthralgia Skin: denies: rash, lesions Neurological: denies: headache, weakness, paresthesias Psychiatric: denies: anxiety, depression Hematological/Lymphatic: denies: easy bleeding, easy bruising ED Past Medical Hx - Past Medical History Hx Hypertension: Yes Hx CVA: Yes Hx Heart Attack/AMI: Yes Hx Congestive Heart Failure: Yes Hx Diabetes: Yes Hx Deep Vein Thrombosis: Yes Hx Pulmonary Embolism: Yes Hx Renal Disease: Yes Hx Arthritis: No Hx Headaches / Migraines: No Hx Kidney Stones: No Hx Asthma: Yes Hx COPD: No Hx Tuberculosis: No Hx Dementia: No Additional medical history: heart problems - Surgical History Hx Coronary Stent: No Hx Pacemaker: No Hx Internal Defibrillator: No Hx Cholecystectomy: No Hx Appendectomy: No Additional Surgical History: abd hernia, not repaired yet;aorta rupture and re pair - Social History Smoking Status: Current Every Day Smoker Substance Use Type: None - Medications Home Medications: Home Medications Medication Instructions Recorded Confirmed Last Taken Type Furosemide 80 mg PO QDAY 03/06/22 03/18/22 03/14/22 History Albuterol Mdi (or & Nicu Only) 90 mcg INHALATION QDAY PRN #1 03/18/22 Unknown Rx Amiodarone [Cordarone 200 MG TAB] 200 mg PO DAILY tablet 03/18/22 Unknown Rx AtorvaSTATin [Lipitor] 20 mg PO QHS 30 Days #30 tab 03/18/22 Unknown Rx amLODIPine 10 mg PO DAILY #30 tablet 03/18/22 Unknown Rx carvediloL [Coreg] 25 mg PO BID #60 tablet 03/18/22 Unknown Rx cloNIDine [Catapres] 0.2 mg PO TID 30 Days #90 tab 03/18/22 Unknown Rx hydrALAZINE [Apresoline TAB] 25 mg PO Q8HR #60 tablet 03/18/22 Unknown Rx ED Physical Exam - General Limitations: No Limitations General appearance: alert, in no apparent distress - Head Head exam: Present: atraumatic, normocephalic - Eye Eye exam: Present: normal appearance - ENT ENT exam: Present: mucous membranes moist - Neck Neck exam: Present: normal inspection - Respiratory Respiratory exam: Present: normal lung sounds bilaterally. Absent: respiratory distress - Cardiovascular Cardiovascular Exam: Present: regular rate, normal rhythm. Absent: systolic murmur, diastolic murmur, rubs, gallop - GI/Abdominal GI/Abdominal exam: Present: soft, normal bowel sounds - Rectal Rectal exam: Present: deferred - Extremities Exam Extremities exam: Present: normal inspection, pedal edema - Back Exam Back exam: Present: normal inspection - Neurological Exam Neurological exam: Present: alert, oriented X3 - Psychiatric Psychiatric exam: Present: normal affect, normal mood - Skin Skin exam: Present: warm, dry, intact, normal color. Absent: rash ED Course Vital Signs 03/25/22 03/26/22 03/26/22 23:58 00:06 00:15 Temperature 97.8 F Pulse Rate 81 81 82 Respiratory 27 H 26 H 21 Rate Blood Pressure 148/78 148/78 O2 Sat by Pulse 99 99 94 Oximetry 03/26/22 03/26/22 03/26/22 00:17 00:31 00:45 Temperature Pulse Rate 78 82 Respiratory 25 H 17 26 H Rate Blood Pressure 148/78 148/78 O2 Sat by Pulse 100 97 100 Oximetry 03/26/22 03/26/22 01:01 01:15 Temperature Pulse Rate 80 89 Respiratory 24 28 H Rate Blood Pressure 152/92 152/92 O2 Sat by Pulse 93 Oximetry ED Medical Decision Making - Lab Data Result diagrams: 03/26/22 00:20 03/26/22 00:20 - EKG Data -: EKG Interpreted by Nv EKG shows normal: sinus rhythm - EKG Data Interpretation: other (IVCD ) - Radiology Data Radiology results: report reviewed, image reviewed - Medical Decision Making work up showed CRF , rt given vss no distress, pt will follow up with dialysis Critical care attestation.: If time is entered above; I have spent that time in minutes in the direct care of this critically ill patient, excluding procedure time. ED Disposition Clinical Impression: Elevated troponin I level, History of noncompliance with medical treatment, History of CHF (congestive heart failure), ESRD (end stage renal disease) on dialysis Disposition: HOME / SELF CARE / HOMELESS Is pt being admited?: No Does the pt Need Aspirin: No Condition: Stable Instructions: Dialysis Referrals: PRIMARY CARE, [Primary Care Provider] - 3-5 Days
[2022-03-26 02:21] VITALS: BP 151/80
== END 2022-03-26 02:21 | disposition home or self-care (01) ==
LOC: ED 22:41
DX: R74.8 Abnormal levels of other serum enzymes (principal); Z91.19 Patient's noncompliance with other medical treatment and regimen; I13.0 Hypertensive heart and chronic kidney disease with heart failure and stage 1 through stage 4 chronic kidney disease, or unspecified chronic kidney disease; E11.22 Type 2 diabetes mellitus with diabetic chronic kidney disease; N18.9 Chronic kidney disease, unspecified; I50.9 Heart failure, unspecified; Z86.73 Personal history of transient ischemic attack (TIA), and cerebral infarction without residual deficits; I82.409 Acute embolism and thrombosis of unspecified deep veins of unspecified lower extremity; I26.99 Other pulmonary embolism without acute cor pulmonale; J45.909 Unspecified asthma, uncomplicated; Z98.890 Other specified postprocedural states; F17.290 Nicotine dependence, other tobacco product, uncomplicated
CPT/HCPCS: 36415; 71045; 80053; 80061; 82550; 82553; 84484; 85025; 93005; 94640; 96374; 99284; J1940

== ENCOUNTER 2022-03-30 06:13 | Observation (INO) | payer OTHER, MEDICARE ==
--- NOTE | 2022-03-30 07:13 | XRay Report ---
CHEST 2 VIEWS INDICATION / CLINICAL INFORMATION: Dyspnea. COMPARISON: Chest x-ray 03/26/2022 FINDINGS: SUPPORT DEVICES: None. HEART / MEDIASTINUM: Poststernotomy appearance of the cardiomediastinal silhouette is stable. Heart s ize is borderline to minimally enlarged. Aortic stent is unchanged. LUNGS / PLEURA: Minimal increased bilateral perihilar and lower lung airspace opacities. No pneumotho rax. Trace fluid in minor fissure. BONES: No significant osseous abnormality. ADDITIONAL FINDINGS: No significant additional findings. IMPRESSION: 1. Mild pulmonary edema is suggested. Signer Name: Arsalan Vaughan II, MD Signed: 03/30/2022 7:09 AM Workstation Name: [id number]
[2022-03-30 07:34] LABS: Basophils # (Auto) 0.1 K/mm3 (0.0-0.1); Basophils % (Auto) 1.2 % (0.0-1.8); Eosinophils # (Auto) 0.1 K/mm3 (0.0-0.4); Hematocrit 28.9 % (35.5-45.6); Hemoglobin 9.4 gm/dl (11.8-15.2); Lymphocytes # (Auto) 1.2 K/mm3 (1.2-5.4); Lymphocytes % (Auto) 15.3 % (13.4-35.0); Mean Corpuscular HGB Conc 32 % (32-34); Mean Corpuscular Volume 91 fl (84-94); Monocytes # (Auto) 0.9 K/mm3 (0.0-0.8); Monocytes % (Auto) 11.3 % (0.0-7.3); Platelet Count 132 K/mm3 (140-440); Red Blood Count 3.18 M/mm3 (3.65-5.03); Red Cell Distribution Width 18.5 % (13.2-15.2)
[2022-03-30 08:01] LABS: Calcium 8.9 mg/dL (8.4-10.2)
--- NOTE | 2022-03-30 08:59 | Emergency Department Report ---
ED General Adult HPI - General Chief complaint: Dyspnea/Respdistress Stated complaint: SOB PUI?: No Time Seen by Provider: 03/30/22 08:48 Source: patient, EMS ( EMS documentation not available at time of chart dictation ), RN notes reviewed, old records reviewed Mode of arrival: Ambulatory Limitations: No Limitations - History of Present Illness Initial comments: The patient was evaluated in the emergency department for symptoms described in the history of present illness. He/she was evaluated in the context of the global COVID-19 pandemic, which necessitated consideration that the patient might be at risk for infection with the virus that causes COVID-19. Institutional protocols and algorithms that pertain to the evaluation of patients at risk for COVID-19 are in a state of rapid change based on information released by regulatory bodies including the CDC and federal and state organizations. These policies and algorithms were followed during the patient's care in the emergency department. Please note that these policies, procedures and recommendations changed on a rapid basis. The patient is a 41-year-old gentleman, who is typically on hemodialysis Wednesday, Wednesday, Wednesday, who is due for hemodialysis today, who presents to the ER today with a chief complaint of requesting hemodialysis, endorsing cramping, lower extremity swelling, shortness of breath. This patient was recently ruled out for pulmonary embolism and DVT at this hospital. His crime specialist is Dr. Bone Session -: Gradual Location: left, right, lower extremity Quality: aching Consistency: constant Improves with: rest, other (Hemodialysis) Worsens with: other (Sitting down) - Related Data Home Medications Medication Instructions Recorded Confirmed Last Taken Furosemide 80 mg PO QDAY 03/06/22 03/18/22 03/14/22 Previous Rx's Medication Instructions Recorded Last Taken Type Albuterol Mdi (or & Nicu Only) 90 mcg INHALATION QDAY PRN #1 03/18/22 Unknown Rx Amiodarone [Cordarone 200 MG TAB] 200 mg PO DAILY tablet 03/18/22 Unknown Rx AtorvaSTATin [Lipitor] 20 mg PO QHS 30 Days #30 tab 03/18/22 Unknown Rx amLODIPine 10 mg PO DAILY #30 tablet 03/18/22 Unknown Rx carvediloL [Coreg] 25 mg PO BID #60 tablet 03/18/22 Unknown Rx cloNIDine [Catapres] 0.2 mg PO TID 30 Days #90 tab 03/18/22 Unknown Rx hydrALAZINE [Apresoline TAB] 25 mg PO Q8HR #60 tablet 03/18/22 Unknown Rx Allergies Allergy/AdvReac Type Severity Reaction Status Date / Time No Known Allergies Allergy Verified 03/11/22 08:27 ED Review of Systems ROS: Stated complaint: SOB Other details as noted in HPI Constitutional: denies: fever Eyes: denies: eye discharge ENT: congestion Respiratory: shortness of breath Cardiovascular: edema. denies: chest pain Gastrointestinal: denies: abdominal pain Musculoskeletal: arthralgia, myalgia Neurological: denies: weakness ED Past Medical Hx - Past Medical History Hx Hypertension: Yes Hx CVA: Yes Hx Heart Attack/AMI: Yes Hx Congestive Heart Failure: Yes Hx Diabetes: Yes Hx Deep Vein Thrombosis: Yes Hx Pulmonary Embolism: Yes Hx Renal Disease: Yes Hx Arthritis: No Hx Headaches / Migraines: No Hx Kidney Stones: No Hx Asthma: Yes Hx COPD: No Hx Tuberculosis: No Hx Dementia: No Additional medical history: heart problems - Surgical History Hx Coronary Stent: No Hx Pacemaker: No Hx Internal Defibrillator: No Hx Cholecystectomy: No Hx Appendectomy: No Additional Surgical History: abd hernia, not repaired yet;aorta rupture and repair - Social History Smoking Status: Never Smoker Substance Use Type: Other - Medications Home Medications: Home Medications Medication Instructions Recorded Confirmed Last Taken Type Furosemide 80 mg PO QDAY 03/06/22 03/18/22 03/14/22 History Albuterol Mdi (or & Nicu Only) 90 mcg INHALATION QDAY PRN #1 03/18/22 Unknown Rx Amiodarone [Cordarone 200 MG TAB] 200 mg PO DAILY tablet 03/18/22 Unknown Rx AtorvaSTATin [Lipitor] 20 mg PO QHS 30 Days #30 tab 03/18/22 Unknown Rx amLODIPine 10 mg PO DAILY #30 tablet 03/18/22 Unknown Rx carvediloL [Coreg] 25 mg PO BID #60 tablet 03/18/22 Unknown Rx cloNIDine [Catapres] 0.2 mg PO TID 30 Days #90 tab 03/18/22 Unknown Rx hydrALAZINE [Apresoline TAB] 25 mg PO Q8HR #60 tablet 03/18/22 Unknown Rx ED Physical Exam - General Limitations: No Limitations General appearance: alert, in no apparent distress - Head Head exam: Present: atraumatic, normocephalic - Eye Eye exam: Present: normal appearance, EOMI. Absent: nystagmus - ENT ENT exam: Present: normal exam, normal orophraynx, mucous membranes moist, normal external ear exam - Neck Neck exam: Present: normal inspection, full ROM. Absent: tenderness, meningismus - Respiratory Respiratory exam: Present: respiratory distress, rales. Absent: stridor - Cardiovascular Cardiovascular Exam: Present: regular rate, normal rhythm, normal heart sounds. Absent: bradycardia, tachycardia, irregular rhythm, systolic murmur, diastolic murmur, rubs, gallop - GI/Abdominal GI/Abdominal exam: Present: soft. Absent: distended, tenderness, guarding, rebound, rigid, pulsatile mass - Rectal Rectal exam: Present: deferred - Extremities Exam Extremities exam: Present: normal inspection, full ROM, pedal edema (2+ edema noted in the bilateral lower extremities), other (2+ pulses noted in the bilateral upper and lower extremities. There is no palpable cord. negative Homans sign. Muscular compartments are soft. The pelvis is stable.). Absent: calf tenderness - Back Exam Back exam: Present: normal inspection. Absent: tenderness, CVA tenderness (R), CVA tenderness (L), paraspinal tenderness, vertebral tenderness - Neurological Exam Neurological exam: Present: alert, oriented X3, normal gait, other (No facial droop. Tongue midline. Extraocular movements intact bilaterally. Facial sensation intact to light touch in V1, V2, V3 distribution bilaterally. 5 and a 5 strength in 4 extremities. Sensation intact to light touch in 4 extremities.). Absent: motor sensory deficit - Psychiatric Psychiatric exam: Present: normal affect, normal mood - Skin Skin exam: Present: warm, dry, intact, normal color. Absent: rash ED Course Vital Signs 03/30/22 03/30/22 03/30/22 06:16 09:23 09:24 Temperature 98.6 F 97.4 F L Pulse Rate 88 87 Respiratory 18 22 18 Rate Blood Pressure 157/100 Blood Pressure 177/100 [Left] O2 Sat by Pulse 98 95 100 Oximetry - Reevaluation(s) Reevaluation #1: 03/30/22 09:40 Patient is refusing IV placement. I have not ordered any intravenous medications on this patient, and the patient is awake, alert, oriented, sober of sound mind and exhibits decision-making capacity. He is being admitted for hemodialysis. Reevaluation #2: 03/30/22 09:59 Patient retching and vomiting, and is now agreeable to IV placement. Zofran is ordered. ED Medical Decision Making - Lab Data Result diagrams: 03/30/22 07:01 03/30/22 07:01 Vital Signs 03/30/22 06:16 Temperature 98.6 F Pulse Rate 88 Respiratory 18 Rate Blood Pressure 157/100 O2 Sat by Pulse 98 Oximetry Lab Results 03/30/22 03/30/22 03/30/22 Range/Units 07:01 07:01 07:01 WBC 8.2 (4.5-11.0) K/mm3 RBC 3.18 L (3.65-5.03) M/mm3 Hgb 9.4 L (11.8-15.2) gm/dl Hct 28.9 L (35.5-45.6) % MCV 91 (84-94) fl MCH 29 (28-32) pg MCHC 32 (32-34) % RDW 18.5 H (13.2-15.2) % Plt Count 132 L (140-440) K/mm3 Lymph % (Auto) 15.3 (13.4-35.0) % [place] % (Auto) 11.3 H (0.0-7.3) % Eos % (Auto) 1.0 (0.0-4.3) % Baso % (Auto) 1.2 (0.0-1.8) % Lymph # (Auto) 1.2 (1.2-5.4) K/mm3 [place] # (Auto) 0.9 H (0.0-0.8) K/mm3 Eos # (Auto) 0.1 (0.0-0.4) K/mm3 Baso # (Auto) 0.1 (0.0-0.1) K/mm3 Seg Neutrophils % 71.2 H (40.0-70.0) % Seg Neutrophils # 5.8 (1.8-7.7) K/mm3 PT 14.3 (12.2-14.9) Sec. INR 1.00 (0.87-1.13) Sodium 144 (137-145) mmol/L Potassium 5.0 D (3.6-5.0) mmol/L Chloride 98.9 (98-107) mmol/L Carbon Dioxide 24 (22-30) mmol/L Anion Gap 26 mmol/L BUN 77 H (9-20) mg/dL Creatinine 14.8 H D (0.8-1.3) mg/dL Estimated GFR 4 ml/min BUN/Creatinine Ratio 5 % Glucose 85 (75-100) mg/dL Calcium 8.9 (8.4-10.2) mg/dL Magnesium 2.60 H (1.7-2.3) mg/dL NT-Pro-B Natriuret Pep 72904 H (0-450) pg/mL - EKG Data -: EKG Interpreted by Co EKG shows normal: sinus rhythm Rate: normal - EKG Data 03/30/22 09:27 The EKG is interpreted at 09: 02 Sinus rhythm, 86 bpm. Left axis deviation, normal P wave axis, left anterior fascicular block, high left ventricular voltage, motion artifact. This is an abnormal EKG. The QTC is 529 ms. This EKG is not consistent with a STEMI. - Radiology Data Radiology results: pending, report reviewed, image reviewed CHEST 2 VIEWS INDICATION / CLINICAL INFORMATION: Dyspnea. COMPARISON: Chest x- ray 03/26/2022 FINDINGS: SUPPORT DEVICES: None. HEART / MEDIASTINUM: Postst ernotomy appearance of the cardiomediastinal silhouette is stable. Heart size is borderline to minimally enlarged. Aortic stent is unchanged. LUNGS / PLEURA: Minimal increased bilateral perihilar and lower lung airspace opacities. No pneumothorax. Trace fluid in minor fissure. BONES: No significant osseous abnormality. ADDITIONAL FINDINGS: No significant additional findings. IMPRESSION: 1. Mild pulmonary edema is suggested. Signer Name: Arsalan Vaughan II, MD Signed: 03/30/2022 6:09 AM Workstation Name: [id number] - Medical Decision Making Differential diagnosis, including not limited to: Hyperkalemia, azotemia, uremia, fluid overload Assessment and plan: 41-year-old gentleman, who typically gets dialysis Wednesday, Wednesday, Wednesday, presenting to the ER today with complaint of cough, wheezing, shortness of breath, cramps, and fluid overload. Chest x-ray shows pulmonary vascular congestion, he has lower extremity edema, cramping, azotemia, uremia, and metabolic acidosis. I contacted his crime specialist, Dr. Lizandro Lu; I discussed the patient's history, physical, laboratory studies and imaging studies and clinical impression. He will arrange for hemodialysis. Hospital physician, Dr. Ornelas to admit to [facility] Critical care attestation.: If time is entered above; I have spent that time in minutes in the direct care of this critically ill patient, excluding procedure time. ED Disposition Clinical Impression: ESRD needing dialysis, Metabolic acidosis, Fluid overload Disposition: ADMITTED INPATIENT Is pt being admited?: Yes Does the pt Need Aspirin: No Condition: Good Referrals: LION RESENDEZ MD [Primary Care Provider] - 3-5 Days
[2022-03-30] MEDS ORDERED: ONDANSETRON 4 MG/2 ML INJ IV ONE (09:59)
[2022-03-30] MEDS ORDERED: SODIUM CHLORIDE 0.9% 100 ML IV PRN (10:00)
[2022-03-30] MEDS ORDERED: HEPARIN 10,000 UNITS/10 ML VIAL IV PRN (10:00)
--- NOTE | 2022-03-30 10:42 | History and Physical Report ---
History of Present Illness Date of examination: 03/30/22 Date of admission: 03/30/22 Chief complaint: need HD History of present illness: 41-year-old -[place] male patient with significant past medical history of end-stage renal disease on hemodialysis , noncompliance with hemodialysis hypertension dyslipidemia presented to the emergency with fluid overload and for need of HD. Patient is on hemodialysis on Wednesday. His last HD was on Wednesday, patient's chest x-ray showed pulmonary edema, patient denies any headache dizziness weakness or numbness and mild chest pain. Nephrology has been consulted and patient is being admitted for further management. Past History Past Medical History: dialysis, ESRD, heart failure, hypertension, hyperlipidemia, other (Noncompliance) Past Surgical History: Other (AV fistula, abdominal hernia, aortic rupture and repair) Social history: denies: smoking, alcohol abuse, prescription drug abuse Family history: no significant family history Review of Systems Constitutional: fatigue, no weight loss, no weight gain, no fever, no chills Ears, nose, mouth and throat: no nasal congestion, no nasal discharge Cardiovascular: orthopnea, edema, shortness of breath, no chest pain Respiratory: cough, shortness of breath, dyspnea on exertion Gastrointestinal: no abdominal pain, no nausea, no vomiting Genitourinary Male: no dysuria, no hematuria Musculoskeletal: no myalgias, no arthritis Integumentary: no rash, no lesions Neurological: no seizures, no syncope Psychiatric: no anxiety, no depression Endocrine: no cold intolerance, no heat intolerance, no polydipsia, no polyuria Hematologic/Lymphatic: no easy bruising, no easy bleeding Allergic/Immunologic: no urticaria, no allergic rhinitis Medications and Allergies Allergies Allergy/AdvReac Type Severity Reaction Status Date / Time No Known Allergies Allergy Verified 03/11/22 08:27 Home Medications Medication Instructions Recorded Confirmed Last Taken Type Furosemide 80 mg PO QDAY 03/06/22 03/18/22 03/14/22 History Albuterol Mdi (or & Nicu Only) 90 mcg INHALATION QDAY PRN #1 03/18/22 Unknown Rx Amiodarone [Cordarone 200 MG TAB] 200 mg PO DAILY tablet 03/18/22 Unknown Rx AtorvaSTATin [Lipitor] 20 mg PO QHS 30 Days #30 tab 03/18/22 Unknown Rx amLODIPine 10 mg PO DAILY #30 tablet 03/18/22 Unknown Rx carvediloL [Coreg] 25 mg PO BID #60 tablet 03/18/22 Unknown Rx cloNIDine [Catapres] 0.2 mg PO TID 30 Days #90 tab 03/18/22 Unknown Rx hydrALAZINE [Apresoline TAB] 25 mg PO Q8HR #60 tablet 03/18/22 Unknown Rx Active Meds: Active Medications Heparin Sodium (Porcine) (Heparin 10,000 Units/10 Ml Vial) 3,000 unit IV BUSTER PRN PRN Reason: hemodialysis Sodium Chloride (Nacl 0.9%) 100 mls @ 999 mls/hr IV BUSTER PRN PRN Reason: Hypotension Exam - Physical Exam Narrative exam: General appearance: Present: mild distress, well-nourished - EENT Eyes: Present: PERRL, EOM intact - Neck Neck: Present: supple, normal ROM - Respiratory Respiratory effort: normal Respiratory: bilateral: diminished, rales, negative: rhonchi, wheezing - Cardiovascular Rhythm: regular Heart Sounds: Present: S1 & S2 - Extremities Extremities: no ischemia Extremity abnormal: edema - Abdominal General gastrointestinal: Present: soft, non-tender, non-distended, normal bowel sounds - Integumentary Integumentary: Present: clear, warm - Musculoskeletal Musculoskeletal: strength equal bilaterally - Psychiatric Psychiatric: appropriate mood/affect, cooperative - Neurologic Neurologic: moves all extremities - Constitutional Vitals: Temp Pulse Resp BP Pulse Ox 97.4 F L 87 18 177/100 100 03/30/22 09:23 03/30/22 09:23 03/30/22 09:24 03/30/22 09:23 03/30/22 09:24 Results - Labs CBC & Chem 7: 03/30/22 07:01 03/30/22 07:01 Labs: Abnormal lab results 03/30/22 03/30/22 Range/Units 07:01 07:01 RBC 3.18 L (3.65-5.03) M/mm3 Hgb 9.4 L (11.8-15.2) gm/dl Hct 28.9 L (35.5-45.6) % RDW 18.5 H (13.2-15.2) % Plt Count 132 L (140-440) K/mm3 [place] % (Auto) 11.3 H (0.0-7.3) % [place] # (Auto) 0.9 H (0.0-0.8) K/mm3 Seg Neutrophils % 71.2 H (40.0-70.0) % BUN 77 H (9-20) mg/dL Creatinine 14.8 H D (0.8-1.3) mg/dL Magnesium 2.60 H (1.7-2.3) mg/dL NT-Pro-B Natriuret Pep 57983 H (0-450) pg/mL Assessment and Plan -- Worsening shortness of breath/secondary to fluid overload Nephrology consulted ,hemodialysis per schedule, oxygen titrate O2 sats to more than 90%, supportive care --Fluid overload; due to likely non compliance with fluid restriction HD per schedule nephrology consulted -- ESRD; on dialysis Hemodialysis per schedule -Malignant hypertension; moderate control Continue current antihypertensives As needed hydralazine -- Peripheral neuropathy; Continue home gabapentin -- DVT prophylaxis; Subcu heparin -- Medical noncompliance; Counseled the importance of adhering to the treatment plan diet and mainly hemodialysis And follow-up visits --Full code
[2022-03-30] MEDS ORDERED: ACETAMINOPHEN 325 MG TAB PO PRN (11:00)
[2022-03-30] MEDS ORDERED: ONDANSETRON 4 MG/2 ML INJ IV PRN (11:00)
[2022-03-30] MEDS ORDERED: MORPHINE 4 MG/1 ML INJ IV PRN (11:30)
[2022-03-30] MEDS ORDERED: hydrALAZINE 20 MG/1 ML INJ IV PRN (11:30)
[2022-03-30] MEDS ORDERED: diphenhydrAMINE 25 MG/10 ML ORAL LIQUID FEEDTUBE STA (12:41)
[2022-03-30] MEDS ORDERED: diphenhydrAMINE 50 MG/ML VIAL IV STA (12:46)
--- NOTE | 2022-03-30 13:07 | Consultation ---
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 Patient admits to drinking excessive fluids over the weekend as he works in the hot humid weather. Patient continues to have bilateral leg swelling. Denies fever, chills, cough, PND, nausea, vomiting, diarrhea, abd pain or CP. His last HD was 3 days ago. Labs noted. CXR showed pulmonary edema. Nephrology was consulted for ESRD management. Past History Past Medical History: other (See HPI.) Medications and Allergies Allergies Allergy/AdvReac Type Severity Reaction Status Date / Time No Known Allergies Allergy Verified 03/11/22 08:27 Home Medications Medication Instructions Recorded Confirmed Last Taken Type Furosemide 80 mg PO QDAY 03/06/22 03/18/22 03/14/22 History Albuterol Mdi (or & Nicu Only) 90 mcg INHALATION QDAY PRN #1 03/18/22 Unknown Rx Amiodarone [Cordarone 200 MG TAB] 200 mg PO DAILY tablet 03/18/22 Unknown Rx AtorvaSTATin [Lipitor] 20 mg PO QHS 30 Days #30 tab 03/18/22 Unknown Rx amLODIPine 10 mg PO DAILY #30 tablet 03/18/22 Unknown Rx carvediloL [Coreg] 25 mg PO BID #60 tablet 03/18/22 Unknown Rx cloNIDine [Catapres] 0.2 mg PO TID 30 Days #90 tab 03/18/22 Unknown Rx hydrALAZINE [Apresoline TAB] 25 mg PO Q8HR #60 tablet 03/18/22 Unknown Rx Active Meds: Active Medications Acetaminophen (Acetaminophen 325 Mg Tab) 650 mg PO Q4H PRN PRN Reason: Pain MILD(1-3)/Fever >100.5/GRAJEDA Amlodipine Besylate (Amlodipine 10 Mg Tab) 10 mg PO DAILY [facility] Atorvastatin Calcium (Atorvastatin 20 Mg Tab) 20 mg PO QHS [facility]ITA Carvedilol (Carvedilol 25 Mg Tab) 25 mg PO BID LALITA Clonidine HCl (Clonidine 0.1 Mg Tab) 0.2 mg PO TID [facility]ITA Famotidine (Famotidine 20 Mg Tab) 20 mg PO QDAY [facility] Heparin Sodium (Porcine) (Heparin 10,000 Units/10 Ml Vial) 3,000 unit IV BUSTER PRN PRN Reason: hemodialysis Heparin Sodium (Porcine) (Heparin 5,000 Unit/1 Ml Vial) 5,000 unit SUB-Q Q12HR [facility]ALITA Hydralazine HCl (Hydralazine 20 Mg/1 Ml Inj) 5 mg IV Q30MIN PRN PRN Reason: Hypertension Hydralazine HCl (Hydralazine 25 Mg Tab) 25 mg PO Q8HR [facility] Sodium Chloride (Nacl 0.9%) 100 mls @ 999 mls/hr IV BUSTER PRN PRN Reason: Hypotension Morphine Sulfate (Morphine 4 Mg/1 Ml Inj) 4 mg IV Q4H PRN PRN Reason: Pain , Severe (7-10) Ondansetron HCl (Ondansetron 4 Mg/2 Ml Inj) 4 mg IV Q8H PRN PRN Reason: Nausea And Vomiting Last Admin: 03/30/22 11:12 Dose: 4 mg Oxycodone/Acetaminophen (Oxycodone /Acetaminophen 5-325mg Tab) 1 tab PO Q6H PRN PRN Reason: Pain, Moderate (4-6) Sodium Chloride (Sodium Chloride 0.9% 10 Ml Flush Syringe) 10 ml IV BID [facility]ALITA Sodium Chloride (Sodium Chloride 0.9% 10 Ml Flush Syringe) 10 ml IV PRN PRN PRN Reason: LINE FLUSH Review of Systems All systems: negative Exam - Vital Signs Vital signs: Vital Signs Temp Pulse Resp BP Pulse Ox 98.6 F 88 18 157/100 98 03/30/22 06:16 03/30/22 06:16 03/30/22 06:16 03/30/22 06:16 03/30/22 06:16 Results - Lab Results 03/30/22 07:01 03/30/22 07:01 Most recent lab results Calcium 8.9 mg/dL (8.4-10.2) 03/30/22 07:01 Magnesium 2.60 mg/dL (1.7-2.3) H 03/30/22 07:01 Assessment and Plan 1. ESRD: Patient is on maintenance hemodialysis three times a week, MWF schedule. Meds dosage based on GFR. Hemodialysis: HD today. 2. FEN: Volume overload, UF with HD tolerated. Diet non-compliance, counseled to limit salt and fluid intake. Strict renal diet. Binders as prescribed. Monitor lytes and volume status. 3. Acute resp dsitress, POA: 2/2 pulmonary edema. Volume control with HD. Supplemental O2 as needed. 4. Uncontrolled HTN: Volume control thru HD. Adjust meds as needed. Monitor BP. Advised to limit salt and fluid intake. 5. H/o CHF: Monitor. 6. Anemia, POA: Epogen with HD as needed. Subjective: Patient was seen and examined at the bedside. General Appearance: General appearance: well-developed, appears stated age, no distress EENT: ATNC, OSIRIS, hearing intact, vision intact Neck: neck supple, trachea midline Respiratory: rales heard Heart: regular, S1S2, no murmur Abdomen: soft, NT, BS heard Integumentary: no obvious rash Neurologic: AO, able to move extremities Ext: 2+ LE edema noted Hemodialysis access: R arm tortuous AVF
[2022-03-30] MEDS: hydrALAZINE 25 MG TAB PO SCH ×2 (17:02→22:32)
[2022-03-30] MEDS: cloNIDine 0.1 MG TAB PO SCH ×2 (17:02→20:44)
--- NOTE | 2022-03-30 20:17 | Electrocardiograph Report ---
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
[2022-03-30] MEDS: oxyCODONE /ACETAMINOPHEN 5-325MG TAB PO PRN (22:31)
[2022-03-30] MEDS: carvediloL 25 MG TAB PO SCH (22:32)
[2022-03-30] MEDS ORDERED: diphenhydrAMINE 25 MG CAP PO ONE (23:44)
[2022-03-31] MEDS: oxyCODONE /ACETAMINOPHEN 5-325MG TAB PO PRN (05:54)
[2022-03-31] MEDS: hydrALAZINE 25 MG TAB PO SCH (05:55)
[2022-03-31] MEDS: HEPARIN 5,000 UNIT/1 ML VIAL SUB-Q SCH ×2 (05:55→09:16)
[2022-03-31] MEDS: cloNIDine 0.1 MG TAB PO SCH (09:25)
[2022-03-31] MEDS: carvediloL 25 MG TAB PO SCH (09:26)
[2022-03-31] MEDS ORDERED: amLODIPine 10 MG TAB PO SCH (10:00)
[2022-03-31] MEDS ORDERED: FAMOTIDINE 20 MG TAB PO SCH (10:00)
[2022-03-31 11:48] VITALS: BP 102/54
--- NOTE | 2022-03-31 12:38 | Discharge Summary ---
Providers - Providers Date of Admission: 03/30/22 10:44 Date of discharge: 03/31/22 Attending physician: LUPIS AKERS MD 03/30/22 08:57 Consult to Physician [CONS] Urgent Comment: Consulting Provider: JYOTI KING Physician Instructions: Reason For Exam: esrd Primary care physician: LION RESENDEZ Hospitalization Reason for admission: Volume overload, ESRD. Condition: Undetermined Pertinent studies: Reviewed. Procedures: None. Hospital course: 41-year-old -[place] male patient with significant past medical history of end-stage renal disease on hemodialysis , noncompliance with hemodialysis hypertension dyslipidemia presented to the emergency with fluid overload and for need of HD. Patient is on hemodialysis on Wednesday. His last HD was on Wednesday, patient's chest x-ray showed pulmonary edema, patient denies any headache dizziness weakness or numbness and mild chest pain. Nephrology has been consulted and patient is being admitted for further management. The patient underwent hemodialysis on 03/30/2022, and it was recommended that he undergo a repeat session on 03/31/2022. The patient left AMA on 03/31/2022 due to needing to retrieve his bank card via a UPS delivery for early that morning. Disposition: LEFT AGAINST MEDICAL ADVICE Final Discharge Diagnosis (Prints w/discharge instructions): ESRD, volume overload, malignant hypertension, peripheral neuropathy, medication noncompliance Time spent for discharge: 45 min Core Measure Documentation - Palliative Care Palliative Care/ Comfort Measures: Not Applicable - Core Measures Any of the following diagnoses?: none Exam - Constitutional Vitals: Temp Pulse Resp BP Pulse Ox 98.0 F 67 16 102/54 100 03/31/22 08:24 03/31/22 08:24 03/31/22 10:00 03/31/22 08:24 03/31/22 10:57 General appearance: Present: no acute distress, well-nourished - EENT Eyes: Present: PERRL, EOM intact ENT: hearing intact, clear oral mucosa, dentition normal - Neck Neck: Present: supple, normal ROM - Respiratory Respiratory effort: normal Respiratory: bilateral: CTA - Cardiovascular Rhythm: regular Heart Sounds: Present: S1 & S2 - Extremities Extremities: no ischemia, pulses intact, pulses symmetrical, No edema, normal temperature, normal color, Full ROM, abnormal (Left upper extremity AV fistula) Peripheral Pulses: within normal limits - Abdominal General gastrointestinal: Present: soft, non-tender, non-distended, normal bowel sounds Male genitourinary: Present: deferred - Rectal Rectal Exam: deferred - Integumentary Integumentary: Present: clear, warm, dry - Musculoskeletal Musculoskeletal: strength equal bilaterally - Psychiatric Psychiatric: appropriate mood/affect, intact judgment & insight, memory intact, cooperative - Neurologic Neurologic: CNII-XII intact, moves all extremities - Allied Health Allied health notes reviewed: nursing Plan Activity: no restrictions Diet: renal Additional Instructions: 41-year-old -[place] male patient with significant past medical history of end-stage renal disease on hemodialysis , noncompliance with hemodialysis hypertension dyslipidemia presented to the emergency with fluid overload and for need of HD. Patient is on hemodialysis on Wednesday. His last HD was on Wednesday, patient's chest x-ray showed pulmonary edema, patient denies any headache dizziness weakness or numbness and mild chest pain. Nephrology has been consulted and patient is being admitted for further management. The patient underwent hemodialysis on 03/30/2022, and it was recommended that he undergo a repeat session on 03/31/2022. The patient left AMA on 03/31/2022 due to needing to retrieve his bank card via a UPS delivery for early that morning. Care Plan Goals: Patient left AMA. Assessment: 41-year-old -[place] male patient with significant past medical history of end-stage renal disease on hemodialysis , noncompliance with hemodialysis hypertension dyslipidemia presented to the emergency with fluid overload and for need of HD. Patient is on hemodialysis on Wednesday. His last HD was on Wednesday, patient's chest x-ray showed pulmonary edema, patient denies any headache dizziness weakness or numbness and mild chest pain. Nephrology has been consulted and patient is being admitted for further management. The patient underwent hemodialysis on 03/30/2022, and it was recommended that he undergo a repeat session on 03/31/2022. The patient left AMA on 03/31/2022 due to needing to retrieve his bank card via a UPS delivery for early that morning. Follow up with: LION RESENDEZ MD [Primary Care Provider] - 3-5 Days
--- NOTE | 2022-04-01 09:05 | Electrocardiograph Report ---
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
== END 2022-03-31 10:39 | disposition left against medical advice (07) ==
LOC: ED 06:13 → 4A 10:44
PROVIDERS: ADMIT Internal Medicine; ATTEND Student in an Organized Health Care Education/Training Program
DX: E87.70 Fluid overload, unspecified (principal); I16.0 Hypertensive urgency; I13.2 Hypertensive heart and chronic kidney disease with heart failure and with stage 5 chronic kidney disease, or end stage renal disease; I50.9 Heart failure, unspecified; N18.6 End stage renal disease; D63.1 Anemia in chronic kidney disease; G62.9 Polyneuropathy, unspecified; E87.2 Acidosis; E78.5 Hyperlipidemia, unspecified; J45.909 Unspecified asthma, uncomplicated; R06.03 Acute respiratory distress; R06.02 Shortness of breath; Z91.19 Patient's noncompliance with other medical treatment and regimen; Z79.899 Other long term (current) drug therapy; Z98.890 Other specified postprocedural states; Z86.73 Personal history of transient ischemic attack (TIA), and cerebral infarction without residual deficits; Z86.718 Personal history of other venous thrombosis and embolism; Z86.711 Personal history of pulmonary embolism
CPT/HCPCS: 36415; 71046; 80048; 83735; 83880; 85025; 85610; 93005; 94760; 96374; 96375; 99285; G0378; J1200; J2270; J2405

== ENCOUNTER 2022-04-12 08:52 | Observation (INO) | payer MEDICARE ==
[2022-04-12] MEDS ORDERED: diphenhydrAMINE 50 MG/ML VIAL IV ONE (10:04)
--- NOTE | 2022-04-12 10:30 | XRay Report ---
CHEST 1 VIEW 04/12/2022 10:12 AM INDICATION / CLINICAL INFORMATION: Dyspnea. COMPARISON: 03/30/22 FINDINGS: SUPPORT DEVICES: None. HEART / MEDIASTINUM: Heart is enlarged but stable. Thoracic aortic arch stent graft is unchanged. LUNGS / PLEURA: Mild bilateral perihilar edema is unchanged. No pneumothorax. ADDITIONAL FINDINGS: No significant additional findings. IMPRESSION: 1. Mild cardiomegaly with perihilar pulmonary edema. Signer Name: Ke Au MD Signed: 04/12/2022 10:26 AM Workstation Name: [id number]
--- NOTE | 2022-04-12 10:40 | Emergency Department Report ---
ED Shortness of Breath HPI - General Chief Complaint: Dyspnea/Respdistress Stated Complaint: COUGH Time Seen by Provider: 04/12/22 10:05 Source: EMS, old records reviewed (Patient was recently discharged March 31. Signed out AMA after dialysis without receiving recommended repeat session) Mode of arrival: Ambulatory Limitations: No Limitations - History of Present Illness Initial Comments: 41-year-old male with multiple chronic medical conditions including but not limited to end-stage renal disease on dialysis (M,W,F), asthma, CHF, DVT, diabetes, CAD, hypertension, and aortic rupture and repair presents to the hospital with complaints worsening leg edema and orthopnea and PND for the past 2 days. Patient has been compliant with his dialysis of last dialysis session Wednesday (2 days ago). Patient has been in this current dialysis center for 1 mo nth. Patient complains of cough with productive sputum. No complaints of chest pain, calf tenderness, or fever. Patient has very little urine output. Patient requesting Benadryl for generalized pruritus. current water main inspector Dr. Damon As per medical record patient was admitted recently for dialysis noncompliance. He signed out AMA on March 31 after receiving dialysis but prior to receiving re commended repeat session - Related Data Home Medications Medication Instructions Recorded Confirmed Last Taken Furosemide 80 mg PO QDAY 03/06/22 03/18/22 03/14/22 Previous Rx's Medication Instructions Recorded Last Taken Type Albuterol Mdi (or & Nicu Only) 90 mcg INHALATION QDAY PRN #1 03/18/22 Unknown Rx Amiodarone [Cordarone 200 MG TAB] 200 mg PO DAILY tablet 03/18/22 Unknown Rx AtorvaSTATin [Lipitor] 20 mg PO QHS 30 Days #30 tab 03/18/22 Unknown Rx amLODIPine 10 mg PO DAILY #30 tablet 03/18/22 Unknown Rx carvediloL [Coreg] 25 mg PO BID #60 tablet 03/18/22 Unknown Rx cloNIDine [Catapres] 0.2 mg PO TID 30 Days #90 tab 03/18/22 Unknown Rx hydrALAZINE [Apresoline TAB] 25 mg PO Q8HR #60 tablet 03/18/22 Unknown Rx Allergies Allergy/AdvReac Type Severity Reaction Status Date / Time No Known Allergies Allergy Verified 03/11/22 08:27 ED Review of Systems ROS: Stated complaint: COUGH Other details as noted in HPI Comment: All other systems reviewed and negative ED Past Medical Hx - Past Medical History Previous Medical History?: Yes Hx Hypertension: Yes Hx CVA: Yes Hx Heart Attack/AMI: Yes Hx Congestive Heart Failure: Yes Hx Diabetes: Yes Hx Deep Vein Thrombosis: Yes Hx Pulmonary Embolism: Yes Hx Renal Disease: Yes Hx Arthritis: No Hx Headaches / Migraines: No Hx Kidney Stones: No Hx Asthma: Yes Hx COPD: No Hx Tuberculosis: No Hx Dementia: No Additional medical history: heart problems - Surgical History Past Surgical History?: Yes Hx Coronary Stent: No Hx Pacemaker: No Hx Internal Defibrillator: No Hx Cholecystectomy: No Hx Appendectomy: No Additional Surgical History: abd hernia, not repaired yet;aorta rupture and repair - Social History Smoking Status: Current Every Day Smoker - Medications Home Medications: Home Medications Medication Instructions Recorded Confirmed Last Taken Type Furosemide 80 mg PO QDAY 03/06/22 03/18/22 03/14/22 History Albuterol Mdi (or & Nicu Only) 90 mcg INHALATION QDAY PRN #1 03/18/22 Unknown Rx Amiodarone [Cordarone 200 MG TAB] 200 mg PO DAILY tablet 03/18/22 Unknown Rx AtorvaSTATin [Lipitor] 20 mg PO QHS 30 Days #30 tab 03/18/22 Unknown Rx amLODIPine 10 mg PO DAILY #30 tablet 03/18/22 Unknown Rx carvediloL [Coreg] 25 mg PO BID #60 tablet 03/18/22 Unknown Rx cloNIDine [Catapres] 0.2 mg PO TID 30 Days #90 tab 03/18/22 Unknown Rx hydrALAZINE [Apresoline TAB] 25 mg PO Q8HR #60 tablet 03/18/22 Unknown Rx ED Physical Exam - General Limitations: No Limitations - Other Other exam information: General: No acute distress Head: Atraumatic Eyes: normal appearance ENT: Moist mucous membranes Neck: Normal appearance, no midline tenderness Chest: Clear to auscultation bilaterally, no tachypnea, rales, or crackles or wheeze. Sternotomy scar noted CV: Regular rate and rhythm Abdomen: Soft, normal bowel sounds, nontender, nondistended, no rebound or guarding Back: Normal inspection Extremity: Bilateral lower extremity 2+ pitting edema Neuro: Alert O x 3, no facial asymmetry, speech clear, no gross motor sensory deficit Psych: Appropriate behavior Skin: No rash ED Course Vital Signs 04/12/22 04/12/22 09:50 10:36 Temperature 98.5 F Pulse Rate 82 98 H Respiratory 22 Rate Blood Pressure 180/110 O2 Sat by Pulse 96 Oximetry - Consultations Consultation #1: 04/12/22 12:[address] Damon. He expresses concern that patient is chronically noncompliant with recommended restricted fluid intake. Agrees with admission for dialysis tomorrow ED Medical Decision Making - Lab Data Result diagrams: 04/12/22 10:47 04/12/22 10:47 Lab Results 04/12/22 04/12/22 04/12/22 Range/Units 10:47 10:47 10:47 WBC 6.4 (4.5-11.0) K/mm3 RBC 2.89 L (3.65-5.03) M/mm3 Hgb 8.8 L (11.8-15.2) gm/dl Hct 26.9 L (35.5-45.6) % MCV 93 (84-94) fl MCH 30 (28-32) pg MCHC 33 (32-34) % RDW 19.3 H (13.2-15.2) % Plt Count 112 L (140-440) K/mm3 Lymph % (Auto) 14.8 (13.4-35.0) % [place] % (Auto) 10.9 H (0.0-7.3) % Eos % (Auto) 0.7 (0.0-4.3) % Baso % (Auto) 0.4 (0.0-1.8) % Lymph # (Auto) 0.9 L (1.2-5.4) K/mm3 [place] # (Auto) 0.7 (0.0-0.8) K/mm3 Eos # (Auto) 0.0 (0.0-0.4) K/mm3 Baso # (Auto) 0.0 (0.0-0.1) K/mm3 Seg Neutrophils % 73.2 H (40.0-70.0) % Seg Neutrophils # 4.7 (1.8-7.7) K/mm3 PT 14.5 (12.2-14.9) Sec. INR 1.02 (0.87-1.13) Sodium 142 (137-145) mmol/L Potassium 4.3 (3.6-5.0) mmol/L Chloride 98.6 (98-107) mmol/L Carbon Dioxide 25 (22-30) mmol/L Anion Gap 23 mmol/L BUN 62 H (9-20) mg/dL Creatinine 11.8 H (0.8-1.3) mg/dL Estimated GFR 6 ml/min BUN/Creatinine Ratio 5 % Glucose 75 (75-100) mg/dL Calcium 9.3 (8.4-10.2) mg/dL Total Bilirubin 0.80 (0.1-1.2) mg/dL AST 19 (5-40) units/L ALT 28 (7-56) units/L Alkaline Phosphatase 60 (35-129) units/L Troponin T (0.00-0.029) ng/mL Total Protein 7.4 (6.3-8.2) g/dL Albumin 4.2 (3.9-5) g/dL Albumin/Globulin Ratio 1.3 % 04/12/22 Range/Units 10:47 WBC (4.5-11.0) K/mm3 RBC (3.65-5.03) M/mm3 Hgb (11.8-15.2) gm/dl Hct (35.5-45.6) % MCV (84-94) fl MCH (28-32) pg MCHC (32-34) % RDW (13.2-15.2) % Plt Count (140-440) K/mm3 Lymph % (Auto) (13.4-35.0) % [place] % (Auto) (0.0-7.3) % Eos % (Auto) (0.0-4.3) % Baso % (Auto) (0.0-1.8) % Lymph # (Auto) (1.2-5.4) K/mm3 [place] # (Auto) (0.0-0.8) K/mm3 Eos # (Auto) (0.0-0.4) K/mm3 Baso # (Auto) (0.0-0.1) K/mm3 Seg Neutrophils % (40.0-70.0) % Seg Neutrophils # (1.8-7.7) K/mm3 PT (12.2-14.9) Sec. INR (0.87-1.13) Sodium (137-145) mmol/L Potassium (3.6-5.0) mmol/L Chloride (98-107) mmol/L Carbon Dioxide (22-30) mmol/L Anion Gap mmol/L BUN (9-20) mg/dL Creatinine (0.8-1.3) mg/dL Estimated GFR ml/min BUN/Creatinine Ratio % Glucose (75-100) mg/dL Calcium (8.4-10.2) mg/dL Total Bilirubin (0.1-1.2) mg/dL AST (5-40) units/L ALT (7-56) units/L Alkaline Phosphatase (35-129) units/L Troponin T 0.207 H* (0.00-0.029) ng/mL Total Protein (6.3-8.2) g/dL Albumin (3.9-5) g/dL Albumin/Globulin Ratio % - EKG Data -: EKG Interpreted by Me (LVH, PVCs, repolarization abnormality) EKG shows normal: sinus rhythm, ST-T waves (No STEMI) Rate: normal - EKG Data When compared to previous EKG there are: no significant change - Radiology Data Radiology results: report reviewed CHEST 1 VIEW 04/12/2022 10:12 AM INDICATION / CLINICAL INFORMATION: Dyspnea. COMPARISON: 03/30/22 FINDINGS: SUPPORT DEVICES: None. HEART / MEDIASTINUM: Heart is enlarged but stable. Thoracic aortic arch stent graft is unchanged. LUNGS / PLEURA: Mild bilateral perihilar edema is unchanged. No pneumothorax. ADDITIONAL FINDINGS: No significant additional findings. IMPRESSION: 1. Mild cardiomegaly with perihilar pulmonary edema. - Medical Decision Making 41 yo male esrd on dialysis with suspected noncompliance with recommended fluid restriction who now presents with volume overload and symptomatic pulmonary edema. Elevated troponin noted and likely secondary to decreased clearance and chronic renal disease (trop level similar to previous). Patient does not endorse chest pain at this time and does not have any acute EKG abnormalities. Case discussed with his water main inspector with recommendation for admission for dialysis tomorrow. Patient placed on supplemental oxygen for symptomatic treatment. Critical Care Time: No Critical care attestation.: If time is entered above; I have spent that time in minutes in the direct care of this critically ill patient, excluding procedure time. ED Disposition Clinical Impression: Volume overload, End-stage renal disease needing dialysis, Pulmonary edema Hypertension Qualifiers: Hypertension type: primary hypertension Qualified Code(s): I10 - Essential (primary) hypertension Disposition: 09 ADMITTED INPATIENT Is pt being admited?: Yes Condition: Stable Instructions: Pulmonary Edema (ED), Hypertension (ED) Time of Disposition: 12:22
[2022-04-12 11:33] LABS: Basophils % (Auto) 0.4 % (0.0-1.8); Eosinophils % (Auto) 0.7 % (0.0-4.3); Hematocrit 26.9 % (35.5-45.6); Hemoglobin 8.8 gm/dl (11.8-15.2); Lymphocytes # (Auto) 0.9 K/mm3 (1.2-5.4); Lymphocytes % (Auto) 14.8 % (13.4-35.0); Mean Corpuscular HGB Conc 33 % (32-34); Mean Corpuscular Volume 93 fl (84-94); Monocytes # (Auto) 0.7 K/mm3 (0.0-0.8); Monocytes % (Auto) 10.9 % (0.0-7.3); Platelet Count 112 K/mm3 (140-440); Red Blood Count 2.89 M/mm3 (3.65-5.03); Red Cell Distribution Width 19.3 % (13.2-15.2)
[2022-04-12 11:42] LABS: INR 1.02 (0.87-1.13)
[2022-04-12 11:52] LABS: Albumin 4.2 g/dL (3.9-5); Calcium 9.3 mg/dL (8.4-10.2)
--- NOTE | 2022-04-12 12:24 | History and Physical Report ---
History of Present Illness Chief complaint: I am short of breath History of present illness: 41 YO Male with HTN, ESRD on HD(M,W,F), CHF, CVA with LHP, ETOH Dependence, Nicotine Dependence, COPD, DVT/PE not taking anticoagulation, Cardiomyopathy S/P Heart transplant in 04/2019, Noncompliant with low sodium diet and fluid restriction presents to ED for evaluation. Patient reports "I am short of breath". Patient states that he has experienced shortness of breath over the past 2 days with persistent symptoms over the same timeframe. Patient acknowledges noncompliance with outpatient dialysis as well as prescribed medication. EMS was notified and upon arrival the patient was found to be in distress and subsequent transported to [facility] for further care and evaluation of the aforementioned symptoms. The patient was seen and evaluated in the emergency department. All lab and imaging studies reviewed. Patient was found to have end-stage renal disease complicated by fluid overload, as well as accelerated hypertension, hyperkalemia, and clinical symptoms consistent with CHF decompensation. Patient refuses blood draws. Patient counseled and informed that refusal of diagnostic laboratory and imaging studies limits care and may prevent accurate diagnosis. Patient acknowledges understanding instructions. Patient continues to refuse care. Patient admitted to medical floor due to increased risk of worsening symptoms. Nephrology team consulted in ED for urgent dialysis. Patient denies fever, chills, chest pain, palpitation, productive cough, skin rash, recent ill contacts, or known exposure to COVID-19. Prior admission on 03/30/2022 reviewed. All medication listed at time of admission has been reconciled. Advanced care planning conducted in ED. Past History Past Medical History: acute [place], DVT, ESRD, hypertension, pulmonary embolism, other (See HPI) Past Surgical History: Other (Dialysis access) Social history: single. denies: smoking, alcohol abuse, prescription drug abuse Family history: diabetes, hypertension Medications and Allergies Allergies Allergy/AdvReac Type Severity Reaction Status Date / Time No Known Allergies Allergy Verified 03/11/22 08:27 Home Medications Medication Instructions Recorded Confirmed Last Taken Type Furosemide 80 mg PO QDAY 03/06/22 03/18/22 03/14/22 History Albuterol Mdi (or & Nicu Only) 90 mcg INHALATION QDAY PRN #1 03/18/22 Unknown Rx Amiodarone [Cordarone 200 MG TAB] 200 mg PO DAILY tablet 03/18/22 Unknown Rx AtorvaSTATin [Lipitor] 20 mg PO QHS 30 Days #30 tab 03/18/22 Unknown Rx amLODIPine 10 mg PO DAILY #30 tablet 03/18/22 Unknown Rx carvediloL [Coreg] 25 mg PO BID #60 tablet 03/18/22 Unknown Rx cloNIDine [Catapres] 0.2 mg PO TID 30 Days #90 tab 03/18/22 Unknown Rx hydrALAZINE [Apresoline TAB] 25 mg PO Q8HR #60 tablet 03/18/22 Unknown Rx Review of Systems Constitutional: weight gain, weakness, no weight loss, no fever, no chills Ears, nose, mouth and throat: no ear pain, no tinnitis Cardiovascular: shortness of breath, dyspnea on exertion, leg edema, decreased exercise tolerance Respiratory: no cough, no hemoptysis, no shortness of breath Gastrointestinal: no nausea, no vomiting Genitourinary Male: no hematuria, no flank pain, no urinary frequency, no urinary hesitancy Rectal: no incontinence Musculoskeletal: no arm numbness/tingling, no low back pain, no leg numbness/tingling Integumentary: no rash, no redness, no wounds, no blisters Neurological: no weakness, no seizures, no syncope, no ataxia Psychiatric: no anxiety, no sleep disturbances, no hypersomnia, no change in libido Endocrine: no cold intolerance, no polydipsia, no flushing Hematologic/Lymphatic: no easy bruising, no lymphadenopathy Allergic/Immunologic: no urticaria, no wheezing Exam - Constitutional Vitals: Temp Pulse Resp BP Pulse Ox 98.5 F 98 H 22 180/110 96 04/12/22 09:50 04/12/22 10:36 04/12/22 09:50 04/12/22 09:50 04/12/22 09:50 General appearance: Present: mild distress - EENT Eyes: Present: PERRL ENT: hearing intact, clear oral mucosa - Neck Neck: Present: supple, normal ROM - Respiratory Respiratory effort: normal Respiratory: bilateral: diminished, rhonchi - Cardiovascular Heart Sounds: Present: S1 & S2. Absent: rub, click - Extremities Extremities: pulses symmetrical Extremity abnormal: edema Peripheral Pulses: within normal limits - Abdominal General gastrointestinal: Present: soft, non-tender, non-distended, normal bowel sounds Male genitourinary: Present: normal - Integumentary Integumentary: Present: clear, warm, dry - Musculoskeletal Musculoskeletal: gait normal, strength equal bilaterally - Psychiatric Psychiatric: appropriate mood/affect, intact judgment & insight - Neurologic Neurologic: CNII-XII intact, moves all extremities HEART Score - HEART Score Troponin: Troponin T 0.207 ng/mL (0.00-0.029) H* 04/12/22 10:47 Results - Labs CBC & Chem 7: 04/12/22 10:47 04/12/22 10:47 Labs: Abnormal lab results 04/12/22 04/12/22 04/12/22 Range/Units 10:47 10:47 10:47 RBC 2.89 L (3.65-5.03) M/mm3 Hgb 8.8 L (11.8-15.2) gm/dl Hct 26.9 L (35.5-45.6) % RDW 19.3 H (13.2-15.2) % Plt Count 112 L (140-440) K/mm3 [place] % (Auto) 10.9 H (0.0-7.3) % Lymph # (Auto) 0.9 L (1.2-5.4) K/mm3 Seg Neutrophils % 73.2 H (40.0-70.0) % BUN 62 H (9-20) mg/dL Creatinine 11.8 H (0.8-1.3) mg/dL Troponin T 0.207 H* (0.00-0.029) ng/mL Assessment and Plan - Patient Problems (1) End stage renal disease Current Visit: Yes Status: Acute Plan to address problem: Dialysis as per renal team, strict I's/O, monitor urine output every shift, blood pressure control, avoid nephrotoxic agents. (2) Fluid overload Current Visit: Yes Status: Acute Qualifiers: Hypervolemia type: unspecified Qualified Code(s): E87.70 - Fluid overload, unspecified Plan to address problem: Dialysis as per renal team, monitor fluid balance, strict I's/O, (3) CHF (congestive heart failure) Current Visit: Yes Status: Acute Qualifiers: Heart failure chronicity: acute Plan to address problem: Strict I's/O, monitor urine output, daily weight, afterload reduction, blood pressure control, urgent dialysis. Echocardiogram from January 2022 reviewed. (4) Hx of pulmonary embolus Current Visit: No Status: Chronic Plan to address problem: Patient noncompliant with therapeutic anticoagulation. Patient counseled. (5) Hypertension Current Visit: No Status: Chronic Qualifiers: Hypertension type: primary hypertension Qualified Code(s): I10 - Essential (primary) hypertension Plan to address problem: Monitor blood pressure every shift, continue medical management. (6) Nicotine dependence Current Visit: No Status: Chronic Qualifiers: Nicotine product type: cigarettes Substance use status: in withdrawal Qualified Code(s): F17.213 - Nicotine dependence, cigarettes, with withdrawal Plan to address problem: Smoking cessation counseling, supportive care, behavior change counseling, +15 minutes. (7) Noncompliance Current Visit: No Status: Chronic Plan to address problem: Patient counseled regarding noncompliance with diet, noncompliant with medication. Patient informed that further noncompliance could result in worsening symptoms and premature . Patient acknowledges understanding instructions, (8) Cardiorenal syndrome Current Visit: Yes Status: Acute Plan to address problem: Nephrology team consulted, blood pressure goal control, supportive care, continue medical management. (9) DVT prophylaxis Current Visit: Yes Status: Acute Plan to address problem: SCD to bilateral lower extremities while in bed (10) Advance care planning Current Visit: Yes Status: Acute Plan to address problem: Disease education done, care plan discussed, diagnoses discussed, prognosis discussed, patient is full code. Patient acknowledges understanding and a greement with care plan. Patient refuses lab draws and diagnostic testing. Patient counseled regarding limitations to medical care with continued noncompliance. +30 minutes. (11) Preventative health care Current Visit: Yes Status: Acute Plan to address problem: Patient counseled regarding renal diet, low sodium diet, balanced diet, meal planning, patient counseled regarding noncompliance with medical care. +30 minutes.
[2022-04-12] MEDS ORDERED: HYDROmorphone 0.5 MG/0.5 ML INJ IV PRN (12:26)
[2022-04-12] MEDS ORDERED: ACETAMINOPHEN 325 MG TAB PO PRN (12:26)
[2022-04-12] MEDS ORDERED: oxyCODONE /ACETAMINOPHEN 5-325MG TAB PO PRN (12:26)
[2022-04-12] MEDS ORDERED: ONDANSETRON 4 MG/2 ML INJ IV PRN (12:26)
[2022-04-12] MEDS ORDERED: ALBUTEROL 2.5 MG/3 ML NEBU IH PRN (12:26)
[2022-04-12 13:03] LABS: Chol/HDL Ratio 2.71 %
[2022-04-12] MEDS: hydrALAZINE 25 MG TAB PO SCH ×2 (14:02→22:33)
[2022-04-12] MEDS: cloNIDine 0.1 MG TAB PO SCH ×2 (14:05→20:50)
[2022-04-12] MEDS: FUROSEMIDE 40 MG/4 ML INJ IV SCH (20:50)
[2022-04-12] MEDS: guaiFENesin 100 MG/5 ML ORAL LIQD PO PRN (20:51)
--- NOTE | 2022-04-12 21:47 | Electrocardiograph Report ---
[facility] Test Date: 2022-04-12 Test Time: 10:20:38 Pat Name: GEO ARANA Department: Room: A482 Gender: M Vp Data: ADARSH : 1980 Requested By: ADILSON EDWARD Order Number: [id number] Reading MD: Milton Lopez Measurements Intervals [place] Rate: 83 P: 57 IN: 149 QRS: -22 QRSD: 121 T: 111 QT: 448 QTc: 521 Interpretive Statements Sinus rhythm Ventricular premature complex Probable left atrial enlargement LVH with IVCD and secondary repol abnrm Compared to ECG 03/31/2022 13:08:07 Ventricular premature complex(es) now present Left ventricle hypertrophy and interventricular conduction delay are now evident Electronically Signed On 04-12-2022 21:47:18 EDT by Milton Lopez
[2022-04-12] MEDS: carvediloL 25 MG TAB PO SCH (22:33)
[2022-04-12] MEDS ORDERED: diphenhydrAMINE 25 MG CAP PO ONE (23:09)
[2022-04-13] MEDS ORDERED: diphenhydrAMINE 25 MG CAP PO ONE (02:20)
[2022-04-13] MEDS ORDERED: SODIUM CHLORIDE 0.9% 100 ML IV PRN ×2 (02:59→12:01)
[2022-04-13] MEDS ORDERED: EPOETIN ALFA-EPBX 10,000 UNIT/1 ML VIAL SUB-Q PRN (02:59)
[2022-04-13] MEDS ORDERED: HEPARIN 10,000 UNITS/10 ML VIAL IV PRN (02:59)
[2022-04-13] MEDS: FUROSEMIDE 40 MG/4 ML INJ IV SCH ×2 (06:08→17:22)
[2022-04-13] MEDS: hydrALAZINE 25 MG TAB PO SCH ×3 (06:08→21:28)
[2022-04-13 06:28] LABS: Calcium 8.7 mg/dL (8.4-10.2)
[2022-04-13] MEDS: cloNIDine 0.2 MG TAB PO SCH ×3 (08:09→21:28)
[2022-04-13] MEDS ORDERED: diphenhydrAMINE 50 MG/ML VIAL ONE (11:50)
[2022-04-13] MEDS: carvediloL 25 MG TAB PO SCH ×2 (12:05→21:28)
[2022-04-13] MEDS ORDERED: diphenhydrAMINE 50 MG/ML VIAL IV PRN (12:30)
--- NOTE | 2022-04-13 12:33 | Consultation ---
History of Present Illness - Reason for Consult Consult date: 04/13/22 - History of Present Illness 41yr M on HD at [facility] [place] q mwf, missed last HD due to transportation problems. Presented with SOB & Volume overload Past History Past Medical History: acute [place], DVT, ESRD, hypertension, pulmonary embolism, other (See HPI) Past Surgical History: Other (Dialysis access) Social history: single. denies: smoking, alcohol abuse, prescription drug abuse Family history: diabetes, hypertension Medications and Allergies Allergies Allergy/AdvReac Type Severity Reaction Status Date / Time No Known Allergies Allergy Verified 03/11/22 08:27 Home Medications Medication Instructions Recorded Confirmed Last Taken Type Furosemide 80 mg PO QDAY 03/06/22 03/18/22 03/14/22 History Albuterol Mdi (or & Nicu Only) 90 mcg INHALATION QDAY PRN #1 03/18/22 Unknown Rx Amiodarone [Cordarone 200 MG TAB] 200 mg PO DAILY tablet 03/18/22 Unknown Rx AtorvaSTATin [Lipitor] 20 mg PO QHS 30 Days #30 tab 03/18/22 Unknown Rx amLODIPine 10 mg PO DAILY #30 tablet 03/18/22 Unknown Rx carvediloL [Coreg] 25 mg PO BID #60 tablet 03/18/22 Unknown Rx cloNIDine [Catapres] 0.2 mg PO TID 30 Days #90 tab 03/18/22 Unknown Rx hydrALAZINE [Apresoline TAB] 25 mg PO Q8HR #60 tablet 03/18/22 Unknown Rx Active Meds: Active Medications Acetaminophen (Acetaminophen 325 Mg Tab) 650 mg PO Q4H PRN PRN Reason: Pain MILD(1-3)/Fever >100.5/GRAJEDA Albuterol (Albuterol 2.5 Mg/3 Ml Nebu) 2.5 mg IH Q4HRT PRN PRN Reason: Shortness Of Breath Amiodarone HCl (Amiodarone 200 Mg Tab) 200 mg PO DAILY LALITA Amlodipine Besylate (Amlodipine 10 Mg Tab) 10 mg PO DAILY LALITA Atorvastatin Calcium (Atorvastatin 20 Mg Tab) 20 mg PO QHS [facility] Last Admin: 04/12/22 22:33 Dose: 20 mg Carvedilol (Carvedilol 25 Mg Tab) 25 mg PO BID LALITA Last Admin: 04/13/22 12:05 Dose: 25 mg Clonidine HCl (Clonidine 0.2 Mg Tab) 0.2 mg PO TID [facility] Last Admin: 04/13/22 08:09 Dose: 0.2 mg Diphenhydramine HCl (Diphenhydramine 50 Mg/Ml Vial) 25 mg IV BUSTER PRN PRN Reason: Itching Epoetin Sd-epbx (Epoetin Sd-Epbx 10,000 Unit/1 Ml Vial) 10,000 unit SUB-Q BUSTER PRN PRN Reason: hemodialysis Last Admin: 04/13/22 12:07 Dose: 10,000 unit Furosemide (Furosemide 40 Mg/4 Ml Inj) 40 mg IV 0600,1800 [facility] Last Admin: 04/13/22 06:08 Dose: 40 mg Guaifenesin (Guaifenesin 100 Mg/5 Ml Oral Liqd) 200 mg PO Q4H PRN PRN Reason: Cough Last Admin: 04/12/22 20:51 Dose: 200 mg Heparin Sodium (Porcine) (Heparin 10,000 Units/10 Ml Vial) 3,000 unit IV BUSTER PRN PRN Reason: hemodialysis Hydralazine HCl (Hydralazine 25 Mg Tab) 25 mg PO Q8HR [facility] Last Admin: 04/13/22 06:08 Dose: 25 mg Hydromorphone HCl (Hydromorphone 0.5 Mg/0.5 Ml Inj) 0.5 mg IV Q23H PRN PRN Reason: Pain , Severe (7-10) Sodium Chloride (Nacl 0.9%) 100 mls @ 999 mls/hr IV BUSTER PRN PRN Reason: Hypotension Sodium Chloride (Nacl 0.9%) 100 mls @ 999 mls/hr IV BUSTER PRN PRN Reason: Hypotension Ondansetron HCl (Ondansetron 4 Mg/2 Ml Inj) 4 mg IV Q8H PRN PRN Reason: Nausea And Vomiting Oxycodone/Acetaminophen (Oxycodone /Acetaminophen 5-325mg Tab) 1 tab PO Q6H PRN PRN Reason: Pain, Moderate (4-6) Sodium Chloride (Sodium Chloride 0.9% 10 Ml Flush Syringe) 10 ml IV BID [facility] Last Admin: 04/13/22 09:47 Dose: 10 ml Sodium Chloride (Sodium Chloride 0.9% 10 Ml Flush Syringe) 10 ml IV PRN PRN PRN Reason: LINE FLUSH Review of Systems Constitutional: no fever, no chills Cardiovascular: leg edema, no chest pain, no orthopnea, no palpitations Respiratory: shortness of breath, no cough Gastrointestinal: no abdominal pain, no nausea, no vomiting Exam - Vital Signs Vital signs: Vital Signs Temp Pulse Resp BP Pulse Ox 98.5 F 82 22 180/110 96 04/12/22 09:50 04/12/22 09:50 04/12/22 09:50 04/12/22 09:50 04/12/22 09:50 - General Appearance General appearance: other (Awake & alert) EENT: PERRL, hearing intact Neck: Present: neck supple Respiratory: Rales Heart: regular, S1S2 Gastrointestinal: Present: normal Integumentary: warm and dry Neurologic: no focal deficit, alert and oriented x3 Results - Lab Results 04/12/22 10:47 04/13/22 05:17 Most recent lab results Calcium 8.7 mg/dL (8.4-10.2) 04/13/22 05:17 Assessment and Plan ESRD - Seen on HD via Lt arm AVF Uncontrolled HTN - Adjust meds for better control Edema with Volume overload - UF on HD Anemia - SILVANO on HD Thanks, will f/u with you
[2022-04-13] MEDS: guaiFENesin 100 MG/5 ML ORAL LIQD PO PRN (15:29)
[2022-04-13] MEDS: AMIODARONE 200 MG TAB PO SCH (15:37)
[2022-04-13] MEDS: amLODIPine 10 MG TAB PO SCH (15:37)
--- NOTE | 2022-04-13 15:55 | Discharge Summary ---
Providers - Providers Date of Admission: 04/12/22 12:16 Date of discharge: 04/13/22 Attending physician: SANAZ PAYAN 04/12/22 12:18 Consult to Physician [CONS] Urgent Comment: Consulting Provider: JYOTI KING Physician Instructions: Reason For Exam: volume overload, esrd Primary care physician: CONSTITUTIONAL LAW PROFESSOR Hospitalization Condition: Stable Hospital course: This is a 41-year-old -Martiniquais male presented to the hospital for dialysis need. Nephrology was consulted, patient was dialyzed and following dialysis vitals noted to be stable and was discharged in stable condition. Encouraged to be compliant with the dialysis. Assessment and plan: -Acute hypoxic respiratory failure: requiring supplemental oxygen Wean oxygen as tolerated, titrate O2 sats to more than 90% Secondary to missed hemodialysis and fluid overload - Worsening shortness of breath/secondary to fluid overload/due to missed dialysis Nephrology consulted ,hemodialysis per schedule, oxygen titrate O2 sats to more than 90%, supportive care --Fluid overload; due to missed hemodialysis HD per schedule nephrology consulted -- ESRD; on dialysis Hemodialysis per schedule -- Elevated troponin, chronic, likely NSTEMI type II due to end-stage renal disease -hypertension; moderate control Continue current antihypertensives As needed hydralazine -- Peripheral neuropathy; Continue home gabapentin -- DVT prophylaxis; Subcu heparin -- Medical noncompliance; Counseled the importance of adhering to the treatment plan diet and mainly hemodialysis And follow-up visits --Full code Disposition: 01 HOME / SELF CARE / HOMELESS Final Discharge Diagnosis (Prints w/discharge instructions): Acute hypoxic respiratory failure requiring supplemental oxygen. Worsening shortness of breath. Fluid overload. End-stage renal disease on hemodialysis. hypertension moderate control. Peripheral neuropathy. Medical noncompliance Time spent for discharge: 34 minutes Core Measure Documentation - Palliative Care Palliative Care/ Comfort Measures: Not Applicable - Core Measures Any of the following diagnoses?: none Exam - Physical Exam Narrative exam: GENERAL: well-developed and well-nourished male lying on bed appeared to be in no discomfort. HEENT: Normocephalic. Atraumatic. No conjunctival congestion or icterus. Patient has moist mucous membranes. NECK: Supple. Trachea midline. CHEST/LUNGS: Clear to auscultated bilaterally, breathing nonlabored. No wheezes crackles or rhonchi. HEART/CARDIOVASCULAR: Regular in rate and rhythm. S1 and S2 positive. ABDOMEN: Abdomen is soft, nontender. Patient has normal bowel sounds. SKIN: There is no rash. Warm and dry. NEURO: No focal motor deficit. Follows command. MUSCULOSKELETAL: No joint effusion or tenderness. EXTRIMITY: No edema, no cyanosis or clubbing. PSYCH: Cooperative. - Constitutional Vitals: Temp Pulse Resp BP Pulse Ox 36.9 F L 68 20 121/72 86 04/13/22 11:15 04/13/22 11:35 04/13/22 11:15 04/13/22 11:35 04/13/22 12:00 Plan Activity: advance as tolerated Weight Bearing Status: Weight Bear as Tolerated Diet: renal Additional Instructions: If you have worsening symptoms contact MD or go to the nearest emergency room. Advised to follow nephrology/hemodialysis per schedule. Strongly advised to comply with medications, diet, follow-up visits, hemodialysis. Follow up with: PRIMARY CAREMD [Primary Care Provider] - 7 Days
[2022-04-13 16:18] LABS: Hepatitis B Surface Antigen Non-Reactive (Negative); Hepatitis C Virus Antibody Non-Reactive (NonReactive)
[2022-04-14] MEDS: hydrALAZINE 25 MG TAB PO SCH (06:32)
[2022-04-14] MEDS: FUROSEMIDE 40 MG/4 ML INJ IV SCH (06:33)
[2022-04-14 08:52] VITALS: BP 126/74
[2022-04-14] MEDS: cloNIDine 0.2 MG TAB PO SCH (08:53)
[2022-04-14] MEDS: amLODIPine 10 MG TAB PO SCH ×2 (08:53→08:59)
[2022-04-14] MEDS: carvediloL 25 MG TAB PO SCH ×2 (08:53→09:00)
[2022-04-14] MEDS: AMIODARONE 200 MG TAB PO SCH ×2 (08:54→08:59)
--- NOTE | 2022-04-14 19:27 | Event Note ---
Date: 04/14/22 Patient was discharged yesterday by . Did not leave due to technical reasons Today Case management assisted with discharge . Patient is stable at discharge
--- NOTE | 2022-04-14 21:34 | Discharge Summary ---
Providers - Providers Date of Admission: 04/12/22 12:16 Date of discharge: 04/14/22 Attending physician: RILEY TALAMANTES 04/12/22 12:18 Consult to Physician [CONS] Urgent Comment: Consulting Provider: JYTOI KING Physician Instructions: Reason For Exam: volume overload, esrd Primary care physician: TRICHOLOGIST Hospitalization Condition: Stable Disposition: 01 HOME / SELF CARE / HOMELESS Core Measure Documentation - Palliative Care Palliative Care/ Comfort Measures: Not Applicable Exam - Constitutional Vitals: Temp Pulse Resp BP Pulse Ox 97.1 F L 73 16 126/74 100 04/14/22 08:46 04/14/22 08:46 04/14/22 08:46 04/14/22 08:46 04/14/22 10:59 Plan Follow up with: PRIMARY CAREMD [Primary Care Provider] - 7 Days
== END 2022-04-14 17:47 | disposition home or self-care (01) ==
LOC: ED 08:52 → INTOOBSV 12:16 → 3A 12:16 → 4A 19:51
PROVIDERS: ADMIT Internal Medicine; ATTEND Internal Medicine
DX: E87.70 Fluid overload, unspecified (principal); I13.2 Hypertensive heart and chronic kidney disease with heart failure and with stage 5 chronic kidney disease, or end stage renal disease; I50.9 Heart failure, unspecified; N18.6 End stage renal disease; E11.22 Type 2 diabetes mellitus with diabetic chronic kidney disease; I25.2 Old myocardial infarction; D64.9 Anemia, unspecified; J45.909 Unspecified asthma, uncomplicated; J81.1 Chronic pulmonary edema; F10.20 Alcohol dependence, uncomplicated; F17.213 Nicotine dependence, cigarettes, with withdrawal; Z86.711 Personal history of pulmonary embolism; Z91.19 Patient's noncompliance with other medical treatment and regimen; Z86.718 Personal history of other venous thrombosis and embolism
CPT/HCPCS: 36415; 71045; 80048; 80053; 80061; 80074; 83880; 84484; 85025; 85610; 93005; 94640; 94760; 96374; 96375; 96376; 99285; G0378; J0885; J1200; J1940

== ENCOUNTER 2022-05-22 01:08 | Inpatient (IN) | payer MEDICARE ==
--- NOTE | 2022-05-22 02:09 | Emergency Department Report ---
ED General Adult HPI - General Chief complaint: Recheck/Abnormal Lab/Rx Stated complaint: MISSED DIALYSIS Time Seen by Provider: 05/22/22 01:58 Source: patient, EMS ( EMS documentation not available at time of chart dictation ), RN notes reviewed, old records reviewed Mode of arrival: Ambulatory Limitations: No Limitations - History of Present Illness Initial comments: The patient was evaluated in the emergency department for symptoms described in the history of present illness. He/she was evaluated in the context of the global COVID-19 pandemic, which necessitated consideration that the patient might be at risk for infection with the virus that causes COVID-19. Institutional protocols and algorithms that pertain to the evaluation of patients at risk for COVID-19 are in a state of rapid change based on information released by regulatory bodies including the CDC and federal and state organizations. These policies and algorithms were followed during the patient's care in the emergency department. Please note that these policies, procedures and recommendations changed on a rapid basis. Nephrology: Dr. Lizandro Lu This patient is a pleasant and cooperative 41-year-old gentleman with a history of end-stage renal disease on hemodialysis, who presents to the department today with a complaint of missing dialysis, and stating that he is fluid overloaded. He has mild lower extremity swelling and cramping up to his thighs. He has cough and shortness of breath. He otherwise denies physical pain. He typically gets hemodialysis Wednesday, Wednesday and Wednesday. He does produce urine. He is requesting Lasix. He states his last dialysis session was a few Mondays ago. He was not able to obtain hemodialysis as an outpatient, secondary to work- related obligations. -: days(s) Location: left, right, lower extremity Consistency: constant Improves with: other (Lasix, hemodialysis) Worsens with: other (Missing hemodialysis) Associated Symptoms: cough - Related Data Home Medications Medication Instructions Recorded Confirmed Last Taken Furosemide 80 mg PO QDAY 03/06/22 03/18/22 03/14/22 Previous Rx's Medication Instructions Recorded Last Taken Type Albuterol Mdi (or & Nicu Only) 90 mcg INHALATION QDAY PRN #1 03/18/22 Unknown Rx Amiodarone [Cordarone 200 MG TAB] 200 mg PO DAILY tablet 03/18/22 Unknown Rx AtorvaSTATin [Lipitor] 20 mg PO QHS 30 Days #30 tab 03/18/22 Unknown Rx amLODIPine 10 mg PO DAILY #30 tablet 03/18/22 Unknown Rx carvediloL [Coreg] 25 mg PO BID #60 tablet 03/18/22 Unknown Rx cloNIDine [Catapres] 0.2 mg PO TID 30 Days #90 tab 03/18/22 Unknown Rx hydrALAZINE [Apresoline TAB] 25 mg PO Q8HR #60 tablet 03/18/22 Unknown Rx Allergies Allergy/AdvReac Type Severity Reaction Status Date / Time No Known Allergies Allergy Verified 03/11/22 08:27 ED Review of Systems ROS: Stated complaint: MISSED DIALYSIS Other details as noted in HPI Constitutional: denies: fever Eyes: denies: eye discharge ENT: congestion Respiratory: cough, shortness of breath Cardiovascular: edema. denies: chest pain Gastrointestinal: denies: abdominal pain Musculoskeletal: myalgia Neurological: denies: weakness Hematological/Lymphatic: denies: easy bleeding ED Past Medical Hx - Past Medical History Previous Medical History?: Yes Hx Hypertension: Yes Hx CVA: Yes Hx Heart Attack/AMI: Yes Hx Congestive Heart Failure: Yes Hx Diabetes: Yes Hx Deep Vein Thrombosis: Yes Hx Pulmonary Embolism: Yes Hx Renal Disease: Yes Hx Arthritis: No Hx Headaches / Migraines: No Hx Kidney Stones: No Hx Asthma: Yes Hx COPD: No Hx Tuberculosis: No Hx Dementia: No Additional medical history: heart problems - Surgical History Past Surgical History?: Yes Hx Coronary Stent: No Hx Pacemaker: No Hx Internal Defibrillator: No Hx Cholecystectomy: No Hx Appendectomy: No Additional Surgical History: abd hernia, not repaired yet;aorta rupture and repair - Social History Smoking Status: Current Every Day Smoker Substance Use Type: Alcohol - Medications Home Medications: Home Medications Medication Instructions Recorded Confirmed Last Taken Type Furosemide 80 mg PO QDAY 03/06/22 03/18/22 03/14/22 History Albuterol Mdi (or & Nicu Only) 90 mcg INHALATION QDAY PRN #1 03/18/22 Unknown Rx Amiodarone [Cordarone 200 MG TAB] 200 mg PO DAILY tablet 03/18/22 Unknown Rx AtorvaSTATin [Lipitor] 20 mg PO QHS 30 Days #30 tab 03/18/22 Unknown Rx amLODIPine 10 mg PO DAILY #30 tablet 03/18/22 Unknown Rx carvediloL [Coreg] 25 mg PO BID #60 tablet 03/18/22 Unknown Rx cloNIDine [Catapres] 0.2 mg PO TID 30 Days #90 tab 03/18/22 Unknown Rx hydrALAZINE [Apresoline TAB] 25 mg PO Q8HR #60 tablet 03/18/22 Unknown Rx ED Physical Exam - General Limitations: No Limitations General appearance: alert, anxious - Head Head exam: Present: atraumatic, normocephalic - Eye Eye exam: Present: normal appearance, EOMI. Absent: nystagmus - ENT ENT exam: Present: normal exam, normal orophraynx, mucous membranes moist, normal external ear exam - Neck Neck exam: Present: normal inspection, full ROM. Absent: tenderness, meningismus - Respiratory Respiratory exam: Present: respiratory distress, rales. Absent: rhonchi, stridor - Cardiovascular Cardiovascular Exam: Present: regular rate, normal rhythm, normal heart sounds, JVD. Absent: bradycardia, tachycardia, irregular rhythm, systolic murmur, diastolic murmur, rubs, gallop - GI/Abdominal GI/Abdominal exam: Present: soft. Absent: distended, tenderness, guarding, rebound, rigid, pulsatile mass - Rectal Rectal exam: Present: deferred - Extremities Exam Extremities exam: Present: normal inspection (There is a right upper extremity fistula, with an appropriate thrill, without redness, pus or streaking), full ROM, pedal edema (3+ edema in the bilateral lower extremities), other (2+ pulses noted in the bilateral upper and lower extremities. There is no palpable cord. negative Homans sign. Muscular compartments are soft. The pelvis is stable.). Absent: calf tenderness - Back Exam Back exam: Present: normal inspection. Absent: tenderness, CVA tenderness (R), CVA tenderness (L), paraspinal tenderness, vertebral tenderness - Neurological Exam Neurological exam: Present: alert, oriented X3, normal gait, other (No facial droop. Tongue midline. Extraocular movements intact bilaterally. Facial sensation intact to light touch in V1, V2, V3 distribution bilaterally. 5 and a 5 strength in 4 extremities. Sensation intact to light touch in 4 extremiti es.). Absent: motor sensory deficit - Psychiatric Psychiatric exam: Present: anxious - Skin Skin exam: Present: warm, dry, intact, normal color. Absent: rash ED Course Vital Signs 05/22/22 01:13 Temperature 98.7 F Pulse Rate 77 Respiratory 18 Rate Blood Pressure 170/94 O2 Sat by Pulse 100 Oximetry - Reevaluation(s) Reevaluation #1: 05/22/22 03:06 Differential diagnosis, including not limited to: Fluid overload, hypertensive urgency, azotemia, uremia, metabolic acidosis, end-stage renal disease requiring dialysis, noncompliance. Assessment and plan: 41-year-old gentleman who is noncompliant with outpatient hemodialysis, presenting with obvious evidence of fluid overload, manifested by JVD, rales, lower extremity edema, found to be azotemic, uremic, with metabolic acidosis. He is requesting Lasix 05/22/22 03:08 I discussed the patient's history, physical, laboratory studies and imaging studies with his spotter, Dr. Bone Session He is in agreement with the plan of care to administer Lasix, admit for, for urgent hemodialysis. Patient is agreeable to admission and hospitalization for acquisition and initiation of hemodialysis. Hospital physician, Dr. Hazel Ball to admit to [facility] ED Medical Decision Making - Lab Data Result diagrams: 05/22/22 02:09 05/22/22 02:09 Vital Signs 05/22/22 01:13 Temperature 98.7 F Pulse Rate 77 Respiratory 18 Rate Blood Pressure 170/94 O2 Sat by Pulse 100 Oximetry - EKG Data 05/22/22 02:48 The EKG is interpreted at 0 2: 3 1 Sinus rhythm, rate 70 bpm. Left axis deviation, left ventricular hypertrophy, left anterior fascicular block, interventricular conduction delay. QTC 505 ms. Abnormal EKG. Denies chest pain. Not a STEMI. Hypertensive changes - Radiology Data Radiology results: pending, report reviewed, image reviewed CHEST 1 VIEW INDICATION / CLINICAL INFORMATION: ESRD MISSED HD. COMPARISON: None available. FINDINGS: SUPPORT DEVICES: None. HEART / MEDIASTINUM: Heart size is minimally enlarged. Prior placement of aortic stent graft within the mid to distal arch and proximal descending thoracic aorta. Previous sternotomy. LUNGS / PLEURA: Central vascular prominence with cephalization of venous structures. Lungs demonstrate fine interstitial prominence improved since comparison study. BONES: No significant osseous abnormality. ADDITIONAL FIND INGS: No significant additional findings. IMPRESSION: 1. Pulmonary venous hypertensive changes are suggested. Very minimal interstitial pulmonary edema not excluded. Signer Name: Arsalan Vaughan II, MD Signed: 05/22/2022 1:20 AM Workstation Name: [id number] Critical care attestation.: If time is entered above; I have spent that time in minutes in the direct care of this critically ill patient, excluding procedure time. ED Disposition Clinical Impression: Hypertensive urgency, ESRD needing dialysis, Noncompliance, Metabolic acidosis Disposition: 09 ADMITTED INPATIENT Is pt being admited?: Yes Does the pt Need Aspirin: No Condition: Good
[2022-05-22 02:22] LABS: Hematocrit 27.7 % (35.5-45.6); Hemoglobin 9.2 gm/dl (11.8-15.2); Mean Corpuscular HGB Conc 33 % (32-34); Mean Corpuscular Volume 95 fl (84-94); Platelet Count 117 K/mm3 (140-440); Red Blood Count 2.91 M/mm3 (3.65-5.03); Red Cell Distribution Width 17.3 % (13.2-15.2)
--- NOTE | 2022-05-22 02:24 | XRay Report ---
CHEST 1 VIEW INDICATION / CLINICAL INFORMATION: ESRD MISSED HD. COMPARISON: None available. FINDINGS: SUPPORT DEVICES: None. HEART / MEDIASTINUM: Heart size is minimally enlarged. Prior placement of aortic stent graft within t he mid to distal arch and proximal descending thoracic aorta. Previous sternotomy. LUNGS / PLEURA: Central vascular prominence with cephalization of venous structures. Lungs demonstrat e fine interstitial prominence improved since comparison study. BONES: No significant osseous abnormality. ADDITIONAL FINDINGS: No significant additional findings. IMPRESSION: 1. Pulmonary venous hypertensive changes are suggested. Very minimal interstitial pulmonary edema not excluded. Signer Name: Arsalan Vaughan II, MD Signed: 05/22/2022 2:20 AM Workstation Name: [id number]
[2022-05-22 02:41] LABS: Blood Urea Nitrogen 106 mg/dL (9-20); Calcium 9.5 mg/dL (8.4-10.2); Hemolysis Index 2
[2022-05-22 02:57] LABS: BUN/Creatinine Ratio 5
[2022-05-22] MEDS ORDERED: FUROSEMIDE 40 MG/4 ML INJ IV ONE (03:08)
[2022-05-22] MEDS ORDERED: ONDANSETRON 4 MG/2 ML INJ IV PRN (04:08)
[2022-05-22] MEDS ORDERED: MORPHINE 2 MG/1 ML INJ IV PRN (04:08)
[2022-05-22] MEDS ORDERED: MAGNESIUM HYDROXIDE (MOM) ORAL LIQD UDC PO PRN (04:08)
[2022-05-22] MEDS ORDERED: DEXTROSE 50% IN WATER (25GM) 50 ML SYRINGE IV PRN (04:08)
[2022-05-22] MEDS ORDERED: ACETAMINOPHEN 325 MG TAB PO PRN (04:08)
[2022-05-22] MEDS ORDERED: MORPHINE 4 MG/1 ML INJ IV PRN (04:08)
--- NOTE | 2022-05-22 04:19 | History and Physical Report ---
History of Present Illness Date of examination: 05/22/22 Date of admission: 05/22/2022 Chief complaint: Shortness of Breath Missed Dialysis History of present illness: 41-year-old -Kos[place] male with known history of end-stage renal disease on dialysisWednesday presenting to the emergency room today complaining of shortness of breath and stating that he has missed his dialysis. Patient indicates that he has been having some lower extremity cramping and swelling over the past few days. He has had some mild cough which is nonproductive. Denies any fever or chills, no chest pain. His last dialysis was about 5 days ago. States he missed his dialysis because he had to attend an interview at [facility]. Patient still makes some urine. Work-up in the emergency room today, labs significant for BUN of 106 and creatinine of 22.2. BNP of 35,000. Hemoglobin of 9.2 hematocrit of 27.7. Chest x-ray significant for pulmonary venous hypertension. Very minimal interstitial pulmonary edema not excluded. Wire Stripping Machine Operator on-call has been consulted by the ER physician. Patient has also received some IV Lasix in the ER. Past History Past Medical History: acute NM, diabetes, dialysis, DVT, ESRD, hypertension, stroke, other (Asthma) Past Surgical History: Other ( abd hernia, not repaired yet;aorta rupture and repair) Social history: smoking (Current Daily smoker), alcohol abuse Family history: no significant family history Medications and Allergies Allergies Allergy/AdvReac Type Severity Reaction Status Date / Time No Known Allergies Allergy Verified 03/11/22 08:27 Home Medications Medication Instructions Recorded Confirmed Last Taken Type Furosemide 80 mg PO QDAY 03/06/22 03/18/22 03/14/22 History Albuterol Mdi (or & Nicu Only) 90 mcg INHALATION QDAY PRN #1 03/18/22 Unknown Rx Amiodarone [Cordarone 200 MG TAB] 200 mg PO DAILY tablet 03/18/22 Unknown Rx AtorvaSTATin [Lipitor] 20 mg PO QHS 30 Days #30 tab 03/18/22 Unknown Rx amLODIPine 10 mg PO DAILY #30 tablet 03/18/22 Unknown Rx carvediloL [Coreg] 25 mg PO BID #60 tablet 03/18/22 Unknown Rx cloNIDine [Catapres] 0.2 mg PO TID 30 Days #90 tab 03/18/22 Unknown Rx hydrALAZINE [Apresoline TAB] 25 mg PO Q8HR #60 tablet 03/18/22 Unknown Rx Active Meds: Active Medications Acetaminophen (Acetaminophen 325 Mg Tab) 650 mg PO Q4H PRN PRN Reason: Pain MILD(1-3)/Fever >100.5/GRAJEDA Dextrose (Dextrose 50% In Water (25gm) 50 Ml Syringe) 50 ml IV Q30MIN PRN; Protocol PRN Reason: Hypoglycemia Heparin Sodium (Porcine) (Heparin 5,000 Unit/1 Ml Vial) 5,000 unit SUB-Q Q8HR LALITA Insulin Human Lispro (Insulin Lispro 100 Unit/Ml) 0 unit SUB-Q ACHS LALITA; Protocol Magnesium Hydroxide (Magnesium Hydroxide (Mom) Oral Liqd Udc) 30 ml PO Q4H PRN PRN Reason: Constipation Morphine Sulfate (Morphine 2 Mg/1 Ml Inj) 2 mg IV Q4H PRN PRN Reason: Pain, Moderate (4-6) Morphine Sulfate (Morphine 4 Mg/1 Ml Inj) 4 mg IV Q4H PRN PRN Reason: Pain , Severe (7-10) Ondansetron HCl (Ondansetron 4 Mg/2 Ml Inj) 4 mg IV Q8H PRN PRN Reason: Nausea And Vomiting Sodium Chloride (Sodium Chloride 0.9% 10 Ml Flush Syringe) 10 ml IV BID LALITA Sodium Chloride (Sodium Chloride 0.9% 10 Ml Flush Syringe) 10 ml IV PRN PRN PRN Reason: LINE FLUSH Review of Systems Constitutional: no fever, no chills Ears, nose, mouth and throat: no nasal congestion, no sore throat Cardiovascular: no chest pain, no palpitations Respiratory: cough, shortness of breath Gastrointestinal: no nausea, no vomiting, no diarrhea Genitourinary Male: no dysuria, no hematuria, no flank pain Musculoskeletal: no neck pain, no low back pain Integumentary: no rash, no pruritis Neurological: no headaches, no confusion Psychiatric: no anxiety, no depression Endocrine: no polyphagia, no polydipsia, no polyuria, no nocturia Exam - Constitutional Vitals: Temp Pulse Resp BP Pulse Ox 98.7 F 73 14 158/77 95 05/22/22 01:13 05/22/22 04:02 05/22/22 04:02 05/22/22 04:02 05/22/22 04:02 General appearance: Present: no acute distress, well-nourished - EENT Eyes: Present: PERRL, EOM intact. Absent: scleral icterus ENT: hearing intact, clear oral mucosa, dentition normal - Neck Neck: Present: supple, normal ROM - Respiratory Respiratory effort: normal Respiratory: bilateral: rales - Cardiovascular Rhythm: regular Heart Sounds: Present: S1 & S2. Absent: gallop, systolic murmur, diastolic murmur, rub, click - Extremities Extremities: no ischemia, pulses intact, pulses symmetrical, normal temperature, normal color, Full ROM Extremity abnormal: edema (2+ Bilateral lower extremity edema) Peripheral Pulses: within normal limits - Abdominal General gastrointestinal: Present: soft, non-tender, non-distended, normal bowel sounds. Absent: mass - Integumentary Integumentary: Present: clear, warm, dry, normal turgor. Absent: rash - Musculoskeletal Musculoskeletal: strength equal bilaterally - Psychiatric Psychiatric: appropriate mood/affect, intact judgment & insight, memory intact, cooperative - Neurologic Neurologic: CNII-XII intact, no focal deficits, moves all extremities Results - Labs CBC & Chem 7: 05/22/22 02:09 05/22/22 02:09 Labs: Abnormal lab results 05/22/22 05/22/22 Range/Units 02:09 02:09 RBC 2.91 L (3.65-5.03) M/mm3 Hgb 9.2 L (11.8-15.2) gm/dl Hct 27.7 L (35.5-45.6) % MCV 95 H (84-94) fl RDW 17.3 H (13.2-15.2) % Plt Count 117 L (140-440) K/mm3 Chloride 95.0 L (98-107) mmol/L BUN 106 H (9-20) mg/dL Creatinine 22.2 H (0.8-1.3) mg/dL NT-Pro-B Natriuret Pep > 99809 H (0-450) pg/mL Assessment and Plan Assessment: 1.ESRD- needing dialysis 2.Hypertensve Urgency 3.Diabetes mellitus 4.Hypervolemia Plan: 1.Admitted to Telemetry 2.Consult to Wire Stripping Machine Operator 3.Placed on sliding scale- Monitor accuchecks 4.Placed on antihypertensives - monitor blood pressure. 5. Compliance with medications and dialysis encouraged. DVT Prophylaxis: SQ heparin Code Status: Full Code.
[2022-05-22] MEDS: HEPARIN 5,000 UNIT/1 ML VIAL SUB-Q SCH ×3 (06:44→22:00)
[2022-05-22] MEDS: diphenhydrAMINE 50 MG/ML VIAL IV PRN ×3 (06:57→22:32)
[2022-05-22] MEDS ORDERED: HEPARIN 10,000 UNITS/10 ML VIAL IV PRN (08:00)
[2022-05-22] MEDS ORDERED: guaiFENesin DM 200/20 MG ORAL LIQD 10 ML PO PRN (08:00)
[2022-05-22] MEDS ORDERED: EPOETIN ALFA-EPBX 10,000 UNIT/1 ML VIAL SUB-Q PRN (08:00)
[2022-05-22] MEDS ORDERED: SODIUM CHLORIDE 0.9% 100 ML IV PRN (08:00)
[2022-05-22] MEDS: INSULIN LISPRO 100 UNIT/ML SUB-Q SCH ×4 (08:18→22:00)
[2022-05-22] MEDS: amLODIPine 10 MG TAB PO SCH (09:27)
[2022-05-22] MEDS: carvediloL 25 MG TAB PO SCH ×2 (09:27→22:27)
[2022-05-22] MEDS: cloNIDine 0.2 MG TAB PO SCH ×3 (09:27→22:27)
--- NOTE | 2022-05-22 09:43 | Consultation ---
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 Patient admits to missing the past 2 HD sessions. Patient admits to drinking excessive fluids. Patient continues to have bilateral leg swelling. Denies fever, chills, cough, PND, nausea, vomiting, diarrhea, abd pain or CP. Labs noted. CXR showed pulmonary venous HTN. Nephrology was consulted for ESRD management. Past History Past Medical History: acute IN, diabetes, dialysis, DVT, ESRD, hypertension, stroke, other (Asthma) Past Surgical History: Other ( abd hernia, not repaired yet;aorta rupture and repair) Social history: smoking (Current Daily smoker), alcohol abuse Family history: no significant family history Medications and Allergies Allergies Allergy/AdvReac Type Severity Reaction Status Date / Time No Known Allergies Allergy Verified 03/11/22 08:27 Home Medications Medication Instructions Recorded Confirmed Last Taken Type Albuterol Mdi (or & Nicu Only) 90 mcg INHALATION QDAY PRN #1 03/18/22 05/22/22 05/21/22 Rx Amiodarone [Cordarone 200 MG TAB] 200 mg PO DAILY tablet 03/18/22 05/22/22 05/21/22 Rx AtorvaSTATin [Lipitor] 20 mg PO QHS 30 Days #30 tab 03/18/22 05/22/22 05/21/22 Rx amLODIPine 10 mg PO DAILY #30 tablet 03/18/22 05/22/22 05/21/22 Rx carvediloL [Coreg] 25 mg PO BID #60 tablet 03/18/22 05/22/22 05/21/22 Rx cloNIDine [Catapres] 0.2 mg PO TID 30 Days #90 tab 03/18/22 05/22/22 05/21/22 Rx hydrALAZINE [Apresoline TAB] 25 mg PO Q8HR #60 tablet 03/18/22 05/22/22 05/21/22 Rx Active Meds: Active Medications Acetaminophen (Acetaminophen 325 Mg Tab) 650 mg PO Q4H PRN PRN Reason: Pain MILD(1-3)/Fever >100.5/GRAJEDA Amlodipine Besylate (Amlodipine 10 Mg Tab) 10 mg PO DAILY [facility] Last Admin: 05/22/22 09:27 Dose: Not Given Atorvastatin Calcium (Atorvastatin 20 Mg Tab) 20 mg PO QHS [facility] Carvedilol (Carvedilol 25 Mg Tab) 25 mg PO BID [facility] Last Admin: 05/22/22 09:27 Dose: Not Given Clonidine HCl (Clonidine 0.2 Mg Tab) 0.2 mg PO TID [facility] Last Admin: 05/22/22 09:27 Dose: Not Given Dextrose (Dextrose 50% In Water (25gm) 50 Ml Syringe) 0 ml IV Q30MIN PRN; Protocol PRN Reason: Hypoglycemia Diphenhydramine HCl (Diphenhydramine 50 Mg/Ml Vial) 25 mg IV Q6H PRN PRN Reason: Itching Last Admin: 05/22/22 06:57 Dose: 25 mg Epoetin Sd-epbx (Epoetin Sd-Epbx 10,000 Unit/1 Ml Vial) 10,000 unit SUB-Q BUSTER PRN PRN Reason: hemodialysis Guaifenesin (Guaifenesin Dm 200/20 Mg Oral Liqd 10 Ml) 20 ml PO Q4H PRN PRN Reason: Cough Heparin Sodium (Porcine) (Heparin 5,000 Unit/1 Ml Vial) 5,000 unit SUB-Q Q8HR [facility] Last Admin: 05/22/22 06:44 Dose: Not Given Heparin Sodium (Porcine) (Heparin 10,000 Units/10 Ml Vial) 3,000 unit IV BUSTER PRN PRN Reason: hemodialysis Hydralazine HCl (Hydralazine 25 Mg Tab) 25 mg PO Q8HR [facility] Sodium Chloride (Nacl 0.9%) 100 mls @ 999 mls/hr IV BUSTER PRN PRN Reason: Hypotension Insulin Human Lispro (Insulin Lispro 100 Unit/Ml) 0 unit SUB-Q ACHS [facility]; Protocol Last Admin: 05/22/22 08:18 Dose: Not Given Magnesium Hydroxide (Magnesium Hydroxide (Mom) Oral Liqd Udc) 30 ml PO Q4H PRN PRN Reason: Constipation Morphine Sulfate (Morphine 2 Mg/1 Ml Inj) 2 mg IV Q4H PRN PRN Reason: Pain, Moderate (4-6) Morphine Sulfate (Morphine 4 Mg/1 Ml Inj) 4 mg IV Q4H PRN PRN Reason: Pain , Severe (7-10) Ondansetron HCl (Ondansetron 4 Mg/2 Ml Inj) 4 mg IV Q8H PRN PRN Reason: Nausea And Vomiting Sodium Chloride (Sodium Chloride 0.9% 10 Ml Flush Syringe) 10 ml IV BID [facility] Last Admin: 05/22/22 09:28 Dose: Not Given Sodium Chloride (Sodium Chloride 0.9% 10 Ml Flush Syringe) 10 ml IV PRN PRN PRN Reason: LINE FLUSH Review of Systems All systems: negative Exam - Vital Signs Vital signs: Vital Signs Temp Pulse Resp BP Pulse Ox 98.7 F 77 18 170/94 100 05/22/22 01:13 05/22/22 01:13 05/22/22 01:13 05/22/22 01:13 05/22/22 01:13 Results - Lab Results 05/22/22 02:09 05/22/22 02:09 Most recent lab results Calcium 9.5 mg/dL (8.4-10.2) 05/22/22 02:09 Assessment and Plan 1. ESRD: Patient is on maintenance hemodialysis three times a week, MWF schedule. Meds dosage based on GFR. Hemodialysis: 05/22. 2. FEN: Volume overload, UF with HD tolerated. Diet non-compliance, counseled to limit salt and fluid intake. Strict renal diet. Binders as prescribed. Monitor lytes and volume status. 3. Acute resp distress, POA: Likely 2/2 pulmonary edema. Volume control with HD. Supplemental O2 as needed. 4. Uncontrolled HTN: Volume control thru HD. Adjust meds as needed. Monitor BP. Advised to limit salt and fluid intake. 5. H/o CHF: Monitor. 6. Anemia, POA: Epogen with HD as needed. 7. Tortuous AVF: No difficulty in using the AVF. Patient was advised to see Vascular outpatient. Subjective: Patient was seen and examined at the bedside. General Appearance: General appearance: well-developed, appears stated age, no distress EENT: ATNC, OSIRIS, hearing intact, vision intact Neck: neck supple, trachea midline Respiratory: bibasal rales heard Heart: regular, S1S2, no murmur Abdomen: soft, NT, BS heard Integumentary: no obvious rash Neurologic: AO, able to move extremities Ext: 1+ LE edema noted Hemodialysis access: R arm tortuous AVF
--- NOTE | 2022-05-22 11:01 | Event Note ---
Date: 05/22/22 Patient seen at bedside prior to transport for dialysis. Patient reports missing dialysis earlier this week due to employment obligations. We discussed the importance of compliance with hemodialysis and medications. Patient voiced understanding. We will continue with current care plan. Patient will be dialyzed today to reassessed for clinical improvement.
[2022-05-22 11:43] LABS: Hepatitis B Surface Antigen Non-Reactive (Negative); Hepatitis C Virus Antibody Non-Reactive (NonReactive)
[2022-05-22] MEDS: hydrALAZINE 25 MG TAB PO SCH ×2 (13:25→22:28)
[2022-05-22] MEDS ORDERED: cloNIDine 0.1 MG TAB PO SCH (14:00)
--- NOTE | 2022-05-22 14:11 | Electrocardiograph Report ---
[facility] Test Date: 2022-05-22 Test Time: 02:31:35 Pat Name: GEO ARANA Department: Room: A468 1 Gender: M [employer] Director: [id number] : 1980 Requested By: CARLOS MENDEZ Order Number: [id number] Reading MD: Milton Lopez Measurements Intervals [place] Rate: 70 P: 64 WA: 172 QRS: -19 QRSD: 124 T: 115 QT: 468 QTc: 505 Interpretive Statements Sinus rhythm Left atrial enlargement Left ventricular hypertrophy with repolarization abnormalities of LVH ST depression, consider lateral ischemia Compared to ECG 04/12/2022 10:20:38 PVCs no longer evident Electronically Signed On 05-22-2022 14:10:57 EDT by Milton Lopez
[2022-05-23] MEDS: hydrALAZINE 25 MG TAB PO SCH ×2 (07:33→13:50)
[2022-05-23] MEDS: HEPARIN 5,000 UNIT/1 ML VIAL SUB-Q SCH ×2 (08:07→13:50)
[2022-05-23] MEDS: INSULIN LISPRO 100 UNIT/ML SUB-Q SCH ×3 (09:24→16:42)
[2022-05-23] MEDS: cloNIDine 0.2 MG TAB PO SCH ×2 (09:29→13:50)
[2022-05-23] MEDS: amLODIPine 10 MG TAB PO SCH (09:29)
[2022-05-23] MEDS: carvediloL 25 MG TAB PO SCH (09:29)
--- NOTE | 2022-05-23 12:20 | Progress Note ---
Assessment and Plan Assessment and plan: 1.ESRD- needing dialysis 2.Hypertensve Urgency 3.Diabetes mellitus 4.Hypervolemia Plan: 1.patient had hemodialysis yesterday and he said he is not feeling well, dry and, short of breath. Patient does not want hemodialysis. Patient does not want to go home and understands hospital and get another hemodialysis tomorrow. Spoke with drawer hardware worker Dr. Damon. Vital signs are within normal limit. Labs are unremarkable. DVT Prophylaxis: SQ heparin Code Status: Full Code. Continue to follow. History Interval history: Patient was seen and evaluated this morning Patient said he is not feeling well He said he is drained, very weak and has some shortness of breath On supplemental oxygen Hospitalist Physical - Physical exam Narrative exam: Not in cardiopulmonary distress. The patient appeared well nourished and normally developed. Vital signs as documented. Head exam is unremarkable. No scleral icterus . Neck is without jugular venous distension, thyromegaly, or carotid bruits. Lungs are clear to auscultation. Cardiac exam reveals regular rate and Rhythm. Abdominal exam reveals normal bowel sounds, nontender, no organomegaly. Extremities are nonedematous and both femoral and pedal pulses are normal. MANAGER OF SUSTAINABILITY: Alert and oriented 3. No focal weakness. - Constitutional Vitals: Temp Pulse Resp BP Pulse Ox 98.7 F 69 20 135/73 99 05/22/22 22:00 05/23/22 07:33 05/22/22 22:00 05/23/22 07:33 05/23/22 06:00 General appearance: Present: no acute distress, well-nourished Results - Labs CBC & Chem 7: 05/22/22 02:09 05/22/22 02:09 Labs: Laboratory Last Values WBC 6.9 K/mm3 (4.5-11.0) 05/22/22 02:09 RBC 2.91 M/mm3 (3.65-5.03) L 05/22/22 02:09 Hgb 9.2 gm/dl (11.8-15.2) L 05/22/22 02:09 Hct 27.7 % (35.5-45.6) L 05/22/22 02:09 MCV 95 fl (84-94) H 05/22/22 02:09 MCH 32 pg (28-32) 05/22/22 02:09 MCHC 33 % (32-34) 05/22/22 02:09 RDW 17.3 % (13.2-15.2) H 05/22/22 02:09 Plt Count 117 K/mm3 (140-440) L 05/22/22 02:09 PT 14.3 Sec. (12.2-14.9) 05/22/22 02:09 INR 1.00 (0.87-1.13) 05/22/22 02:09 Sodium 142 mmol/L (137-145) 05/22/22 02:09 Potassium 4.3 mmol/L (3.6-5.0) 05/22/22 02:09 Chloride 95.0 mmol/L (98-107) L 05/22/22 02:09 Carbon Dioxide 25 mmol/L (22-30) 05/22/22 02:09 Anion Gap 26 mmol/L 05/22/22 02:09 BUN 106 mg/dL (9-20) H 05/22/22 02:09 Creatinine 22.2 mg/dL (0.8-1.3) H 05/22/22 02:09 Estimated GFR 3 ml/min 05/22/22 02:09 BUN/Creatinine Ratio 5 % 05/22/22 02:09 Glucose 87 mg/dL (75-100) 05/22/22 02:09 Calcium 9.5 mg/dL (8.4-10.2) 05/22/22 02:09 NT-Pro-B Natriuret Pep > 02206 pg/mL (0-450) H 05/22/22 02:09 Hepatitis A IgM Ab Non-reactive (NonReactive) 05/22/22 09:40 Hep Bs Antigen Non-reactive (Negative) 05/22/22 09:40 Hep B Core IgM Ab Non-reactive (NonReactive) 05/22/22 09:40 Hepatitis C Antibody Non-reactive (NonReactive) 05/22/22 09:40 Mckeon/IV: Voiding Method Toilet Active Medications - Current Medications Current Medications: Generic Name Dose Route Start Last Admin Trade Name Freq PRN Reason Stop Dose Admin Acetaminophen 650 mg 05/22/22 04:08 Acetaminophen 325 Mg Tab PO Q4H PRN Pain MILD(1-3)/Fever >100.5/GRAJEDA Amlodipine Besylate 10 mg 05/22/22 10:00 05/23/22 09:29 Amlodipine 10 Mg Tab PO 10 mg DAILY [facility] Administration Atorvastatin Calcium 20 mg 05/22/22 22:00 05/22/22 22:28 Atorvastatin 20 Mg Tab PO 20 mg QHS [facility] Administration Carvedilol 25 mg 05/22/22 10:00 05/23/22 09:29 Carvedilol 25 Mg Tab PO 25 mg BID [facility] Administration Clonidine HCl 0.2 mg 05/22/22 09:00 05/23/22 09:29 Clonidine 0.2 Mg Tab PO 0.2 mg TID [facility] Administration Dextrose 0 ml 05/22/22 04:08 Dextrose 50% In Water (25gm) 50 Ml Syringe IV Q30MIN PRN Hypoglycemia Protocol Diphenhydramine HCl 25 mg 05/22/22 04:53 05/22/22 22:32 Diphenhydramine 50 Mg/Ml Vial IV 25 mg Q6H PRN Administration Itching Epoetin Sd-epbx 10,000 unit 05/22/22 08:00 05/22/22 10:52 Epoetin Sd-Epbx 10,000 Unit/1 Ml Vial SUB-Q 10,000 unit BUSTER PRN Administration hemodialysis Guaifenesin 20 ml 05/22/22 08:00 05/22/22 22:05 Guaifenesin Dm 200/20 Mg Oral Liqd 10 Ml PO 20 ml Q4H PRN Administration Cough Heparin Sodium (Porcine) 5,000 unit 05/22/22 06:00 05/23/22 08:07 Heparin 5,000 Unit/1 Ml Vial SUB-Q Not Given Q8HR [facility] Heparin Sodium (Porcine) 3,000 unit 05/22/22 08:00 Heparin 10,000 Units/10 Ml Vial IV BUSTER PRN hemodialysis Hydralazine HCl 25 mg 05/22/22 14:00 05/23/22 07:33 Hydralazine 25 Mg Tab PO 25 mg Q8HR [facility] Administration Sodium Chloride 100 mls @ 999 mls/hr 05/22/22 08:00 Nacl 0.9% IV BUSTER PRN Hypotension Insulin Human Lispro 0 unit 05/22/22 07:30 05/23/22 09:24 Insulin Lispro 100 Unit/Ml SUB-Q Not Given ACHS [facility] Protocol Magnesium Hydroxide 30 ml 05/22/22 04:08 Magnesium Hydroxide (Mom) Oral Liqd Udc PO Q4H PRN Constipation Morphine Sulfate 2 mg 05/22/22 04:08 05/22/22 23:49 Morphine 2 Mg/1 Ml Inj IV 2 mg Q4H PRN Administration Pain, Moderate (4-6) Morphine Sulfate 4 mg 05/22/22 04:08 Morphine 4 Mg/1 Ml Inj IV Q4H PRN Pain , Severe (7-10) Ondansetron HCl 4 mg 05/22/22 04:08 Ondansetron 4 Mg/2 Ml Inj IV Q8H PRN Nausea And Vomiting Sodium Chloride 10 ml 05/22/22 10:00 05/23/22 09:29 Sodium Chloride 0.9% 10 Ml Flush Syringe IV 10 ml BID [facility] Administration Sodium Chloride 10 ml 05/22/22 04:08 Sodium Chloride 0.9% 10 Ml Flush Syringe IV PRN PRN LINE FLUSH
--- NOTE | 2022-05-23 12:48 | Progress Note ---
Assessment and Plan 1. ESRD: Patient is on maintenance hemodialysis three times a week, MWF schedule. Meds dosage based on GFR. Hemodialysis: 05/22. HD today. 2. FEN: Volume overload, UF with HD tolerated. Diet non-compliance, counseled to limit salt and fluid intake. Strict renal diet. Binders as prescribed. Monitor lytes and volume status. 3. Acute resp distress, POA: Likely 2/2 pulmonary edema. Volume control with HD. Supplemental O2 as needed. 4. Uncontrolled HTN: Volume control thru HD. Adjust meds as needed. Monitor BP. Advised to limit salt and fluid intake. 5. H/o CHF: Monitor. 6. Anemia, POA: Epogen with HD as needed. 7. Tortuous AVF: No difficulty in using the AVF. Patient was advised to see Vascular outpatient. Subjective: Patient was seen and examined at the bedside. General Appearance: General appearance: well-developed, appears stated age, no distress EENT: ATNC, OSIRIS, hearing intact, vision intact Neck: neck supple, trachea midline Respiratory: ctab Heart: regular, S1S2, no murmur Abdomen: soft, NT, BS heard Integumentary: no obvious rash Neurologic: AO, able to move extremities Ext: 1+ LE edema noted Hemodialysis access: R arm tortuous AVF Subjective Date of service: 05/23/22 Objective - Vital Signs Vital signs: Vital Signs - 12hr 05/23/22 05/23/22 06:00 07:33 Pulse Rate 69 Blood Pressure 135/73 O2 Sat by Pulse 99 Oximetry - Lab 05/22/22 02:09 05/22/22 02:09 Most recent lab results Calcium 9.5 mg/dL (8.4-10.2) 05/22/22 02:09 Medications & Allergies - Medications Allergies/Adverse Reactions: Allergies No Known Allergies Allergy (Verified 03/11/22 08:27) Home Medications: Home Medications Medication Instructions Recorded Confirmed Last Taken Type Albuterol Mdi (or & Nicu Only) 90 mcg INHALATION QDAY PRN #1 03/18/22 05/22/22 0 05/21/22 Rx Amiodarone [Cordarone 200 MG TAB] 200 mg PO DAILY tablet 03/18/22 05/22/22 05/21/22 Rx AtorvaSTATin [Lipitor] 20 mg PO QHS 30 Days #30 tab 03/18/22 05/22/22 05/21/22 Rx amLODIPine 10 mg PO DAILY #30 tablet 03/18/22 05/22/22 05/21/22 Rx carvediloL [Coreg] 25 mg PO BID #60 tablet 03/18/22 05/22/22 05/21/22 Rx cloNIDine [Catapres] 0.2 mg PO TID 30 Days #90 tab 03/18/22 05/22/22 05/21/22 Rx hydrALAZINE [Apresoline TAB] 25 mg PO Q8HR #60 tablet 03/18/22 05/22/22 05/21/22 Rx Active Medications: Generic Name Dose Route Start Last Admin Trade Name Freq PRN Reason Stop Dose Admin Acetaminophen 650 mg 05/22/22 04:08 Acetaminophen 325 Mg Tab PO Q4H PRN Pain MILD(1-3)/Fever >100.5/GRAJEDA Amlodipine Besylate 10 mg 05/22/22 10:00 05/23/22 09:29 Amlodipine 10 Mg Tab PO 10 mg DAILY [facility] Administration Atorvastatin Calcium 20 mg 05/22/22 22:00 05/22/22 22:28 Atorvastatin 20 Mg Tab PO 20 mg QHS [facility] Administration Carvedilol 25 mg 05/22/22 10:00 05/23/22 09:29 Carvedilol 25 Mg Tab PO 25 mg BID [facility] Administration Clonidine HCl 0.2 mg 05/22/22 09:00 05/23/22 09:29 Clonidine 0.2 Mg Tab PO 0.2 mg TID [facility] Administration Dextrose 0 ml 05/22/22 04:08 Dextrose 50% In Water (25gm) 50 Ml Syringe IV Q30MIN PRN Hypoglycemia Protocol Diphenhydramine HCl 25 mg 05/22/22 04:53 05/22/22 22:32 Diphenhydramine 50 Mg/Ml Vial IV 25 mg Q6H PRN Administration Itching Epoetin Sd-epbx 10,000 unit 05/22/22 08:00 05/22/22 10:52 Epoetin Sd-Epbx 10,000 Unit/1 Ml Vial SUB-Q 10,000 unit BUSTER PRN Administration hemodialysis Guaifenesin 20 ml 05/22/22 08:00 05/22/22 22:05 Guaifenesin Dm 200/20 Mg Oral Liqd 10 Ml PO 20 ml Q4H PRN Administration Cough Heparin Sodium (Porcine) 5,000 unit 05/22/22 06:00 05/23/22 08:07 Heparin 5,000 Unit/1 Ml Vial SUB-Q Not Given Q8HR [facility] Heparin Sodium (Porcine) 3,000 unit 05/22/22 08:00 Heparin 10,000 Units/10 Ml Vial IV BUSTER PRN hemodialysis Hydralazine HCl 25 mg 05/22/22 14:00 05/23/22 07:33 Hydralazine 25 Mg Tab PO 25 mg Q8HR [facility] Administration Sodium Chloride 100 mls @ 999 mls/hr 05/22/22 08:00 Nacl 0.9% IV BUSTER PRN Hypotension Insulin Human Lispro 0 unit 05/22/22 07:30 05/23/22 09:24 Insulin Lispro 100 Unit/Ml SUB-Q Not Given ACHS [facility] Protocol Magnesium Hydroxide 30 ml 05/22/22 04:08 Magnesium Hydroxide (Mom) Oral Liqd Udc PO Q4H PRN Constipation Morphine Sulfate 2 mg 05/22/22 04:08 05/22/22 23:49 Morphine 2 Mg/1 Ml Inj IV 2 mg Q4H PRN Administration Pain, Moderate (4-6) Morphine Sulfate 4 mg 05/22/22 04:08 Morphine 4 Mg/1 Ml Inj IV Q4H PRN Pain , Severe (7-10) Ondansetron HCl 4 mg 05/22/22 04:08 Ondansetron 4 Mg/2 Ml Inj IV Q8H PRN Nausea And Vomiting Sodium Chloride 10 ml 05/22/22 10:00 05/23/22 09:29 Sodium Chloride 0.9% 10 Ml Flush Syringe IV 10 ml BID [facility] Administration Sodium Chloride 10 ml 05/22/22 04:08 Sodium Chloride 0.9% 10 Ml Flush Syringe IV PRN PRN LINE FLUSH
--- NOTE | 2022-05-23 14:06 | Discharge Summary ---
Providers - Providers Date of Admission: 05/22/22 04:08 Date of discharge: 05/23/22 Attending physician: YOLI CASTORENA MD 05/22/22 02:08 Consult to Physician [CONS] Urgent Comment: Dr. Paiz spoke with Dr. King @ [phone] Consulting Provider: JYOTI KING Physician Instructions: Reason For Exam: ESRD Primary care physician: LION RESENDEZ Hospitalization Reason for admission: esrd on HD, dialysis noncompliance Condition: Good Hospital course: 41-year-old -[place] male with known history of end-stage renal disease on dialysisWednesday presenting to the emergency room today complaining of shortness of breath and stating that he has missed his dialysis. Patient indicates that he has been having some lower extremity cramping and swelling over the past few days. He has had some mild cough which is nonproductive. Denies any fever or chills, no chest pain. His last dialysis was about 5 days ago. States he missed his dialysis because he had to attend an interview at [facility]. Patient still makes some urine. Work-up in the emergency room today, labs significant for BUN of 106 and creatinine of 22.2. BNP of 35,000. Hemoglobin of 9.2 hematocrit of 27.7. Chest x-ray significant for pulmonary venous hypertension. Very minimal interstitial pulmonary edema not excluded. Twill Cutter on-call has been consulted by the ER physician. Patient has also received some IV Lasix in the ER. Hospital course Patient was admitted to the hospital and was dialyzed for 2 consecutive days. Patient was doing well. Patient was seen by nephrology. Medications were resumed and blood pressure was well controlled and discharged home in a stable condition. Management plan was discussed with the patient and agreed with the plan of care. Patient was hemodynamically stable at the time of discharge. Disposition: 30 STILL A PATIENT Final Discharge Diagnosis (Prints w/discharge instructions): ESRD on HD. dialysis non compliance Time spent for discharge: 25 minutes - Discharge Diagnoses (1) Noncompliance Status: Acute (2) ESRD needing dialysis Status: Chronic Core Measure Documentation - Palliative Care Palliative Care/ Comfort Measures: Not Applicable - Core Measures Any of the following diagnoses?: none Exam - Physical Exam Narrative exam: Not in cardiopulmonary distress. The patient appeared well nourished and normally developed. Vital signs as documented. Head exam is unremarkable. No scleral icterus . Neck is without jugular venous distension, thyromegaly, or carotid bruits. Lungs are clear to auscultation. Cardiac exam reveals regular rate and Rhythm. Abdominal exam reveals normal bowel sounds, nontender, no organomegaly. Extremities are nonedematous and both femoral and pedal pulses are normal. 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 No focal weakness. - Constitutional Vitals: Temp Pulse Resp BP Pulse Ox 98.7 F 69 20 135/73 99 05/22/22 22:00 05/23/22 07:33 05/22/22 22:00 05/23/22 07:33 05/23/22 06:00 Plan Activity: no restrictions Weight Bearing Status: Full Weight Bearing Diet: renal Follow up with: LION RESENDEZ MD [Primary Care Provider] - 7 Days Forms: Work/School Release Form
[2022-05-23] MEDS: diphenhydrAMINE 50 MG/ML VIAL IV PRN (15:58)
[2022-05-23 18:49] VITALS: BP 121/72
== END 2022-05-23 14:45 | disposition home or self-care (01) | DRG 640 ==
LOC: ED 01:08 → 4A 04:08
PROVIDERS: ADMIT Internal Medicine Geriatric Medicine; ATTEND Internal Medicine
PROC: 5A1D70Z Performance of Urinary Filtration, Intermittent, Less than 6 Hours Per Day (ICD-10-PCS; principal; 2022-05-22)
PROC: 5A1D70Z Performance of Urinary Filtration, Intermittent, Less than 6 Hours Per Day (ICD-10-PCS; 2022-05-23)
DX: E87.70 Fluid overload, unspecified (principal); N18.6 End stage renal disease; I13.2 Hypertensive heart and chronic kidney disease with heart failure and with stage 5 chronic kidney disease, or end stage renal disease; I42.9 Cardiomyopathy, unspecified; I16.0 Hypertensive urgency; I50.9 Heart failure, unspecified; J45.909 Unspecified asthma, uncomplicated; E11.22 Type 2 diabetes mellitus with diabetic chronic kidney disease; Z99.2 Dependence on renal dialysis; F17.200 Nicotine dependence, unspecified, uncomplicated; Z91.15 Patient's noncompliance with renal dialysis; E87.2 Acidosis; R06.03 Acute respiratory distress; I25.2 Old myocardial infarction; Z86.73 Personal history of transient ischemic attack (TIA), and cerebral infarction without residual deficits
CPT/HCPCS: 36415; 71045; 80048; 80074; 83880; 85027; 85610; 93005; G0378; J0885; J1200; J1940; J2270